=== PATIENT | female | born 1990 | race Caucasian/White ===

== ENCOUNTER → 2017-01-13 | Outpatient (CLI) | payer BC ==
--- NOTE | 2017-01-13 16:44 | US ---
EXAMINATION TYPE: US pelvic complete DATE OF EXAM: 01/13/2017 4:10 PM COMPARISON: Previous study dated 06/26/2016 CLINICAL HISTORY: R10.2 Pelvic pain,N91.2 Amenorrhea. Bilateral pelvic pain around cycles TECHNIQUE: TA Date of LMP: 12/25/2016 EXAM MEASUREMENTS: Uterus: 6.3 x 3.7 x 2.3cm Endometrial Stripe: 0.7cm Right Ovary: 3.1 x 2.3 x 2.2cm Left Ovary: 3.6 x 2.6 x 1.7cm TECHNOLOGIST IMPRESSION: 1. Uterus: Anteverted wnl 2. Endometrium: wnl 3. Right Ovary: wnl 4. Left Ovary: wnl 5. Bilateral Adnexa: wnl 6. Posterior cul-de-sac: wnl There is atelectatic changes within the ovaries. IMPRESSION: NORMAL PELVIC ULTRASOUND.
== END | disposition home or self-care (01) ==
LOC: RADUSWWP 15:59
PROVIDERS: ATTEND Obstetrics & Gynecology
DX: R10.2 Pelvic and perineal pain (principal)
CPT/HCPCS: 76856

== ENCOUNTER → 2017-07-12 | Outpatient (CLI) | payer OTHER ==
--- NOTE | 2017-07-12 13:55 | US ---
EXAMINATION TYPE: US pelvic complete DATE OF EXAM: 07/12/2017 COMPARISON: US [id number] CLINICAL HISTORY: Pelvic pain R10.2. LLQ noted by patient on pelvic exam; TECHNIQUE: Transabdominal (TA) Date of LMP: 07/04/2017 EXAM MEASUREMENTS: Uterus: 6.0 x 3.1 x 2.5 cm Endometrial Stripe: 0.5 cm Right Ovary: 3.7 x 3.0 x 2.3 cm Left Ovary: 4.1 x 1.8 x 1.9 cm 1. Uterus: Anteverted 2. Endometrium: thickness is wnl for day 9LMP 3. Right Ovary: multiple small follicles with largest = 0.8 x 0.7 x 0.6cm 4. Left Ovary: multiple small follicles Spectral, color and waveform Doppler imaging shows good arterial and venous flow within the ovaries ; there is no evidence for ovarian torsion. 5. Bilateral Adnexa: wnl 6. Posterior cul-de-sac: small amount of free fluid noted = 0.8 x 1.0 x 1.1cm IMPRESSION: 1. Normal pelvic ultrasound. 2. Bilateral ovarian follicles.. 3. Small moderate free fluid within the pelvis.
== END | disposition home or self-care (01) ==
LOC: RADUSWWP 11:48
PROVIDERS: ATTEND Obstetrics & Gynecology
DX: R10.2 Pelvic and perineal pain (principal)
CPT/HCPCS: 76856; 93975

== ENCOUNTER 2017-08-15 12:09 | Emergency (ER) | payer OTHER ==
[2017-08-15 12:22] VITALS: BP 101/66; PULSE 100; RESP 18; TEMP 99.1
--- NOTE | 2017-08-15 12:54 | ED ---
General Adult HPI - General Chief complaint: Extremity Injury, Lower Stated complaint: Right Foot Injury Time Seen by Provider: 08/15/17 12:30 Source: patient, RN notes reviewed Mode of arrival: ambulatory Limitations: no limitations - History of Present Illness Initial comments: Patient is 26-year-old female who presents emergency room today with a chief complaint of injury to the right foot that occurred yesterday while she was dancing. She states that she lost her balance falling backwards and twisting the right foot. Patient states pain locally over the top of the right foot worse with certain movements and ambulation. She denies any other complaints or symptoms. Patient denies any recent fever, chills, shortness of breath, chest pain, back pain, abdominal pain, nausea or vomiting, numbness or tingling , dysuria or hematuria, constipation or diarrhea, headaches or visual changes, or any other complaints. - Related Data Home Medications Medication Instructions Recorded Confirmed INSULIN LISPRO (humaLOG) [humaLOG] See Protocol SQ AC-TID 11/11/14 08/15/17 Insulin Glargine [Lantus] 28 unit SQ HS 11/11/14 08/15/17 Allergies Allergy/AdvReac Type Severity Reaction Status Date / Time No Known Allergies Allergy Verified 08/15/17 12:41 Review of Systems ROS Statement: Those systems with pertinent positive or pertinent negative responses have been documented in the HPI. ROS Other: All systems not noted in ROS Statement are negative. Past Medical History Past Medical History: Diabetes Mellitus Additional Past Medical History / Comment(s): Dx 2008 History of Any Multi-Drug Resistant Organisms: None Reported Past Surgical History: Adenoidectomy, Tonsillectomy Additional Past Surgical History / Comment(s): sinus balloon plasty Additional Past Anesthesia/Blood Transfusion Reaction / Comment(s): no transfusions Past Psychological History: Anxiety Smoking Status: Never smoker Past Alcohol Use History: Occasional Past Drug Use History: None Reported - Past Family History Mother Family Medical History: No Reported History Father Family Medical History: No Reported History General Exam - General Exam Comments Initial Comments: General: The patient is awake and alert, in no distress, and does not appear acutely ill. Neck: The neck is supple, there is no tenderness or JVD. Cardiovascular: There is a regular rate and rhythm. No murmur, rub or gallop is appreciated. Respiratory: Lungs are clear to auscultation, respirations are non-labored, breath sounds are equal. No wheezes, stridor, rales, or rhonchi. Musculoskeletal: Mild swelling to the right foot. Patient does have tenderness over the distal second through fifth metatarsals. Mild tenderness over the second through fourth proximal metatarsal. No tenderness to the malleolus bilateral. Mild tenderness in the ATFL. Sensations intact pulses equal bilateral 2+. Patient shows limited range of motion both plantar and dorsiflexion due to pain. No tenderness down to the digits. Mild tenderness to the fibular head. Neurological: A&O x 3. CN II-XII intact, There are no obvious motor or sensory deficits. Coordination appears grossly intact. Speech is normal. Skin: Skin is warm and dry and no rashes or lesions are noted. Psychiatric: Normal mood and affect. Limitations: no limitations Course Vital Signs 08/15/17 12:18 Temperature 99.1 F Pulse Rate 100 Respiratory 18 Rate Blood Pressure 101/66 O2 Sat by Pulse 100 Oximetry Procedures - Procedures Initial comment: Posterior short leg OCL placed. Neurovascular rechecked and intact. Medical Decision Making - Medical Decision Making Patient's x-ray reviewed does show fracture of the fourth metatarsal possible fractures of both the second and third proximal metatarsals. Case was discussed with attending physician Dr. Montano who discussed with on-call orthopedic doctor Dr. Lucas recommends following up in the office tomorrow with Dr. Freedman recommends bulky splint with nonweightbearing. Patient will be given crutches. Has been told no weightbearing. Advised to continue ice elevate the affected area and follow-up with orthopedics tomorrow. Disposition Clinical Impression: Foot fracture Disposition: HOME SELF-CARE Condition: Good Instructions: Foot Fracture in Adults (ED) Additional Instructions: Please use crutches with nonweightbearing. Please follow-up with orthopedic tomorrow. Please see splinted in place until follow-up appointment. Please continue to ice elevate the affected area. Please return for any other concerns. Referrals: Nonstaff,Physician [Primary Care Provider] - 1-2 days Cameron Freedman MD [Medical Doctor] - 1-2 days Time of Disposition: 13:38
--- NOTE | 2017-08-15 13:09 | XR ---
EXAMINATION TYPE: XR ankle complete RT , 3 VIEWS DATE OF EXAM ORDERED: 08/15/2017 HISTORY: Pain. COMPARISON: None. FINDINGS: No fracture, dislocation or ankle joint effusion is seen. IMPRESSION: NORMAL RIGHT ANKLE.
--- NOTE | 2017-08-15 13:11 | XR ---
EXAMINATION TYPE: XR foot complete RT , 3 VIEWS DATE OF EXAM ORDERED: 08/15/2017 HISTORY: Pain. COMPARISON: None. FINDINGS: There is a minimally displaced fracture through the base of the fourth metatarsal. There i s a more questionable fracture involving the base of the third metatarsal. There is some soft tissue swelling over the dorsum of the foot. IMPRESSION: MINIMALLY DISPLACED FRACTURES OF THE BASE OF BOTH THE THIRD AND FOURTH METATARSAL.
== END 2017-08-15 13:55 | disposition home or self-care (01) ==
LOC: EC 12:09
DX: S92.341A Displaced fracture of fourth metatarsal bone, right foot, initial encounter for closed fracture (principal); E11.9 Type 2 diabetes mellitus without complications; Z79.4 Long term (current) use of insulin; W01.0XXA Fall on same level from slipping, tripping and stumbling without subsequent striking against object, initial encounter; Y93.41 Activity, dancing
CPT/HCPCS: 29515; 99283

== ENCOUNTER 2017-09-12 15:32 | Inpatient (IN) | payer BC, OTHER ==
[2017-09-12] MEDS ORDERED: SODIUM CHLORIDE 0.9% 2,000 ML IV STA (17:12)
[2017-09-12] MEDS ORDERED: ONDANSETRON 4 MG/2 ML VIAL IVP STA (17:12)
[2017-09-12] MEDS ORDERED: PANTOPRAZOLE 40 MG/10 ML VIAL IVP STA (17:13)
[2017-09-12 17:26] LABS: Glucose,Whole Blood 322 mg/dL (75-99)
[2017-09-12 17:38] LABS: Basophils # (A) 0.1 k/uL (0-0.2); Basophils % (A) 0 %; CH 31.7; CHCM 34.1; Eosinophils % (A) 0 %; HCT 43.7 % (34.0-46.0); HDW 3.06; HGB 14.9 gm/dL (11.4-16.0); Luc # (Auto) 0.09; Luc % (Auto) 1; Lymphocytes # (A) 1.1 k/uL (1.0-4.8); Lymphocytes % (A) 6 %; MCH 31.8 pg (25.0-35.0); MCHC 34.1 g/dL (31.0-37.0); MCV 93.2 fL (80.0-100.0); Mean Platelet Volume 7.2; Monocytes # (A) 0.7 k/uL (0-1.0); Monocytes % (A) 4 %; Neutrophils # (A) 16.9 k/uL (1.3-7.7); Neutrophils % (A) 89 %; RBC 4.69 m/uL (3.80-5.40); WBC 18.9 k/uL (3.8-10.6); WBC (Perox) 17.27
[2017-09-12 17:45] LABS: VBG PH 7.19 (7.31-7.41)
[2017-09-12 17:48] LABS: ALT 23 U/L (9-52); AST 20 U/L (14-36); Alkaline Phosphatase 145 U/L (38-126); Amylase 87 U/L (30-110); Anion Gap 34 mmol/L; Blood Urea Nitrogen 11 mg/dL (7-17); Calcium 9.7 mg/dL (8.4-10.2); Chloride 102 mmol/L (98-107); Glucose 361 mg/dL (74-99); Non-African American GFR(MDRD) >60 (>60 ml/min/1.73 sqM); Potassium 3.8 mmol/L (3.5-5.1); Sodium 143 mmol/L (137-145); Total Bilirubin 0.7 mg/dL (0.2-1.3); Total Protein 8.9 g/dL (6.3-8.2)
[2017-09-12 17:50] LABS: Carbon Dioxide 7 mmol/L (22-30)
[2017-09-12] MEDS ORDERED: INSULIN REGULAR BOLUS (FROM DRIP BAG) IV ONE (17:51)
[2017-09-12] MEDS ORDERED: METOCLOPRAMIDE 5 MG/ML 2 ML VIAL IVP STA (17:53)
[2017-09-12] MEDS ORDERED: HYDROmorphone 0.5 MG/0.5 ML SYRINGE IVP STA (17:53)
[2017-09-12] MEDS ORDERED: SODIUM CHLORIDE 0.9% 1,000 ML IV SCH (18:00)
--- NOTE | 2017-09-12 18:07 | ED ---
Nausea/Vomiting/Diarrhea HPI - General Chief complaint: Nausea/Vomiting/Diarrhea Stated complaint: Vomiting/Diff Breathing Time Seen by Provider: 09/12/17 17:06 Source: patient, family, RN notes reviewed Mode of arrival: wheelchair Limitations: no limitations - History of Present Illness Initial comments: This a 27-year-old female presents emergency Department chief complaint nausea vomiting abdominal discomfort. Patient states that she's been vomiting over the last 15 hours. Patient states that her blood sugars have been labile. Patient is concerned that she is in DKA. Patient states that she's had it several times in the past. She does not use an insulin pump she states she gives herself injections. 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 Patient denies fever, chills, headache or dizziness. Patient states she's is very nauseated and Vomiting. Patient's Last Blood Sugar Was around 300. - Related Data Home Medications Medication Instructions Recorded Confirmed INSULIN LISPRO (humaLOG) [humaLOG] See Protocol SQ AC-TID 11/11/14 09/12/17 Insulin Glargine [Lantus] 28 unit SQ HS 11/11/14 09/12/17 Allergies Allergy/AdvReac Type Severity Reaction Status Date / Time No Known Allergies Allergy Verified 09/12/17 16:57 Review of Systems ROS Statement: Those systems with pertinent positive or pertinent negative responses have been documented in the HPI. ROS Other: All systems not noted in ROS Statement are negative. Past Medical History Past Medical History: Diabetes Mellitus Additional Past Medical History / Comment(s): Dx 2008 History of Any Multi-Drug Resistant Organisms: None Reported Past Surgical History: Adenoidectomy, Tonsillectomy Additional Past Surgical History / Comment(s): sinus balloon plasty Additional Past Anesthesia/Blood Transfusion Reaction / Comment(s): no transfusions Past Psychological History: Anxiety Smoking Status: Never smoker Past Alcohol Use History: Occasional Past Drug Use History: None Reported - Past Family History Mother Family Medical History: No Reported History Father Family Medical History: No Reported History General Exam Limitations: no limitations General appearance: alert, in no apparent distress Head exam: Present: atraumatic, normocephalic, normal inspection Eye exam: Present: normal appearance, PERRL, EOMI. Absent: scleral icterus, conjunctival injection, periorbital swelling ENT exam: Present: normal exam, normal oropharynx, mucous membranes moist, TM's normal bilaterally, normal external ear exam Neck exam: Present: normal inspection, full ROM. Absent: tenderness, meningismus, lymphadenopathy Respiratory exam: Present: normal lung sounds bilaterally. Absent: respiratory distress, wheezes, rales, rhonchi, stridor Cardiovascular Exam: Present: normal rhythm, tachycardia, normal heart sounds. Absent: systolic murmur, diastolic murmur, rubs, gallop, clicks GI/Abdominal exam: Present: soft, tenderness (Moderate diffuse), normal bowel sounds. Absent: distended, guarding, rebound, rigid Back exam: Absent: CVA tenderness (R), CVA tenderness (L) Neurological exam: Present: alert, oriented X3, CN II-XII intact Skin exam: Present: warm, dry, intact, normal color. Absent: rash Course Vital Signs 09/12/17 15:37 Pulse Rate 110 H Respiratory 18 Rate Blood Pressure 122/83 O2 Sat by Pulse 100 Oximetry Medical Decision Making - Lab Data Result diagrams: 09/12/17 17:22 09/12/17 17:22 Lab Results 09/12/17 09/12/17 09/12/17 Range/Units 16:58 17:22 17:22 WBC 18.9 H (3.8-10.6) k/uL RBC 4.69 (3.80-5.40) m/uL Hgb 14.9 (11.4-16.0) gm/dL Hct 43.7 (34.0-46.0) % MCV 93.2 (80.0-100.0) fL MCH 31.8 (25.0-35.0) pg MCHC 34.1 (31.0-37.0) g/dL RDW 13.0 (11.5-15.5) % Plt Count 332 (150-450) k/uL Neutrophils % 89 % Lymphocytes % 6 % Monocytes % 4 % Eosinophils % 0 % Basophils % 0 % Neutrophils # 16.9 H (1.3-7.7) k/uL Lymphocytes # 1.1 (1.0-4.8) k/uL Monocytes # 0.7 (0-1.0) k/uL Eosinophils # 0.0 (0-0.7) k/uL Basophils # 0.1 (0-0.2) k/uL VBG pH (7.31-7.41) VBG pCO2 (37-51) mmHg VBG HCO3 (24-28) mmol/L Sodium 143 (137-145) mmol/L Potassium 3.8 (3.5-5.1) mmol/L Chloride 102 (98-107) mmol/L Carbon Dioxide 7 L* (22-30) mmol/L Anion Gap 34 mmol/L BUN 11 (7-17) mg/dL Creatinine 0.71 (0.52-1.04) mg/dL Est GFR (MDRD) Af Amer >60 (>60 ml/min/1.73 sqM) Est GFR (MDRD) Non-Af >60 (>60 ml/min/1.73 sqM) Glucose 361 H (74-99) mg/dL POC Glucose (mg/dL) 322 H (75-99) mg/dL POC Glu Senior Health Educator ID Radha Bradshaw Calcium 9.7 (8.4-10.2) mg/dL Total Bilirubin 0.7 (0.2-1.3) mg/dL AST 20 (14-36) U/L ALT 23 (9-52) U/L Alkaline Phosphatase 145 H (38-126) U/L Total Protein 8.9 H (6.3-8.2) g/dL Albumin 5.4 H (3.5-5.0) g/dL Amylase 87 (30-110) U/L Lipase 37 (23-300) U/L Acetone, Qual Positive (Negative) 09/12/17 Range/Units 17:22 WBC (3.8-10.6) k/uL RBC (3.80-5.40) m/uL Hgb (11.4-16.0) gm/dL Hct (34.0-46.0) % MCV (80.0-100.0) fL MCH (25.0-35.0) pg MCHC (31.0-37.0) g/dL RDW (11.5-15.5) % Plt Count (150-450) k/uL Neutrophils % % Lymphocytes % % Monocytes % % Eosinophils % % Basophils % % Neutrophils # (1.3-7.7) k/uL Lymphocytes # (1.0-4.8) k/uL Monocytes # (0-1.0) k/uL Eosinophils # (0-0.7) k/uL Basophils # (0-0.2) k/uL VBG pH 7.19 L* (7.31-7.41) VBG pCO2 25 L (37-51) mmHg VBG HCO3 9 L* (24-28) mmol/L Sodium (137-145) mmol/L Potassium (3.5-5.1) mmol/L Chloride (98-107) mmol/L Carbon Dioxide (22-30) mmol/L Anion Gap mmol/L BUN (7-17) mg/dL Creatinine (0.52-1.04) mg/dL Est GFR (MDRD) Af Amer (>60 ml/min/1.73 sqM) Est GFR (MDRD) Non-Af (>60 ml/min/1.73 sqM) Glucose (74-99) mg/dL POC Glucose (mg/dL) (75-99) mg/dL POC Glu Senior Health Educator ID Calcium (8.4-10.2) mg/dL Total Bilirubin (0.2-1.3) mg/dL AST (14-36) U/L ALT (9-52) U/L Alkaline Phosphatase (38-126) U/L Total Protein (6.3-8.2) g/dL Albumin (3.5-5.0) g/dL Amylase (30-110) U/L Lipase (23-300) U/L Acetone, Qual (Negative) Disposition Clinical Impression: Diabetic ketoacidosis Disposition: ADMITTED IP TO THIS [facility] Condition: Fair Referrals: Michael Post MD [Primary Care Provider] - 1-2 days
[2017-09-12 18:54] LABS: Glucose,Whole Blood 344 mg/dL (75-99)
[2017-09-12] MEDS: INSULIN REGULAR 100 UNIT in SODIUM CHLORIDE 0.9% 100 ML IV SCH (19:00)
[2017-09-12 19:39] LABS: Glucose,Whole Blood 315 mg/dL (75-99)
[2017-09-12 20:17] VITALS: BMI 26.2
[2017-09-12 20:50] LABS: Glucose,Whole Blood 258 mg/dL (75-99)
[2017-09-12 20:55] LABS: Appearance,Urine Clear (Clear); Bilirubin,Urine Negative (Negative); Glucose,Urine (UA) 4+ (Negative); Leukocyte Esterase,Urine Negative (Negative); Nitrite,Urine Negative (Negative); PH, Urine 5.5 (5.0-8.0); Particle Count 642; Protein,Urine 1+ (Negative); RBC,Urine 2 /hpf (0-5); Specific Gravity,Urine 1.019 (1.001-1.035); Squamous Epithelial Cell,Urine <1 /hpf (0-4); UA Billing (MACRO vs. MICRO) MICRO; Urobilinogen,Urine <2.0 mg/dL (<2.0); WBC,Urine 1 /hpf (0-5)
[2017-09-12 20:59] LABS: Ketones,Urine 4+ (Negative)
[2017-09-12] MEDS: D5-0.45% NACL WITH KCL 20MEQ/L 1,000 ML IV SCH (21:24)
[2017-09-12 21:32] LABS: Glucose,Whole Blood 228 mg/dL (75-99)
[2017-09-12] MEDS: BENZOCAINE/MENTHOL LOZENG 1 EACH LOZENGE MUCOUS MEM PRN (22:14)
[2017-09-12 22:16] LABS: Anion Gap 24 mmol/L; Blood Urea Nitrogen 10 mg/dL (7-17); Chloride 114 mmol/L (98-107); Glucose 205 mg/dL (74-99); Non-African American GFR(MDRD) >60 (>60 ml/min/1.73 sqM); Phosphorous 1.9 mg/dL (2.5-4.5); Sodium 147 mmol/L (137-145)
[2017-09-12] MEDS: HYDROmorphone 0.5 MG/0.5 ML SYRINGE IVP PRN (22:18)
[2017-09-12 22:26] LABS: Glucose,Whole Blood 191 mg/dL (75-99)
[2017-09-12 22:33] LABS: Carbon Dioxide 9 mmol/L (22-30)
[2017-09-12] MEDS ORDERED: Potassium Replacement Protocol 1 EACH MISC MISCELLANE PRN (22:46)
[2017-09-12] MEDS: POTASSIUM CHLORIDE ORAL LIQUID 40 MEQ/30 ML CUP NG-TUBE SCH (23:06)
[2017-09-12 23:16] LABS: Glucose,Whole Blood 188 mg/dL (75-99)
[2017-09-12] MEDS: METOCLOPRAMIDE 5 MG/ML 2 ML VIAL IVP SCH (23:18)
[2017-09-13 00:21] LABS: Glucose,Whole Blood 223 mg/dL (75-99)
[2017-09-13] MEDS: POTASSIUM CHLORIDE ORAL LIQUID 40 MEQ/30 ML CUP NG-TUBE SCH (00:23)
[2017-09-13 01:09] LABS: Glucose,Whole Blood 239 mg/dL (75-99)
[2017-09-13 01:21] LABS: Anion Gap 17 mmol/L; Blood Urea Nitrogen 10 mg/dL (7-17); Chloride 115 mmol/L (98-107); Glucose 252 mg/dL (74-99); Non-African American GFR(MDRD) >60 (>60 ml/min/1.73 sqM); Phosphorous 2.3 mg/dL (2.5-4.5); Potassium 3.5 mmol/L (3.5-5.1); Sodium 142 mmol/L (137-145)
[2017-09-13] MEDS: HYDROmorphone 0.5 MG/0.5 ML SYRINGE IVP PRN (01:29)
[2017-09-13 01:31] LABS: Carbon Dioxide 10 mmol/L (22-30)
[2017-09-13 02:26] LABS: Glucose,Whole Blood 216 mg/dL (75-99)
[2017-09-13 03:35] LABS: Glucose,Whole Blood 221 mg/dL (75-99)
[2017-09-13 04:08] LABS: Glucose,Whole Blood 184 mg/dL (75-99)
[2017-09-13] MEDS: D5-0.45% NACL WITH KCL 20MEQ/L 1,000 ML IV SCH ×2 (04:22→10:12)
[2017-09-13 05:13] LABS: Glucose,Whole Blood 143 mg/dL (75-99)
[2017-09-13] MEDS: METOCLOPRAMIDE 5 MG/ML 2 ML VIAL IVP SCH ×3 (05:35→17:09)
[2017-09-13 06:17] LABS: Glucose,Whole Blood 124 mg/dL (75-99)
[2017-09-13 06:30] LABS: Basophils % (A) 0 %; CHCM 34.9; Eosinophils % (A) 0 %; HCT 34.3 % (34.0-46.0); HDW 2.99; Luc # (Auto) 0.08; Luc % (Auto) 1; Lymphocytes # (A) 1.5 k/uL (1.0-4.8); Lymphocytes % (A) 12 %; MCH 31.1 pg (25.0-35.0); MCHC 33.8 g/dL (31.0-37.0); MCV 92.2 fL (80.0-100.0); Mean Platelet Volume 6.5; Monocytes # (A) 0.7 k/uL (0-1.0); Monocytes % (A) 6 %; Neutrophils # (A) 10.2 k/uL (1.3-7.7); Neutrophils % (A) 81 %; RBC 3.72 m/uL (3.80-5.40); RDW 13.1 % (11.5-15.5); WBC 12.5 k/uL (3.8-10.6); WBC (Perox) 12.37
[2017-09-13 06:36] LABS: HGB 11.6 gm/dL (11.4-16.0)
[2017-09-13] MEDS: INSULIN REGULAR 100 UNIT in SODIUM CHLORIDE 0.9% 100 ML IV SCH (06:42)
[2017-09-13 06:51] LABS: ALT 18 U/L (9-52); AST 13 U/L (14-36); Alkaline Phosphatase 86 U/L (38-126); Anion Gap 9 mmol/L; Blood Urea Nitrogen 9 mg/dL (7-17); Calcium 8.4 mg/dL (8.4-10.2); Carbon Dioxide 17 mmol/L (22-30); Chloride 117 mmol/L (98-107); Glucose 141 mg/dL (74-99); Magnesium 1.8 mg/dL (1.6-2.3); Non-African American GFR(MDRD) >60 (>60 ml/min/1.73 sqM); Potassium 3.6 mmol/L (3.5-5.1); Sodium 143 mmol/L (137-145); Total Bilirubin 0.2 mg/dL (0.2-1.3); Total Protein 6.1 g/dL (6.3-8.2)
[2017-09-13 07:04] LABS: Glucose,Whole Blood 113 mg/dL (75-99)
[2017-09-13 08:15] LABS: Glucose,Whole Blood 118 mg/dL (75-99)
[2017-09-13] MEDS ORDERED: ONDANSETRON 4 MG/2 ML VIAL IVP PRN (08:23)
[2017-09-13] MEDS: BENZOCAINE/MENTHOL LOZENG 1 EACH LOZENGE MUCOUS MEM PRN ×2 (10:07→16:59)
[2017-09-13] MEDS ORDERED: INSULIN GLARGINE 100 UNIT/ML 10 ML VIAL SQ ONE (10:10)
[2017-09-13] MEDS ORDERED: SODIUM CHLORIDE 0.9% 1,000 ML IV SCH (10:15)
[2017-09-13 10:56] LABS: Hemoglobin A1C 11.8 % (4.2-6.1)
--- NOTE | 2017-09-13 11:17 | P.NPCON ---
History of Present Illness - Reason for Consult metabolic acidosis - History of Present Illness Reason for consultation: Hypophosphatemia History of present illness: Patient is a 27-year-old female seen in renal consultation for hypophosphatemia. Patient presented to the hospital with elevated blood sugars. Patient states last few days her blood sugars have been quite labile and were in the 300s at the time of admission. She was noted to be extremely acidotic with an elevated anion gap and has been treated per DKA protocol. She is now off insulin drip. Her oral intake has been poor the last few days she's also been having quite a bit of nausea and vomiting. Patient denies any vomiting today. She has started drinking fluids and is gradually starting to eat as well. She denies any chest pain or shortness of breath. Denies any diarrhea. She did have abdominal discomfort from the vomiting which is now improved as well. Her anion gap this morning is 9. Phosphorus level was noted to be low at 1.0. She admits to good urine output. No hematuria or dysuria. States she was diagnosed with diabetes in 2008. Vital signs are stable. General: The patient appeared well nourished and normally developed. HEENT: Head exam is unremarkable. Neck is without jugular venous distension. LUNGS: Lungs are clear to auscultation and percussion. Breath sounds decreased. HEART: Rate and Rhythm are regular. First and second heart sounds normal. No murmurs, rubs or gallops. ABDOMEN: Abdominal exam reveals normal bowel sounds. Non-tender and non- distended. No evidence of peritonitis. EXTREMITITES: No clubbing, cyanosis, or edema. Past Medical History Past Medical History: Diabetes Mellitus Additional Past Medical History / Comment(s): Dx 2008 History of Any Multi-Drug Resistant Organisms: None Reported Past Surgical History: Adenoidectomy, Tonsillectomy Additional Past Surgical History / Comment(s): sinus balloon plasty Additional Past Anesthesia/Blood Transfusion Reaction / Comment(s): no transfusions Past Psychological History: Anxiety Smoking Status: Never smoker Past Alcohol Use History: Occasional Past Drug Use History: None Reported - Past Family History Mother Family Medical History: No Reported History Father Family Medical History: No Reported History Medications and Allergies Home Medications Medication Instructions Recorded Confirmed Type INSULIN LISPRO (humaLOG) [humaLOG] See Protocol SQ AC-TID 11/11/14 09/12/17 History Insulin Glargine [Lantus] 28 unit SQ HS 11/11/14 09/12/17 History Allergies Allergy/AdvReac Type Severity Reaction Status Date / Time No Known Allergies Allergy Verified 09/12/17 16:57 Physical Exam Vitals: Vital Signs Temp Pulse Pulse Resp BP BP Pulse Ox 09/13/17 08:00 98.9 F 107 H 16 113/67 99 09/13/17 04:00 97.5 F L 110 H 16 105/64 98 09/13/17 00:00 105 H 16 103/68 96 09/12/17 20:00 115 H 09/12/17 19:57 97.8 F 115 H 16 132/62 100 09/12/17 19:11 99.0 F 114 H 16 102/55 99 09/12/17 15:37 110 H 18 122/83 100 Intake and Output 09/12/17 09/13/17 09/13/17 22:59 06:59 14:59 Intake Total 18.60 82.400 1030 Balance 18.60 82.400 1030 Intake: Intake, IV Titration 18.60 82.400 550 Amount D5-0.45% NaCl with KCl 450 20Meq/l 1,000 ml @ 150 mls/hr IV .[id number] [facility] Rx# :[id number] Insulin Regular 100 unit 18.60 82.400 In Sodium Chloride 0.9% 100 ml @ 0.1 UNITS/KG/HR 6.18 mls/hr IV .[id number] [facility] Rx#:[id number] Sodium Chloride 0.9% 1, 100 000 ml @ 100 mls/hr IV . Q10H [facility] Rx#:[id number] Oral 480 Other: # Voids 1 1 Weight 65 kg 65.1 kg Results - Lab Results Most recent lab results Calcium 8.4 mg/dL (8.4-10.2) 09/13/17 05:16 Phosphorus 1.0 mg/dL (2.5-4.5) L* 09/13/17 05:16 Magnesium 1.8 mg/dL (1.6-2.3) 09/13/17 05:16 09/13/17 05:16 09/13/17 05:16 Assessment and Plan Plan: Assessment: #1. Hypophosphatemia secondary to poor oral intake as well as intracellular shifting from the insulin as well as correcting acidosis. Phosphorus level I.0 this morning. Rule out vitamin D deficiency. #2. Diabetic ketoacidosis now off insulin drip. Plan: 20 mmol of K-Phos IV today. I will also add Neutra-Phos 3 times a day. Recheck electrolytes tomorrow morning. Encourage oral intake. Check vitamin D level and PTH. Thank you for the consultation. I will continue to follow the patient with you during her hospital stay.
[2017-09-13] MEDS ORDERED: Phosphorus Replacement Protoco 1 EACH MISC MISCELLANE PRN (11:31)
[2017-09-13] MEDS: POTAS-SOD-PHOS 278-164-250 MG 1 EACH PACKET PO SCH ×2 (11:53→16:59)
--- NOTE | 2017-09-13 11:55 | P.HPIM ---
History of Present Illness H&P Date: 09/13/17 Chief Complaint: DKA This is 27 years old female with past medical history significant for diabetes type 1 presents to the hospital with the new onset DKA and the significant nausea vomiting and abdominal pain. 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 The patient seems to be back at baseline at this point stated that she started feeling lethargic but was able to tolerate liquid diet and insulin drip was turned off. The patient denied any recent upper respiratory infection denied any dysuria or urinary symptoms denied any cough or shortness of breath. Review of Systems 14 systems reviewed and negative except as above Past Medical History Past Medical History: Diabetes Mellitus Additional Past Medical History / Comment(s): Dx 2008 History of Any Multi-Drug Resistant Organisms: None Reported Past Surgical History: Adenoidectomy, Tonsillectomy Additional Past Surgical History / Comment(s): sinus balloon plasty Additional Past Anesthesia/Blood Transfusion Reaction / Comment(s): no transfusions Past Psychological History: Anxiety Smoking Status: Never smoker Past Alcohol Use History: Occasional Past Drug Use History: None Reported - Past Family History Mother Family Medical History: No Reported History Father Family Medical History: No Reported History Medications and Allergies Home Medications Medication Instructions Recorded Confirmed Type INSULIN LISPRO (humaLOG) [humaLOG] See Protocol SQ AC-TID 11/11/14 09/12/17 History Insulin Glargine [Lantus] 28 unit SQ HS 11/11/14 09/12/17 History Allergies Allergy/AdvReac Type Severity Reaction Status Date / Time No Known Allergies Allergy Verified 09/12/17 16:57 Physical Exam Vitals: Vital Signs Temp Pulse Pulse Resp BP BP Pulse Ox 09/13/17 11:33 101 H 16 09/13/17 08:00 98.9 F 107 H 16 113/67 99 09/13/17 04:00 97.5 F L 110 H 16 105/64 98 09/13/17 00:00 105 H 16 103/68 96 09/12/17 20:00 115 H 09/12/17 19:57 97.8 F 115 H 16 132/62 100 09/12/17 19:11 99.0 F 114 H 16 102/55 99 09/12/17 15:37 110 H 18 122/83 100 Intake and Output 09/12/17 09/13/17 09/13/17 22:59 06:59 14:59 Intake Total 18.60 82.400 1030 Balance 18.60 82.400 1030 Intake: Intake, IV Titration 18.60 82.400 550 Amount D5-0.45% NaCl with KCl 450 20Meq/l 1,000 ml @ 150 mls/hr IV .[id number] [facility] Rx# :[id number] Insulin Regular 100 unit 18.60 82.400 In Sodium Chloride 0.9% 100 ml @ 0.1 UNITS/KG/HR 6.18 mls/hr IV .[id number] [facility] Rx#:[id number] Sodium Chloride 0.9% 1, 100 000 ml @ 100 mls/hr IV . Q10H [facility] Rx#:[id number] Oral 480 Other: # Voids 1 1 Weight 65 kg 65.1 kg General stated age in no acute distress Lungs clear to auscultation bilaterally Heart normal S1-S2 normal rubs or gallops Abdomen soft not [facility] for [facility] Lower extremity no edema Skin no new rash Psych alert and oriented 3 Neuro cranial nerves II through XII intact no murmur detected that he flexes and sensation Results CBC & Chem 7: 09/13/17 05:16 09/13/17 05:16 Labs: Abnormal Lab Results - Last 24 Hours (Table) 09/12/17 09/12/17 09/12/17 Range/Units 16:58 17:22 17:22 WBC 18.9 H (3.8-10.6) k/uL RBC (3.80-5.40) m/uL Neutrophils # 16.9 H (1.3-7.7) k/uL VBG pH (7.31-7.41) VBG pCO2 (37-51) mmHg VBG HCO3 (24-28) mmol/L Sodium (137-145) mmol/L Potassium (3.5-5.1) mmol/L Chloride (98-107) mmol/L Carbon Dioxide 7 L* (22-30) mmol/L Glucose 361 H (74-99) mg/dL POC Glucose (mg/dL) 322 H (75-99) mg/dL Hemoglobin A1c (4.2-6.1) % Phosphorus (2.5-4.5) mg/dL AST (14-36) U/L Alkaline Phosphatase 145 H (38-126) U/L Total Protein 8.9 H (6.3-8.2) g/dL Albumin 5.4 H (3.5-5.0) g/dL Urine Protein (Negative) Urine Glucose (UA) (Negative) Urine Ketones (Negative) Urine Blood (Negative) 09/12/17 09/12/17 09/12/17 Range/Units 17:22 18:48 19:24 WBC (3.8-10.6) k/uL RBC (3.80-5.40) m/uL Neutrophils # (1.3-7.7) k/uL VBG pH 7.19 L* (7.31-7.41) VBG pCO2 25 L (37-51) mmHg VBG HCO3 9 L* (24-28) mmol/L Sodium (137-145) mmol/L Potassium (3.5-5.1) mmol/L Chloride (98-107) mmol/L Carbon Dioxide (22-30) mmol/L Glucose (74-99) mg/dL POC Glucose (mg/dL) 344 H 315 H (75-99) mg/dL Hemoglobin A1c (4.2-6.1) % Phosphorus (2.5-4.5) mg/dL AST (14-36) U/L Alkaline Phosphatase (38-126) U/L Total Protein (6.3-8.2) g/dL Albumin (3.5-5.0) g/dL Urine Protein (Negative) Urine Glucose (UA) (Negative) Urine Ketones (Negative) Urine Blood (Negative) 09/12/17 09/12/17 09/12/17 Range/Units 20:25 20:39 21:06 WBC (3.8-10.6) k/uL RBC (3.80-5.40) m/uL Neutrophils # (1.3-7.7) k/uL VBG pH (7.31-7.41) VBG pCO2 (37-51) mmHg VBG HCO3 (24-28) mmol/L Sodium (137-145) mmol/L Potassium (3.5-5.1) mmol/L Chloride (98-107) mmol/L Carbon Dioxide (22-30) mmol/L Glucose (74-99) mg/dL POC Glucose (mg/dL) 258 H 228 H (75-99) mg/dL Hemoglobin A1c (4.2-6.1) % Phosphorus (2.5-4.5) mg/dL AST (14-36) U/L Alkaline Phosphatase (38-126) U/L Total Protein (6.3-8.2) g/dL Albumin (3.5-5.0) g/dL Urine Protein 1+ H (Negative) Urine Glucose (UA) 4+ H (Negative) Urine Ketones 4+ H (Negative) Urine Blood Trace H (Negative) 09/12/17 09/12/17 09/12/17 Range/Units 21:41 22:18 23:03 WBC (3.8-10.6) k/uL RBC (3.80-5.40) m/uL Neutrophils # (1.3-7.7) k/uL VBG pH (7.31-7.41) VBG pCO2 (37-51) mmHg VBG HCO3 (24-28) mmol/L Sodium 147 H (137-145) mmol/L Potassium 3.0 L* (3.5-5.1) mmol/L Chloride 114 H (98-107) mmol/L Carbon Dioxide 9 L* (22-30) mmol/L Glucose 205 H (74-99) mg/dL POC Glucose (mg/dL) 191 H 188 H (75-99) mg/dL Hemoglobin A1c (4.2-6.1) % Phosphorus 1.9 L (2.5-4.5) mg/dL AST (14-36) U/L Alkaline Phosphatase (38-126) U/L Total Protein (6.3-8.2) g/dL Albumin (3.5-5.0) g/dL Urine Protein (Negative) Urine Glucose (UA) (Negative) Urine Ketones (Negative) Urine Blood (Negative) 09/13/17 09/13/17 09/13/17 Range/Units 00:07 00:37 01:07 WBC (3.8-10.6) k/uL RBC (3.80-5.40) m/uL Neutrophils # (1.3-7.7) k/uL VBG pH (7.31-7.41) VBG pCO2 (37-51) mmHg VBG HCO3 (24-28) mmol/L Sodium (137-145) mmol/L Potassium (3.5-5.1) mmol/L Chloride 115 H (98-107) mmol/L Carbon Dioxide 10 L* (22-30) mmol/L Glucose 252 H (74-99) mg/dL POC Glucose (mg/dL) 223 H 239 H (75-99) mg/dL Hemoglobin A1c (4.2-6.1) % Phosphorus 2.3 L (2.5-4.5) mg/dL AST (14-36) U/L Alkaline Phosphatase (38-126) U/L Total Protein (6.3-8.2) g/dL Albumin (3.5-5.0) g/dL Urine Protein (Negative) Urine Glucose (UA) (Negative) Urine Ketones (Negative) Urine Blood (Negative) 09/13/17 09/13/17 09/13/17 Range/Units 02:04 03:15 04:02 WBC (3.8-10.6) k/uL RBC (3.80-5.40) m/uL Neutrophils # (1.3-7.7) k/uL VBG pH (7.31-7.41) VBG pCO2 (37-51) mmHg VBG HCO3 (24-28) mmol/L Sodium (137-145) mmol/L Potassium (3.5-5.1) mmol/L Chloride (98-107) mmol/L Carbon Dioxide (22-30) mmol/L Glucose (74-99) mg/dL POC Glucose (mg/dL) 216 H 221 H 184 H (75-99) mg/dL Hemoglobin A1c (4.2-6.1) % Phosphorus (2.5-4.5) mg/dL AST (14-36) U/L Alkaline Phosphatase (38-126) U/L Total Protein (6.3-8.2) g/dL Albumin (3.5-5.0) g/dL Urine Protein (Negative) Urine Glucose (UA) (Negative) Urine Ketones (Negative) Urine Blood (Negative) 09/13/17 09/13/17 09/13/17 Range/Units 05:11 05:16 05:16 WBC (3.8-10.6) k/uL RBC (3.80-5.40) m/uL Neutrophils # (1.3-7.7) k/uL VBG pH (7.31-7.41) VBG pCO2 (37-51) mmHg VBG HCO3 (24-28) mmol/L Sodium (137-145) mmol/L Potassium (3.5-5.1) mmol/L Chloride 117 H (98-107) mmol/L Carbon Dioxide 17 L (22-30) mmol/L Glucose 141 H (74-99) mg/dL POC Glucose (mg/dL) 143 H (75-99) mg/dL Hemoglobin A1c 11.8 H (4.2-6.1) % Phosphorus 1.0 L* (2.5-4.5) mg/dL AST 13 L (14-36) U/L Alkaline Phosphatase (38-126) U/L Total Protein 6.1 L (6.3-8.2) g/dL Albumin 3.4 L (3.5-5.0) g/dL Urine Protein (Negative) Urine Glucose (UA) (Negative) Urine Ketones (Negative) Urine Blood (Negative) 09/13/17 09/13/17 09/13/17 Range/Units 05:16 06:11 07:00 WBC 12.5 H (3.8-10.6) k/uL RBC 3.72 L (3.80-5.40) m/uL Neutrophils # 10.2 H (1.3-7.7) k/uL VBG pH (7.31-7.41) VBG pCO2 (37-51) mmHg VBG HCO3 (24-28) mmol/L Sodium (137-145) mmol/L Potassium (3.5-5.1) mmol/L Chloride (98-107) mmol/L Carbon Dioxide (22-30) mmol/L Glucose (74-99) mg/dL POC Glucose (mg/dL) 124 H 113 H (75-99) mg/dL Hemoglobin A1c (4.2-6.1) % Phosphorus (2.5-4.5) mg/dL AST (14-36) U/L Alkaline Phosphatase (38-126) U/L Total Protein (6.3-8.2) g/dL Albumin (3.5-5.0) g/dL Urine Protein (Negative) Urine Glucose (UA) (Negative) Urine Ketones (Negative) Urine Blood (Negative) 09/13/17 Range/Units 08:00 WBC (3.8-10.6) k/uL RBC (3.80-5.40) m/uL Neutrophils # (1.3-7.7) k/uL VBG pH (7.31-7.41) VBG pCO2 (37-51) mmHg VBG HCO3 (24-28) mmol/L Sodium (137-145) mmol/L Potassium (3.5-5.1) mmol/L Chloride (98-107) mmol/L Carbon Dioxide (22-30) mmol/L Glucose (74-99) mg/dL POC Glucose (mg/dL) 118 H (75-99) mg/dL Hemoglobin A1c (4.2-6.1) % Phosphorus (2.5-4.5) mg/dL AST (14-36) U/L Alkaline Phosphatase (38-126) U/L Total Protein (6.3-8.2) g/dL Albumin (3.5-5.0) g/dL Urine Protein (Negative) Urine Glucose (UA) (Negative) Urine Ketones (Negative) Urine Blood (Negative) Thrombosis Risk Factor Assmnt - DVT/VTE Prophylaxis DVT/VTE Prophylaxis: Mechanical Prophylaxis ordered - Choose All That Apply Any of the Below Risk Factors Present?: No Assessment and Plan Assessment: 1. DKA 2. Leukocytosis 3. Severe dehydration 4. Intractable nausea and vomiting 5. None comprehends with medication 6. Generalized weakness 7. Low phosphorous Patient was weaned off the insulin drip 32] baseline patient is tolerating diet and I would like to consult nephrology for further evaluation with phosphorous replacement and I would like to encourage oral intake continue IV fluid switch it to normal saline at this point and introduce her Lantus dose at this moment with the half dose 14 to be resumed at the nighttime patient said that she has supplies at home and would like to go home sreedhar and samanta introduced with the nursing staff when I discussed with the patient that she can go home if she is tolerating diet and her sugar is less than 200 patient is agreeable to the current treatment plan and will consider discharging patient's upon improvement
[2017-09-13 11:58] LABS: Glucose,Whole Blood 150 mg/dL (75-99)
[2017-09-13] MEDS: POTASSIUM PHOSPHATE 10 MMOL in SODIUM CHLORIDE 0.9% 250 ML IV SCH ×2 (14:18→16:59)
[2017-09-13] MEDS: INSULIN LISPRO (humaLOG) 300 UNIT/3 ML VIAL SQ SCH ×2 (14:19→17:09)
[2017-09-13 16:52] LABS: Glucose,Whole Blood 190 mg/dL (75-99)
[2017-09-13 18:14] VITALS: BP 110/65; PULSE 82; RESP 14; TEMP 97.9
[2017-09-13] MEDS ORDERED: INSULIN GLARGINE 100 UNIT/ML 10 ML VIAL SQ SCH (21:00)
== END 2017-09-13 19:30 | disposition home or self-care (01) | DRG 639 ==
LOC: EC 15:32 → 6SEL 19:13
PROVIDERS: ADMIT Internal Medicine; ATTEND Internal Medicine
DX: E10.10 Type 1 diabetes mellitus with ketoacidosis without coma (principal); E83.39 Other disorders of phosphorus metabolism; D72.829 Elevated white blood cell count, unspecified; E86.0 Dehydration; F41.9 Anxiety disorder, unspecified; Z79.4 Long term (current) use of insulin; R19.7 Diarrhea, unspecified
CPT/HCPCS: 36415; 80051; 80053; 81001; 81025; 82009; 82150; 82306; 82565; 82803; 82947; 83036; 83690; 83735; 83970; 84100; 84520; 85025; 93005; 96361; 96374; 96375; 99285

== ENCOUNTER 2019-08-21 16:16 | Emergency (ER) | payer BC ==
[2019-08-21 16:24] VITALS: BP 134/96; PULSE 96; RESP 18; TEMP 98
--- NOTE | 2019-08-21 17:24 | ED ---
Extremity Problem HPI - General Chief complaint: Extremity Problem,Nontraumatic Stated complaint: toe infection Time Seen by Provider: 08/21/19 16:26 Source: patient Mode of arrival: ambulatory Limitations: no limitations - History of Present Illness Initial comments: Patient is a 29-year-old female, with past medical history of DM1, presenting to emergency Department with complaints of pain in her right big toe 2 days. Patient states she went to [facility] yesterday and they told her she has an ingrown toenail and started her on Keflex and Bactrim. They told her if her symptoms worsen to come in to the ER. Patient states she noticed some increased swelling in her right foot today and wanted to be seen. Patient denies fever, chills, nausea, vomiting. Patient has no further complaints at this time. Upon arrival to ER, vital signs are stable. - Related Data Home Medications Medication Instructions Recorded Confirmed INSULIN LISPRO (humaLOG) [humaLOG] See Protocol SQ AC-TID 11/11/14 08/21/19 Insulin Glargine [Lantus] 26 unit SQ HS 11/11/14 08/21/19 Cephalexin [Keflex] 500 mg PO QID 08/21/19 08/21/19 Sulfamethox-Tmp 800-160Mg [Bactrim 1 tab PO BID 08/21/19 08/21/19 DS 800-160 mg] Allergies Allergy/AdvReac Type Severity Reaction Status Date / Time mold Allergy Dyspnea Verified 08/21/19 16:47 Review of Systems ROS Statement: Those systems with pertinent positive or pertinent negative responses have been documented in the HPI. ROS Other: All systems not noted in ROS Statement are negative. Past Medical History Past Medical History: Diabetes Mellitus Additional Past Medical History / Comment(s): Dx 2008 History of Any Multi-Drug Resistant Organisms: None Reported Past Surgical History: Adenoidectomy, Tonsillectomy Additional Past Surgical History / Comment(s): sinus balloon plasty Additional Past Anesthesia/Blood Transfusion Reaction / Comment(s): no transfusions Past Psychological History: Anxiety Smoking Status: Never smoker Past Alcohol Use History: Occasional Past Drug Use History: None Reported - Past Family History Mother Family Medical History: No Reported History Father Family Medical History: No Reported History General Exam - General Exam Comments Initial Comments: GENERAL: Well-appearing, well-nourished and in no acute distress. HEAD: Atraumatic, normocephalic. EYES: Pupils equal round and reactive to light, extraocular movements intact, sclera anicteric, conjunctiva are normal. ENT: TMs normal, nares patent, oropharynx clear without exudates. Moist mucous membranes. NECK: Normal range of motion, supple without lymphadenopathy or JVD. LUNGS: Breath sounds clear to auscultation bilaterally and equal. No wheezes rales or rhonchi. HEART: Regular rate and rhythm without murmurs, rubs or gallops. ABDOMEN: Soft, nontender, normoactive bowel sounds. No guarding, no rebound. No masses appreciated. : Deferred EXTREMITIES: Patient has pain with palpation of the right lateral aspect of the big toe with surrounding erythema and active drainage. Patient has very mild swelling of the dorsal aspect of the right foot. There is no erythema on the right foot. Normal range of motion. No clubbing or cyanosis. NEUROLOGICAL: Cranial nerves II through XII grossly intact. Normal speech, normal gait. PSYCH: Normal mood, normal affect. SKIN: Warm, Dry, normal turgor, no rashes. Limitations: no limitations Course Vital Signs 08/21/19 16:21 Temperature 98.0 F Pulse Rate 96 Respiratory 18 Rate Blood Pressure 134/96 O2 Sat by Pulse 100 Oximetry Medical Decision Making - Medical Decision Making Patient is a 29-year-old female presenting with what appears to be an ingrown toenail on her right great toe. Patient is a type I diabetic. No other pertinent past medical history. Patient has surrounding erythema and active drainage on the lateral aspect of her right big toe. Patient has very mild swelling present the right distal foot. There is no spreading erythema present. Patient is currently on Bactrim and Keflex that was started yesterday. Patient denies fever, chills, nausea, vomiting. There is active draining from the site. It is discussed with patient that she should continue with the Bactrim and Keflex that was started yesterday. Patient will also do warm water soaks multiple times throughout the day. Patient will follow-up with PCP or student records coordinator in the next few days. Strict return parameters were discussed with the patient and she verbalized understanding. Disposition Clinical Impression: Paronychia of great toe, right Disposition: HOME SELF-CARE Condition: Stable Instructions (If sedation given, give patient instructions): Ingrown Nail (ED) Additional Instructions: Please return to the Emergency Department if symptoms worsen or any other concerns. Continue with both antibiotics as discussed. Use warm water soaks multiple times a day as discussed. Is patient prescribed a controlled substance at d/c from ED?: No Referrals: Michael Post MD [Primary Care Provider] - 1-2 days
== END 2019-08-21 17:51 | disposition home or self-care (01) ==
LOC: EC 16:16
DX: L03.031 Cellulitis of right toe (principal); E10.9 Type 1 diabetes mellitus without complications; Z79.4 Long term (current) use of insulin; Z91.048 Other nonmedicinal substance allergy status
CPT/HCPCS: 99283

== ENCOUNTER 2019-12-05 05:50 | Inpatient (IN) | payer BC ==
[2019-12-05] MEDS ORDERED: SODIUM CHLORIDE 0.9% 1,000 ML IV ONE ×2 (06:07→06:37)
[2019-12-05] MEDS ORDERED: SODIUM CHLORIDE 0.9% 500 ML 500 ML IV ONE (06:07)
--- NOTE | 2019-12-05 06:22 | ED ---
Nausea/Vomiting/Diarrhea HPI <Sami Montano - Last Filed: 12/05/19 08:23> - General Source: patient Mode of arrival: ambulatory Limitations: no limitations <Aurea Huggins - Last Filed: 12/05/19 08:40> - General Chief complaint: Nausea/Vomiting/Diarrhea Stated complaint: vomiting, diabetic Time Seen by Provider: 12/05/19 06:04 - History of Present Illness Initial comments: 29-year-old female presenting today for cc of vomiting concern for DKA. Patient states that she has had a URI for the past week as have other in her household, cough and congestion. Patient states that she has had higher than usual blood glucose readings for the past few days, with 2 days of vomiting, SOB that feels similar to when she has had DKA in the past her glucose today was 375. Patient denies chest pain, headache, neck stiffness, sore throat, dysuria or urgency. Admits to increased frequency of urination. Patient remaining ROS (-). Upon arrival patient appears nontoxic. (Aurea Huggins) - Related Data Home Medications Medication Instructions Recorded Confirmed INSULIN LISPRO (humaLOG) [humaLOG] See Protocol SQ AC-TID 11/11/14 12/05/19 Insulin Glargine [Lantus] 26 unit SQ HS 11/11/14 12/05/19 Allergies Allergy/AdvReac Type Severity Reaction Status Date / Time mold AdvReac Dyspnea Verified 12/05/19 07:47 Review of Systems ROS Other: All systems not noted in ROS Statement are negative. <Sami Montano - Last Filed: 12/05/19 08:23> ROS Other: All systems not noted in ROS Statement are negative. <Aurea Huggins - Last Filed: 12/05/19 08:40> ROS Statement: Those systems with pertinent positive or pertinent negative responses have been documented in the HPI. Past Medical History Past Medical History: Diabetes Mellitus Additional Past Medical History / Comment(s): Dx 2009, IBS History of Any Multi-Drug Resistant Organisms: None Reported Past Surgical History: Adenoidectomy, Tonsillectomy Additional Past Surgical History / Comment(s): sinus balloon plasty Additional Past Anesthesia/Blood Transfusion Reaction / Comment(s): no transfusions Past Psychological History: Anxiety Smoking Status: Never smoker Past Alcohol Use History: Occasional Past Drug Use History: None Reported - Past Family History Mother Family Medical History: No Reported History Father Family Medical History: No Reported History <Aurea Huggins - Last Filed: 12/05/19 08:40> General Exam Limitations: no limitations <Aurea Huggins - Last Filed: 12/05/19 08:40> - General Exam Comments Initial Comments: General: The patient is awake and alert Eye: +3 mm pupils are equal, round and reactive to light, extra-ocular movements are intact. No nystagmus. There is normal conjunctiva bilaterally. No signs of icterus. Ears, nose, mouth and throat: There are moist mucous membranes and no oral lesions. Neck: The neck is supple, there is no tenderness or JVD. Cardiovascular: There is a increased rate and rhythm. No murmur, rub or gallop is appreciated. Respiratory: Lungs are clear to auscultation, respirations are non-labored, breath sounds are equal. No wheezes, stridor, rales, or rhonchi. Gastrointestinal: Soft, non-distended, non-tender abdomen without masses or organomegaly noted. There is no rebound or guarding present. Musculoskeletal: Normal ROM, no tenderness. Strength 5/5. Sensation intact. Radial pulses equal bilaterally 2+. Neurological: A&O x 3. CN II-XII intact grossly, There are no obvious motor or sensory deficits. Coordination appears grossly intact. Speech is normal. Skin: Skin is warm and dry and no rashes or lesions are noted. Psychiatric: Cooperative, appropriate mood & affect, normal judgment. (Aurea Huggins) Course Vital Signs 12/05/19 12/05/19 12/05/19 06:00 06:56 08:03 Temperature 98 F Pulse Rate 113 H 119 H 116 H Respiratory 18 20 20 Rate Blood Pressure 92/66 85/63 112/55 O2 Sat by Pulse 99 96 100 Oximetry Medical Decision Making - Lab Data Result diagrams: 12/05/19 06:30 12/05/19 06:30 <Smai Montano - Last Filed: 12/05/19 08:23> - Lab Data Result diagrams: 12/05/19 06:30 12/05/19 06:30 <Aurea Huggins - Last Filed: 12/05/19 08:40> - Medical Decision Making Patient reevaluated by myself, Dr. Montano. Patient resting comfortably in bed. Patient does have dry. Lips and mild diffuse abdominal tenderness. Patient states symptoms started a couple of days ago and has had some nausea vomiting. Patient and family state patient has had similar symptoms previous associated with DKA. Patient and family updated on results and plan. Case was discussed in detail with Dr. Hall, who will admit. Case also discussed Dr. Richmond who will consult for critical care. (Sami Montano) 29yo presenting for vomiting, possible DKA> Found to be acetone +. +ketone consistent with DKA. Patient appears dry on exam, given 1.5L, and maintenance at 200ml/hr. Insulin bolus and drip initiated, K+ and Phosphorus stable. no EKG changes, patient on tele. Patient has URI prior to onset of symptoms, likely inciting event. Influenza (-). CXR (-) . After discussing case with Dr. Montano we will admit patient on telemetry and on insulin drip. Patient agreeable to care plan. Client Support Representative was consulted, Both selective and ICU holding at this time, patient will remain in the ER. 35 minutes of critical care time was spent, taking history, PE, reevaluations, discussing results with admitting/attending providers/patient, care management. (Aurea Huggins) - Lab Data Lab Results 12/05/19 12/05/19 12/05/19 Range/Units 06:24 06:30 06:30 WBC 11.8 H (3.8-10.6) k/uL RBC 4.29 (3.80-5.40) m/uL Hgb 13.3 (11.4-16.0) gm/dL Hct 41.4 (34.0-46.0) % MCV 96.4 (80.0-100.0) fL MCH 31.0 (25.0-35.0) pg MCHC 32.2 (31.0-37.0) g/dL RDW 12.6 (11.5-15.5) % Plt Count 215 (150-450) k/uL Neutrophils % 90 % Lymphocytes % 5 % Monocytes % 3 % Eosinophils % 0 % Basophils % 1 % Neutrophils # 10.6 H (1.3-7.7) k/uL Lymphocytes # 0.6 L (1.0-4.8) k/uL Monocytes # 0.4 (0-1.0) k/uL Eosinophils # 0.0 (0-0.7) k/uL Basophils # 0.1 (0-0.2) k/uL VBG pH (7.31-7.41) VBG pCO2 (37-51) mmHg VBG HCO3 (24-28) mmol/L Sodium 132 L (137-145) mmol/L Potassium 5.5 H (3.5-5.1) mmol/L Chloride 99 (98-107) mmol/L Carbon Dioxide 5 L* (22-30) mmol/L Anion Gap 28 mmol/L BUN 20 H (7-17) mg/dL Creatinine 0.96 (0.52-1.04) mg/dL Est GFR (CKD-EPI)AfAm >90 (>60 ml/min/1.73 sqM) Est GFR (CKD-EPI)NonAf 81 (>60 ml/min/1.73 sqM) Glucose 618 H* (74-99) mg/dL POC Glucose (mg/dL) >600 H (75-99) mg/dL POC Glu Shoe Reconditioner ID Matty Lujan Calcium 8.8 (8.4-10.2) mg/dL Phosphorus 5.2 H (2.5-4.5) mg/dL Magnesium 1.9 (1.6-2.3) mg/dL Total Bilirubin 0.9 (0.2-1.3) mg/dL AST 30 (14-36) U/L ALT 17 (4-34) U/L Alkaline Phosphatase 118 (38-126) U/L Total Protein 7.1 (6.3-8.2) g/dL Albumin 4.0 (3.5-5.0) g/dL Urine Color Urine Appearance (Clear) Urine pH (5.0-8.0) Ur Specific [place] (1.001-1.035) Urine Protein (Negative) Urine Glucose (UA) (Negative) Urine Ketones (Negative) Urine Blood (Negative) Urine Nitrite (Negative) Urine Bilirubin (Negative) Urine Urobilinogen (<2.0) mg/dL Ur Leukocyte Esterase (Negative) Urine RBC (0-5) /hpf Urine WBC (0-5) /hpf Ur Squamous Epith Cells (0-4) /hpf Urine Mucus (None) /hpf Acetone, Qual (Negative) Influenza Type A RNA (Not Detectd) Influenza Type B (PCR) (Not Detectd) 12/05/19 12/05/19 12/05/19 Range/Units 06:30 06:30 06:30 WBC (3.8-10.6) k/uL RBC (3.80-5.40) m/uL Hgb (11.4-16.0) gm/dL Hct (34.0-46.0) % MCV (80.0-100.0) fL MCH (25.0-35.0) pg MCHC (31.0-37.0) g/dL RDW (11.5-15.5) % Plt Count (150-450) k/uL Neutrophils % % Lymphocytes % % Monocytes % % Eosinophils % % Basophils % % Neutrophils # (1.3-7.7) k/uL Lymphocytes # (1.0-4.8) k/uL Monocytes # (0-1.0) k/uL Eosinophils # (0-0.7) k/uL Basophils # (0-0.2) k/uL VBG pH 7.16 L* (7.31-7.41) VBG pCO2 16 L* (37-51) mmHg VBG HCO3 6 L* (24-28) mmol/L Sodium (137-145) mmol/L Potassium (3.5-5.1) mmol/L Chloride (98-107) mmol/L Carbon Dioxide (22-30) mmol/L Anion Gap mmol/L BUN (7-17) mg/dL Creatinine (0.52-1.04) mg/dL Est GFR (CKD-EPI)AfAm (>60 ml/min/1.73 sqM) Est GFR (CKD-EPI)NonAf (>60 ml/min/1.73 sqM) Glucose (74-99) mg/dL POC Glucose (mg/dL) (75-99) mg/dL POC Glu Shoe Reconditioner ID Calcium (8.4-10.2) mg/dL Phosphorus (2.5-4.5) mg/dL Magnesium (1.6-2.3) mg/dL Total Bilirubin (0.2-1.3) mg/dL AST (14-36) U/L ALT (4-34) U/L Alkaline Phosphatase (38-126) U/L Total Protein (6.3-8.2) g/dL Albumin (3.5-5.0) g/dL Urine Color Light Yellow Urine Appearance Clear (Clear) Urine pH 5.0 (5.0-8.0) Ur Specific [place] 1.025 (1.001-1.035) Urine Protein Trace H (Negative) Urine Glucose (UA) 4+ H (Negative) Urine Ketones 4+ H (Negative) Urine Blood Trace H (Negative) Urine Nitrite Negative (Negative) Urine Bilirubin Negative (Negative) Urine Urobilinogen <2.0 (<2.0) mg/dL Ur Leukocyte Esterase Negative (Negative) Urine RBC <1 (0-5) /hpf Urine WBC <1 (0-5) /hpf Ur Squamous Epith Cells <1 (0-4) /hpf Urine Mucus Rare H (None) /hpf Acetone, Qual (Negative) Influenza Type A RNA Not Detected (Not Detectd) Influenza Type B (PCR) Not Detected (Not Detectd) 12/05/19 12/05/19 Range/Units 06:30 07:29 WBC (3.8-10.6) k/uL RBC (3.80-5.40) m/uL Hgb (11.4-16.0) gm/dL Hct (34.0-46.0) % MCV (80.0-100.0) fL MCH (25.0-35.0) pg MCHC (31.0-37.0) g/dL RDW (11.5-15.5) % Plt Count (150-450) k/uL Neutrophils % % Lymphocytes % % Monocytes % % Eosinophils % % Basophils % % Neutrophils # (1.3-7.7) k/uL Lymphocytes # (1.0-4.8) k/uL Monocytes # (0-1.0) k/uL Eosinophils # (0-0.7) k/uL Basophils # (0-0.2) k/uL VBG pH (7.31-7.41) VBG pCO2 (37-51) mmHg VBG HCO3 (24-28) mmol/L Sodium (137-145) mmol/L Potassium (3.5-5.1) mmol/L Chloride (98-107) mmol/L Carbon Dioxide (22-30) mmol/L Anion Gap mmol/L BUN (7-17) mg/dL Creatinine (0.52-1.04) mg/dL Est GFR (CKD-EPI)AfAm (>60 ml/min/1.73 sqM) Est GFR (CKD-EPI)NonAf (>60 ml/min/1.73 sqM) Glucose (74-99) mg/dL POC Glucose (mg/dL) 566 H (75-99) mg/dL POC Glu Shoe Reconditioner ID Angelique Anderson Calcium (8.4-10.2) mg/dL Phosphorus (2.5-4.5) mg/dL Magnesium (1.6-2.3) mg/dL Total Bilirubin (0.2-1.3) mg/dL AST (14-36) U/L ALT (4-34) U/L Alkaline Phosphatase (38-126) U/L Total Protein (6.3-8.2) g/dL Albumin (3.5-5.0) g/dL Urine Color Urine Appearance (Clear) Urine pH (5.0-8.0) Ur Specific [place] (1.001-1.035) Urine Protein (Negative) Urine Glucose (UA) (Negative) Urine Ketones (Negative) Urine Blood (Negative) Urine Nitrite (Negative) Urine Bilirubin (Negative) Urine Urobilinogen (<2.0) mg/dL Ur Leukocyte Esterase (Negative) Urine RBC (0-5) /hpf Urine WBC (0-5) /hpf Ur Squamous Epith Cells (0-4) /hpf Urine Mucus (None) /hpf Acetone, Qual Positive (Negative) Influenza Type A RNA (Not Detectd) Influenza Type B (PCR) (Not Detectd) - EKG Data EKG Comments: Ventricular rate 118 bpm, IA interval 148 ms, QR station 72 ms, QT/QTC 322/451. This is sinus tachycardia. There is no ST elevation or depression noted. No delta wave. Nonspecific T-wave (Aurea Huggins) Disposition <Sami Montano - Last Filed: 12/05/19 08:23> Is patient prescribed a controlled substance at d/c from ED?: No Time of Disposition: 07:42 Decision to Admit Reason: Admit from EC Decision Date: 12/05/19 Decision Time: 07:42 <Aurea Huggins - Last Filed: 12/05/19 08:40> Clinical Impression: Vomiting, DKA (diabetic ketoacidoses), Dehydration Disposition: ADMITTED IP TO THIS [facility] Condition: Serious
[2019-12-05 06:28] LABS: Glucose,Whole Blood >600 mg/dL (75-99)
[2019-12-05] MEDS: SODIUM CHLORIDE 0.9% 1,000 ML IV SCH ×2 (06:30→09:44)
[2019-12-05 06:46] LABS: Basophils # (A) 0.1 k/uL (0-0.2); Basophils % (A) 1 %; Eosinophils % (A) 0 %; HCT 41.4 % (34.0-46.0); HGB 13.3 gm/dL (11.4-16.0); Lymphocytes # (A) 0.6 k/uL (1.0-4.8); Lymphocytes % (A) 5 %; MCHC 32.2 g/dL (31.0-37.0); MCV 96.4 fL (80.0-100.0); Mean Platelet Volume 8.3; Monocytes # (A) 0.4 k/uL (0-1.0); Monocytes % (A) 3 %; Neutrophils # (A) 10.6 k/uL (1.3-7.7); Neutrophils % (A) 90 %; Platelet Count 215 k/uL (150-450); RBC 4.29 m/uL (3.80-5.40); RDW 12.6 % (11.5-15.5); WBC 11.8 k/uL (3.8-10.6)
[2019-12-05 06:51] LABS: VBG PH 7.16 (7.31-7.41)
[2019-12-05 06:56] LABS: Appearance,Urine Clear (Clear); Bilirubin,Urine Negative (Negative); Blood,Urine Trace (Negative); Color,Urine Light Yellow; Glucose,Urine (UA) 4+ (Negative); Leukocyte Esterase,Urine Negative (Negative); Mucus,Urine Rare /hpf; Nitrite,Urine Negative (Negative); Protein,Urine Trace (Negative); RBC,Urine <1 /hpf (0-5); Specific Gravity,Urine 1.025 (1.001-1.035); Squamous Epithelial Cell,Urine <1 /hpf (0-4); Urobilinogen,Urine <2.0 mg/dL (<2.0); WBC,Urine <1 /hpf (0-5)
[2019-12-05] MEDS ORDERED: INSULIN REGULAR BOLUS (FROM DRIP BAG) IV ONE (06:59)
[2019-12-05 07:02] LABS: ALT 17 U/L (4-34); AST 30 U/L (14-36); African American GFR (CKD) >90 (>60 ml/min/1.73 sqM); Alkaline Phosphatase 118 U/L (38-126); Blood Urea Nitrogen 20 mg/dL (7-17); Calcium 8.8 mg/dL (8.4-10.2); Chloride 99 mmol/L (98-107); Magnesium 1.9 mg/dL (1.6-2.3); Non-African American GFR(CKD) 81 (>60 ml/min/1.73 sqM); Phosphorus 5.2 mg/dL (2.5-4.5); Potassium 5.5 mmol/L (3.5-5.1); Sodium 132 mmol/L (137-145); Total Bilirubin 0.9 mg/dL (0.2-1.3); Total Protein 7.1 g/dL (6.3-8.2)
[2019-12-05 07:07] LABS: Anion Gap 28 mmol/L
[2019-12-05 07:09] LABS: Glucose 618 mg/dL (74-99)
[2019-12-05 07:10] LABS: Carbon Dioxide 5 mmol/L (22-30)
[2019-12-05 07:20] LABS: Ketones,Urine 4+ (Negative)
[2019-12-05 07:30] LABS: Glucose,Whole Blood 566 mg/dL (75-99)
[2019-12-05] MEDS: INSULIN REGULAR 100 UNIT in SODIUM CHLORIDE 0.9% 100 ML IV SCH ×2 (07:31→17:04)
[2019-12-05] MEDS ORDERED: MORPHINE SULFATE 2 MG/ML SYRINGE IVP STA (07:42)
[2019-12-05] MEDS ORDERED: ONDANSETRON 4 MG/2 ML VIAL IVP STA (07:42)
--- NOTE | 2019-12-05 08:14 | XR ---
EXAMINATION TYPE: XR chest 2V DATE OF EXAM: 12/05/2019 COMPARISON: Prior chest x-ray dated 06/10/2015 HISTORY: Cough and congestion TECHNIQUE: Frontal and lateral views of the chest are obtained. FINDINGS: There is no focal air space opacity, pleural effusion, or pneumothorax seen. The cardiac silhouette size is within normal limits. The osseous structures are intact. There is bronchial wall thickening. IMPRESSION: Correlate for bronchitis, follow-up as indicated
[2019-12-05 08:58] LABS: Glucose,Whole Blood 474 mg/dL (75-99)
[2019-12-05 09:46] LABS: Glucose,Whole Blood 403 mg/dL (75-99)
[2019-12-05 10:04] LABS: African American GFR (CKD) >90 (>60 ml/min/1.73 sqM); Blood Urea Nitrogen 20 mg/dL (7-17); Chloride 107 mmol/L (98-107); Glucose 475 mg/dL (74-99); Non-African American GFR(CKD) 85 (>60 ml/min/1.73 sqM); Phosphorus 3.9 mg/dL (2.5-4.5); Sodium 137 mmol/L (137-145)
[2019-12-05 10:10] LABS: Anion Gap 23 mmol/L
[2019-12-05 10:19] LABS: Carbon Dioxide 7 mmol/L (22-30)
[2019-12-05 10:48] LABS: Glucose,Whole Blood 330 mg/dL (75-99)
[2019-12-05 10:58] LABS: Amylase 50 U/L (30-110)
[2019-12-05] MEDS: MORPHINE SULFATE 2 MG/ML SYRINGE IVP PRN ×3 (11:17→21:10)
[2019-12-05 11:21] VITALS: BMI 25.9
[2019-12-05 11:52] LABS: Glucose,Whole Blood 257 mg/dL (75-99)
[2019-12-05] MEDS: D5-0.45% NACL WITH KCL 20MEQ/L 1,000 ML IV SCH ×2 (12:05→19:15)
[2019-12-05 12:46] LABS: Glucose,Whole Blood 196 mg/dL (75-99)
--- NOTE | 2019-12-05 13:35 | P.CNPUL ---
History of Present Illness Consult date: 12/05/19 Requesting physician: Belle Hall Reason for consult: other (Acute diabetic ketoacidosis) Chief complaint: Nausea vomiting abdominal pain and elevated blood sugar History of present illness: This is a 29-year-old female with history of type 1 diabetes, compliant with her insulin, however over the last week, the patient came down with symptoms of URI like many other family members were had similar symptoms. Patient developed mostly cough and congestion, and her sugars have been running high in the last few days. She has been complaining of nausea vomiting and vague abdominal discomfort for the last 2 days. Patient was also experiencing increased urination, and when she arrived to the ER, her blood sugar was over 600. She had positive ketones, and she had a significant anion gap metabolic acidosis. Patient was treated for DKA, admitted to the ICU with the diagnosis of acute diabetic ketoacidosis. And I was asked to see her on consultation. Presently the patient is on IV fluids 0.9 normal saline at 200 mL/h, and she is receiving insulin at 6 units per hour. Fluid boluses in the form of 0.9 normal saline were given in the ER. Influenza screening in the ER was negative. Review of Systems Constitutional: Weakness fatigue malaise no fever. No chills at present. HEENT: Denies any earache, no sore throat, she had a week ago symptoms of URI/resolved. Pulmonary: No cough no wheezing no shortness of breath. No chest pain. Cardiac: Denies any palpitations denies any chest pain, denies any syncope. GI: As noted in HPI, mostly nausea vomiting and vague abdominal discomfort. Genitourinary: Frequent urination. No dysuria. No burning sensation on urination. No hematuria. Mus[place] skeletal: Vague aches and pains. Weakness. Psychiatric: Denies any symptoms of active depression. Neurologic: Denies any headache blurred vision or dizziness. Skin: Denies any rashes. Hematologic: Denies any clotting bleeding or bruising. Past Medical History Past Medical History: Diabetes Mellitus, Pneumonia Additional Past Medical History / Comment(s): Current URI, IDDM type II, bilateral retinopathy with injections, DKA, IBS/constipation, bronchitis, febrile seizure at 3 yrs of age History of Any Multi-Drug Resistant Organisms: None Reported Past Surgical History: Adenoidectomy, Tonsillectomy Additional Past Surgical History / Comment(s): sinus balloon plasty, wisdom teeth extractions. Past Anesthesia/Blood Transfusion Reactions: No Reported Reaction Additional Past Anesthesia/Blood Transfusion Reaction / Comment(s): no transfusions Smoking Status: Never smoker - Past Family History Mother Family Medical History: No Reported History Additional Family Medical History / Comment(s): Mother is healthy. Father Family Medical History: No Reported History Additional Family Medical History / Comment(s): Father is healthy Medications and Allergies Home Medications Medication Instructions Recorded Confirmed Type INSULIN LISPRO (humaLOG) [humaLOG] See Protocol SQ AC-TID 11/11/14 12/05/19 History Insulin Glargine [Lantus] 26 unit SQ HS 11/11/14 12/05/19 History Allergies Allergy/AdvReac Type Severity Reaction Status Date / Time mold AdvReac Dyspnea Verified 12/05/19 07:47 Physical Exam Vitals: Vital Signs Temp Pulse Resp BP Pulse Ox 12/05/19 12:00 105 H 19 102/68 12/05/19 11:00 110 H 18 96/60 12/05/19 10:32 98.3 F 110 H 17 95/65 99 12/05/19 09:41 111 H 18 93/62 99 12/05/19 08:03 116 H 20 112/55 100 12/05/19 06:56 119 H 20 85/63 96 12/05/19 06:00 98 F 113 H 18 92/66 99 Intake and Output 12/04/19 12/05/19 12/05/19 22:59 06:59 14:59 Intake Total 377.321 Output Total 900 Balance -522.679 Intake: Intake, IV Titration 377.321 Amount D5-0.45% NaCl with KCl 150 20Meq/l 1,000 ml @ 150 mls/hr IV .[id number] [facility] Rx# :[id number] Insulin Regular 100 unit 27.321 In Sodium Chloride 0.9% 100 ml @ 0.1 UNITS/KG/HR 6.505 mls/hr IV .[id number] [facility] Rx#:[id number] Sodium Chloride 0.9% 1, 200 000 ml @ 200 mls/hr IV . Q5H [facility] Rx#:[id number] Output: Urine 900 Other: Voiding Method Bedside Commode Weight 64.41 kg 64.41 kg Physical Exam: Revealed a 29-year-old female pleasant in no distress. Head: Atraumatic, normocephalic. HEENT:[Neck is supple.] [No neck masses.] [No thyromegaly.] [No JVD.] Chest: [Clear throughout, no crackles, no rhonchi, no wheezes.] Cardiac Exam: [Normal S1 and S2, no S3 gallop, no murmur.] Abdomen: [Soft, slightly tender left upper quadrant on palpation, no rebound, no guarding.] Extremities: [No clubbing, no edema, no cyanosis.] Neurological Exam: [No focal neurologic deficit.] Alert oriented 3. Psychiatric: Normal mood affect and normal mental status examination. Skin: No rashes. Lymphatics: No lymphadenopathy. Musko skeletal no deformities noted limitation range of motion. Muscle strength adequate. Results - Laboratory Findings CBC and BMP: 12/05/19 06:30 12/05/19 08:51 Abnormal lab findings: Abnormal Labs 12/05/19 12/05/19 12/05/19 06:24 06:30 06:30 WBC 11.8 H Neutrophils # 10.6 H Lymphocytes # 0.6 L VBG pH VBG pCO2 VBG HCO3 Sodium 132 L Potassium 5.5 H Carbon Dioxide 5 L* BUN 20 H Glucose 618 H* POC Glucose (mg/dL) >600 H Phosphorus 5.2 H Urine Protein Urine Glucose (UA) Urine Ketones Urine Blood Urine Mucus 12/05/19 12/05/19 12/05/19 06:30 06:30 07:29 WBC Neutrophils # Lymphocytes # VBG pH 7.16 L* VBG pCO2 16 L* VBG HCO3 6 L* Sodium Potassium Carbon Dioxide BUN Glucose POC Glucose (mg/dL) 566 H Phosphorus Urine Protein Trace H Urine Glucose (UA) 4+ H Urine Ketones 4+ H Urine Blood Trace H Urine Mucus Rare H 12/05/19 12/05/19 12/05/19 08:39 08:51 09:41 WBC Neutrophils # Lymphocytes # VBG pH VBG pCO2 VBG HCO3 Sodium Potassium Carbon Dioxide 7 L* BUN 20 H Glucose 475 H POC Glucose (mg/dL) 474 H 403 H Phosphorus Urine Protein Urine Glucose (UA) Urine Ketones Urine Blood Urine Mucus 12/05/19 12/05/1920 10:36 11:41 12:34 WBC Neutrophils # Lymphocytes # VBG pH VBG pCO2 VBG HCO3 Sodium Potassium Carbon Dioxide BUN Glucose POC Glucose (mg/dL) 330 H 257 H 196 H Phosphorus Urine Protein Urine Glucose (UA) Urine Ketones Urine Blood Urine Mucus - Diagnostic Findings Chest x-ray: image reviewed (Chest x-ray no evidence of pneumonia.) Assessment and Plan Assessment: Impression: Acute diabetic ketoacidosis. Most likely triggered by recent URI. Intractable nausea and vomiting secondary to DKA. Severe dehydration. Anion gap metabolic acidosis secondary to DKA. Recommendation: Continue IV fluids in the form of 0.9 normal saline at 200 mL per hour. Continue insulin drip. Continue to follow the protocol/DKA protocol. Will continue to follow while in the ICU. Start the GI and DVT prophylaxis. Time with Patient: Greater than 30
[2019-12-05 13:51] LABS: Glucose,Whole Blood 186 mg/dL (75-99)
--- NOTE | 2019-12-05 13:57 | P.HPIM ---
History of Present Illness H&P Date: 12/05/19 This is a 29-year-old pleasant female patient of Dr. Post, see Dr. Sanchez endocrinology at [facility], history of diabetes mellitus type 1 since June 2000 99H 17, admitted to the emergency room secondary to nausea vomiting and diarrhea. Patient has been sick for the past 2 days, also mom was also sick, seems symptoms, except that they have shared a meal at [employer], for which he also had some salad together. Patient thereafter complaining of abdominal cramps, diarrhea nonbloody, no mucus, she did not skip any of her insulin, she was still taking her Lantus 26 units at at bedtime, and a sliding scale. Sugars were in the 300s, and was found to be in DKA, and was subsequently admitted to ICU. Her last DKA episode was in 2017, with severe dehydration. Patient denies any current dysuria melena or hematuria, no headache, no sinus congestion, patient hasn't seen her spout liner for long- term, however her sugars at home was in the 100s per patient. In the emergency room, influenza test was negative, chest x-ray failed to reveal any infiltrates, ER labs shows hemoglobin of 13, WBC count 11.8, CO2 was 17, blood gases venous shows pH of 716, pCO2 of 16, bicarb of 6 creatinine of 0.9, glucose was 495, liver function test is normal, urinalysis is normal except for ketones. [place] 1.025, 4+ glucose. [place] 1.025, glucose trace proteinuria Review of Systems Constitutional: Reports as per HPI, Reports chills, Denies anorexia, Denies chronic headaches, Denies chronic pain, Denies daytime sleepiness, Denies fatigue, Denies fever, Denies lethargy, Denies malaise, Denies night sweats, Denies poor appetite, Denies sweats, Denies weakness, Denies weight gain, Denies weight loss Ears, nose, mouth and throat: Reports as per HPI, Denies ant. neck pain, Denies bleeding gums, Denies dental pain, Denies dysphagia, Denies epistaxis, Denies headache, Denies hoarseness, Denies mouth pain, Denies nasal congestion, Denies nasal discharge, Denies neck fullness/pressure, Denies neck lump, Denies nose pain, Denies odynophagia, Denies post-nasal drip, Denies sinus pain, Denies sinus pressure, Denies swelling in mouth, Denies swelling in throat, Denies sore throat, Denies vertigo, Denies voice changes Cardiovascular: Reports as per HPI Respiratory: Reports as per HPI, Denies congestion, Denies cough, Denies cough with sputum, Denies dyspnea, Denies excessive sputum, Denies hemoptysis, Denies home oxygen, Denies pain, Denies pain on inspiration, Denies pleurisy, Denies respiratory infections, Denies sleep apnea, Denies snoring, Denies wheezing Gastrointestinal: Reports as per HPI, Reports abdominal pain, Reports diarrhea, Reports indigestion, Reports nausea, Reports vomiting, Denies belching, Denies bloating, Denies BRBPR, Denies change in bowel habits, Denies coffee ground emesis, Denies constipation, Denies early satiety, Denies excessive gas, Denies heartburn, Denies hematemesis, Denies hematochezia, Denies jaundice, Denies lactose intolerance, Denies loss of appetite, Denies melena Genitourinary: Reports as per HPI, Denies abnormal vaginal bleeding, Denies decreased libido, Denies difficulty conceiving, Denies difficulty voiding, Denies dysmenorrhea, Denies dyspareunia, Denies dysuria, Denies flank pain, Denies genital sores, Denies hematuria, Denies hot flashes, Denies incomplete emptying, Denies kidney stones, Denies menorrhagia, Denies mixed incontinence, Denies nocturia, Denies pelvic pain, Denies post void dribbling, Denies , Denies prolapse symptoms, Denies stress incontinence, Denies urge incontinence, Denies urgency, Denies urinary frequency, Denies vaginal di scharge, Denies vaginal dryness, Denies vaginal itching, Denies vaginal odor Menstruation: Reports as per HPI, Denies amenorrhea, Denies amenorrhea on BC, Denies currently menstrual, Denies cycle < 21 days, Denies cycle > 35 days, Denies cycle variable, Denies menses 1-7 days, Denies menses 8 or > days, Denies menses variable, Denies period heavy, Denies period light, Denies period normal, Denies period spotting, Denies post hysterectomy, Denies postmenopausal, Denies premenarcheal Musculoskeletal: Reports as per HPI, Denies arm numbness/tingling, Denies atrophy, Denies fractures, Denies frequent falls, Denies gait dysfunction, Denies hot joints, Denies leg numbness/tingling, Denies limitation of motion, Denies loss of height, Denies low back pain, Denies morning stiffness, Denies muscle cramps, Denies muscle weakness, Denies myalgias, Denies neck pain, Denies neck stiffness, Denies prior amputations, Denies redness of joints, Denies sh ooting arm pain, Denies shooting leg pain Integumentary: Reports as per HPI, Denies acne, Denies boils, Denies brittle nails, Denies change in hair/nails, Denies color changes, Denies darkening of skin, Denies depigmentation, Denies dryness, Denies foot/leg ulcers, Denies gr owths, Denies hirsutism, Denies lesions, Denies onychomycosis, Denies pruritus, Denies rash, Denies sores, Denies striae, Denies unusual bruising, Denies wounds Neurological: Reports as per HPI, Denies aphasia, Denies ataxia, Denies balance difficulties, Denies burning pain, Denies change in mentation, Denies change in smell/taste, Denies change in speech, Denies confusion, Denies convulsions, Denies double vision, Denies gait dysfunction, Denies head injury, Denies head aches, Denies hearing difficulties, Denies lack of coordination, Denies loss of vision, Denies memory loss, Denies migraines, Denies motor disturbance, Denies numbness, Denies paralysis, Denies paresthesias, Denies seizures, Denies sensory deficit, Denies spasticity, Denies syncope, Denies tic, Denies tingling, Denies transient paralysis, Denies tremors, Denies vertigo, Denies weakness, Denies vis ual changes Psychiatric: Reports as per HPI Endocrine: Reports as per HPI Hematologic/Lymphatic: Reports as per HPI, Denies easy bleeding, Denies easy bruising, Denies lymphadenopathy, Denies lymphedema, Denies thrombophilia Allergic/Immunologic: Reports as per HPI Past Medical History Past Medical History: Diabetes Mellitus, Pneumonia Additional Past Medical History / Comment(s): Current URI, IDDM type II, bilateral retinopathy with injections, DKA, IBS/constipation, bronchitis, febrile seizure at 3 yrs of age History of Any Multi-Drug Resistant Organisms: None Reported Past Surgical History: Adenoidectomy, Tonsillectomy Additional Past Surgical History / Comment(s): sinus balloon plasty, wisdom teeth extractions. Past Anesthesia/Blood Transfusion Reactions: No Reported Reaction Additional Past Anesthesia/Blood Transfusion Reaction / Comment(s): no transfusions Smoking Status: Never smoker - Past Family History Mother Family Medical History: No Reported History Additional Family Medical History / Comment(s): Mother is healthy. Father Family Medical History: No Reported History Additional Family Medical History / Comment(s): Father is healthy Medications and Allergies Home Medications Medication Instructions Recorded Confirmed Type INSULIN LISPRO (humaLOG) [humaLOG] See Protocol SQ AC-TID 11/11/14 12/05/19 History Insulin Glargine [Lantus] 26 unit SQ HS 11/11/14 12/05/19 History Allergies Allergy/AdvReac Type Severity Reaction Status Date / Time mold AdvReac Dyspnea Verified 12/05/19 07:47 Physical Exam Vitals: Vital Signs Temp Pulse Resp BP Pulse Ox 12/05/19 12:00 105 H 19 102/68 12/05/19 11:00 110 H 18 96/60 12/05/19 10:32 98.3 F 110 H 17 95/65 99 12/05/19 09:41 111 H 18 93/62 99 12/05/19 08:03 116 H 20 112/55 100 12/05/19 06:56 119 H 20 85/63 96 12/05/19 06:00 98 F 113 H 18 92/66 99 Intake and Output 12/04/19 12/05/19 12/05/19 22:59 06:59 14:59 Intake Total 377.321 Output Total 900 Balance -522.679 Intake: Intake, IV Titration 377.321 Amount D5-0.45% NaCl with KCl 150 20Meq/l 1,000 ml @ 150 mls/hr IV .[id number] SIMONA Rx# :[id number] Insulin Regular 100 unit 27.321 In Sodium Chloride 0.9% 100 ml @ 0.1 UNITS/KG/HR 6.505 mls/hr IV .[id number] SIMONA Rx#:[id number] Sodium Chloride 0.9% 1, 200 000 ml @ 200 mls/hr IV . Q5H SIMONA Rx#:[id number] Output: Urine 900 Other: Voiding Method Bedside Commode Weight 64.41 kg 64.41 kg - Constitutional General appearance: average body habitus, cooperative, no acute distress - EENT Eyes: anicteric sclerae, EOMI, PERRLA, dentition normal, normal appearance ENT: NA/AT, normal oropharynx - Neck Neck: normal ROM - Respiratory Respiratory: bilateral: CTA, negative: diminished, dullness, rales - Cardiovascular Rhythm: regular Heart sounds: normal: S1, S2 Abnormal Heart Sounds: no systolic murmur, no diastolic murmur, no rub, no S3 Gallop, no S4 Gallop, no click, no other - Gastrointestinal General gastrointestinal: normal bowel sounds Localized gastrointestinal: tender: diffuse - Integumentary Integumentary: decreased turgor, normal - Neurologic Neurologic: CNII-XII intact - Musculoskeletal Musculoskeletal: gait normal, strength equal bilaterally - Psychiatric Psychiatric: A&O x's 3, appropriate affect, intact judgment & insight Results CBC & Chem 7: 12/05/19 06:30 12/05/19 08:51 Labs: Abnormal Lab Results - Last 24 Hours (Table) 12/05/19 12/05/19 12/05/19 Range/Units 06:24 06:30 06:30 WBC 11.8 H (3.8-10.6) k/uL Neutrophils # 10.6 H (1.3-7.7) k/uL Lymphocytes # 0.6 L (1.0-4.8) k/uL VBG pH (7.31-7.41) VBG pCO2 (37-51) mmHg VBG HCO3 (24-28) mmol/L Sodium 132 L (137-145) mmol/L Potassium 5.5 H (3.5-5.1) mmol/L Carbon Dioxide 5 L* (22-30) mmol/L BUN 20 H (7-17) mg/dL Glucose 618 H* (74-99) mg/dL POC Glucose (mg/dL) >600 H (75-99) mg/dL Phosphorus 5.2 H (2.5-4.5) mg/dL Urine Protein (Negative) Urine Glucose (UA) (Negative) Urine Ketones (Negative) Urine Blood (Negative) Urine Mucus (None) /[facility] 12/05/19 12/05/19 12/05/19 Range/Units 06:30 06:30 07:29 WBC (3.8-10.6) k/uL Neutrophils # (1.3-7.7) k/uL Lymphocytes # (1.0-4.8) k/uL VBG pH 7.16 L* (7.31-7.41) VBG pCO2 16 L* (37-51) mmHg VBG HCO3 6 L* (24-28) mmol/L Sodium (137-145) mmol/L Potassium (3.5-5.1) mmol/L Carbon Dioxide (22-30) mmol/L BUN (7-17) mg/dL Glucose (74-99) mg/dL POC Glucose (mg/dL) 566 H (75-99) mg/dL Phosphorus (2.5-4.5) mg/dL Urine Protein Trace H (Negative) Urine Glucose (UA) 4+ H (Negative) Urine Ketones 4+ H (Negative) Urine Blood Trace H (Negative) Urine Mucus Rare H (None) /[facility] 12/05/19 12/05/19 12/05/19 Range/Units 08:39 08:51 09:41 WBC (3.8-10.6) k/uL Neutrophils # (1.3-7.7) k/uL Lymphocytes # (1.0-4.8) k/uL VBG pH (7.31-7.41) VBG pCO2 (37-51) mmHg VBG HCO3 (24-28) mmol/L Sodium (137-145) mmol/L Potassium (3.5-5.1) mmol/L Carbon Dioxide 7 L* (22-30) mmol/L BUN 20 H (7-17) mg/dL Glucose 475 H (74-99) mg/dL POC Glucose (mg/dL) 474 H 403 H (75-99) mg/dL Phosphorus (2.5-4.5) mg/dL Urine Protein (Negative) Urine Glucose (UA) (Negative) Urine Ketones (Negative) Urine Blood (Negative) Urine Mucus (None) /[facility] 01/14/20 01/14/20 01/14/20 Range/Units 10:36 11:41 12:34 WBC (3.8-10.6) k/uL Neutrophils # (1.3-7.7) k/uL Lymphocytes # (1.0-4.8) k/uL VBG pH (7.31-7.41) VBG pCO2 (37-51) mmHg VBG HCO3 (24-28) mmol/L Sodium (137-145) mmol/L Potassium (3.5-5.1) mmol/L Carbon Dioxide (22-30) mmol/L BUN (7-17) mg/dL Glucose (74-99) mg/dL POC Glucose (mg/dL) 330 H 257 H 196 H (75-99) mg/dL Phosphorus (2.5-4.5) mg/dL Urine Protein (Negative) Urine Glucose (UA) (Negative) Urine Ketones (Negative) Urine Blood (Negative) Urine Mucus (None) /hpf Microbiology - Last 24 Hours (Table) 12/05/19 06:30 Urine Culture - Preliminary Urine,Voided Laboratory Results WBC 11.8 k/uL (3.8-10.6) H 12/05/19 06:30 RBC 4.29 m/uL (3.80-5.40) 12/05/19 06:30 Hgb 13.3 gm/dL (11.4-16.0) 12/05/19 06:30 Hct 41.4 % (34.0-46.0) 12/05/19 06:30 MCV 96.4 fL (80.0-100.0) 12/05/19 06:30 MCH 31.0 pg (25.0-35.0) 12/05/19 06:30 MCHC 32.2 g/dL (31.0-37.0) 12/05/19 06:30 RDW 12.6 % (11.5-15.5) 12/05/19 06:30 Plt Count 215 k/uL (150-450) 12/05/19 06:30 Neutrophils % 90 % 12/05/19 06:30 Lymphocytes % 5 % 12/05/19 06:30 Monocytes % 3 % 12/05/19 06:30 Eosinophils % 0 % 12/05/19 06:30 Basophils % 1 % 12/05/19 06:30 Neutrophils # 10.6 k/uL (1.3-7.7) H 12/05/19 06:30 Lymphocytes # 0.6 k/uL (1.0-4.8) L 12/05/19 06:30 Monocytes # 0.4 k/uL (0-1.0) 12/05/19 06:30 Eosinophils # 0.0 k/uL (0-0.7) 12/05/19 06:30 Basophils # 0.1 k/uL (0-0.2) 12/05/19 06:30 VBG pH 7.16 (7.31-7.41) L* 12/05/19 06:30 VBG pCO2 16 mmHg (37-51) L* 12/05/19 06:30 VBG HCO3 6 mmol/L (24-28) L* 12/05/19 06:30 Sodium 137 mmol/L (137-145) 12/05/19 08:51 Potassium 4.0 mmol/L (3.5-5.1) 12/05/19 08:51 Chloride 107 mmol/L (98-107) 12/05/19 08:51 Carbon Dioxide 7 mmol/L (22-30) L* 12/05/19 08:51 Anion Gap 23 mmol/L 12/05/19 08:51 BUN 20 mg/dL (7-17) H 12/05/19 08:51 Creatinine 0.93 mg/dL (0.52-1.04) 12/05/19 08:51 Est GFR (CKD-EPI)AfAm >90 (>60 ml/min/1.73 sqM) 12/05/19 08:51 Est GFR (CKD-EPI)NonAf 85 (>60 ml/min/1.73 sqM) 12/05/19 08:51 Glucose 475 mg/dL (74-99) H 12/05/19 08:51 POC Glucose (mg/dL) 196 mg/dL (75-99) H 12/05/19 12:34 POC Glu Electron [employer]der ID , 12/05/19 12:34 Calcium 8.8 mg/dL (8.4-10.2) 12/05/19 06:30 Phosphorus 3.9 mg/dL (2.5-4.5) 12/05/19 08:51 Magnesium 1.9 mg/dL (1.6-2.3) 12/05/19 06:30 Total Bilirubin 0.9 mg/dL (0.2-1.3) 12/05/19 06:30 AST 30 U/L (14-36) 12/05/19 06:30 ALT 17 U/L (4-34) 12/05/19 06:30 Alkaline Phosphatase 118 U/L (38-126) 12/05/19 06:30 Total Protein 7.1 g/dL (6.3-8.2) 12/05/19 06:30 Albumin 4.0 g/dL (3.5-5.0) 12/05/19 06:30 Amylase 50 U/L (30-110) 12/05/19 08:51 Lipase 71 U/L (23-300) 12/05/19 08:51 Urine Color Light Yellow 12/05/19 06:30 Urine Appearance Clear (Clear) 12/05/19 06:30 Urine pH 5.0 (5.0-8.0) 12/05/19 06:30 Ur Specific [place] 1.025 (1.001-1.035) 12/05/19 06:30 Urine Protein Trace (Negative) H 12/05/19 06:30 Urine Glucose (UA) 4+ (Negative) H 12/05/19 06:30 Urine Ketones 4+ (Negative) H 12/05/19 06:30 Urine Blood Trace (Negative) H 12/05/19 06:30 Urine Nitrite Negative (Negative) 12/05/19 06:30 Urine Bilirubin Negative (Negative) 12/05/19 06:30 Urine Urobilinogen <2.0 mg/dL (<2.0) 12/05/19 06:30 Ur Leukocyte Esterase Negative (Negative) 12/05/19 06:30 Urine RBC <1 /hpf (0-5) 12/05/19 06:30 Urine WBC <1 /hpf (0-5) 12/05/19 06:30 Ur Squamous Epith Cells <1 /hpf (0-4) 12/05/19 06:30 Urine Mucus Rare /hpf (None) H 12/05/19 06:30 Acetone, Qual Positive (Negative) 12/05/19 06:30 Influenza Type A RNA Not Detected (Not Detectd) 12/05/19 06:30 Influenza Type B (PCR) Not Detected (Not Detectd) 12/05/19 06:30 Thrombosis Risk Factor Assmnt - DVT/VTE Prophylaxis DVT/VTE Prophylaxis: Low risk, early ambulation encouraged - Choose All That Apply Any of the Below Risk Factors Present?: Yes Each Factor Represents 1 point: Hx of IBD, Obesity (BMI >25) Other Risk Factors: No Other congenital or acquired thrombophilia - If yes, enter type in comment: No Thrombosis Risk Factor Assessment Total Risk Factor Score: 2 Thrombosis Risk Factor Assessment Level: Low Risk Assessment and Plan Plan: 1. Acute DKA, most likely secondary to viral gastroenteritis, suspect norovirus, however multiple gastro-enteritis are self-limiting, patient would have to be managed medically secondary to acid chips, IV fluids, insulin drip, and IV hydration is aggressive. Patient is ICU, consult with Dr. Marin pulmonary medicine serial blood ketones to be monitored, hemoglobin A1c 2. Diabetes mellitus type 1 seen in 2008, pH 17, patient was compliant to medications per self, patient currently is on insulin drip, a hemoglobin A1c to be monitored, and blood sugar monitoring per ICU protocol for DKA 3. Metabolic acidosis secondary to DKA, on sodium bicarb drip, 4. Acute azotemia, secondary dehydration from gastroenteritis, IV fluids for hydration 5. GI prophylaxis with IV Protonix 6. DVT prophylaxis with ambulation, low risk
[2019-12-05] MEDS: PANTOPRAZOLE 40 MG/10 ML VIAL IVP SCH (14:36)
[2019-12-05] MEDS: ONDANSETRON 4 MG/2 ML VIAL IVP PRN ×3 (14:36→21:09)
[2019-12-05] MEDS: CHOLESTYRAMINE (WITH SUGAR) 4 GM PACKET PO SCH (14:36)
[2019-12-05 14:43] LABS: Glucose,Whole Blood 182 mg/dL (75-99)
[2019-12-05 15:03] LABS: African American GFR (CKD) >90 (>60 ml/min/1.73 sqM); Anion Gap 7 mmol/L; Blood Urea Nitrogen 17 mg/dL (7-17); Carbon Dioxide 19 mmol/L (22-30); Chloride 111 mmol/L (98-107); Glucose 183 mg/dL (74-99); Non-African American GFR(CKD) >90 (>60 ml/min/1.73 sqM); Potassium 3.9 mmol/L (3.5-5.1); Sodium 137 mmol/L (137-145)
[2019-12-05 16:03] LABS: Glucose,Whole Blood 148 mg/dL (75-99)
[2019-12-05 17:11] LABS: Glucose,Whole Blood 145 mg/dL (75-99)
[2019-12-05 18:09] LABS: Glucose,Whole Blood 133 mg/dL (75-99)
[2019-12-05] MEDS: INSULIN DETEMIR (LEVEMIR) 100 UNIT/ML SYR SQ SCH (19:15)
[2019-12-05 19:27] LABS: Glucose,Whole Blood 163 mg/dL (75-99)
[2019-12-05] MEDS ORDERED: INSULIN ASPART (NovoLOG) 100 UNIT/ML VIAL SQ SCH (21:00)
[2019-12-05 21:24] LABS: Glucose,Whole Blood 193 mg/dL (75-99)
[2019-12-05 22:44] LABS: African American GFR (CKD) >90 (>60 ml/min/1.73 sqM); Anion Gap 9 mmol/L; Blood Urea Nitrogen 15 mg/dL (7-17); Carbon Dioxide 16 mmol/L (22-30); Chloride 108 mmol/L (98-107); Non-African American GFR(CKD) >90 (>60 ml/min/1.73 sqM); Phosphorus 2.3 mg/dL (2.5-4.5); Potassium 3.9 mmol/L (3.5-5.1); Sodium 133 mmol/L (137-145)
[2019-12-06 02:24] LABS: Glucose,Whole Blood 257 mg/dL (75-99)
[2019-12-06] MEDS: INSULIN ASPART (NovoLOG) 100 UNIT/ML VIAL SQ SCH ×5 (02:33→20:47)
[2019-12-06] MEDS: ONDANSETRON 4 MG/2 ML VIAL IVP PRN ×3 (04:45→13:37)
[2019-12-06] MEDS: MORPHINE SULFATE 2 MG/ML SYRINGE IVP PRN ×4 (04:47→19:58)
[2019-12-06 05:17] LABS: Basophils # (A) 0.1 k/uL (0-0.2); Basophils % (A) 1 %; Eosinophils % (A) 0 %; HCT 32.8 % (34.0-46.0); Lymphocytes # (A) 1.1 k/uL (1.0-4.8); Lymphocytes % (A) 19 %; MCH 30.8 pg (25.0-35.0); MCHC 33.4 g/dL (31.0-37.0); MCV 92.3 fL (80.0-100.0); Monocytes # (A) 0.3 k/uL (0-1.0); Monocytes % (A) 6 %; Neutrophils # (A) 4.2 k/uL (1.3-7.7); Neutrophils % (A) 73 %; Platelet Count 170 k/uL (150-450); RBC 3.56 m/uL (3.80-5.40); RDW 12.7 % (11.5-15.5); WBC 5.8 k/uL (3.8-10.6)
[2019-12-06 05:51] LABS: African American GFR (CKD) >90 (>60 ml/min/1.73 sqM); Anion Gap 5 mmol/L; Blood Urea Nitrogen 13 mg/dL (7-17); Calcium 7.4 mg/dL (8.4-10.2); Carbon Dioxide 20 mmol/L (22-30); Chloride 108 mmol/L (98-107); Glucose 193 mg/dL (74-99); Non-African American GFR(CKD) >90 (>60 ml/min/1.73 sqM); Phosphorus 1.7 mg/dL (2.5-4.5); Potassium 3.4 mmol/L (3.5-5.1); Sodium 133 mmol/L (137-145)
[2019-12-06] MEDS ORDERED: Phosphorus Replacement Protoco 1 EACH MISC MISCELLANE PRN (05:53)
[2019-12-06] MEDS: POTASSIUM PHOSPHATE 10 MMOL in SODIUM CHLORIDE 0.9% 250 ML IV SCH ×2 (06:57→08:56)
[2019-12-06 07:04] LABS: Glucose,Whole Blood 150 mg/dL (75-99)
[2019-12-06] MEDS: PANTOPRAZOLE 40 MG/10 ML VIAL IVP SCH (08:55)
[2019-12-06] MEDS: CHOLESTYRAMINE (WITH SUGAR) 4 GM PACKET PO SCH (11:40)
[2019-12-06] MEDS: IOPAMIDOL CONTRAST (ORAL USE) VIAL PO PRN ×2 (11:43→12:35)
[2019-12-06 12:00] LABS: Glucose,Whole Blood 118 mg/dL (75-99)
--- NOTE | 2019-12-06 12:35 | P.GSCN ---
History of Present Illness Consult date: 12/06/19 Reason for Consult: abdominal pain Requesting physician: Bronson Richmond History of present illness: CHIEF COMPLAINT: Abdominal pain HISTORY OF PRESENT ILLNESS: 29-year-old female was admitted to the hospital secondary to DKA. Patient has been complaining of generalized abdominal pain. General surgery was consulted for further evaluation. Patient examined in intensive care unit with Dr. Slaughter. Patient reports her pain is tolerable at this time. She states it is not too bad when she is at rest. She does have pain upon palpation however. She is tolerating diet. She reports some nausea. Denies vomiting. PAST MEDICAL HISTORY: See list. PAST SURGICAL HISTORY: See list. SOCIAL HISTORY: No illicit drug use. REVIEW OF SYSTEMS: CONSTITUTIONAL: Denies fever or chills. HEENT: Denies blurred vision, vision changes, or eye pain. Denies hemoptysis CARDIOVASCULAR: Denies chest pain or pressure. RESPIRATORY: No shortness of breath. GASTROINTESTINAL: Refer to HPI for pertinent findings HEMATOLOGIC: Denies bleeding disorders. GENITOURINARY: Denies any blood in urine. SKIN: Denies pruitis. Denies rash. PHYSICAL EXAM: VITAL SIGNS: Reviewed. GENERAL: Well-developed in no acute distress. HEENT: No sclera icterus. Extraocular movements grossly intact. Moist buccal mucosa. Head is atraumatic, normocephalic. ABDOMEN: Soft. Distended. Diffuse abdominal tenderness, more severe in bilateral upper quadrants. NEUROLOGIC: Alert and oriented. Cranial nerves II through XII grossly intact. LABORATORY DATA: WBC 5.8. Hemoglobin 11.0. Platelet count 170. Sodium 133. Potassium 3.4. BUN 13. Creatinine 0.68. ASSESSMENT: 1. Abdominal pain 2. DKA PLAN: Continue diet as tolerated Continue antiemetics PRN Obtain CT abdomen pelvis with IV and oral contrast Further recommendations pending CT results Thank you for this consultation Nurse practitioner note has been reviewed by physician. Signing provider agrees with the documented findings, assessment, and plan of care. Past Medical History Past Medical History: Diabetes Mellitus, Pneumonia Additional Past Medical History / Comment(s): Current URI, IDDM type I, bilateral retinopathy with injections, DKA, IBS/constipation, bronchitis, febrile seizure at 3 yrs of age History of Any Multi-Drug Resistant Organisms: None Reported Past Surgical History: Adenoidectomy, Tonsillectomy Additional Past Surgical History / Comment(s): sinus balloon plasty, wisdom teeth extractions. Past Anesthesia/Blood Transfusion Reactions: No Reported Reaction Additional Past Anesthesia/Blood Transfusion Reaction / Comm: no transfusions Past Psychological History: Anxiety Additional Psychological History / Comment(s): Pt resides with 2 roomates. She has a dog. She is independent. Smoking Status: Never smoker Past Alcohol Use History: Occasional Past Drug Use History: None Reported - Past Family History Mother Family Medical History: No Reported History Additional Family Medical History / Comment(s): Mother is healthy. Father Family Medical History: No Reported History Additional Family Medical History / Comment(s): Father is healthy Medications and Allergies Home Medications Medication Instructions Recorded Confirmed Type INSULIN LISPRO (humaLOG) [humaLOG] See Protocol SQ AC-TID 11/11/14 12/05/19 History Insulin Glargine [Lantus] 26 unit SQ HS 11/11/14 12/05/19 History Allergies Allergy/AdvReac Type Severity Reaction Status Date / Time mold AdvReac Dyspnea Verified 12/05/19 07:47 Surgical - Exam Vital Signs Temp Pulse Resp BP Pulse Ox 98 F 113 H 18 92/66 99 12/05/19 06:00 12/05/19 06:00 12/05/19 06:00 12/05/19 06:00 12/05/19 06:00 Results - Labs 12/06/19 04:26 12/06/19 04:26 Abnormal Lab Results - Last 24 Hours (Table) 12/05/19 12/05/19 12/05/19 Range/Units 12:34 13:39 14:32 RBC (3.80-5.40) m/uL Hgb (11.4-16.0) gm/dL Hct (34.0-46.0) % Sodium (137-145) mmol/L Potassium (3.5-5.1) mmol/L Chloride 111 H (98-107) mmol/L Carbon Dioxide 19 L (22-30) mmol/L Glucose 183 H (74-99) mg/dL POC Glucose (mg/dL) 196 H 186 H (75-99) mg/dL Hemoglobin A1c (4.0-6.0) % Calcium (8.4-10.2) mg/dL Phosphorus 2.0 L (2.5-4.5) mg/dL 12/05/19 12/05/19 12/05/19 Range/Units 14:32 15:51 17:00 RBC (3.80-5.40) m/uL Hgb (11.4-16.0) gm/dL Hct (34.0-46.0) % Sodium (137-145) mmol/L Potassium (3.5-5.1) mmol/L Chloride (98-107) mmol/L Carbon Dioxide (22-30) mmol/L Glucose (74-99) mg/dL POC Glucose (mg/dL) 182 H 148 H 145 H (75-99) mg/dL Hemoglobin A1c (4.0-6.0) % Calcium (8.4-10.2) mg/dL Phosphorus (2.5-4.5) mg/dL 12/05/19 12/05/19 12/05/19 Range/Units 17:58 19:14 21:12 RBC (3.80-5.40) m/uL Hgb (11.4-16.0) gm/dL Hct (34.0-46.0) % Sodium (137-145) mmol/L Potassium (3.5-5.1) mmol/L Chloride (98-107) mmol/L Carbon Dioxide (22-30) mmol/L Glucose (74-99) mg/dL POC Glucose (mg/dL) 133 H 163 H 193 H (75-99) mg/dL Hemoglobin A1c (4.0-6.0) % Calcium (8.4-10.2) mg/dL Phosphorus (2.5-4.5) mg/dL 12/05/19 12/06/19 12/06/19 Range/Units 22:19 02:13 04:26 RBC (3.80-5.40) m/uL Hgb (11.4-16.0) gm/dL Hct (34.0-46.0) % Sodium 133 L (137-145) mmol/L Potassium (3.5-5.1) mmol/L Chloride 108 H (98-107) mmol/L Carbon Dioxide 16 L (22-30) mmol/L Glucose (74-99) mg/dL POC Glucose (mg/dL) 257 H (75-99) mg/dL Hemoglobin A1c 16.0 H (4.0-6.0) % Calcium (8.4-10.2) mg/dL Phosphorus 2.3 L (2.5-4.5) mg/dL 12/06/19 12/06/19 12/06/19 Range/Units 04:26 04:26 06:52 RBC 3.56 L (3.80-5.40) m/uL Hgb 11.0 L (11.4-16.0) gm/dL Hct 32.8 L (34.0-46.0) % Sodium 133 L (137-145) mmol/L Potassium 3.4 L (3.5-5.1) mmol/L Chloride 108 H (98-107) mmol/L Carbon Dioxide 20 L (22-30) mmol/L Glucose 193 H (74-99) mg/dL POC Glucose (mg/dL) 150 H (75-99) mg/dL Hemoglobin A1c (4.0-6.0) % Calcium 7.4 L (8.4-10.2) mg/dL Phosphorus 1.7 L (2.5-4.5) mg/dL 12/06/19 Range/Units 11:49 RBC (3.80-5.40) m/uL Hgb (11.4-16.0) gm/dL Hct (34.0-46.0) % Sodium (137-145) mmol/L Potassium (3.5-5.1) mmol/L Chloride (98-107) mmol/L Carbon Dioxide (22-30) mmol/L Glucose (74-99) mg/dL POC Glucose (mg/dL) 118 H (75-99) mg/dL Hemoglobin A1c (4.0-6.0) % Calcium (8.4-10.2) mg/dL Phosphorus (2.5-4.5) mg/dL Microbiology - Last 24 Hours (Table) 12/05/19 06:30 Urine Culture - Preliminary Urine,Voided Diabetes panel 12/05/19 12/05/19 12/06/19 Range/Units 14:32 22:19 04:26 Sodium 137 133 L (137-145) mmol/L Potassium 3.9 3.9 (3.5-5.1) mmol/L Chloride 111 H 108 H (98-107) mmol/L Carbon Dioxide 19 L 16 L (22-30) mmol/L BUN 17 15 (7-17) mg/dL Creatinine 0.62 0.62 (0.52-1.04) mg/dL Glucose 183 H (74-99) mg/dL Hemoglobin A1c 16.0 H (4.0-6.0) % Calcium (8.4-10.2) mg/dL 12/06/19 Range/Units 04:26 Sodium 133 L (137-145) mmol/L Potassium 3.4 L (3.5-5.1) mmol/L Chloride 108 H (98-107) mmol/L Carbon Dioxide 20 L (22-30) mmol/L BUN 13 (7-17) mg/dL Creatinine 0.68 (0.52-1.04) mg/dL Glucose 193 H (74-99) mg/dL Hemoglobin A1c (4.0-6.0) % Calcium 7.4 L (8.4-10.2) mg/dL Calcium panel 12/05/19 12/05/19 12/06/19 Range/Units 14:32 22:19 04:26 Calcium 7.4 L (8.4-10.2) mg/dL Phosphorus 2.0 L 2.3 L 1.7 L (2.5-4.5) mg/dL Pituitary panel 12/05/19 12/05/19 12/06/19 Range/Units 14:32 22:19 04:26 Sodium 137 133 L 133 L (137-145) mmol/L Potassium 3.9 3.9 3.4 L (3.5-5.1) mmol/L Chloride 111 H 108 H 108 H (98-107) mmol/L Carbon Dioxide 19 L 16 L 20 L (22-30) mmol/L BUN 17 15 13 (7-17) mg/dL Creatinine 0.62 0.62 0.68 (0.52-1.04) mg/dL Glucose 183 H 193 H (74-99) mg/dL Calcium 7.4 L (8.4-10.2) mg/dL Adrenal panel 12/05/19 12/05/19 12/06/19 Range/Units 14:32 22:19 04:26 Sodium 137 133 L 133 L (137-145) mmol/L Potassium 3.9 3.9 3.4 L (3.5-5.1) mmol/L Chloride 111 H 108 H 108 H (98-107) mmol/L Carbon Dioxide 19 L 16 L 20 L (22-30) mmol/L BUN 17 15 13 (7-17) mg/dL Creatinine 0.62 0.62 0.68 (0.52-1.04) mg/dL Glucose 183 H 193 H (74-99) mg/dL Calcium 7.4 L (8.4-10.2) mg/dL
--- NOTE | 2019-12-06 13:02 | P.PN ---
Subjective Progress Note Date: 12/06/19 Principal diagnosis: Acute diabetic ketoacidosis This is a 29-year-old female with history of type 1 diabetes, compliant with her insulin, however over the last week, the patient came down with symptoms of URI like many other family members were had similar symptoms. Patient developed mostly cough and congestion, and her sugars have been running high in the last few days. She has been complaining of nausea vomiting and vague abdominal discomfort for the last 2 days. Patient was also experiencing increased urination, and when she arrived to the ER, her blood sugar was over 600. She had positive ketones, and she had a significant anion gap metabolic acidosis. Patient was treated for DKA, admitted to the ICU with the diagnosis of acute diabetic ketoacidosis. And I was asked to see her on consultation. Presently the patient is on IV fluids 0.9 normal saline at 200 mL/h, and she is receiving insulin at 6 units per hour. Fluid boluses in the form of 0.9 normal saline were given in the ER. Influenza screening in the ER was negative. Reevaluated today on 12/06/2019, patient remains in the ICU, feeling better, no nausea no vomiting but she continues to have some vague abdominal pain and tenderness. Hence I recommended at least surgical evaluation although doubt surgical abdomen based on my assessment. Her anion gap was closed already, patient is now on sliding scale insulin, and she is off insulin drip. Blood sugar seems to be fairly well controlled, electrolytes and renal profile are significantly improved. Hence I will sign off, and see the patient on when necessary basis. Objective - Vital Signs Vital signs: Vital Signs Temp 96.4 F L 12/06/19 12:00 Pulse 98 12/06/19 12:00 Resp 13 12/06/19 12:00 BP 85/62 12/06/19 12:00 Pulse Ox 97 12/06/19 09:00 Intake & Output 12/05/19 12/06/19 12/06/19 18:59 06:59 18:59 Intake Total 1351.000 600 800 Output Total 1100 1550 0 Balance 251.000 -950 800 Weight 64.41 kg 68.8 kg Intake: IV 550 300 D5-0.45% NaCl with KCl 550 300 20Meq/l 1,000 ml @ 50 mls /hr IV .Q20H [facility] Rx#: [id number] Intake, IV Titration 1351.000 50 250 Amount D5-0.45% NaCl with KCl 1050 50 20Meq/l 1,000 ml @ 50 mls /hr IV .Q20H [facility] Rx#: [id number] Insulin Regular 100 unit 101.000 In Sodium Chloride 0.9% 100 ml @ 0.1 UNITS/KG/HR 6.505 mls/hr IV .[id number] [facility] Rx#:[id number] Potassium Phosphate 10 250 mmol In Sodium Chloride 0 .9% 250 ml @ 125 mls/hr IV Q2H [facility] Rx#:[id number] Sodium Chloride 0.9% 1, 200 000 ml @ 200 mls/hr IV . Q5H [facility] Rx#:[id number] Oral 250 Output: Gastric Drainage 200 Urine 900 1550 0 Other: Voiding Method Bedside Commode Bedside Commode Bedside Commode # Voids 0 0 - Exam Physical Exam: Revealed a 29-year-old female pleasant in no distress. On room air. Head: Atraumatic, normocephalic. HEENT:[Neck is supple.] [No neck masses.] [No thyromegaly.] [No JVD.] Chest: [Clear throughout, no crackles, no rhonchi, no wheezes.] Cardiac Exam: [Normal S1 and S2, no S3 gallop, no murmur.] Abdomen: [Soft, less tenderness compared to yesterday. Positive bowel sounds. Extremities: [No clubbing, no edema, no cyanosis.] Neurological Exam: [No focal neurologic deficit.] Alert oriented 3. Psychiatric: Normal mood affect and normal mental status examination. Skin: No rashes. Lymphatics: No lymphadenopathy. Musko skeletal no deformities noted limitation range of motion. Muscle strength adequate. - Labs CBC & Chem 7: 12/06/19 04:26 12/06/19 04:26 Labs: Abnormal Lab Results - Last 24 Hours (Table) 12/05/19 12/05/19 12/05/19 Range/Units 13:39 14:32 14:32 RBC (3.80-5.40) m/uL Hgb (11.4-16.0) gm/dL Hct (34.0-46.0) % Sodium (137-145) mmol/L Potassium (3.5-5.1) mmol/L Chloride 111 H (98-107) mmol/L Carbon Dioxide 19 L (22-30) mmol/L Glucose 183 H (74-99) mg/dL POC Glucose (mg/dL) 186 H 182 H (75-99) mg/dL Hemoglobin A1c (4.0-6.0) % Calcium (8.4-10.2) mg/dL Phosphorus 2.0 L (2.5-4.5) mg/dL 12/05/19 12/05/19 12/05/19 Range/Units 15:51 17:00 17:58 RBC (3.80-5.40) m/uL Hgb (11.4-16.0) gm/dL Hct (34.0-46.0) % Sodium (137-145) mmol/L Potassium (3.5-5.1) mmol/L Chloride (98-107) mmol/L Carbon Dioxide (22-30) mmol/L Glucose (74-99) mg/dL POC Glucose (mg/dL) 148 H 145 H 133 H (75-99) mg/dL Hemoglobin A1c (4.0-6.0) % Calcium (8.4-10.2) mg/dL Phosphorus (2.5-4.5) mg/dL 12/05/19 12/05/19 12/05/19 Range/Units 19:14 21:12 22:19 RBC (3.80-5.40) m/uL Hgb (11.4-16.0) gm/dL Hct (34.0-46.0) % Sodium 133 L (137-145) mmol/L Potassium (3.5-5.1) mmol/L Chloride 108 H (98-107) mmol/L Carbon Dioxide 16 L (22-30) mmol/L Glucose (74-99) mg/dL POC Glucose (mg/dL) 163 H 193 H (75-99) mg/dL Hemoglobin A1c (4.0-6.0) % Calcium (8.4-10.2) mg/dL Phosphorus 2.3 L (2.5-4.5) mg/dL 12/06/19 12/06/19 12/06/19 Range/Units 02:13 04:26 04:26 RBC (3.80-5.40) m/uL Hgb (11.4-16.0) gm/dL Hct (34.0-46.0) % Sodium 133 L (137-145) mmol/L Potassium 3.4 L (3.5-5.1) mmol/L Chloride 108 H (98-107) mmol/L Carbon Dioxide 20 L (22-30) mmol/L Glucose 193 H (74-99) mg/dL POC Glucose (mg/dL) 257 H (75-99) mg/dL Hemoglobin A1c 16.0 H (4.0-6.0) % Calcium 7.4 L (8.4-10.2) mg/dL Phosphorus 1.7 L (2.5-4.5) mg/dL 12/06/19 12/06/19 12/06/19 Range/Units 04:26 06:52 11:49 RBC 3.56 L (3.80-5.40) m/uL Hgb 11.0 L (11.4-16.0) gm/dL Hct 32.8 L (34.0-46.0) % Sodium (137-145) mmol/L Potassium (3.5-5.1) mmol/L Chloride (98-107) mmol/L Carbon Dioxide (22-30) mmol/L Glucose (74-99) mg/dL POC Glucose (mg/dL) 150 H 118 H (75-99) mg/dL Hemoglobin A1c (4.0-6.0) % Calcium (8.4-10.2) mg/dL Phosphorus (2.5-4.5) mg/dL Microbiology - Last 24 Hours (Table) 12/05/19 06:30 Urine Culture - Preliminary Urine,Voided Assessment and Plan Assessment: Impression: Acute diabetic ketoacidosis. Most likely triggered by recent URI. Intractable nausea and vomiting secondary to DKA. Resolved. Severe dehydration. Resolved. Anion gap metabolic acidosis secondary to DKA. Resolved. Abdominal pain secondary to DKA, no evidence of pancreatitis. Recommendation: Continue IV fluids in the form of 0.9 normal saline Discontinue insulin drip. Placed on subcu insulin and follow the protocol. Consulted surgery to evaluate her abdomen, otherwise we'll sign off and see the patient on when necessary basis. Time with Patient: Less than 30
--- NOTE | 2019-12-06 14:08 | P.PN ---
Subjective Progress Note Date: 12/06/19 This is a 29-year-old pleasant female patient of Dr. Post, see Dr. Sanchez endocrinology at [facility], history of diabetes mellitus type 1 since June 2000 99H 17, admitted to the emergency room secondary to nausea vomiting and diarrhea. Patient has been sick for the past 2 days, also mom was also sick, seems symptoms, except that they have shared a meal at [employer], for which he also had some salad together. Patient thereafter complaining of abdominal cramps, diarrhea nonbloody, no mucus, she did not skip any of her insulin, she was still taking her Lantus 26 units at at bedtime, and a sliding scale. Sugars were in the 300s, and was found to be in DKA, and was subsequently admitted to ICU. Her last DKA episode was in 2017, with severe dehydration. Patient denies any current dysuria melena or hematuria, no headache, no sinus congestion, patient hasn't seen her broacher for long- term, however her sugars at home was in the 100s per patient. In the emergency room, influenza test was negative, chest x-ray failed to reveal any infiltrates, ER labs shows hemoglobin of 13, WBC count 11.8, CO2 was 17, blood gases venous shows pH of 716, pCO2 of 16, bicarb of 6 creatinine of 0.9, glucose was 495, liver function test is normal, urinalysis is normal except for ketones. Gabriels 1.025, 4+ glucose. Gabriels 1.025, glucose trace proteinuria 12/06: The patient has been followed by Dr. Richmond and he has now signed off. Patient is complaining of left upper quadrant pain as well as nausea and that is not improving and consult was placed with Dr. Slaughter. He has ordered a CAT scan of the abdomen and pelvis that which report is pending. Her anion and gap has closed and she is on scheduled long-acting and short-acting insulin. Patient is afebrile, heart rate 101, blood pressure 106/70 and 85/62. Blood sugar is currently 118. Hemoglobin 11.0, and sodium 133, potassium 3.4, chloride 108, CO2 20 hemoglobin A1c is 16 with average blood sugar 413. Phosphorus 1.7 calcium 7.4. She is status post phosphorus and potassium replacement. Review of Systems Constitutional: No fever, no chills, no night sweats. No weight change. No weakness, fatigue or lethargy. No daytime sleepiness. EENT: No headache. No blurred vision or double vision, no loss of vision. No loss of Hearing, no ringing in the ears, no dizziness. No nasal drainage or congestion. No epistaxis. No sore throat. Lungs: No shortness of breath, cough, no sputum production. No wheezing. Cardiovascular: No chest pain, no lower extremity edema. No palpitations. No paroxysmal nocturnal dyspnea. No orthopnea. No lightheadedness or dizziness. No syncopal episodes. Abdominal: Reports abdominal pain. Reports nausea, denies vomiting. No diarrhea. No constipation. No bloody or tarry stools.. No loss of appetite. Genitourinary: No dysuria, increased frequency, urgency. No urinary retention. Musculoskeletal: No myalgias. No muscle weakness, no gait dysfunction, no frequent falls. No back pain. No neck pain. Integumentary: No wounds, no lesions. No rash or pruritus. No unusual bruising. No change in hair or nails. Neurologic: No aphasia. No facial droop. No change in mentation. No head injury. No headache. No paralysis. No paresthesia. Psychiatric: No depression. No anxiety. No mood swings. Endocrine: Reports abnormal blood sugars. No weight change. Objective - Vital Signs Vital signs: Vital Signs Temp 96.4 F L 12/06/19 12:00 Pulse 98 12/06/19 12:00 Resp 13 12/06/19 12:00 BP 85/62 12/06/19 12:00 Pulse Ox 97 12/06/19 09:00 Intake & Output 12/05/19 12/06/19 12/06/19 18:59 06:59 18:59 Intake Total 1351.000 600 800 Output Total 1100 1550 0 Balance 251.000 -950 800 Weight 64.41 kg 68.8 kg Intake: IV 550 300 D5-0.45% NaCl with KCl 550 300 20Meq/l 1,000 ml @ 50 mls /hr IV .Q20H [facility] Rx#: [id number] Intake, IV Titration 1351.000 50 250 Amount D5-0.45% NaCl with KCl 1050 50 20Meq/l 1,000 ml @ 50 mls /hr IV .Q20H [facility] Rx#: [id number] Insulin Regular 100 unit 101.000 In Sodium Chloride 0.9% 100 ml @ 0.1 UNITS/KG/HR 6.505 mls/hr IV .[id number] [facility] Rx#:[id number] Potassium Phosphate 10 250 mmol In Sodium Chloride 0 .9% 250 ml @ 125 mls/hr IV Q2H [facility] Rx#:[id number] Sodium Chloride 0.9% 1, 200 000 ml @ 200 mls/hr IV . Q5H [facility] Rx#:[id number] Oral 250 Output: Gastric Drainage 200 Urine 900 1550 0 Other: Voiding Method Bedside Commode Bedside Commode Bedside Commode # Voids 0 0 - Exam - Constitutional General appearance: average body habitus, cooperative, no acute distress, mother is at bedside - EENT Eyes: anicteric sclerae, EOMI, PERRLA, dentition normal, normal appearance ENT: NA/AT, normal oropharynx - Neck Neck: normal ROM - Respiratory Respiratory: bilateral: CTA, negative: diminished, dullness, rales - Cardiovascular Rhythm: regular Heart sounds: normal: S1, S2 Abnormal Heart Sounds: no systolic murmur, no diastolic murmur, no rub, no S3 Gallop, no S4 Gallop, no click, no other - Gastrointestinal General gastrointestinal: normal bowel sounds Localized gastrointestinal: tender left upper quadrant - Integumentary Integumentary: decreased turgor, normal - Neurologic Neurologic: CNII-XII intact - Musculoskeletal Musculoskeletal: gait normal, strength equal bilaterally - Psychiatric Psychiatric: A&O x's 3, appropriate affect, intact judgment & insight - Labs CBC & Chem 7: 12/06/19 04:26 12/06/19 04:26 Labs: Abnormal Lab Results - Last 24 Hours (Table) 12/05/19 12/05/19 12/05/19 Range/Units 12:34 13:39 14:32 RBC (3.80-5.40) m/uL Hgb (11.4-16.0) gm/dL Hct (34.0-46.0) % Sodium (137-145) mmol/L Potassium (3.5-5.1) mmol/L Chloride 111 H (98-107) mmol/L Carbon Dioxide 19 L (22-30) mmol/L Glucose 183 H (74-99) mg/dL POC Glucose (mg/dL) 196 H 186 H (75-99) mg/dL Hemoglobin A1c (4.0-6.0) % Calcium (8.4-10.2) mg/dL Phosphorus 2.0 L (2.5-4.5) mg/dL 12/05/19 12/05/19 12/05/19 Range/Units 14:32 15:51 17:00 RBC (3.80-5.40) m/uL Hgb (11.4-16.0) gm/dL Hct (34.0-46.0) % Sodium (137-145) mmol/L Potassium (3.5-5.1) mmol/L Chloride (98-107) mmol/L Carbon Dioxide (22-30) mmol/L Glucose (74-99) mg/dL POC Glucose (mg/dL) 182 H 148 H 145 H (75-99) mg/dL Hemoglobin A1c (4.0-6.0) % Calcium (8.4-10.2) mg/dL Phosphorus (2.5-4.5) mg/dL 12/05/19 12/05/19 12/05/19 Range/Units 17:58 19:14 21:12 RBC (3.80-5.40) m/uL Hgb (11.4-16.0) gm/dL Hct (34.0-46.0) % Sodium (137-145) mmol/L Potassium (3.5-5.1) mmol/L Chloride (98-107) mmol/L Carbon Dioxide (22-30) mmol/L Glucose (74-99) mg/dL POC Glucose (mg/dL) 133 H 163 H 193 H (75-99) mg/dL Hemoglobin A1c (4.0-6.0) % Calcium (8.4-10.2) mg/dL Phosphorus (2.5-4.5) mg/dL 12/05/19 12/06/19 12/06/19 Range/Units 22:19 02:13 04:26 RBC (3.80-5.40) m/uL Hgb (11.4-16.0) gm/dL Hct (34.0-46.0) % Sodium 133 L (137-145) mmol/L Potassium (3.5-5.1) mmol/L Chloride 108 H (98-107) mmol/L Carbon Dioxide 16 L (22-30) mmol/L Glucose (74-99) mg/dL POC Glucose (mg/dL) 257 H (75-99) mg/dL Hemoglobin A1c 16.0 H (4.0-6.0) % Calcium (8.4-10.2) mg/dL Phosphorus 2.3 L (2.5-4.5) mg/dL 12/06/19 12/06/19 12/06/19 Range/Units 04:26 04:26 06:52 RBC 3.56 L (3.80-5.40) m/uL Hgb 11.0 L (11.4-16.0) gm/dL Hct 32.8 L (34.0-46.0) % Sodium 133 L (137-145) mmol/L Potassium 3.4 L (3.5-5.1) mmol/L Chloride 108 H (98-107) mmol/L Carbon Dioxide 20 L (22-30) mmol/L Glucose 193 H (74-99) mg/dL POC Glucose (mg/dL) 150 H (75-99) mg/dL Hemoglobin A1c (4.0-6.0) % Calcium 7.4 L (8.4-10.2) mg/dL Phosphorus 1.7 L (2.5-4.5) mg/dL 12/06/19 Range/Units 11:49 RBC (3.80-5.40) m/uL Hgb (11.4-16.0) gm/dL Hct (34.0-46.0) % Sodium (137-145) mmol/L Potassium (3.5-5.1) mmol/L Chloride (98-107) mmol/L Carbon Dioxide (22-30) mmol/L Glucose (74-99) mg/dL POC Glucose (mg/dL) 118 H (75-99) mg/dL Hemoglobin A1c (4.0-6.0) % Calcium (8.4-10.2) mg/dL Phosphorus (2.5-4.5) mg/dL Microbiology - Last 24 Hours (Table) 12/05/19 06:30 Urine Culture - Preliminary Urine,Voided Assessment and Plan Plan: 1. Acute DKA, most likely secondary to viral gastroenteritis, suspect norovirus, however multiple gastro-enteritis are self-limiting, patient would have to be managed medically secondary to acid chips, IV fluids, insulin drip, and IV hydration is aggressive. Patient is ICU, consult with Dr. Richmond has signed off, hemoglobin A1c 16. Consult with Dr. Slaughter and CT of the abdomen report pending. 2. Diabetes mellitus type 1 seen in 2008, pH 17, patient was compliant to medications per self, patient currently is on insulin drip, a hemoglobin A1c to be monitored, and blood sugar monitoring per ICU protocol for DKA 3. Metabolic acidosis secondary to DKA, on sodium bicarb drip, 4. Acute azotemia, secondary dehydration from gastroenteritis, IV fluids for hydration 5. GI prophylaxis with IV Protonix 6. DVT prophylaxis with ambulation, low risk Discharge plan: Home Impression and plan of care have been directed as dictated by the signing physician. Trinidad Perez nurse practitioner acting as scribe for signing physician.
--- NOTE | 2019-12-06 14:19 | CT ---
EXAMINATION TYPE: CT abdomen pelvis w con DATE OF EXAM: 12/06/2019 HISTORY: DKA, Abdominal pain CT DLP: 730.7mGycm Automated Exposure Control for Dose Reduction was Utilized. CONTRAST: CT scan of the abdomen and pelvis is performed with oral and with IV Contrast, patient injected with 100 mL of Isovue 300. COMPARISON: CT abdomen and pelvis June 10, 2015 FINDINGS: LUNG BASES: Trace bilateral pleural effusions with dependent atelectasis. LIVER/GB: Mild central periportal edema is seen which is nonspecific finding. PANCREAS: No significant abnormality is seen. SPLEEN: No significant abnormality is seen. ADRENALS: No significant abnormality is seen. KIDNEYS: Symmetric cortical medullary uptake and excretion with distended bladder extending into the lower abdomen. BOWEL: Oral contrast only reaches the jejunal loops in the left abdomen. No suspicious small or large bowel dilatation. UTERUS/ADNEXA: Anteverted uterus. Rim-enhancing 2.7 cm right ovarian lesion could reflect corpus lute al cyst from recent ovulation axial image 72. Small amount of free fluid in pelvis axial image 73 fav or physiologic but nonspecific. LYMPH NODES: No greater than 1cm abdominal or pelvic lymph nodes are appreciated. Prominent but subce ntimeter lymph nodes throughout the left mesentery are appreciated without significant fat stranding. This is fairly nonspecific finding. Left-sided enteritis would be in differential. OSSEOUS STRUCTURES: No significant abnormality is seen. OTHER: No significant additional abnormality is seen. IMPRESSION: Distended bladder. Possible left-sided enteritis, correlate clinically. Otherwise no defi nitive suspicious acute findings.
[2019-12-06 17:09] LABS: Glucose,Whole Blood 106 mg/dL (75-99)
[2019-12-06] MEDS: D5-0.45% NACL WITH KCL 20MEQ/L 1,000 ML IV SCH (17:41)
[2019-12-06] MEDS: INSULIN DETEMIR (LEVEMIR) 100 UNIT/ML SYR SQ SCH (20:48)
[2019-12-06 20:52] LABS: Glucose,Whole Blood 238 mg/dL (75-99)
[2019-12-07] MEDS: MORPHINE SULFATE 2 MG/ML SYRINGE IVP PRN ×2 (00:34→08:50)
[2019-12-07] MEDS: INSULIN ASPART (NovoLOG) 100 UNIT/ML VIAL SQ SCH ×3 (02:22→11:55)
[2019-12-07 02:31] LABS: Glucose,Whole Blood 96 mg/dL (75-99)
[2019-12-07] MEDS: ONDANSETRON 4 MG/2 ML VIAL IVP PRN ×2 (02:32→06:57)
[2019-12-07 05:35] LABS: African American GFR (CKD) >90 (>60 ml/min/1.73 sqM); Anion Gap 5 mmol/L; Blood Urea Nitrogen 9 mg/dL (7-17); Calcium 7.9 mg/dL (8.4-10.2); Carbon Dioxide 22 mmol/L (22-30); Chloride 110 mmol/L (98-107); Glucose 64 mg/dL (74-99); Non-African American GFR(CKD) >90 (>60 ml/min/1.73 sqM); Phosphorus 2.6 mg/dL (2.5-4.5); Potassium 3.3 mmol/L (3.5-5.1); Sodium 137 mmol/L (137-145)
[2019-12-07] MEDS ORDERED: Potassium Replacement Protocol 1 EACH MISC MISCELLANE PRN (05:41)
[2019-12-07 05:48] LABS: Glucose,Whole Blood 69 mg/dL (75-99)
[2019-12-07 06:06] LABS: Glucose,Whole Blood 74 mg/dL (75-99)
[2019-12-07] MEDS: POTASSIUM CHLORIDE ER 20 MEQ TAB.ER PO SCH ×2 (06:25→08:39)
[2019-12-07 07:06] LABS: Glucose,Whole Blood 109 mg/dL (75-99)
[2019-12-07] MEDS: PANTOPRAZOLE 40 MG/10 ML VIAL IVP SCH (08:39)
[2019-12-07] MEDS: CHOLESTYRAMINE (WITH SUGAR) 4 GM PACKET PO SCH (10:08)
[2019-12-07 12:04] LABS: Glucose,Whole Blood 102 mg/dL (75-99)
[2019-12-07 12:08] VITALS: BP 109/87; PULSE 101; RESP 24; TEMP 98.5
--- NOTE | 2019-12-07 13:34 | P.PN ---
Subjective Progress Note Date: 12/07/19 CHIEF COMPLAINT: Abdominal pain HISTORY OF PRESENT ILLNESS: Patient examined at the bedside with Dr. Slaughter. She continues to report abdominal pain but states it is tolerable. CT reviewed by Dr. Slaughter. Patient is tolerating diet. No nausea or vomiting. PHYSICAL EXAM: VITAL SIGNS: Reviewed. GENERAL: Well-developed in no acute distress. HEENT: No sclera icterus. Extraocular movements grossly intact. Moist buccal mucosa. Head is atraumatic, normocephalic. ABDOMEN: Soft. Mildly distended. Mild tenderness with palpation NEUROLOGIC: Alert and oriented. Cranial nerves II through XII grossly intact. ASSESSMENT: 1. Abdominal pain, possible enteritis per CT scan 2. DKA PLAN: Continue diet as tolerated No surgical intervention recommended Stable for discharge from a surgical standpoint Nurse practitioner note has been reviewed by physician. Signing provider agrees with the documented findings, assessment, and plan of care. Objective - Vital Signs Vital signs: Vital Signs Temp 98.5 F 12/07/19 12:01 Pulse 101 H 12/07/19 12:01 Resp 24 12/07/19 12:01 BP 109/87 12/07/19 12:01 Pulse Ox 98 12/07/19 12:01 Intake & Output 12/06/19 12/07/19 12/07/19 18:59 06:59 18:59 Intake Total 1875 500 600 Output Total 1000 600 0 Balance 875 -100 600 Weight 54.8 kg Intake: IV 500 D5-0.45% NaCl with KCl 500 20Meq/l 1,000 ml @ 50 mls /hr IV .Q20H [facility] Rx#: [id number] Intake, IV Titration 250 Amount Potassium Phosphate 10 250 mmol In Sodium Chloride 0 .9% 250 ml @ 125 mls/hr IV Q2H [facility] Rx#:[id number] Oral 1125 500 600 Output: Urine 1000 600 0 Other: Voiding Method Bedside Commode Bedside Commode Bedside Commode # Voids 0 1 0 - Labs CBC & Chem 7: 12/06/19 04:26 12/07/19 04:32 Labs: Abnormal Lab Results - Last 24 Hours (Table) 12/06/19 12/06/19 12/07/19 Range/Units 16:57 20:41 04:32 Potassium 3.3 L (3.5-5.1) mmol/L Chloride 110 H (98-107) mmol/L Glucose 64 L (74-99) mg/dL POC Glucose (mg/dL) 106 H 238 H (75-99) mg/dL Calcium 7.9 L (8.4-10.2) mg/dL 12/07/19 12/07/19 12/07/19 Range/Units 05:38 05:54 06:55 Potassium (3.5-5.1) mmol/L Chloride (98-107) mmol/L Glucose (74-99) mg/dL POC Glucose (mg/dL) 69 L 74 L 109 H (75-99) mg/dL Calcium (8.4-10.2) mg/dL 12/07/19 Range/Units 11:52 Potassium (3.5-5.1) mmol/L Chloride (98-107) mmol/L Glucose (74-99) mg/dL POC Glucose (mg/dL) 102 H (75-99) mg/dL Calcium (8.4-10.2) mg/dL Microbiology - Last 24 Hours (Table) 12/05/19 06:30 Urine Culture - Final Urine,Voided
--- NOTE | 2019-12-07 14:50 | P.DS ---
Providers Date of admission: 12/05/19 07:53 Expected date of discharge: 12/07/19 Attending physician: Matt Arroyo Consults: 12/05/19 08:23 Consult Physician Urgent Consulting Provider: Bronson Richmond Consult Reason/Comments: critical care Do you want consulting provider notified?: Yes 12/06/19 10:29 Consult Physician Urgent Consulting Provider: Alec Slaughter Consult Reason/Comments: abdominal pain Do you want consulting provider notified?: Yes Primary care physician: Michael Post [facility] Course: This is a 29-year-old pleasant female patient of Dr. Post, see Dr. Sanchez endocrinology at [facility], history of diabetes mellitus type 1 since June 2000 99H 17, admitted to the emergency room secondary to nausea vomiting and diarrhea. Patient has been sick for the past 2 days, also mom was also sick, seems symptoms, except that they have shared a meal at [employer], for which he also had some salad together. Patient thereafter complaining of ab dominal cramps, diarrhea nonbloody, no mucus, she did not skip any of her insulin, she was still taking her Lantus 26 units at at bedtime, and a sliding scale. Sugars were in the 300s, and was found to be in DKA, and was subsequently admitted to ICU. Her last DKA episode was in 2017, with severe dehydration. Patient denies any current dysuria melena or hematuria, no headache, no sinus congestion, patient hasn't seen her bottom bleacher for long- term, however her sugars at home was in the 100s per patient. In the emergency room, influenza test was negative, chest x-ray failed to reveal any infiltrates, ER labs shows hemoglobin of 13, WBC count 11.8, CO2 was 17, blood gases venous shows pH of 716, pCO2 of 16, bicarb of 6 creatinine of 0.9, glucose was 495, liver function test is normal, urinalysis is normal except for ketones. Haines 1.025, 4+ glucose. Haines 1.025, glucose trace proteinuria 12/06: The patient has been followed by Dr. Richmond and he has now signed off. Patient is complaining of left upper quadrant pain as well as nausea and that is not improving and consult was placed with Dr. Slaughter. He has ordered a CAT scan of the abdomen and pelvis that which report is pending. Her anion and gap has closed and she is on scheduled long-acting and short-acting insulin. Patient is afebrile, heart rate 101, blood pressure 106/70 and 85/62. Blood sugar is currently 118. Hemoglobin 11.0, and sodium 133, potassium 3.4, chloride 108, CO2 20 hemoglobin A1c is 16 with average blood sugar 413. Phosphorus 1.7 calcium 7.4. She is status post phosphorus and potassium rep lacement. 12/07: Patient remains in intensive care unit. She is able to keep food down and nausea and vomiting are improved. Abdominal CAT scan revealed distended bladder. Possible left-sided enteritis. No acute findings. Patient has been seen by general surgery and cleared for discharge. Patient had low blood sugar of 64 otherwise currently 102. Acetone does remain positive at 4 AM this mo rning. Patient states she feels she can go home today. Prescription for Zofran will also be provided. No medication changes regarding insulins at home as patient did have episode of hypoglycemia. Patient will be discharged home today in stable condition. Discharge diagnoses: 1. Acute DKA, most likely secondary to viral gastroenteritis 2. Diabetes mellitus type 1 3. Metabolic acidosis secondary to DKA 4. Acute azotemia, secondary dehydration from gastroenteritis Discharge plan: Home Impression and plan of care have been directed as dictated by the signing physician. Trinidad Perez nurse practitioner acting as scribe for signing physician. Patient Condition at Discharge: Good Plan - Discharge Summary Discharge Rx Participant: No New Discharge Prescriptions: New Cholestyramine (with Sugar) [Questran Packet] 4 gm PO DAILY@1000 #7 packet Ondansetron HCl [Zofran] 4 mg PO Q8H PRN #30 tab PRN Reason: Nausea And Vomiting Continue INSULIN LISPRO (humaLOG) [humaLOG] See Protocol SQ AC-TID No Action Insulin Glargine [Lantus] 26 unit SQ HS Discharge Medication List INSULIN LISPRO (humaLOG) [humaLOG] See Protocol SQ AC-TID 11/11/14 [History] Insulin Glargine [Lantus] 26 unit SQ HS 11/11/14 [History] Cholestyramine (with Sugar) [Questran Packet] 4 gm PO DAILY@1000 #7 packet 12/07/19 [Rx] Ondansetron HCl [Zofran] 4 mg PO Q8H PRN #30 tab 12/07/19 [Rx] Follow up Appointment(s)/Referral(s): Vladislav Smith NPC [REFERRING] - 1 Week Patient Instructions/Handouts: Diabetic Ketoacidosis (DC) Discharge Disposition: HOME SELF-CARE
--- NOTE | 2019-12-11 15:47 | CDI ---
Documentation Clarification Form Date: 12/11/19 From: Steffi Key CCS Phone: If you have a question about this query, please contact Maddie Mathis, Equipment Maintenance Engineer at [phone] between 8am and 5pm. Admit Date: 12/05/19 Discharge Date: 12/07/19 Patient Name: Gem Hall Visit Number: [id number] ATTENTION: The Clinical Documentation Specialists (CDI) and [facility] Coding Staff appreciate your assistance in clarifying documentation. Please respond to the clarification below the line at the bottom and electronically sign. The CDI & [facility] Coding staff will review the response and follow-up if needed. Please note: Queries are made part of the Legal Health Record. If you have any questions, please contact the author of this message via ITS. Dear Dr. Matt Arroyo Documentation states: Patient is status post potassium replacement- Discharge Summary History/Risk Factors: Diabetes with ketoacidosis, dehydration, viral gastroenteritis Clinical indicators: Potassium -12/06-3.4, 12/07-3.3 Treatment: K-Dur 20 meq PO Q1HR Clinical significance of diagnostic testing and treatment CANNOT be assumed or coded without physician documentation of significance if any. Please clarify what abnormal laboratory signifies: Hypokalemia Abnormal Lab Value, clinically insignificant Unable to determine Other, please specify hypokalemia MTDD
--- NOTE | 2019-12-11 16:02 | CDI ---
Documentation Clarification Form Date: 12/11/19 From: Steffi Key CCS Phone: If you have a question about this query, please contact Maddie Mathis, Plant Pathologist at [phone] between 8am and 5pm. Admit Date: 12/05/19 Discharge Date: 12/07/19 Patient Name: Gem Hall Visit Number: [id number] ATTENTION: The Clinical Documentation Specialists (CDI) and [facility] Coding Staff appreciate your assistance in clarifying documentation. Please respond to the clarification below the line at the bottom and electronically sign. The CDI & [facility] Coding staff will review the response and follow-up if needed. Please note: Queries are made part of the Legal Health Record. If you have any questions, please contact the author of this message via ITS. Dear Dr. Matt Arroyo Documentation states: Patient is status post phosphorus replacement- Discharge Summary History/Risk Factors: Diabetes with ketoacidosis, dehydration, viral gastroenteritis Clinical indicators: Phosphorus -/14-2.0 1/15-1.7 Treatment: Phosphorus 1 each daily PRN Clinical significance of diagnostic testing and treatment CANNOT be assumed or coded without physician documentation of significance if any. Please clarify what abnormal laboratory signifies: Hypophosphatemia Abnormal Lab Value, clinically insignificant Unable to determine Other, please specify hypophosphatemia MTDD
== END 2019-12-07 15:34 | disposition home or self-care (01) | DRG 639 ==
LOC: EC 05:50 → 2SICU 07:53
PROVIDERS: ADMIT Internal Medicine Geriatric Medicine; ATTEND Internal Medicine Geriatric Medicine
DX: E10.10 Type 1 diabetes mellitus with ketoacidosis without coma (principal); E10.649 Type 1 diabetes mellitus with hypoglycemia without coma; E83.39 Other disorders of phosphorus metabolism; E10.319 Type 1 diabetes mellitus with unspecified diabetic retinopathy without macular edema; E87.6 Hypokalemia; E86.0 Dehydration; A08.4 Viral intestinal infection, unspecified; K58.0 Irritable bowel syndrome with diarrhea; R79.89 Other specified abnormal findings of blood chemistry; Z79.4 Long term (current) use of insulin; Z87.01 Personal history of pneumonia (recurrent); Z87.09 Personal history of other diseases of the respiratory system; Z91.048 Other nonmedicinal substance allergy status
CPT/HCPCS: 36415; 71046; 74177; 80048; 80051; 80053; 81001; 82009; 82150; 82565; 82803; 82947; 83036; 83690; 83735; 84100; 84520; 85025; 87086; 87502; 93005; 96361; 96374; 96375; 99285

== ENCOUNTER 2020-12-22 00:25 | Observation (INO) | payer BC ==
[2020-12-22] MEDS ORDERED: PANTOPRAZOLE 40 MG/10 ML VIAL IVP STA (00:33)
[2020-12-22] MEDS ORDERED: SODIUM CHLORIDE 0.9% 1,000 ML IV STA ×3 (00:33→02:23)
[2020-12-22] MEDS ORDERED: LORazepam 2 MG/ML INJ IV STA ×2 (00:33→08:57)
[2020-12-22] MEDS ORDERED: ONDANSETRON 4 MG/2 ML VIAL IVP STA (00:33)
[2020-12-22] MEDS ORDERED: SODIUM CHLORIDE 0.9% 500 ML 500 ML IV STA ×2 (00:33→02:23)
--- NOTE | 2020-12-22 00:40 | ED ---
Nausea/Vomiting/Diarrhea HPI - General Chief complaint: Nausea/Vomiting/Diarrhea Stated complaint: Vomiting Time Seen by Provider: 12/22/20 00:32 Source: patient, RN notes reviewed, old records reviewed Mode of arrival: ambulatory Limitations: no limitations - History of Present Illness Initial comments: This is a 30-year-old female of altered recent hospitalizations a history of diabetes with recent coronavirus infection coming in for persistent nausea vomiting, some abdominal pain epigastric not feeling well with headache. Patient was not in town. Recent hospital admission again coronavirus infection was 3 weeks ago. She just generalized not feeling well today patient was concern for blood in her vomit MD complaint: nausea, vomiting, diarrhea, abdominal pain -: days(s) Description of Vomiting: food contents, blood-streaked Description of Diarrhea: water Location: diffuse Radiation: none Severity: moderate Consistency: constant Improves with: none Worsens with: none Context: other (Recent diagnosis of coronavirus) Associated Symptoms: denies other symptoms - Related Data Home Medications Medication Instructions Recorded Confirmed INSULIN LISPRO (humaLOG) [humaLOG] See Protocol SQ AC-TID 11/11/14 12/05/19 Insulin Glargine [Lantus] 26 unit SQ HS 11/11/14 12/05/19 Previous Rx's Medication Instructions Recorded Cholestyramine (with Sugar) 4 gm PO DAILY@1000 #7 packet 12/07/19 [Questran Packet] Ondansetron HCl [Zofran] 4 mg PO Q8H PRN #30 tab 12/07/19 Allergies Allergy/AdvReac Type Severity Reaction Status Date / Time mold AdvReac Dyspnea Verified 12/22/20 00:30 Review of Systems ROS Statement: Those systems with pertinent positive or pertinent negative responses have been documented in the HPI. ROS Other: All systems not noted in ROS Statement are negative. Past Medical History Past Medical History: Diabetes Mellitus, Pneumonia Additional Past Medical History / Comment(s): Current URI, IDDM type I, bilateral retinopathy with injections, DKA, IBS/constipation, bronchitis, febrile seizure at 3 yrs of age History of Any Multi-Drug Resistant Organisms: None Reported Past Surgical History: Adenoidectomy, Tonsillectomy Additional Past Surgical History / Comment(s): sinus balloon plasty, wisdom teet h extractions. Past Anesthesia/Blood Transfusion Reactions: No Reported Reaction Additional Past Anesthesia/Blood Transfusion Reaction / Comment(s): no transfusions Past Psychological History: Anxiety Smoking Status: Never smoker Past Alcohol Use History: Occasional Past Drug Use History: None Reported - Past Family History Mother Family Medical History: No Reported History Additional Family Medical History / Comment(s): Mother is healthy. Father Family Medical History: No Reported History Additional Family Medical History / Comment(s): Father is healthy General Exam Limitations: no limitations General appearance: alert, in no apparent distress, anxious Head exam: Present: atraumatic, normocephalic, normal inspection Eye exam: Present: normal appearance, PERRL, EOMI. Absent: scleral icterus, conjunctival injection, periorbital swelling ENT exam: Present: normal exam, mucous membranes moist Neck exam: Present: normal inspection. Absent: tenderness, meningismus, lymphadenopathy Respiratory exam: Present: normal lung sounds bilaterally. Absent: respiratory distress, wheezes, rales, rhonchi, stridor Cardiovascular Exam: Present: regular rate, normal rhythm, normal heart sounds. Absent: systolic murmur, diastolic murmur, rubs, gallop, clicks GI/Abdominal exam: Present: soft, normal bowel sounds. Absent: distended, tenderness, guarding, rebound, rigid Extremities exam: Present: normal inspection, full ROM, normal capillary refill. Absent: tenderness, pedal edema, joint swelling, calf tenderness Back exam: Present: normal inspection Neurological exam: Present: alert, oriented X3, CN II-XII intact Psychiatric exam: Present: normal affect, normal mood Skin exam: Present: warm, dry, intact, normal color. Absent: rash Course Vital Signs 12/22/20 12/22/20 12/22/20 00:25 01:55 02:25 Temperature 98.4 F Pulse Rate 111 H 107 H Respiratory 22 22 Rate Blood Pressure 203/103 199/124 192/124 O2 Sat by Pulse 100 100 Oximetry 12/22/20 12/22/20 03:15 04:06 Temperature Pulse Rate 90 96 Respiratory 16 18 Rate Blood Pressure 143/84 125/72 O2 Sat by Pulse 99 100 Oximetry - Reevaluation(s) Reevaluation #1: 12/22/20 04:33 Medical record is reviewed Patient with no active vomiting here in the ER when informed of elevated blood pressure states her blood pressure has been running elevated Reevaluation #2: 12/22/20 04:33 Patient has improvement in symptoms improvement pain, headache and blood pressure control. Reevaluation #3: 12/22/20 04:33 Patient informed results, questions answered, does not fill comfortable with discharge Medical Decision Making - Medical Decision Making 30 female DF for evaluation persistent nausea vomiting under diabetes with elevated blood sugar, not in DKA. Also complaining of headache and generalized body pain history of recent coronavirus infection 3 weeks ago. No current fevers. Patient be admitted for symptomatic control, hydration blood pressure control - Lab Data Result diagrams: 12/22/20 01:25 12/22/20 01:25 Lab Results 12/22/20 12/22/20 12/22/20 Range/Units 01:25 01:25 01:25 WBC 12.9 H (3.8-10.6) k/uL RBC 3.81 (3.80-5.40) m/uL Hgb 11.4 (11.4-16.0) gm/dL Hct 33.2 L (34.0-46.0) % MCV 87.2 (80.0-100.0) fL MCH 29.8 (25.0-35.0) pg MCHC 34.2 (31.0-37.0) g/dL RDW 14.0 (11.5-15.5) % Plt Count 312 (150-450) k/uL MPV 6.8 Neutrophils % 88 % Lymphocytes % 8 % Monocytes % 2 % Eosinophils % 0 % Basophils % 1 % Neutrophils # 11.3 H (1.3-7.7) k/uL Lymphocytes # 1.1 (1.0-4.8) k/uL Monocytes # 0.3 (0-1.0) k/uL Eosinophils # 0.1 (0-0.7) k/uL Basophils # 0.1 (0-0.2) k/uL VBG pH (7.31-7.41) VBG pCO2 (37-51) mmHg VBG HCO3 (24-28) mmol/L Sodium 137 (137-145) mmol/L Potassium 3.9 (3.5-5.1) mmol/L Chloride 100 (98-107) mmol/L Carbon Dioxide 21 L (22-30) mmol/L Anion Gap 16 mmol/L BUN 18 H (7-17) mg/dL Creatinine 0.75 (0.52-1.04) mg/dL Est GFR (CKD-EPI)AfAm >90 (>60 ml/min/1.73 sqM) Est GFR (CKD-EPI)NonAf >90 (>60 ml/min/1.73 sqM) Glucose 319 H (74-99) mg/dL POC Glucose (mg/dL) (75-99) mg/dL POC Glu Ultrasonic Solderer ID Plasma Lactic Acid Wayne (0.7-2.0) mmol/L Calcium 9.8 (8.4-10.2) mg/dL Phosphorus 3.9 (2.5-4.5) mg/dL Magnesium 1.5 L (1.6-2.3) mg/dL Total Bilirubin 0.9 (0.2-1.3) mg/dL AST 29 (14-36) U/L ALT 21 (4-34) U/L Alkaline Phosphatase 88 (38-126) U/L Creatine Kinase 170 H (30-135) U/L Troponin I (0.000-0.034) ng/mL Total Protein 7.2 (6.3-8.2) g/dL Albumin 3.9 (3.5-5.0) g/dL Urine Color Light Yellow Urine Appearance Clear (Clear) Urine pH 8.0 (5.0-8.0) Ur Specific [place] 1.012 (1.001-1.035) Urine Protein 3+ H (Negative) Urine Glucose (UA) 3+ H (Negative) Urine Ketones 2+ H (Negative) Urine Blood Moderate H (Negative) Urine Nitrite Negative (Negative) Urine Bilirubin Negative (Negative) Urine Urobilinogen <2.0 (<2.0) mg/dL Ur Leukocyte Esterase Negative (Negative) Urine RBC 39 H (0-5) /hpf Urine WBC 13 H (0-5) /hpf Ur Squamous Epith Cells 2 (0-4) /hpf Urine Bacteria Occasional H (None) /hpf Hyaline Casts 6 H (0-2) /lpf Acetone, Qual Negative (Negative) 12/22/20 12/22/20 12/22/20 Range/Units 01:25 01:25 01:25 WBC (3.8-10.6) k/uL RBC (3.80-5.40) m/uL Hgb (11.4-16.0) gm/dL Hct (34.0-46.0) % MCV (80.0-100.0) fL MCH (25.0-35.0) pg MCHC (31.0-37.0) g/dL RDW (11.5-15.5) % Plt Count (150-450) k/uL MPV Neutrophils % % Lymphocytes % % Monocytes % % Eosinophils % % Basophils % % Neutrophils # (1.3-7.7) k/uL Lymphocytes # (1.0-4.8) k/uL Monocytes # (0-1.0) k/uL Eosinophils # (0-0.7) k/uL Basophils # (0-0.2) k/uL VBG pH 7.52 H (7.31-7.41) VBG pCO2 28 L (37-51) mmHg VBG HCO3 23 L (24-28) mmol/L Sodium (137-145) mmol/L Potassium (3.5-5.1) mmol/L Chloride (98-107) mmol/L Carbon Dioxide (22-30) mmol/L Anion Gap mmol/L BUN (7-17) mg/dL Creatinine (0.52-1.04) mg/dL Est GFR (CKD-EPI)AfAm (>60 ml/min/1.73 sqM) Est GFR (CKD-EPI)NonAf (>60 ml/min/1.73 sqM) Glucose (74-99) mg/dL POC Glucose (mg/dL) (75-99) mg/dL POC Glu Ultrasonic Solderer ID Plasma Lactic Acid Wayne 1.9 (0.7-2.0) mmol/L Calcium (8.4-10.2) mg/dL Phosphorus (2.5-4.5) mg/dL Magnesium (1.6-2.3) mg/dL Total Bilirubin (0.2-1.3) mg/dL AST (14-36) U/L ALT (4-34) U/L Alkaline Phosphatase (38-126) U/L Creatine Kinase (30-135) U/L Troponin I <0.012 (0.000-0.034) ng/mL Total Protein (6.3-8.2) g/dL Albumin (3.5-5.0) g/dL Urine Color Urine Appearance (Clear) Urine pH (5.0-8.0) Ur Specific [place] (1.001-1.035) Urine Protein (Negative) Urine Glucose (UA) (Negative) Urine Ketones (Negative) Urine Blood (Negative) Urine Nitrite (Negative) Urine Bilirubin (Negative) Urine Urobilinogen (<2.0) mg/dL Ur Leukocyte Esterase (Negative) Urine RBC (0-5) /hpf Urine WBC (0-5) /hpf Ur Squamous Epith Cells (0-4) /hpf Urine Bacteria (None) /hpf Hyaline Casts (0-2) /lpf Acetone, Qual (Negative) 12/22/20 12/22/20 12/22/20 Range/Units 01:47 02:17 03:14 WBC (3.8-10.6) k/uL RBC (3.80-5.40) m/uL Hgb (11.4-16.0) gm/dL Hct (34.0-46.0) % MCV (80.0-100.0) fL MCH (25.0-35.0) pg MCHC (31.0-37.0) g/dL RDW (11.5-15.5) % Plt Count (150-450) k/uL MPV Neutrophils % % Lymphocytes % % Monocytes % % Eosinophils % % Basophils % % Neutrophils # (1.3-7.7) k/uL Lymphocytes # (1.0-4.8) k/uL Monocytes # (0-1.0) k/uL Eosinophils # (0-0.7) k/uL Basophils # (0-0.2) k/uL VBG pH (7.31-7.41) VBG pCO2 (37-51) mmHg VBG HCO3 (24-28) mmol/L Sodium (137-145) mmol/L Potassium (3.5-5.1) mmol/L Chloride (98-107) mmol/L Carbon Dioxide (22-30) mmol/L Anion Gap mmol/L BUN (7-17) mg/dL Creatinine (0.52-1.04) mg/dL Est GFR (CKD-EPI)AfAm (>60 ml/min/1.73 sqM) Est GFR (CKD-EPI)NonAf (>60 ml/min/1.73 sqM) Glucose (74-99) mg/dL POC Glucose (mg/dL) 334 H 341 H 337 H (75-99) mg/dL POC Glu Ultrasonic [place]derer [place] Kania, Pauline Plasma Lactic Acid Wayne (0.7-2.0) mmol/L Calcium (8.4-10.2) mg/dL Phosphorus (2.5-4.5) mg/dL Magnesium (1.6-2.3) mg/dL Total Bilirubin (0.2-1.3) mg/dL AST (14-36) U/L ALT (4-34) U/L Alkaline Phosphatase (38-126) U/L Creatine Kinase (30-135) U/L Troponin I (0.000-0.034) ng/mL Total Protein (6.3-8.2) g/dL Albumin (3.5-5.0) g/dL Urine Color Urine Appearance (Clear) Urine pH (5.0-8.0) Ur Specific [place] (1.001-1.035) Urine Protein (Negative) Urine Glucose (UA) (Negative) Urine Ketones (Negative) Urine Blood (Negative) Urine Nitrite (Negative) Urine Bilirubin (Negative) Urine Urobilinogen (<2.0) mg/dL Ur Leukocyte Esterase (Negative) Urine RBC (0-5) /hpf Urine WBC (0-5) /hpf Ur Squamous Epith Cells (0-4) /hpf Urine Bacteria (None) /hpf Hyaline Casts (0-2) /lpf Acetone, Qual (Negative) - EKG Data -: EKG Interpreted by Me (EKG shows sinus tachycardia 110 [place] 144 QRS 68 QTc 479) - Radiology Data Radiology results: report reviewed (CT brain is negative for acute disease), image reviewed Disposition Clinical Impression: Dehydration, Vomiting, Gastroenteritis, Hypertension, Hyperglycemia Disposition: ADMITTED IP TO THIS HOSP Condition: Fair Is patient prescribed a controlled substance at d/c from ED?: No
[2020-12-22 01:38] LABS: Appearance,Urine Clear (Clear); Bacteria,Urine Occasional /hpf; Bilirubin,Urine Negative (Negative); Blood,Urine Moderate (Negative); Color,Urine Light Yellow; Glucose,Urine (UA) 3+ (Negative); Hyaline Casts,Urine 6 /lpf (0-2); Leukocyte Esterase,Urine Negative (Negative); Nitrite,Urine Negative (Negative); Protein,Urine 3+ (Negative); RBC,Urine 39 /hpf (0-5); Specific Gravity,Urine 1.012 (1.001-1.035); Squamous Epithelial Cell,Urine 2 /hpf (0-4); Urobilinogen,Urine <2.0 mg/dL (<2.0); WBC,Urine 13 /hpf (0-5)
[2020-12-22 01:42] LABS: Ketones,Urine 2+ (Negative)
[2020-12-22 01:44] LABS: Basophils # (A) 0.1 k/uL (0-0.2); Basophils % (A) 1 %; Eosinophils # (A) 0.1 k/uL (0-0.7); Eosinophils % (A) 0 %; HCT 33.2 % (34.0-46.0); HGB 11.4 gm/dL (11.4-16.0); Lymphocytes # (A) 1.1 k/uL (1.0-4.8); Lymphocytes % (A) 8 %; MCH 29.8 pg (25.0-35.0); MCHC 34.2 g/dL (31.0-37.0); MCV 87.2 fL (80.0-100.0); Mean Platelet Volume 6.8; Monocytes # (A) 0.3 k/uL (0-1.0); Monocytes % (A) 2 %; Neutrophils # (A) 11.3 k/uL (1.3-7.7); Neutrophils % (A) 88 %; Platelet Count 312 k/uL (150-450); RBC 3.81 m/uL (3.80-5.40); VBG PH 7.52 (7.31-7.41); WBC 12.9 k/uL (3.8-10.6)
[2020-12-22 01:50] LABS: Glucose,Whole Blood 334 mg/dL (75-99)
[2020-12-22 01:54] LABS: ALT 21 U/L (4-34); AST 29 U/L (14-36); African American GFR (CKD) >90 (>60 ml/min/1.73 sqM); Albumin 3.9 g/dL (3.5-5.0); Alkaline Phosphatase 88 U/L (38-126); Anion Gap 16 mmol/L; Blood Urea Nitrogen 18 mg/dL (7-17); Calcium 9.8 mg/dL (8.4-10.2); Carbon Dioxide 21 mmol/L (22-30); Chloride 100 mmol/L (98-107); Creatine Kinase 170 U/L (30-135); Glucose 319 mg/dL (74-99); Magnesium 1.5 mg/dL (1.6-2.3); Non-African American GFR(CKD) >90 (>60 ml/min/1.73 sqM); Phosphorus 3.9 mg/dL (2.5-4.5); Potassium 3.9 mmol/L (3.5-5.1); Sodium 137 mmol/L (137-145); Total Bilirubin 0.9 mg/dL (0.2-1.3); Total Protein 7.2 g/dL (6.3-8.2)
[2020-12-22 02:19] LABS: Glucose,Whole Blood 341 mg/dL (75-99)
[2020-12-22] MEDS ORDERED: HYDROmorphone 1 MG/ML 1 ML SYRINGE IVP STA (02:23)
[2020-12-22] MEDS ORDERED: LABETALOL 5 MG/ML VIAL MDV IVP STA (02:23)
--- NOTE | 2020-12-22 02:46 | CT ---
EXAM: CT Head Without Intravenous Contrast CLINICAL HISTORY: ITS.REASON CT Reason: THAKUR TECHNIQUE: Axial computed tomography images of the head/brain without intravenous contrast. CTDI is 49.27 mGy and DLP is 1159.4 mGy-cm. This CT exam was performed using one or more of the following dose reduction techniques: automated exposure control, adjustment of the mA and/or kV according to patient size, and/or use of iterative reconstruction technique. COMPARISON: No previous studies. FINDINGS: Brain: No abnormal extra-axial collection. No hemorrhage. Midline shift: No midline shift or mass-effect. Midline anatomy is unremarkable. Ventricles: The ventricular system is age appropriate. Bones/joints: Calvarium is within normal limits. No acute fracture. Soft tissues: Unremarkable. Sinuses: Visualized sinuses are unremarkable. Mastoid air cells: Mastoid air cells are well pneumatized to IMPRESSION: 1. No acute intracranial pathology. 2. If there is concern for etiology such as early acute lacunar infarcts, magnetic resonance imaging of the brain with diffusion-weighted sequences should be performed.
[2020-12-22] MEDS ORDERED: NALOXONE 0.4 MG/ML 1 ML VIAL IV PRN (03:19)
[2020-12-22 03:22] LABS: Glucose,Whole Blood 337 mg/dL (75-99)
[2020-12-22] MEDS ORDERED: ENOXAPARIN 80 MG/0.8 ML SYRINGE SQ STA (03:25)
[2020-12-22 04:07] LABS: Glucose,Whole Blood 351 mg/dL (75-99)
[2020-12-22 05:11] LABS: Glucose,Whole Blood 354 mg/dL (75-99)
[2020-12-22] MEDS ORDERED: INSULIN ASPART (NovoLOG) 100 UNIT/ML VIAL SQ SCH (07:30)
[2020-12-22] MEDS: MORPHINE SULFATE 4 MG/ML SYRINGE IV PRN (08:04)
[2020-12-22] MEDS: ONDANSETRON 4 MG/2 ML VIAL IVP PRN ×2 (08:04→21:11)
[2020-12-22 08:24] LABS: Glucose,Whole Blood 417 mg/dL (75-99)
[2020-12-22] MEDS ORDERED: PANTOPRAZOLE 40 MG/10 ML VIAL IVP SCH (09:00)
[2020-12-22] MEDS ORDERED: PANTOPRAZOLE 40 MG/10 ML VIAL IV SCH (09:00)
[2020-12-22] MEDS ORDERED: METOCLOPRAMIDE 5 MG/ML 2 ML VIAL IVP STA (09:40)
--- NOTE | 2020-12-22 10:49 | NM ---
EXAMINATION TYPE: NM pul vent and perfuse DATE OF EXAM: 12/22/2020 COMPARISON: No recent chest x-ray submitted for comparison, chest x-ray correlation December 05, 2019 HISTORY: Pulmonary embolism, chest pain, difficulty breathing and cough TECHNIQUE: Utilizing inhalation of 66.2 mCi Tc 99m DTPA aerosol and intravenous injection of 4.9 mCi of Tc 99m MAA, ventilation and perfusion images are acquired post injection in multiple projections. FINDINGS: Normal radiotracer distribution is noted in the lungs. There is no evidence of mismatched defects. IMPRESSION: Low probability for pulmonary embolus
[2020-12-22] MEDS: SODIUM CHLORIDE 0.9% 1,000 ML IV SCH ×2 (11:15→21:17)
[2020-12-22 11:47] LABS: African American GFR (CKD) >90 (>60 ml/min/1.73 sqM); Anion Gap 6 mmol/L; Blood Urea Nitrogen 22 mg/dL (7-17); Calcium 8.2 mg/dL (8.4-10.2); Carbon Dioxide 25 mmol/L (22-30); Chloride 106 mmol/L (98-107); Glucose 363 mg/dL (74-99); Non-African American GFR(CKD) 87 (>60 ml/min/1.73 sqM); Potassium 4.2 mmol/L (3.5-5.1); Sodium 137 mmol/L (137-145)
--- NOTE | 2020-12-22 12:28 | US ---
EXAMINATION TYPE: US venous doppler duplex LE DATE OF EXAM: 12/22/2020 3:25 AM COMPARISON: NONE CLINICAL HISTORY: pe. SIDE PERFORMED: Bilateral TECHNIQUE: The lower extremity deep venous system is examined utilizing real time linear array sonog bulmaro with graded compression, doppler sonography and color-flow sonography. VESSELS IMAGED: Common Femoral Vein Deep Femoral Vein Greater Saphenous Vein * Femoral Vein Popliteal Vein Small Saphenous Vein * Proximal Calf Veins (* superficial vessels) Left and right common femoral, superficial femoral, popliteal veins all compress normally and show no abnormal luminal echoes. Venous waveforms are normal. Right Leg: Appears negative for DVT Left Leg: Appears negative for DVT IMPRESSION: No evidence of deep venous anastomosis at or above the knees.
[2020-12-22 12:45] LABS: Glucose,Whole Blood 350 mg/dL (75-99)
--- NOTE | 2020-12-22 13:29 | P.HPIM ---
History of Present Illness Patient was in 30-year-old female came in with complains of epigastric and left upper quadrant abdominal pain dull in nature presently 6/10 in severity when she was admitted was 9/10 severity with multiple episodes of nausea vomiting. Patient does take Motrin at home. Patient does have history of a fiber diabetes mellitus denied any history of gastroparesis. Patient denied any fever chills. Patient blood sugars were under control and less today patient was in mild DKA on admission which resolved at this time. Patient the patient uses 22 units of Lantus along with the carb counting for mealtime insulin. Patient blood sugars are bit elevated around 350 now. Review of Systems REVIEW OF SYSTEMS: CONSTITUTIONAL: No fever, no malaise, no fatigue. HEENT: No recent visual problems or hearing problems. Denied any sore throat. CARDIOVASCULAR: No chest pain, orthopnea, PND, no palpitations, no syncope. PULMONARY: No shortness of breath, no cough, no hemoptysis. GASTROINTESTINAL: As mentioned in HPI NEUROLOGICAL: No headaches, no weakness, no numbness. HEMATOLOGICAL: Denies any bleeding or petechiae. GENITOURINARY: Denies any burning micturition, frequency, or urgency. MUSCULOSKELETAL/RHEUMATOLOGICAL: Denies any joint pain, swelling, or any muscle pain. ENDOCRINE: Denies any polyuria or polydipsia. The rest of the 14-point review of systems is negative. Past Medical History Past Medical History: Diabetes Mellitus, Pneumonia Additional Past Medical History / Comment(s): Current URI, IDDM type I, bilateral retinopathy with injections, DKA, IBS/constipation, bronchitis, febrile seizure at 3 yrs of age History of Any Multi-Drug Resistant Organisms: None Reported Past Surgical History: Adenoidectomy, Tonsillectomy Additional Past Surgical History / Comment(s): sinus balloon plasty, wisdom teeth extractions. Past Anesthesia/Blood Transfusion Reactions: No Reported Reaction Additional Past Anesthesia/Blood Transfusion Reaction / Comment(s): no transfusions Past Psychological History: Anxiety Smoking Status: Never smoker Past Alcohol Use History: Occasional Past Drug Use History: None Reported - Past Family History Mother Family Medical History: No Reported History Additional Family Medical History / Comment(s): Mother is healthy. Father Family Medical History: No Reported History Additional Family Medical History / Comment(s): Father is healthy Medications and Allergies Home Medications Medication Instructions Recorded Confirmed Type INSULIN LISPRO (humaLOG) [humaLOG] See Protocol SQ AC-TID 11/11/14 12/22/20 History Insulin Glargine [Lantus] 22 unit SQ HS 11/11/14 12/22/20 History Ibuprofen [Motrin Ib] 400 mg PO Q8H PRN 12/22/20 12/22/20 History Allergies Allergy/AdvReac Type Severity Reaction Status Date / Time mold AdvReac Dyspnea Verified 12/22/20 08:21 Physical Exam Vitals: Vital Signs Temp Pulse Pulse Resp BP BP Pulse Ox 12/22/20 08:44 181/114 12/22/20 08:00 98.3 F 108 H 20 180/127 99 12/22/20 04:55 98.4 F 92 20 130/80 100 12/22/20 04:06 96 18 125/72 100 12/22/20 03:15 90 16 143/84 99 12/22/20 02:25 192/124 12/22/20 01:55 107 H 22 199/124 100 12/22/20 00:25 98.4 F 111 H 22 203/103 100 Intake and Output 12/21/20 12/22/20 12/22/20 22:59 06:59 14:59 Other: # Voids 0 Weight 71.214 kg PHYSICAL EXAMINATION: GENERAL: The patient is alert and oriented x3, not in any acute distress. Well developed, well nourished. HEENT: Pupils are round and equally reacting to light. EOMI. No scleral icterus. No conjunctival pallor. Normocephalic, atraumatic. No pharyngeal erythema. No thyromegaly. CARDIOVASCULAR: S1 and S2 present. No murmurs, rubs, or gallops. PULMONARY: Chest is clear to auscultation, no wheezing or crackles. ABDOMEN: Soft, tenderness in the left upper quadrant and epigastric area, nondistended, normoactive bowel sounds. No palpable organomegaly. MUSCULOSKELETAL: No joint swelling or deformity. EXTREMITIES: No cyanosis, clubbing, or pedal edema. NEUROLOGICAL: Gross neurological examination did not reveal any focal deficits. SKIN: No rashes. Results CBC & Chem 7: 12/22/20 01:25 12/22/20 11:11 Labs: Abnormal Lab Results - Last 24 Hours (Table) 12/22/20 12/22/20 12/22/20 Range/Units 01:25 01:25 01:25 WBC 12.9 H (3.8-10.6) k/uL Hct 33.2 L (34.0-46.0) % Neutrophils # 11.3 H (1.3-7.7) k/uL D-Dimer (<0.60) mg/L FEU VBG pH (7.31-7.41) VBG pCO2 (37-51) mmHg VBG HCO3 (24-28) mmol/L Carbon Dioxide 21 L (22-30) mmol/L BUN 18 H (7-17) mg/dL Glucose 319 H (74-99) mg/dL POC Glucose (mg/dL) (75-99) mg/dL Calcium (8.4-10.2) mg/dL Magnesium 1.5 L (1.6-2.3) mg/dL Creatine Kinase 170 H (30-135) U/L Urine Protein 3+ H (Negative) Urine Glucose (UA) 3+ H (Negative) Urine Ketones 2+ H (Negative) Urine Blood Moderate H (Negative) Urine RBC 39 H (0-5) /hpf Urine WBC 13 H (0-5) /hpf Urine Bacteria Occasional H (None) /hpf Hyaline Casts 6 H (0-2) /lpf 12/22/20 12/22/20 12/22/20 Range/Units 01:25 01:47 02:17 WBC (3.8-10.6) k/uL Hct (34.0-46.0) % Neutrophils # (1.3-7.7) k/uL D-Dimer (<0.60) mg/L FEU VBG pH 7.52 H (7.31-7.41) VBG pCO2 28 L (37-51) mmHg VBG HCO3 23 L (24-28) mmol/L Carbon Dioxide (22-30) mmol/L BUN (7-17) mg/dL Glucose (74-99) mg/dL POC Glucose (mg/dL) 334 H 341 H (75-99) mg/dL Calcium (8.4-10.2) mg/dL Magnesium (1.6-2.3) mg/dL Creatine Kinase (30-135) U/L Urine Protein (Negative) Urine Glucose (UA) (Negative) Urine Ketones (Negative) Urine Blood (Negative) Urine RBC (0-5) /hpf Urine WBC (0-5) /hpf Urine Bacteria (None) /hpf Hyaline Casts (0-2) /[facility] 12/22/20 12/22/20 12/22/20 Range/Units 03:14 03:51 04:05 WBC (3.8-10.6) k/uL Hct (34.0-46.0) % Neutrophils # (1.3-7.7) k/uL D-Dimer 0.68 H (<0.60) mg/L FEU VBG pH (7.31-7.41) VBG pCO2 (37-51) mmHg VBG HCO3 (24-28) mmol/L Carbon Dioxide (22-30) mmol/L BUN (7-17) mg/dL Glucose (74-99) mg/dL POC Glucose (mg/dL) 337 H 351 H (75-99) mg/dL Calcium (8.4-10.2) mg/dL Magnesium (1.6-2.3) mg/dL Creatine Kinase (30-135) U/L Urine Protein (Negative) Urine Glucose (UA) (Negative) Urine Ketones (Negative) Urine Blood (Negative) Urine RBC (0-5) /hpf Urine WBC (0-5) /hpf Urine Bacteria (None) /hpf Hyaline Casts (0-2) /[facility] 12/22/20 12/22/20 12/22/20 Range/Units 05:09 08:17 11:11 WBC (3.8-10.6) k/uL Hct (34.0-46.0) % Neutrophils # (1.3-7.7) k/uL D-Dimer (<0.60) mg/L FEU VBG pH (7.31-7.41) VBG pCO2 (37-51) mmHg VBG HCO3 (24-28) mmol/L Carbon Dioxide (22-30) mmol/L BUN 22 H (7-17) mg/dL Glucose 363 H (74-99) mg/dL POC Glucose (mg/dL) 354 H 417 H (75-99) mg/dL Calcium 8.2 L (8.4-10.2) mg/dL Magnesium (1.6-2.3) mg/dL Creatine Kinase (30-135) U/L Urine Protein (Negative) Urine Glucose (UA) (Negative) Urine Ketones (Negative) Urine Blood (Negative) Urine RBC (0-5) /hpf Urine WBC (0-5) /hpf Urine Bacteria (None) /hpf Hyaline Casts (0-2) /lpf 12/22/20 Range/Units 12:43 WBC (3.8-10.6) k/uL Hct (34.0-46.0) % Neutrophils # (1.3-7.7) k/uL D-Dimer (<0.60) mg/L FEU VBG pH (7.31-7.41) VBG pCO2 (37-51) mmHg VBG HCO3 (24-28) mmol/L Carbon Dioxide (22-30) mmol/L BUN (7-17) mg/dL Glucose (74-99) mg/dL POC Glucose (mg/dL) 350 H (75-99) mg/dL Calcium (8.4-10.2) mg/dL Magnesium (1.6-2.3) mg/dL Creatine Kinase (30-135) U/L Urine Protein (Negative) Urine Glucose (UA) (Negative) Urine Ketones (Negative) Urine Blood (Negative) Urine RBC (0-5) /hpf Urine WBC (0-5) /hpf Urine Bacteria (None) /hpf Hyaline Casts (0-2) /lpf Microbiology - Last 24 Hours (Table) 12/22/20 01:25 Urine Culture - Preliminary Urine,Voided Thrombosis Risk Factor Assmnt - Choose All That Apply Each Factor Represents 1 point: Obesity (BMI >25) Thrombosis Risk Factor Assessment Total Risk Factor Score: 1 Thrombosis Risk Factor Assessment Level: Low Risk Assessment and Plan Plan: -Diabetic ketoacidosis: Resolved with IV fluids patient will not require any IV insulin patient will restart back on her home regimen along with sliding scale. The titration depending on the blood sugars. DKA was precipitated by nausea vomiting from possible gastritis or gastroenteritis -Gastritis/gastroenteritis: Patient will be started on Protonix twice a day along with the Zofran and Reglan for a nausea vomiting. -Type 1 diabetes mellitus: We'll obtain hemoglobin A1c to assess her blood sugar control. DVT prophylaxis early ambulation
[2020-12-22 17:30] LABS: Glucose,Whole Blood 173 mg/dL (75-99)
[2020-12-22] MEDS: INSULIN ASPART (NovoLOG) 100 UNIT/ML VIAL SQ SCH ×2 (17:32→21:05)
[2020-12-22] MEDS: METOCLOPRAMIDE 5 MG/ML 2 ML VIAL IVP PRN (17:33)
[2020-12-22] MEDS: HYDROmorphone 1 MG/ML 1 ML SYRINGE IVP PRN ×2 (17:54→21:11)
[2020-12-22 19:54] LABS: Glucose,Whole Blood 76 mg/dL (75-99)
[2020-12-22] MEDS: INSULIN DETEMIR (LEVEMIR) 100 UNIT/ML SYR SQ SCH (21:06)
[2020-12-22] MEDS: PANTOPRAZOLE 40 MG/10 ML VIAL IVP SCH (21:15)
[2020-12-23] MEDS: METOCLOPRAMIDE 5 MG/ML 2 ML VIAL IVP PRN ×2 (00:13→10:28)
[2020-12-23] MEDS: SODIUM CHLORIDE 0.9% 1,000 ML IV SCH ×4 (05:22→19:52)
[2020-12-23] MEDS: ONDANSETRON 4 MG/2 ML VIAL IVP PRN ×2 (05:53→17:42)
[2020-12-23 06:19] LABS: Basophils # (A) 0.1 k/uL (0-0.2); Basophils % (A) 1 %; Eosinophils # (A) 0.1 k/uL (0-0.7); Eosinophils % (A) 1 %; Lymphocytes # (A) 2.6 k/uL (1.0-4.8); Lymphocytes % (A) 30 %; MCH 30.4 pg (25.0-35.0); MCV 89.4 fL (80.0-100.0); Mean Platelet Volume 6.6; Monocytes # (A) 0.6 k/uL (0-1.0); Monocytes % (A) 7 %; Neutrophils % (A) 59 %; Platelet Count 245 k/uL (150-450); RBC 2.91 m/uL (3.80-5.40); RDW 13.9 % (11.5-15.5); WBC 8.4 k/uL (3.8-10.6)
[2020-12-23 06:27] LABS: HGB 8.8 gm/dL (11.4-16.0)
[2020-12-23 06:51] LABS: Glucose,Whole Blood 61 mg/dL (75-99)
[2020-12-23] MEDS: INSULIN ASPART (NovoLOG) 100 UNIT/ML VIAL SQ SCH ×4 (06:53→20:19)
[2020-12-23] MEDS: MORPHINE SULFATE 4 MG/ML SYRINGE IV PRN ×3 (07:01→21:28)
[2020-12-23 07:04] LABS: Glucose,Whole Blood 84 mg/dL (75-99)
[2020-12-23 09:34] LABS: African American GFR (CKD) 100.1 (60.0-200.0); Albumin 3.2 g/dL (3.80-4.90); Albumin/Globulin Ratio 1.78 (1.60-3.17); Anion Gap 8.4 mmol/L (4.00-12.00); BUN/Creat Ratio 18.89 Ratio (12.00-20.00); Calcium 7.8 mg/dL (8.7-10.3); Carbon Dioxide 23.6 mmol/L (21.6-31.8); Globulin 1.8 g/dL (1.6-3.3); Magnesium 1.5 mg/dL (1.5-2.4); Non-African American GFR(CKD) 86.4 (60.0-200.0); Phosphorus 3.4 mg/dL (2.4-5.1); Potassium 3.4 mmol/L (3.5-5.5); Total Bilirubin 0.3 mg/dL (0.3-1.2)
[2020-12-23] MEDS: PANTOPRAZOLE 40 MG/10 ML VIAL IVP SCH ×2 (10:37→19:51)
[2020-12-23] MEDS ORDERED: ACETAMINOPHEN TAB 325 MG TAB PO PRN (10:38)
[2020-12-23] MEDS: HYDROmorphone 1 MG/ML 1 ML SYRINGE IVP PRN (10:38)
[2020-12-23 12:00] LABS: Glucose,Whole Blood 115 mg/dL (75-99)
[2020-12-23] MEDS: MAGNESIUM SULFATE-D5W PMX 1 GM in DEXTROSE/WATER 1 100ML.BAG IVPB SCH ×2 (12:00→14:34)
[2020-12-23] MEDS: POTASSIUM CHLORIDE 10 MEQ in WATER FOR INJECTION 1 100ML.BAG IVPB SCH ×4 (13:04→16:21)
[2020-12-23] MEDS: PROCHLORPERAZINE INJ 10 MG/2 ML VIAL IVP PRN ×2 (14:15→20:19)
--- NOTE | 2020-12-23 15:52 | P.PN ---
Subjective Progress Note Date: 12/23/20 Patient was in 30-year-old female came in with complains of epigastric and left upper quadrant abdominal pain dull in nature presently 6/10 in severity when she was admitted was 9/10 severity with multiple episodes of nausea vomiting. Patient does take Motrin at home. Patient does have history of a fiber diabetes mellitus denied any history of gastroparesis. Patient denied any fever chills. Patient blood sugars were under control and less today patient was in mild DKA on admission which resolved at this time. Patient the patient uses 22 units of Lantus along with the carb counting for mealtime insulin. Patient blood sugars are bit elevated around 350 now. 12/23/2020 She was seen and evaluated and follow-up continues to have abdominal pain and discomfort along with nausea and vomiting and headache. Blood sugar on the lower side today and blood pressure slightly elevated. Patient likely having a migraine and will give Compazine and continue with IV fluids and Accu-Cheks before meals and at bedtime. Potassium also found to be low at 3.4, sodium is 140, magnesium is 1.5 and being replaced. Will repeat a.m. labs. Review of systems: Constitutional: Reports fatigue, reports of fever, or chills Cardiovascular: No reports of chest pain or palpitations Respiratory: No reports of shortness of breath or cough GI: Reports nausea with occasional vomiting, no reports of diarrhea, reports abdominal pain : No reports of dysuria or retention Neurovascular: No reports of weakness or numbness, reports headache and light intolerance All medications have been reviewed Objective - Vital Signs Vital signs: Vital Signs Temp 98.3 F 12/23/20 14:00 Pulse 91 12/23/20 14:00 Resp 16 12/23/20 14:00 BP 166/94 12/23/20 14:00 Pulse Ox 95 12/23/20 14:00 Intake & Output 12/22/20 12/23/20 12/23/20 18:59 06:59 18:59 Intake Total 650 540 118 Output Total 100 Balance 650 440 118 Intake: Oral 540 118 Blood Product 650 Output: Emesis 100 Other: Voiding Method Toilet # Voids 1 # Emeses 2 - Exam GENERAL: The patient is alert and oriented x3, not in any acute distress. Well developed, well nourished. HEENT: Pupils are round and equally reacting to light. EOMI. No scleral icterus. No conjunctival pallor. Normocephalic, atraumatic. No pharyngeal erythema. No thyromegaly. CARDIOVASCULAR: S1 and S2 present. No murmurs, rubs, or gallops. PULMONARY: Chest is clear to auscultation, no wheezing or crackles. ABDOMEN: Soft, tenderness in the left upper quadrant and epigastric area, nondistended, normoactive bowel sounds. No palpable organomegaly. MUSCULOSKELETAL: No joint swelling or deformity. EXTREMITIES: No cyanosis, clubbing, or pedal edema. NEUROLOGICAL: Gross neurological examination did not reveal any focal deficits. Light intolerance SKIN: No rashes. - Labs CBC & Chem 7: 12/23/20 06:07 12/23/20 06:07 Labs: Abnormal Lab Results - Last 24 Hours (Table) 12/22/20 12/23/20 12/23/20 Range/Units 17:27 06:07 06:07 RBC 2.91 L (3.80-5.40) m/uL Hgb 8.8 L D (11.4-16.0) gm/dL Hct 26.0 L (34.0-46.0) % Potassium 3.4 L (3.5-5.5) mmol/L Glucose 53 L (70-110) mg/dL POC Glucose (mg/dL) 173 H (75-99) mg/dL Calcium 7.8 L (8.7-10.3) mg/dL Total Protein 5.0 L (6.2-8.2) g/dL Albumin 3.20 L (3.80-4.90) g/dL 12/23/20 12/23/20 Range/Units 06:48 11:58 RBC (3.80-5.40) m/uL Hgb (11.4-16.0) gm/dL Hct (34.0-46.0) % Potassium (3.5-5.5) mmol/L Glucose (70-110) mg/dL POC Glucose (mg/dL) 61 L 115 H (75-99) mg/dL Calcium (8.7-10.3) mg/dL Total Protein (6.2-8.2) g/dL Albumin (3.80-4.90) g/dL Microbiology - Last 24 Hours (Table) 12/22/20 01:25 Urine Culture - Final Urine,Voided Assessment and Plan Assessment: -Diabetic ketoacidosis: Resolved with IV fluids patient will not require any IV insulin patient will restart back on her home regimen along with sliding scale. Continue with IV fluids as patient continues to have nausea and vomiting. DKA was precipitated by nausea vomiting from possible gastritis or gastroenteritis -Gastritis/gastroenteritis: Patient will be started on Protonix twice a day along with the Zofran, Compazine added. -Hypomagnesemia, currently 1.5 and will replace -Mild hypokalemia, 3.4 will replace -Headache possibly migraine in nature, will add Compazine -Type 1 diabetes mellitus: We'll obtain hemoglobin A1c to assess her blood sugar control. -DVT prophylaxis early ambulation Plan: Continue with IV fluids and continue with clear liquid diet or just ice chips as patient continues to have nausea and vomiting. Compazine added for headache along with nausea and vomiting. Replace potassium and magnesium per protocol and will repeat a.m. labs. Continue to monitor blood sugars before meals and at bedtime as home medications have been resumed. Instructed the patient increase activity as tolerated and get up out of bed more often. Possible discharge in 24 hours.
[2020-12-23 17:59] LABS: Glucose,Whole Blood 185 mg/dL (75-99)
[2020-12-23 20:19] LABS: Glucose,Whole Blood 130 mg/dL (75-99)
[2020-12-23] MEDS: INSULIN DETEMIR (LEVEMIR) 100 UNIT/ML SYR SQ SCH (20:19)
[2020-12-24 01:30] LABS: Hemoglobin A1C 7.3 % (4.0-6.0)
[2020-12-24] MEDS: MORPHINE SULFATE 4 MG/ML SYRINGE IV PRN ×4 (01:31→19:47)
[2020-12-24] MEDS: ONDANSETRON 4 MG/2 ML VIAL IVP PRN (01:31)
[2020-12-24 03:04] LABS: Glucose,Whole Blood 41 mg/dL (75-99)
[2020-12-24 03:19] LABS: Glucose,Whole Blood 43 mg/dL (75-99)
[2020-12-24 03:33] LABS: Glucose,Whole Blood 43 mg/dL (75-99)
[2020-12-24 03:47] LABS: Glucose,Whole Blood 69 mg/dL (75-99)
[2020-12-24 04:03] LABS: Glucose,Whole Blood 109 mg/dL (75-99)
[2020-12-24 07:08] LABS: Glucose,Whole Blood 152 mg/dL (75-99)
[2020-12-24] MEDS: INSULIN ASPART (NovoLOG) 100 UNIT/ML VIAL SQ SCH ×4 (07:49→21:21)
[2020-12-24] MEDS: SODIUM CHLORIDE 0.9% 1,000 ML IV SCH ×2 (07:50→18:15)
[2020-12-24] MEDS: PANTOPRAZOLE 40 MG/10 ML VIAL IVP SCH ×2 (09:11→21:21)
[2020-12-24] MEDS: PROCHLORPERAZINE INJ 10 MG/2 ML VIAL IVP PRN ×2 (09:11→19:47)
[2020-12-24] MEDS: IOPAMIDOL CONTRAST (ORAL USE) VIAL PO PRN ×2 (09:47→10:56)
[2020-12-24 09:48] LABS: African American GFR (CKD) 135.7 (60.0-200.0); Anion Gap 5.3 mmol/L (4.00-12.00); BUN/Creat Ratio 11.43 Ratio (12.00-20.00); Calcium 7.4 mg/dL (8.7-10.3); Carbon Dioxide 23.7 mmol/L (21.6-31.8); Magnesium 1.8 mg/dL (1.5-2.4); Non-African American GFR(CKD) 117.1 (60.0-200.0); Potassium 3.7 mmol/L (3.5-5.5)
[2020-12-24] MEDS ORDERED: DEXTROSE 50% SYRINGE 50 ML IVP ONE (11:18)
[2020-12-24 11:27] LABS: Glucose,Whole Blood 52 mg/dL (75-99)
[2020-12-24 11:37] LABS: Glucose,Whole Blood 143 mg/dL (75-99)
--- NOTE | 2020-12-24 12:10 | CT ---
EXAMINATION TYPE: CT abdomen pelvis wo/w con DATE OF EXAM: 12/24/2020 COMPARISON: 12/06/2019 INDICATION: abdominal pain nausea, vomiting DLP: 1033.1 mGycm, Automated exposure control for dose reduction was used. CONTRAST: 100 mL of Isovue 300. Study performed with Oral Contrast TECHNIQUE: Axial images were obtained from above the diaphragm to the pubic rami in the axial plane a t 5 mm thick sections. Reconstructed images are reviewed on the computer in the coronal plane. FINDINGS: Limited CT sections are obtained the lung bases. Minimal bilateral pleural effusions are present wit h adjacent compressive atelectasis. Small hiatal hernia is present.. CT ABDOMEN: Liver: Normal Spleen: Normal Pancreas: Normal Adrenal glands: The adrenal glands are normal. Gallbladder: Normal Kidneys: No masses are evident. No hydronephrosis is present. No cysts are present. Delayed images were obtained through the kidneys, which remain unremarkable. No renal stones are evident on precont rast imaging. Aorta: Vascular calcification is within the aorta. Inferior vena cava: Normal. CT PELVIS: Loops of bowel within the abdomen and pelvis are normal. The studies without oral contrast limiti ng bowel evaluation. Appendix: Normal as visualized. Urinary bladder: Urinary bladder is distended. Genitourinary structures: Uterus is normal. Adnexal regions are clear. Some minimal fluid is within t he cul-de-sac. Osseous structures: No suspicious lytic or sclerotic lesions. IMPRESSIONS: 1. Small amount of fluid in the cul-de-sac may be physiologic. 2. Small bilateral pleural effusions with minimal adjacent compressive atelectasis. 3. Hiatal hernia.
[2020-12-24] MEDS: ONDANSETRON 4 MG/2 ML VIAL IVP SCH (15:09)
--- NOTE | 2020-12-24 16:29 | P.PN ---
Subjective Progress Note Date: 12/24/20 Patient was in 30-year-old female came in with complains of epigastric and left upper quadrant abdominal pain dull in nature presently 6/10 in severity when she was admitted was 9/10 severity with multiple episodes of nausea vomiting. Patient does take Motrin at home. Patient does have history of a fiber diabetes mellitus denied any history of gastroparesis. Patient denied any fever chills. Patient blood sugars were under control and less today patient was in mild DKA on admission which resolved at this time. Patient the patient uses 22 units of Lantus along with the carb counting for mealtime insulin. Patient blood sugars are bit elevated around 350 now. 12/23/2020 She was seen and evaluated and follow-up continues to have abdominal pain and discomfort along with nausea and vomiting and headache. Blood sugar on the lower side today and blood pressure slightly elevated. Patient likely having a migraine and will give Compazine and continue with IV fluids and Accu-Cheks before meals and at bedtime. Potassium also found to be low at 3.4, sodium is 140, magnesium is 1.5 and being replaced. Will repeat a.m. labs. 12/24/2020 Patient seen this morning and continues to have abdominal discomfort and pain noted in the left upper quadrant and continues with nausea and headache. Pat ieomega states she has not vomited yet today. Patient is maintained on clear liquids. GI consulted and pending at this time. CT abdomen and pelvis was done showing small amount of fluid in the cul-de-sac that may be physiologic, small bilateral pleural effusion with minimal adjacent compressive atelectasis, small hiatal hernia. Incentive spirometer ordered and instructed the patient to use 10 times every hour while awake. Patient states this abdominal discomfort has been ongoing since her Covid diagnosis a few weeks ago. She is maintained on IV fluids and will continue at this time. Sodium is 135, potassium has improved and is 3.7, current creatinine is 0.7, and magnesium was replaced and is currently 1.8. Blood sugars have been on the lower side although patient is not eating very much and we'll continue sliding scale and home medications. Review of systems: Constitutional: Reports fatigue, reports of fever, or chills Cardiovascular: No reports of chest pain or palpitations Respiratory: No reports of shortness of breath or cough GI: Reports nausea with no vomiting today, no reports of diarrhea, reports continued abdominal pain : No reports of dysuria or retention Neurovascular: No reports of weakness or numbness, reports headache and light intolerance All medications have been reviewed Objective - Vital Signs Vital signs: Vital Signs Temp 98.1 F 12/24/20 07:05 Pulse 91 12/24/20 07:05 Resp 18 12/24/20 07:05 BP 128/69 12/24/20 08:25 Pulse Ox 93 L 12/24/20 07:05 Intake & Output 12/23/20 12/24/20 12/24/20 18:59 06:59 18:59 Intake Total 118 Balance 118 Intake: Oral 118 Other: Voiding Method Toilet Toilet # Voids 2 # Emeses 2 - Exam GENERAL: The patient is alert and oriented x3, not in any acute distress. Well developed, well nourished. HEENT: Pupils are round and equally reacting to light. EOMI. No scleral icterus. No conjunctival pallor. Normocephalic, atraumatic. No pharyngeal erythema. No thyromegaly. CARDIOVASCULAR: S1 and S2 present. No murmurs, rubs, or gallops. PULMONARY: Chest is clear to auscultation, no wheezing or crackles. ABDOMEN: Soft, tenderness in the left upper quadrant and epigastric area, nondistended, normoactive bowel sounds. No palpable organomegaly. MUSCULOSKELETAL: No joint swelling or deformity. EXTREMITIES: No cyanosis, clubbing, or pedal edema. NEUROLOGICAL: Gross neurological examination did not reveal any focal deficits. Light intolerance SKIN: No rashes. - Labs CBC & Chem 7: 12/23/20 06:07 12/24/20 04:49 Labs: Abnormal Lab Results - Last 24 Hours (Table) 12/23/20 12/23/20 12/23/20 Range/Units 06:01 06:07 11:58 Potassium 3.4 L (3.5-5.5) mmol/L Glucose 53 L (70-110) mg/dL POC Glucose (mg/dL) 115 H (75-99) mg/dL Hemoglobin A1c 7.3 H (4.0-6.0) % Calcium 7.8 L (8.7-10.3) mg/dL Total Protein 5.0 L (6.2-8.2) g/dL Albumin 3.20 L (3.80-4.90) g/dL 12/23/20 12/23/20 12/24/20 Range/Units 17:56 20:17 03:02 Potassium (3.5-5.5) mmol/L Glucose (70-110) mg/dL POC Glucose (mg/dL) 185 H 130 H 41 L (75-99) mg/dL Hemoglobin A1c (4.0-6.0) % Calcium (8.7-10.3) mg/dL Total Protein (6.2-8.2) g/dL Albumin (3.80-4.90) g/dL 12/24/20 12/24/20 12/24/20 Range/Units 03:17 03:31 03:45 Potassium (3.5-5.5) mmol/L Glucose (70-110) mg/dL POC Glucose (mg/dL) 43 L 43 L 69 L (75-99) mg/dL Hemoglobin A1c (4.0-6.0) % Calcium (8.7-10.3) mg/dL Total Protein (6.2-8.2) g/dL Albumin (3.80-4.90) g/dL 12/24/20 12/24/20 Range/Units 04:01 07:03 Potassium (3.5-5.5) mmol/L Glucose (70-110) mg/dL POC Glucose (mg/dL) 109 H 152 H (75-99) mg/dL Hemoglobin A1c (4.0-6.0) % Calcium (8.7-10.3) mg/dL Total Protein (6.2-8.2) g/dL Albumin (3.80-4.90) g/dL Microbiology - Last 24 Hours (Table) 12/22/20 01:25 Urine Culture - Final Urine,Voided Assessment and Plan Assessment: -Diabetic ketoacidosis: Resolved with IV fluids patient will not require any IV insulin patient will restart back on her home regimen along with sliding scale. Continue with IV fluids as patient continues to have nausea and abdominal discomfort. DKA was precipitated by nausea vomiting from possible gastritis or gastroenteritis -Gastritis/gastroenteritis: Patient will be started on Protonix twice a day along with the Zofran, Compazine added. GI consulted -Hypomagnesemia, improved currently 1.8 -Mild hypokalemia, improved 3.7 -Headache possibly migraine in nature, will add Compazine -Type1 diabetes mellitus: hemoglobin A1c is 7.3 -DVT prophylaxis early ambulation Plan: Continue with IV fluids and continue with clear liquid diet or just ice chips as patient continues to have nausea and abdominal discomfort. Electrolytes improved to replacement. She is not vomiting today although continues with nausea. I consulted and pending at this time. Continue to monitor blood sugars before meals and at bedtime as home medications have been resumed. Instructed the patient increase activity as tolerated and get up out of bed more often. Incentive spirometer ordered instructed the patient to continue using 10 times every hour while awake.
[2020-12-24] MEDS ORDERED: TEMAZEPAM 15 MG CAP PO PRN (17:17)
[2020-12-24 17:28] LABS: Glucose,Whole Blood 72 mg/dL (75-99)
[2020-12-24] MEDS: INSULIN DETEMIR (LEVEMIR) 100 UNIT/ML SYR SQ SCH (21:21)
[2020-12-24 21:22] LABS: Glucose,Whole Blood 104 mg/dL (75-99)
--- NOTE | 2020-12-24 23:38 | CONS ---
CONSULTATION DATE OF DICTATION: 12/24/2020 REASON FOR CONSULTATION: Nausea, vomiting and diarrhea of 2 weeks' duration. HISTORY OF PRESENT ILLNESS: The patient is a 30-year-old pleasant white female admitted to the hospital complaining of severe epigastric pain associated with nausea, vomiting and diarrhea for the last 2 weeks' duration. The patient was diagnosed with COVID infection 2 weeks ago, at which time she was hospitalized for a whole week. She was subsequently discharged home, but she continued to have some abdominal symptoms with nausea and vomiting. It continued to progressively get worse. For the last 4 days she has been throwing up about 5 to 6 times daily and had loose watery bowel movements. She does have a history of insulin- dependent diabetes mellitus diagnosed 10 years ago which she thinks has been under control. However, during this hospitalization she was noted to have mild DKA which since has improved. No recent NSAID use. No prior history of peptic ulcer disease. No history of diabetic gastroparesis. PAST MEDICAL HISTORY: Significant for insulin-dependent diabetes mellitus diagnosed 10 years ago, history of bilateral retinopathy. MEDICATIONS: Medications at home include insulin lispro, Lantus insulin and Motrin. ALLERGIES: MOLD. PAST SURGICAL HISTORY: Adenoidectomy and tonsillectomy and extraction of wisdom teeth. FAMILY HISTORY: Mother healthy. Father is also healthy. SOCIAL HISTORY: No smoking. No alcohol use. REVIEW OF SYSTEMS: CARDIOPULMONARY: No chest pain or shortness of breath. GENITOURINARY: No dysuria or hematuria. MUSCULOSKELETAL: Unremarkable. SKIN: Unremarkable. ENDOCRINE: Diabetes mellitus, as mentioned above. ENT/VISION: Unremarkable. CONSTITUTIONAL: No recent weight loss. No fever, chills, night sweats. HEMATOLOGY: Unremarkable. PSYCHIATRIC: Unremarkable. PHYSICAL EXAMINATION: She appears comfortable. No apparent distress. VITAL SIGNS: Stable. Blood pressure is 172/105, pulse rate 101, temperature 98.4. HEENT examination unremarkable. Conjunctivae pink. Sclerae anicteric. Oral cavity no lesions. NECK: No JVD or lymph node enlargement. CHEST: Clear to auscultation. HEART: Regular rate and rhythm. ABDOMEN: Soft. There was tenderness in the epigastric area. The rest of the abdomen was benign. Bowel sounds are positive. No organomegaly. EXTREMITIES: No pedal edema. NEUROLOGIC: Alert and oriented x3. No focal deficits. LABS/IMAGING: WBC 12.9, hemoglobin 11.4, platelets normal. Basic metabolic panel is within normal limits. BUN 22, creatinine 0.9. Blood sugar was 363. Today it is 135. AST, ALT, T- bilirubin and alkaline phosphatase are within normal limits. Magnesium was 1.5, albumin 3.2. Urinalysis was negative. Coronavirus PCR is negative. Serum acetone is negative. She did have an CT of the abdomen and pelvis done this afternoon that showed small amount of fluid in the cul-de-sac, small bilateral pleural effusions and hiatal hernia. IMPRESSION: 1. Acute onset of nausea, vomiting and diarrhea for the last 2 weeks' duration, probably related to gastroenteritis. She recently had COVID-19 infection 2 weeks ago. 2. Longstanding history of diabetes mellitus. 3. Mild diabetic ketoacidosis, resolved. 4. Electrolyte abnormalities. RECOMMENDATIONS: 1. Continue with symptomatic and supportive care. 2. Will add IV Compazine every 6 hours alternating with Zofran. 3. Protonix 40 mg twice daily. 4. Start her on a clear liquid diet and advance as tolerated. 5. No plans on any endoscopic intervention at the present time. 6. Obtain stool cultures and C difficile toxin. Will follow with you closely. Thank you for this consultation. MMODL / IJN: [id number] /
[2020-12-25] MEDS: ONDANSETRON 4 MG/2 ML VIAL IVP SCH ×2 (00:05→07:16)
[2020-12-25] MEDS: MORPHINE SULFATE 4 MG/ML SYRINGE IV PRN ×2 (01:37→07:16)
[2020-12-25] MEDS: SODIUM CHLORIDE 0.9% 1,000 ML IV SCH ×2 (05:19→11:29)
[2020-12-25 06:44] LABS: Glucose,Whole Blood 174 mg/dL (75-99)
[2020-12-25] MEDS: PANTOPRAZOLE 40 MG/10 ML VIAL IVP SCH (07:16)
[2020-12-25] MEDS: INSULIN ASPART (NovoLOG) 100 UNIT/ML VIAL SQ SCH ×2 (07:17→11:57)
[2020-12-25 08:20] VITALS: PULSE 102; RESP 17; TEMP 99.4
[2020-12-25 09:46] LABS: African American GFR (CKD) 135.7 (60.0-200.0); Anion Gap 9.8 mmol/L (4.00-12.00); BUN/Creat Ratio 7.14 Ratio (12.00-20.00); Carbon Dioxide 23.2 mmol/L (21.6-31.8); Non-African American GFR(CKD) 117.1 (60.0-200.0)
[2020-12-25 11:06] LABS: Basophils # (A) 0.06 X 10*3/uL (0.00-0.10); Basophils % (A) 0.8 %; Eosinophils # (A) 0.08 X 10*3/uL (0.04-0.35); HCT 25.5 % (37.2-46.3); HGB 8.7 g/dL (12.0-15.0); Lymphocytes # (A) 2.07 X 10*3/uL (0.90-5.00); Lymphocytes % (A) 26.3 %; MCHC 34.1 g/dL (32.0-37.0); MCV 87.9 fL (80.0-97.0); Mean Platelet Volume 10.4 fL (9.5-12.2); Monocytes # (A) 0.65 X 10*3/uL (0.20-1.00); Monocytes % (A) 8.2 %; Neutrophils # (A) 5.01 X 10*3/uL (1.80-7.70); Neutrophils % (A) 63.6 %; Platelet Count 226 X 10*3/uL (140-440); WBC 7.88 X 10*3/uL (4.50-10.00)
[2020-12-25 11:48] LABS: Glucose,Whole Blood 311 mg/dL (75-99)
[2020-12-25 12:02] VITALS: BP 176/106
--- NOTE | 2020-12-25 13:05 | CDI ---
Documentation Clarification Form Date: 12/25/2020 12:45:55 PM From: Beverly Marcelo CCS, CCDS Admit Date: 12/23/2020 01:41:00 PM Patient Name: Gem Hall Visit Number: [id number] Discharge Date: ATTENTION: The Clinical Documentation Specialists (CDI) and [facility] Coding Staff appreciate your assistance in clarifying documentation. Please respond to the clarification below the line at the bottom and electronically sign. The CDI & [facility] Coding staff will review the response and follow-up if needed. Please note: Queries are made part of the Legal Health Record. If you have any questions, please contact the author of this message via ITS. Dr. Roland Mckeon: The patient was initially admitted with DKA which resolved with IV fluids, not requiring IV Insulin. Per the 12/24 Attending Progress Note: "Gastritis/gastroenteritis." Patient history/risk factors: IDDM 1, COVID 19 Pneumonia, Diabetic Retinopathy, Previous DKA, IBS, Constipation, Bronchitis. Clinical Indicators: Presented to the ED on 12/22 with Nausea, Vomiting, Diarrhea and Epigastric Abdominal Pain. The patient was recently admitted and treated 3 weeks ago for COVID 19, discharged to home. ED Impression: Dehydration, Vomiting, Gastroenteritis, Hypertension, Hyperglycemia. Radiology: 12/22 VQ Scan: Low probability for PE. 12/22 Bilateral Lower Extremity US: No evidence of DVT bilaterally. VS 12/22: T 98.4, P 111^, R 22, BP 203/103^, PO 100 RA VS 12/24: T 98.2, P 94, R 18, BP 169/96, PO 93-95 RA LAB 12/22: WBC 12.9^, Hct 33.2*, Neut 11.3^, D Dimer 0.68^, VBG pH 7.52^, pCO2 28*, HCO3 23*; BUN 18^, Glucose 319^, Mag 1.5*, Cr Kinase 170^ Acetone: Negative COVID 19 Negative LAB 12/24: BUN 8.0*, Glucose 135^, Calcium 7.4*. Treatment 12/22: IV Ativan, IV Zofran, IV Protonix, IV fluid 1,000 mls @ 130 mls/hr q7, IV fluid bolus 1,000 mls @ 999 mls/hr q1 x2, IV Dilaudid, IV Trandate, IV Morphine, IV Zofran, Lovenox sq, Insulin sq, IV Reglan. 2/2: IV fluids, IV Protonix, IV Zofran, IV Compazine, Clear Liquid Diet or Ice chips. 2/2 Gastrointestinal Consult: Acute onset of nausea, vomiting and diarrhea for the last 2 weeks' duration, probably related to gastroenteritis. She recently had COVID-19 infection 2 weeks ago. Impression: Mild DKA, resolved. In your professional opinion, can you please further clarify the condition you are treating the patient for: Gastritis Gastroenteritis Gastroenteritis due to COVID 19 DKA Other, please specify Unable to determine (Last Revision: August 2017) Gastritis MTDD
--- NOTE | 2020-12-25 13:55 | P.DS ---
Providers Date of admission: 12/23/20 13:41 Expected date of discharge: 12/25/20 Attending physician: Uyen Chew Consults: 12/24/20 09:30 Consult Physician Stat Consulting Provider: Shonda Jeff Consult Reason/Comments: abdominal pain/ vomiting Do you want consulting provider notified?: Yes Primary care physician: Physician Nonstaff Hospital Course: Final diagnosis -Diabetic ketoacidosis possibly secondary to gastritis or gastroenteritis -Gastroenteritis secondary to recent Covid 19 -Hypomagnesemia, improved -Mild hypokalemia, improved -Headache possibly migraine in nature, resolved -Type 1 diabetes mellitus -DVT prophylaxis Discharge disposition Patient is being discharged in a stable condition with guarded prognosis to home. Patient will follow-up with primary care provider out in [place] upon discharge. She states she has a scheduled appointment this Wednesday. Will continue on oral Protonix and Zofran as needed was given. Total time taken is greater than 35 minutes. Hospital course This is a 30-year-old female who was recently admitted with epigastric and left upper quadrant abdominal pain and was being closely monitored. Patient continued to have nausea and vomiting and was maintained on IV hydration and electrolytes were replaced. Patient continue to have abdominal discomfort and CT abdomen was done which was normal. Patient does have a recent history of Covid 19 3 weeks prior and has been having these symptoms since. Patient is also a type I diabetic and is maintained on insulin. Patient's primary care provider is out of [place] as she lives there and was visiting family here. Patient instructed to continue monitoring blood sugars and keep a diary for primary care follow-up. Patient also been noted to have elevated blood pressure and instructed the patient to keep a diary of blood pressure readings and discuss with primary care provider on her scheduled appointment this Wednesday. Patient also given incentive spirometer and instructed to increase activity as tolerated. Patient instructed to use the IS 10 times every hour while awake. Encourage fluids and rest. Patient was seen and evaluated by GI recommending conservative management and slowly advancing diet as tolerated. Diet has been advanced today and is tolerating with no further reports of nausea or vomiting noted. States she is feeling better and would like to go home. Currently no reports of chest pain, shortness of breath, or palpitations. Patient is afebrile. No reports of nausea or vomiting and patient is tolerating diet. On exam vital signs are stable. Cardio S1, S2 are muffled. Respiratory shows diminished breath sounds at the bases with no wheezing or rhonchi noted. Abdomen is soft and nontender. Nervous system shows no focal deficits. Please refer to medication reconciliation sheet for a list of medications. Patient Condition at Discharge: Fair Plan - Discharge Summary Discharge Rx Participant: No New Discharge Prescriptions: New Pantoprazole Sodium [Protonix] 40 mg PO DAILY #30 tablet. Acetaminophen Tab [Tylenol] 650 mg PO Q6HR PRN tab PRN Reason: Fever and/ or Mild Pain Ondansetron [Zofran ODT] 4 mg PO Q8HR PRN #10 tab PRN Reason: Nausea Continue Insulin Glargine [Lantus] 22 unit SQ HS INSULIN LISPRO (humaLOG) [humaLOG] See Protocol SQ AC-TID Ibuprofen [Motrin Ib] 400 mg PO Q8H PRN PRN Reason: Pain Discharge Medication List INSULIN LISPRO (humaLOG) [humaLOG] See Protocol SQ AC-TID 11/11/14 [History] Insulin Glargine [Lantus] 22 unit SQ HS 11/11/14 [History] Ibuprofen [Motrin Ib] 400 mg PO Q8H PRN 12/22/20 [History] Acetaminophen Tab [Tylenol] 650 mg PO Q6HR PRN tab 12/25/20 [Rx] Ondansetron [Zofran ODT] 4 mg PO Q8HR PRN #10 tab 12/25/20 [Rx] Pantoprazole Sodium [Protonix] 40 mg PO DAILY #30 tablet. 12/25/20 [Rx] Follow up Appointment(s)/Referral(s): Nonstaff,Physician [Primary Care Provider] - 1-2 days Patient Instructions/Handouts: Acute Nausea and Vomiting (DC) Activity/Diet/Wound Care/Special Instructions: Okay for discharge If tolerates lunch with no vomiting Activity Limited until follow-up Follow up with primary care provider in [place] at scheduled appointment Continue with low fiber diet and advance slowly as tolerated Continue Protonix daily Follow-up with primary care provider and discuss elevated blood pressure readings Continue to monitor blood sugars before meals and at bedtime and keep a diary for primary care follow-up Encourage fluids and rest Continue with incentive spirometer at least 10 times every hour while awake Discharge Disposition: HOME SELF-CARE
--- NOTE | 2020-12-25 15:31 | P.PN ---
Subjective Progress Note Date: 12/25/20 Principal diagnosis: nausea, vomiting, abdominal pain A pleasant 30-year-old patient who was admitted to the hospital complaining of severe epigastric pain associated with nausea and vomiting and diarrhea for the last 2 weeks duration. The patient was diagnosed with coated 19 infection 2 weeks ago which time she was hospitalized for a week at [facility]. She stated she was discharged and had some improvement in her symptoms however they did return progressively got worse therefore she came to the emergency department for further evaluation. The patient also has a history of type 1 insulin-dependent diabetes and was noted to have mild DKA on admission. She was seen and examined today, states she has had no further nausea vomiting or abdominal pain. She reports she has had no further episodes of diarrhea would like to be discharged home. Denies any fevers or acute changes through the night. Objective - Vital Signs Vital signs: Vital Signs Temp 99.4 F 12/25/20 08:00 Pulse 102 H 12/25/20 08:00 Resp 17 12/25/20 08:00 BP 183/100 12/25/20 08:00 Pulse Ox 94 L 12/25/20 08:00 Intake & Output 12/24/20 12/25/20 12/25/20 18:59 06:59 18:59 Intake Total 800 1200 218 Balance 800 1200 218 Intake: Intake, IV Titration 1200 Amount Sodium Chloride 0.9% 1, 1200 000 ml @ 100 mls/hr IV . Q10H [facility] Rx#:[id number] Oral 800 218 Other: Voiding Method Toilet Toilet Toilet # Voids 1 - Exam General appearance: The patient is alert, oriented, in no acute distress. HET: Head is normocephalic and atraumatic. Conjunctiva pink. Sclera anicteric. Neck: Supple without lymphadenopathy. Abdomen: Soft, nontender, nondistended with bowel sounds. No guarding or r igidity. Extremities: Normal skin color and turgor. No pedal edema Neurological: No focal deficits. Alert and oriented 3. - Labs CBC & Chem 7: 12/25/20 04:56 12/25/20 04:56 Labs: Abnormal Lab Results - Last 24 Hours (Table) 12/24/20 12/24/20 12/24/20 Range/Units 11:16 11:32 17:26 RBC (4.10-5.20) X 10*6/uL Hgb (12.0-15.0) g/dL Hct (37.2-46.3) % BUN (9.0-27.0) mg/dL BUN/Creatinine Ratio (12.00-20.00) Ratio Glucose (70-110) mg/dL POC Glucose (mg/dL) 52 L 143 H 72 L (75-99) mg/dL Calcium (8.7-10.3) mg/dL 12/24/20 12/25/20 12/25/20 Range/Units 21:11 04:56 04:56 RBC 2.90 L (4.10-5.20) X 10*6/uL Hgb 8.7 L (12.0-15.0) g/dL Hct 25.5 L (37.2-46.3) % BUN 5.0 L (9.0-27.0) mg/dL BUN/Creatinine Ratio 7.14 L (12.00-20.00) Ratio Glucose 164 H (70-110) mg/dL POC Glucose (mg/dL) 104 H (75-99) mg/dL Calcium 8.0 L (8.7-10.3) mg/dL 12/25/20 Range/Units 06:42 RBC (4.10-5.20) X 10*6/uL Hgb (12.0-15.0) g/dL Hct (37.2-46.3) % BUN (9.0-27.0) mg/dL BUN/Creatinine Ratio (12.00-20.00) Ratio Glucose (70-110) mg/dL POC Glucose (mg/dL) 174 H (75-99) mg/dL Calcium (8.7-10.3) mg/dL Assessment and Plan (1) Nausea & vomiting Narrative/Plan: Stage 30-year-old female patient with acute onset of nausea, vomiting and diarrhea for the last 2 weeks duration probably related to Gastroenteritis. She recently had Cob[place] 19 infection 2 weeks ago and was hospitalized. Status: Acute Code(s): R11.2 - NAUSEA WITH VOMITING, UNSPECIFIED SNOMED Code(s): 82723642 (2) Diarrhea Status: Acute Code(s): R19.7 - DIARRHEA, UNSPECIFIED SNOMED Code(s): 72187993 (3) Diabetic ketoacidosis Status: Acute Code(s): E13.10 - OTH DIABETES MELLITUS WITH KETOACIDOSIS WITHOUT COMA SNOMED Code(s): 357540149 Plan: 1. Continue symptomatic and supportive care 2. Continue with IV Compazine every 6 hours as needed with Zofran [id number] 3. Protonix 40 mg twice daily 4. Advance diet as tolerated 5. No plans for endoscopic intervention at the present time 6. Stool culture and C. difficile toxin was ordered, however patient had no further diarrhea 7. Patient may be discharged home from a gastroenterology standpoint and can follow-up as needed Thank you for this consultation. Dr. Linda Jeff I agree with the dictator's note, documented as a scribe by Kailey Ayoub.
== END 2020-12-25 13:08 | disposition home or self-care (01) ==
LOC: EC 00:25 → 6NMEDSUR 03:24 → OBSVTOIN 12-23 13:41 → INTOOBSV 12-23 13:41 → UNDODISIN 12-25 13:08
PROVIDERS: ADMIT Hospitalist; ATTEND Hospitalist
DX: A08.39 Other viral enteritis (principal); E10.10 Type 1 diabetes mellitus with ketoacidosis without coma; K52.9 Noninfective gastroenteritis and colitis, unspecified; E83.42 Hypomagnesemia; E87.6 Hypokalemia; J06.9 Acute upper respiratory infection, unspecified; E10.319 Type 1 diabetes mellitus with unspecified diabetic retinopathy without macular edema; E10.65 Type 1 diabetes mellitus with hyperglycemia; Z20.828 Contact with and (suspected) exposure to other viral communicable diseases; Z86.16 Personal history of COVID-19; K58.1 Irritable bowel syndrome with constipation; Z87.09 Personal history of other diseases of the respiratory system; Z87.01 Personal history of pneumonia (recurrent); Z90.89 Acquired absence of other organs; Z98.890 Other specified postprocedural states; F41.9 Anxiety disorder, unspecified; Z79.4 Long term (current) use of insulin; Z79.899 Other long term (current) drug therapy; Z91.048 Other nonmedicinal substance allergy status
CPT/HCPCS: 96376 ×4; 96361 ×5; 96365; 96366; 96375 ×4; 96368; 96372; 99285; 36415; 93005; 85379; 80053 ×2; 80048 ×2; 82150; 82550; 82803; 82009; 83605; 83690; 83735 ×3; 84100 ×2; 84484; 85025 ×3; 81001; 87086; 83036; 87635; 93970; 70450; 74178; 78582; G0378 ×4; A9540; A9567; J2060; J2270 ×4; J0780 ×2; J2765 ×2; J2405 ×4; J1650; J1170 ×2; J3475; J3480; C9113 ×4; Q9967; 96374

== ENCOUNTER 2021-03-11 16:58 | Emergency (ER) | payer BC ==
[2021-03-11] MEDS ORDERED: ONDANSETRON 4 MG/2 ML VIAL IVP STA (17:54)
[2021-03-11] MEDS ORDERED: SODIUM CHLORIDE 0.9% 1,000 ML IV STA ×3 (17:54→20:15)
[2021-03-11] MEDS ORDERED: METOCLOPRAMIDE 5 MG/ML 2 ML VIAL IVP STA (17:57)
--- NOTE | 2021-03-11 18:09 | ED ---
General Adult HPI - General Chief complaint: Nausea/Vomiting/Diarrhea Stated complaint: Vomiting Time Seen by Provider: 03/11/21 17:50 Source: patient, RN notes reviewed Mode of arrival: ambulatory Limitations: no limitations - History of Present Illness Initial comments: Patient is a 30-year-old female that presents to emergency department with a four-day history of abdominal pain with nausea and vomiting. She notes that she's vomited at least 50 times over the last 4 days. Her mother notes that she's been trying to give her Gatorade and Pedialyte to keep her hydrated but she keeps vomiting it up. She notes that she had eye surgery approximately 3 weeks ago and then follow surgery last week. She is currently on prednisone eye drops gentamicin drops and atropine drops. She notes that she has been constipated for the past 4 days which is abnormal for her. She notes that most the pain is in her right lower quadrant. She states that the pain is pretty significant along with nausea and vomiting. She denied any source of breath diarrhea fever fatigue chills. - Related Data Home Medications Medication Instructions Recorded Confirmed INSULIN LISPRO (humaLOG) [humaLOG] See Protocol SQ AC-TID 11/11/14 12/22/20 Insulin Glargine [Lantus] 22 unit SQ HS 11/11/14 12/22/20 Ibuprofen [Motrin Ib] 400 mg PO Q8H PRN 12/22/20 12/22/20 Previous Rx's Medication Instructions Recorded Acetaminophen Tab [Tylenol] 650 mg PO Q6HR PRN tab 12/25/20 Ondansetron [Zofran ODT] 4 mg PO Q8HR PRN #10 tab 12/25/20 Pantoprazole Sodium [Protonix] 40 mg PO DAILY #30 tablet. 12/25/20 Ondansetron Odt [Zofran Odt] 4 mg PO Q8HR PRN 4 Days #12 tab 03/11/21 Pantoprazole Sodium [Protonix] 20 mg PO DAILY 14 Days #14 03/11/21 tablet. Allergies Allergy/AdvReac Type Severity Reaction Status Date / Time mold AdvReac Dyspnea Verified 03/11/21 17:03 Review of Systems ROS Statement: Those systems with pertinent positive or pertinent negative responses have been documented in the HPI. ROS Other: All systems not noted in ROS Statement are negative. Past Medical History Past Medical History: Diabetes Mellitus, Pneumonia Additional Past Medical History / Comment(s): Current URI, IDDM type I, bilateral retinopathy with injections, DKA, IBS/constipation, bronchitis, febrile seizure at 3 yrs of age History of Any Multi-Drug Resistant Organisms: None Reported Past Surgical History: Adenoidectomy, Tonsillectomy Additional Past Surgical History / Comment(s): sinus balloon plasty, wisdom teeth extractions., eye surgery Past Anesthesia/Blood Transfusion Reactions: No Reported Reaction Additional Past Anesthesia/Blood Transfusion Reaction / Comment(s): no transfusions Past Psychological History: Anxiety Smoking Status: Never smoker Past Alcohol Use History: Occasional Past Drug Use History: None Reported - Past Family History Mother Family Medical History: No Reported History Additional Family Medical History / Comment(s): Mother is healthy. Father Family Medical History: No Reported History Additional Family Medical History / Comment(s): Father is healthy General Exam Limitations: no limitations General appearance: alert, in no apparent distress Head exam: Present: atraumatic, normocephalic, normal inspection Eye exam: Present: normal appearance, PERRL, EOMI. Absent: scleral icterus, conjunctival injection, periorbital swelling Neck exam: Present: normal inspection. Absent: tenderness, meningismus, lymphadenopathy Respiratory exam: Present: normal lung sounds bilaterally. Absent: respiratory distress, wheezes, rales, rhonchi, stridor Cardiovascular Exam: Present: regular rate, normal rhythm, normal heart sounds. Absent: systolic murmur, diastolic murmur, rubs, gallop, clicks GI/Abdominal exam: Present: soft, tenderness, hypoactive bowel sounds (Right lower quadrant). Absent: distended, guarding, rebound, rigid Extremities exam: Present: normal inspection, full ROM, normal capillary refill. Absent: tenderness, pedal edema, joint swelling, calf tenderness Neurological exam: Present: alert, oriented X3, CN II-XII intact Psychiatric exam: Present: normal affect, normal mood Skin exam: Present: warm, dry, intact, normal color. Absent: rash Course Vital Signs 03/11/21 16:59 Temperature 97.7 F Pulse Rate 96 Respiratory 20 Rate Blood Pressure 134/96 O2 Sat by Pulse 100 Oximetry Medical Decision Making - Medical Decision Making 30-year-old female complaining of abdominal pain with nausea and vomiting 4 days. EKG, labs, CT of the abdomen and pelvis, 1 L normal saline, 10 mg of Reglan, 4 mg of morphine ordered. Labs unremarkable from previous studies. CT of the abdomen and pelvis shows gastritis, small ovarian cyst on left side, bladder wall thickening. Case discussed with Dr. Rock, patient discharge home with follow-up primary care. - Lab Data Result diagrams: 03/11/21 18:56 03/11/21 18:56 Lab Results 03/11/21 03/11/21 03/11/21 Range/Units 18:56 18:56 19:30 WBC 10.4 (3.8-10.6) k/uL RBC 3.70 L (3.80-5.40) m/uL Hgb 11.0 L (11.4-16.0) gm/dL Hct 31.6 L (34.0-46.0) % MCV 85.2 (80.0-100.0) fL MCH 29.6 (25.0-35.0) pg MCHC 34.8 (31.0-37.0) g/dL RDW 13.4 (11.5-15.5) % Plt Count 238 (150-450) k/uL MPV 7.4 Neutrophils % 78 % Lymphocytes % 15 % Monocytes % 5 % Eosinophils % 0 % Basophils % 1 % Neutrophils # 8.2 H (1.3-7.7) k/uL Lymphocytes # 1.5 (1.0-4.8) k/uL Monocytes # 0.5 (0-1.0) k/uL Eosinophils # 0.1 (0-0.7) k/uL Basophils # 0.1 (0-0.2) k/uL Sodium 136 L (137-145) mmol/L Potassium 4.6 (3.5-5.1) mmol/L Chloride 102 (98-107) mmol/L Carbon Dioxide 24 (22-30) mmol/L Anion Gap 10 mmol/L BUN 39 H (7-17) mg/dL Creatinine 1.55 H (0.52-1.04) mg/dL Est GFR (CKD-EPI)AfAm 52 (>60 ml/min/1.73 sqM) Est GFR (CKD-EPI)NonAf 45 (>60 ml/min/1.73 sqM) Glucose 218 H (74-99) mg/dL Calcium 9.2 (8.4-10.2) mg/dL Total Bilirubin 0.5 (0.2-1.3) mg/dL AST 22 (14-36) U/L ALT 12 (4-34) U/L Alkaline Phosphatase 80 (38-126) U/L Total Protein 6.5 (6.3-8.2) g/dL Albumin 3.8 (3.5-5.0) g/dL Amylase 84 (30-110) U/L Lipase 54 (23-300) U/L Urine Color Yellow Urine Appearance Clear (Clear) Urine pH 6.0 (5.0-8.0) Ur Specific [place] 1.021 (1.001-1.035) Urine Protein 3+ H (Negative) Urine Glucose (UA) 2+ H (Negative) Urine Ketones 1+ H (Negative) Urine Blood Moderate H (Negative) Urine Nitrite Negative (Negative) Urine Bilirubin Negative (Negative) Urine Urobilinogen <2.0 (<2.0) mg/dL Ur Leukocyte Esterase Negative (Negative) Urine RBC 27 H (0-5) /hpf Urine WBC 2 (0-5) /hpf Ur Squamous Epith Cells 1 (0-4) /hpf Urine Bacteria Moderate H (None) /hpf Hyaline Casts 8 H (0-2) /lpf Granular Casts 3 (0) /lpf Urine Mucus Rare H (None) /hpf Urine HCG, Qual (Not Detectd) 03/11/21 Range/Units 19:30 WBC (3.8-10.6) k/uL RBC (3.80-5.40) m/uL Hgb (11.4-16.0) gm/dL Hct (34.0-46.0) % MCV (80.0-100.0) fL MCH (25.0-35.0) pg MCHC (31.0-37.0) g/dL RDW (11.5-15.5) % Plt Count (150-450) k/uL MPV Neutrophils % % Lymphocytes % % Monocytes % % Eosinophils % % Basophils % % Neutrophils # (1.3-7.7) k/uL Lymphocytes # (1.0-4.8) k/uL Monocytes # (0-1.0) k/uL Eosinophils # (0-0.7) k/uL Basophils # (0-0.2) k/uL Sodium (137-145) mmol/L Potassium (3.5-5.1) mmol/L Chloride (98-107) mmol/L Carbon Dioxide (22-30) mmol/L Anion Gap mmol/L BUN (7-17) mg/dL Creatinine (0.52-1.04) mg/dL Est GFR (CKD-EPI)AfAm (>60 ml/min/1.73 sqM) Est GFR (CKD-EPI)NonAf (>60 ml/min/1.73 sqM) Glucose (74-99) mg/dL Calcium (8.4-10.2) mg/dL Total Bilirubin (0.2-1.3) mg/dL AST (14-36) U/L ALT (4-34) U/L Alkaline Phosphatase (38-126) U/L Total Protein (6.3-8.2) g/dL Albumin (3.5-5.0) g/dL Amylase (30-110) U/L Lipase (23-300) U/L Urine Color Urine Appearance (Clear) Urine pH (5.0-8.0) Ur Specific [place] (1.001-1.035) Urine Protein (Negative) Urine Glucose (UA) (Negative) Urine Ketones (Negative) Urine Blood (Negative) Urine Nitrite (Negative) Urine Bilirubin (Negative) Urine Urobilinogen (<2.0) mg/dL Ur Leukocyte Esterase (Negative) Urine RBC (0-5) /hpf Urine WBC (0-5) /hpf Ur Squamous Epith Cells (0-4) /hpf Urine Bacteria (None) /hpf Hyaline Casts (0-2) /lpf Granular Casts (0) /lpf Urine Mucus (None) /hpf Urine HCG, Qual Not Detected (Not Detectd) - EKG Data -: EKG Interpreted by Mn EKG shows normal: sinus rhythm Rate: tachycardia EKG Comments: Ventricular rate 101 bpm, NH interval 138 ms, QRS duration 68 ms, QT/QTC 332/430 ms, PareT axes 65/-18/72. Sinus tachycardia, septal infarct, age undetermined, abnormal ECG. - Radiology Data Radiology results: report reviewed, image reviewed CT of the abdomen and pelvis: Correlate for gastritis. Left ovarian cyst with small amount of adjacent free fluid. Mild urinary bladder wall thickening. Disposition Clinical Impression: Gastritis, Nausea & vomiting Disposition: HOME SELF-CARE Condition: Stable Instructions (If sedation given, give patient instructions): Acute Nausea and Vomiting (ED) Additional Instructions: Please return to the Emergency Department if symptoms worsen or any other concerns. Take medications as prescribed. Follow-up with primary care in 3-5 days. Increase oral fluids, eat foods that are easily digested tolerated well. Prescriptions: Pantoprazole Sodium [Protonix] 20 mg PO DAILY 14 Days #14 tablet. Ondansetron Odt [Zofran Odt] 4 mg PO Q8HR PRN 4 Days #12 tab PRN Reason: Nausea Is patient prescribed a controlled substance at d/c from ED?: No Referrals: Rich Galindo MD [Primary Care Provider] - 1-2 days Time of Disposition: 20:52
[2021-03-11] MEDS ORDERED: MORPHINE SULFATE 4 MG/ML SYRINGE IVP STA (18:46)
[2021-03-11 19:12] LABS: Basophils # (A) 0.1 k/uL (0-0.2); Basophils % (A) 1 %; Eosinophils # (A) 0.1 k/uL (0-0.7); Eosinophils % (A) 0 %; HCT 31.6 % (34.0-46.0); Lymphocytes # (A) 1.5 k/uL (1.0-4.8); Lymphocytes % (A) 15 %; MCH 29.6 pg (25.0-35.0); MCHC 34.8 g/dL (31.0-37.0); MCV 85.2 fL (80.0-100.0); Mean Platelet Volume 7.4; Monocytes # (A) 0.5 k/uL (0-1.0); Monocytes % (A) 5 %; Neutrophils # (A) 8.2 k/uL (1.3-7.7); Neutrophils % (A) 78 %; Platelet Count 238 k/uL (150-450); RDW 13.4 % (11.5-15.5); WBC 10.4 k/uL (3.8-10.6)
[2021-03-11 19:33] LABS: Albumin 3.8 g/dL (3.5-5.0); Calcium 9.2 mg/dL (8.4-10.2); Potassium 4.6 mmol/L (3.5-5.1); Total Bilirubin 0.5 mg/dL (0.2-1.3); Total Protein 6.5 g/dL (6.3-8.2)
[2021-03-11 19:52] LABS: Appearance,Urine Clear (Clear); Bacteria,Urine Moderate /hpf; Bilirubin,Urine Negative (Negative); Blood,Urine Moderate (Negative); Color,Urine Yellow; Glucose,Urine (UA) 2+ (Negative); Granular Casts,Urine 3 /lpf (0); Hyaline Casts,Urine 8 /lpf (0-2); Ketones,Urine 1+ (Negative); Leukocyte Esterase,Urine Negative (Negative); Mucus,Urine Rare /hpf; Nitrite,Urine Negative (Negative); Protein,Urine 3+ (Negative); RBC,Urine 27 /hpf (0-5); Specific Gravity,Urine 1.021 (1.001-1.035); Squamous Epithelial Cell,Urine 1 /hpf (0-4); Urobilinogen,Urine <2.0 mg/dL (<2.0); WBC,Urine 2 /hpf (0-5)
--- NOTE | 2021-03-11 20:22 | CT ---
EXAMINATION TYPE: CT abdomen pelvis w con DATE OF EXAM: 03/11/2021 COMPARISON: HISTORY: abodminal pain CT DLP: 722.2 mGycm CONTRAST: CT scan of the abdomen and pelvis is performed without Oral Contrast and with IV Contrast, patient in jected with 100 mL of Isovue 300. FINDINGS: LUNG BASES-: No visible nodule. No infiltrate. LIVER/GB: No calcified gallstones. No space occupying hepatic lesion. Biliary tree is of normal ca liber. PANCREAS: No inflammation. No distinct mass. SPLEEN: No splenic enlargement. No lesion seen. ADRENALS: No nodule. No thickening. KIDNEYS/BLADDER: No hydronephrosis. No nephrolithiasis. No distinct renal mass. Mild urinary bladd er wall thickening. Correlate for cystitis.. BOWEL: There is gastric wall thickening although poorly distended. Correlate for gastritis. Normal ap pendix. Normal bowel caliber. No inflammation. GENITAL ORGANS: 2.3 cm left ovarian cyst. Small amount of adjacent free fluid. Uterus is somewhat het erogenous and there may be underlying leiomyoma. Right ovary is unremarkable. LYMPH NODES: No greater than 1cm abdominal or pelvic lymph nodes are appreciated. AORTA: No significant abnormality. OSSEOUS STRUCTURES: No significant abnormality is seen. OTHER: No significant additional abnormality is seen. IMPRESSION: 1. Correlate for gastritis. 2. Left ovarian cyst with small amount of adjacent free fluid. 3. Mild urinary bladder wall thickening.
[2021-03-11 21:46] VITALS: BP 128/88; PULSE 86; RESP 18; TEMP 98
== END 2021-03-11 21:44 | disposition home or self-care (01) ==
LOC: EC 16:58
DX: K29.70 Gastritis, unspecified, without bleeding (principal); E10.319 Type 1 diabetes mellitus with unspecified diabetic retinopathy without macular edema; F41.9 Anxiety disorder, unspecified; Z79.899 Other long term (current) drug therapy
CPT/HCPCS: 36415; 93005; 80053; 82150; 83690; 85025; 81001; 81025; 74177; 99284; 96374; 96375; 96361; J2270; J2765; Q9967

== ENCOUNTER 2021-03-13 17:17 | Observation (INO) | payer BC ==
[2021-03-13] MEDS ORDERED: MORPHINE SULFATE 4 MG/ML SYRINGE IV STA (17:53)
[2021-03-13] MEDS ORDERED: diphenhydrAMINE 50 MG/ML 1 ML VIAL IVP STA (17:53)
[2021-03-13] MEDS ORDERED: SODIUM CHLORIDE 0.9% 1,000 ML IV STA (17:53)
[2021-03-13] MEDS ORDERED: METOCLOPRAMIDE 5 MG/ML 2 ML VIAL IVP STA (17:53)
[2021-03-13] MEDS ORDERED: PANTOPRAZOLE 40 MG/10 ML VIAL IVP STA (18:27)
[2021-03-13 18:37] LABS: Basophils # (A) 0.1 k/uL (0-0.2); Basophils % (A) 1 %; Eosinophils # (A) 0.1 k/uL (0-0.7); Eosinophils % (A) 1 %; HCT 31.1 % (34.0-46.0); HGB 10.9 gm/dL (11.4-16.0); Lymphocytes % (A) 14 %; MCH 29.6 pg (25.0-35.0); MCV 84.7 fL (80.0-100.0); Mean Platelet Volume 7.3; Monocytes # (A) 0.7 k/uL (0-1.0); Monocytes % (A) 5 %; Neutrophils # (A) 11.5 k/uL (1.3-7.7); Neutrophils % (A) 79 %; Platelet Count 269 k/uL (150-450); RBC 3.67 m/uL (3.80-5.40); RDW 13.2 % (11.5-15.5); WBC 14.5 k/uL (3.8-10.6)
[2021-03-13 18:50] LABS: ALT 13 U/L (4-34); AST 25 U/L (14-36); African American GFR (CKD) 68 (>60 ml/min/1.73 sqM); Alkaline Phosphatase 85 U/L (38-126); Amylase 80 U/L (30-110); Anion Gap 11 mmol/L; Blood Urea Nitrogen 24 mg/dL (7-17); Calcium 9.6 mg/dL (8.4-10.2); Carbon Dioxide 24 mmol/L (22-30); Chloride 100 mmol/L (98-107); Glucose 218 mg/dL (74-99); Lipase 41 U/L (23-300); Non-African American GFR(CKD) 59 (>60 ml/min/1.73 sqM); Potassium 4.6 mmol/L (3.5-5.1); Sodium 135 mmol/L (137-145); Total Bilirubin 0.6 mg/dL (0.2-1.3); Total Protein 6.8 g/dL (6.3-8.2)
[2021-03-13] MEDS ORDERED: MORPHINE SULFATE 4 MG/ML SYRINGE IV PRN (18:59)
[2021-03-13] MEDS ORDERED: NALOXONE 0.4 MG/ML 1 ML VIAL IV PRN (18:59)
--- NOTE | 2021-03-13 19:03 | ED ---
Nausea/Vomiting/Diarrhea HPI - General Chief complaint: Nausea/Vomiting/Diarrhea Stated complaint: chest pain/vomiting/dizziness/headache Time Seen by Provider: 03/13/21 17:43 Source: patient, RN notes reviewed Mode of arrival: ambulatory Limitations: no limitations - History of Present Illness Initial comments: Patient is a 30-year-old female presents to emergency department complaining of intractable vomiting for the last 2 days. She was recently seen on 03/11/2021 for computed tomography scan showed no acute process and labs were unremarkable. She will report back to emergency department with the same complaint of nausea vomiting up yellow hold any liquids or foods down. Mom states that sugars are still controlled with insulin and she checks it regularly with her next,. Patient was in moderate amount of distress and pain while sitting in bed over a basin puking. She denied any chest pain first breath headache diarrhea constipation fever fatigue chills. - Related Data Home Medications Medication Instructions Recorded Confirmed Atropine Ophth Soln 1% 5Ml [Isopto 1 drop RIGHT EYE BID 03/13/21 03/13/21 Atropine 1% 5Ml] Gentamicin 0.3% Ophth Soln 1 drop RIGHT EYE QID 03/13/21 03/13/21 [Garamycin 0.3% Ophth Soln] Insulin Glargine,Hum.rec.anlog 18 unit SQ HS 03/13/21 03/13/21 [Lantus Solostar] Insulin Lispro [humaLOG Kwikpen] See Protocol SQ ACHS 03/13/21 03/13/21 prednisoLONE ACETATE 1% OPHTH 1 drop RIGHT EYE DAILY 03/13/21 03/13/21 [Pred Forte 1%] Previous Rx's Medication Instructions Recorded Ondansetron [Zofran ODT] 4 mg PO Q8HR PRN #10 tab 12/25/20 Pantoprazole Sodium [Protonix] 20 mg PO DAILY 14 Days #14 03/11/21 tablet. Allergies Allergy/AdvReac Type Severity Reaction Status Date / Time mold AdvReac Dyspnea Verified 03/13/21 18:25 Review of Systems ROS Statement: Those systems with pertinent positive or pertinent negative responses have been documented in the HPI. ROS Other: All systems not noted in ROS Statement are negative. Past Medical History Past Medical History: Diabetes Mellitus, Pneumonia Additional Past Medical History / Comment(s): Current URI, IDDM type I, bilateral retinopathy with injections, DKA, IBS/constipation, bronchitis, febrile seizure at 3 yrs of age History of Any Multi-Drug Resistant Organisms: None Reported Past Surgical History: Adenoidectomy, Tonsillectomy Additional Past Surgical History / Comment(s): sinus balloon plasty, wisdom teeth extractions., eye surgery Past Anesthesia/Blood Transfusion Reactions: No Reported Reaction Additional Past Anesthesia/Blood Transfusion Reaction / Comment(s): no transfusions Past Psychological History: Anxiety Smoking Status: Never smoker Past Alcohol Use History: Occasional Past Drug Use History: None Reported - Past Family History Mother Family Medical History: No Reported History Additional Family Medical History / Comment(s): Mother is healthy. Father Family Medical History: No Reported History Additional Family Medical History / Comment(s): Father is healthy General Exam Limitations: no limitations General appearance: alert, in no apparent distress Head exam: Present: atraumatic, normocephalic, normal inspection Eye exam: Present: normal appearance, PERRL, EOMI. Absent: scleral icterus, conjunctival injection, periorbital swelling Neck exam: Present: normal inspection. Absent: tenderness, meningismus, lymphadenopathy Respiratory exam: Present: normal lung sounds bilaterally. Absent: respiratory distress, wheezes, rales, rhonchi, stridor Cardiovascular Exam: Present: regular rate, normal rhythm, normal heart sounds. Absent: systolic murmur, diastolic murmur, rubs, gallop, clicks GI/Abdominal exam: Present: soft, tenderness (General last), normal bowel sounds. Absent: distended, guarding, rebound, rigid Extremities exam: Present: normal inspection, full ROM, normal capillary refill. Absent: tenderness, pedal edema, joint swelling, calf tenderness Neurological exam: Present: alert, oriented X3, CN II-XII intact Psychiatric exam: Present: normal affect, normal mood Skin exam: Present: warm, dry, intact, normal color. Absent: rash Course Vital Signs 03/13/21 03/13/21 03/13/21 17:21 19:48 19:51 Temperature 98.1 F Pulse Rate 95 90 Respiratory 18 16 Rate Blood Pressure 172/116 157/96 O2 Sat by Pulse 98 98 Oximetry Medical Decision Making - Medical Decision Making 30-year-old female with intractable vomiting. Labs, 1 L normal saline, abdominal ultrasound, 4 mg morphine, 10 mg of Reglan, 40 mg of Protonix IV ordered. Labs show elevated white count most likely due to dehydration and vomiting. Acetone positive. Case discussed with Dr. Rock, patient will be admitted to observation. Case discussed with Dr. Lowe, she will accept the admit for observation with GI on consult. - Lab Data Result diagrams: 03/13/21 18:22 03/13/21 18:22 Lab Results 03/13/21 03/13/21 Range/Units 18:22 18:22 WBC 14.5 H (3.8-10.6) k/uL RBC 3.67 L (3.80-5.40) m/uL Hgb 10.9 L (11.4-16.0) gm/dL Hct 31.1 L (34.0-46.0) % MCV 84.7 (80.0-100.0) fL MCH 29.6 (25.0-35.0) pg MCHC 35.0 (31.0-37.0) g/dL RDW 13.2 (11.5-15.5) % Plt Count 269 (150-450) k/uL MPV 7.3 Neutrophils % 79 % Lymphocytes % 14 % Monocytes % 5 % Eosinophils % 1 % Basophils % 1 % Neutrophils # 11.5 H (1.3-7.7) k/uL Lymphocytes # 2.0 (1.0-4.8) k/uL Monocytes # 0.7 (0-1.0) k/uL Eosinophils # 0.1 (0-0.7) k/uL Basophils # 0.1 (0-0.2) k/uL Sodium 135 L (137-145) mmol/L Potassium 4.6 (3.5-5.1) mmol/L Chloride 100 (98-107) mmol/L Carbon Dioxide 24 (22-30) mmol/L Anion Gap 11 mmol/L BUN 24 H (7-17) mg/dL Creatinine 1.24 H (0.52-1.04) mg/dL Est GFR (CKD-EPI)AfAm 68 (>60 ml/min/1.73 sqM) Est GFR (CKD-EPI)NonAf 59 (>60 ml/min/1.73 sqM) Glucose 218 H (74-99) mg/dL Calcium 9.6 (8.4-10.2) mg/dL Total Bilirubin 0.6 (0.2-1.3) mg/dL AST 25 (14-36) U/L ALT 13 (4-34) U/L Alkaline Phosphatase 85 (38-126) U/L Total Protein 6.8 (6.3-8.2) g/dL Albumin 4.0 (3.5-5.0) g/dL Amylase 80 (30-110) U/L Lipase 41 (23-300) U/L Acetone, Qual Positive (Negative) - Radiology Data Radiology results: report reviewed, image reviewed Abdominal ultrasound: The spleen left kidney and distal abdominal aorta are obscured and not evaluated on current exam. Visualized structures demonstrate no acute abdominal process. Disposition Clinical Impression: Dehydration, Nausea & vomiting Disposition: ADMITTED IP TO THIS [facility] Condition: Stable Is patient prescribed a controlled substance at d/c from ED?: No Referrals: Rich Galindo MD [Primary Care Provider] - 1-2 days Time of Disposition: 20:12
[2021-03-13] MEDS: SODIUM CHLORIDE 0.9% 1,000 ML IV SCH (19:46)
--- NOTE | 2021-03-13 19:59 | US ---
EXAMINATION TYPE: US abdomen complete DATE OF EXAM: 03/13/2021 COMPARISON: CT abdomen pelvis 03/11/2021 CLINICAL HISTORY: Nausea vomiting.. diagnosed with gastritis 2 days ago, N,V,D for 5 days, diabetic. Visitor Services Assistant reports patient received Benadryl and Morphine prior to test so she was unable to move or hold breath for optimal imaging. EXAM MEASUREMENTS: Liver Length: 17.5 cm Gallbladder Wall: 0.2 cm CBD: 0.5 cm Spleen: not seen Right Kidney: 9.5 x 5.9 x 4.3 cm Left Kidney: not seen Pancreas: Visualized portions normal. Tail obscured by overlying bowel gas. Liver: Normal. Gallbladder: Normal. Visitor Services Assistant reports negative sonographic Lucas sign. CBD: Normal. Spleen: Not visualized. Obscured due to overlying bowel gas and patient's inability to move or take b reath in Right Kidney: Normal. Left Kidney: Not visualized. Obscured due to overlying bowel gas and patient's inability to move or take breath in Upper IVC: Normal Abd Aorta: Normal caliber of the proximal and mid abdominal aorta. Distal abdominal aorta obscured b y overlying bowel gas. IMPRESSION: 1. The spleen, left kidney, and distal abdominal aorta are obscured and not evaluated on current exam . 2. Visualized structures demonstrate no acute abdominal process.
[2021-03-13] MEDS ORDERED: ONDANSETRON 4 MG/2 ML VIAL IVP PRN (20:53)
[2021-03-13] MEDS: PANTOPRAZOLE 40 MG/10 ML VIAL IV SCH (22:07)
[2021-03-13 22:24] LABS: Glucose,Whole Blood 263 mg/dL (75-99)
[2021-03-13 22:31] LABS: Appearance,Urine Clear (Clear); Bacteria,Urine Many /hpf; Bilirubin,Urine Negative (Negative); Blood,Urine Moderate (Negative); Color,Urine Light Yellow; Glucose,Urine (UA) 3+ (Negative); Hyaline Casts,Urine 7 /lpf (0-2); Leukocyte Esterase,Urine Negative (Negative); Mucus,Urine Rare /hpf; Nitrite,Urine Negative (Negative); PH, Urine 6.5 (5.0-8.0); Protein,Urine 3+ (Negative); RBC,Urine 37 /hpf (0-5); Specific Gravity,Urine 1.015 (1.001-1.035); Squamous Epithelial Cell,Urine 1 /hpf (0-4); Urobilinogen,Urine <2.0 mg/dL (<2.0); WBC,Urine 3 /hpf (0-5)
[2021-03-13 22:38] LABS: Ketones,Urine 2+ (Negative)
[2021-03-13] MEDS ORDERED: KETOROLAC 15 MG/ML 1 ML VIAL IM PRN (22:40)
[2021-03-13] MEDS ORDERED: KETOROLAC 15 MG/ML 1 ML VIAL IVP PRN (22:41)
[2021-03-13] MEDS ORDERED: MORPHINE SULFATE 2 MG/ML SYRINGE IVP PRN (22:42)
[2021-03-13] MEDS ORDERED: lisinopriL 10 MG TAB PO SCH (22:45)
[2021-03-13] MEDS ORDERED: INSULIN DETEMIR (LEVEMIR) 100 UNIT/ML SYR SQ SCH (22:45)
[2021-03-13] MEDS: INSULIN ASPART (NovoLOG) 100 UNIT/ML VIAL SQ SCH (23:19)
[2021-03-13] MEDS: METOCLOPRAMIDE 5 MG/ML 2 ML VIAL IVP SCH (23:20)
[2021-03-14 06:56] LABS: Glucose,Whole Blood 54 mg/dL (75-99)
[2021-03-14] MEDS ORDERED: DEXTROSE 50% SYRINGE 50 ML IVP STA (06:58)
[2021-03-14] MEDS ORDERED: DEXTROSE 50% SYRINGE 50 ML IVP ONE (07:00)
[2021-03-14] MEDS: INSULIN ASPART (NovoLOG) 100 UNIT/ML VIAL SQ SCH ×2 (07:12→12:03)
[2021-03-14] MEDS: PANTOPRAZOLE 40 MG/10 ML VIAL IV SCH (07:13)
[2021-03-14] MEDS: METOCLOPRAMIDE 5 MG/ML 2 ML VIAL IVP SCH ×2 (07:13→12:04)
[2021-03-14] MEDS: SODIUM CHLORIDE 0.9% 1,000 ML IV SCH (07:14)
[2021-03-14] MEDS: prednisoLONE ACETATE 1% OPHTH DROPS 5 ML BTL RIGHT EYE SCH ×2 (07:15→12:14)
[2021-03-14 07:16] VITALS: BP 128/80; PULSE 88; RESP 16; TEMP 98.7
[2021-03-14 07:27] LABS: Glucose,Whole Blood 170 mg/dL (75-99)
[2021-03-14] MEDS ORDERED: ATROPINE OPHTH SOLN 1% 5ML BTL RIGHT EYE SCH (09:00)
[2021-03-14] MEDS ORDERED: GENTAMICIN 0.3% OPHTH DROPS 5 ML BTL RIGHT EYE SCH (09:00)
[2021-03-14] MEDS ORDERED: ONDANSETRON ODT 4 MG TAB PO PRN (10:20)
[2021-03-14 11:36] LABS: Glucose,Whole Blood 146 mg/dL (75-99)
--- NOTE | 2021-03-14 11:50 | XR ---
Abdomen HISTORY: Vomiting, ileitis 2 views of the abdomen correlated to CT 03/11/2021 Metallic device is superimposed over the left upper quadrant. There is retained fecal debris present within the colon. There is no evident bowel obstruction or pneumoperitoneum. Lung bases are clear. IMPRESSION: Nonspecific findings
--- NOTE | 2021-03-14 13:22 | P.HPIM ---
History of Present Illness H&P Date: 03/14/21 (This document was also both as an H&P and discharge summary) 30 years old female with past medical of type 1 diabetes since 2008 with no history of diabetic neuropathy or nephropathy comes in with intractable nausea and vomiting for the past 2 days. Patient was recently admitted to the [facility] on 12/22/2020 and was noted to be in diabetic ketoacidosis with possible gastroenteritis secondary to COVID-19. / when she was seen in the ER for nausea and vomiting. Patient had recent surgery on her eye and has been on prednisone, gentamicin drops. She does document constipation for the past 4 days but denies any diarrhea or change in bowel habits. She was very consistent with her medication and has not missed her dose. Vision patient's vital patient is afebrile at a heart rate of 101, respiratory rate 18 blood pressure is 180/127 on admission which is improved to 128/80 this morning. Blood sugar on admission was 263, WBC 14.5 on admission and 10.9, sodium 135 chloride is 100 B UN 24 creatinine 1.24 patient's baseline is 0.7 UA suggestive for 3+ protein 3+ glucose and 2+ ketones. Hyaline cast. Acetone is positive coronavirus was not detected. Patient is tolerating full liquid diet without any difficulty. Nausea vomiting improved with Reglan. Continues on normal saline at 75 mL per hour. On evaluation today patient denies any nausea and vomiting is tolerating food all right. She does have constipation and had no bowel movement for 4 days. Abdominal x-ray obtained with nonspecific pattern but retained fecal matter present in the colon. Abdominal ultrasound was negative for any gallbladder or liver abnormality. Patient will need to be on pantoprazole 40 twice a day, lisinopril for her blood pressure. She needs a gastric emptying study which cannot be done as inpatient but needs to be completed as outpatient to rule out gastroparesis. Review of Systems Constitutional: Denies chills, Denies fever, Denies lethargy, Denies malaise, Denies poor appetite, Denies weakness, Denies weight loss Eyes: denies decreased vision, denies diplopia, denies discharge, denies pain Ears: deny: decreased hearing Ears, nose, mouth and throat: Denies dental pain, Denies headache, Denies nasal discharge, Denies nose pain Cardiovascular: Denies chest pain, Denies decreased exercise tolerance, Denies edema, Denies high blood pressure, Denies irregular heart beat, Denies palpitations, Denies paroxysmal nocturnal dyspnea, Denies rapid heart beat, Denies shortness of breath Respiratory: Denies congestion, Denies cough, Denies cough with sputum, Denies dyspnea, Denies home oxygen, Denies wheezing Gastrointestinal: Endorses abdominal pain right upper, Denies change in bowel habits, Denies coffee ground emesis, Denies early satiety, Denies excessive gas, Denies heartburn, Denies hematemesis, Denies hematochezia, Denies loss of appet ite, endorses nausea, endorses vomiting endorses constipation Genitourinary: Denies dysuria, Denies flank pain, Denies kidney stones, Denies menorrhagia, Denies urgency, Denies urinary frequency Musculoskeletal: Denies gait dysfunction, Denies limitation of motion, Denies morning stiffness, Denies muscle cramps Integumentary: Denies rash, Denies wounds, Denies brittle nails, Denies change in hair/nails, Denies darkening of skin Neurological: Denies balance difficulties, Denies change in speech, Denies double vision, Denies gait dysfunction, Denies loss of vision, Denies motor disturbance, Denies numbness, Denies paralysis, Denies paresthesias, Denies seizures Psychiatric: Denies anxiety, Denies depression Endocrine: Denies excessive sweating, Denies excessive thirst, Denies high blood sugars, Denies palpitations Hematologic/Lymphatic: Denies easy bruising, Denies lymphadenopathy Past Medical History Past Medical History: Diabetes Mellitus, Pneumonia Additional Past Medical History / Comment(s): IDDM type I, bilateral retinopathy with injections, DKA, IBS/constipation, bronchitis, febrile seizure at 3 yrs of age. covid positive 11/2020. History of Any Multi-Drug Resistant Organisms: None Reported Past Surgical History: Adenoidectomy, Tonsillectomy Additional Past Surgical History / Comment(s): sinus balloon plasty, wisdom teeth extractions., right eye surgery 02/18/21. Past Anesthesia/Blood Transfusion Reactions: No Reported Reaction Additional Past Anesthesia/Blood Transfusion Reaction / Comment(s): no transfusions Past Psychological History: Anxiety Additional Psychological History / Comment(s): Pt resides with 2 roomates. She has a dog. She is independent. Smoking Status: Never smoker Past Alcohol Use History: None Reported, Occasional Additional Past Alcohol Use History / Comment(s): denies alcohol use at present. Past Drug Use History: None Reported Additional Drug Use History / Comment(s): stopped marijuana use in 11/2020 - Past Family History Mother Family Medical History: No Reported History Additional Family Medical History / Comment(s): Mother is healthy. Father Family Medical History: No Reported History Additional Family Medical History / Comment(s): Father is healthy Medications and Allergies Home Medications Medication Instructions Recorded Confirmed Type Ondansetron [Zofran ODT] 4 mg PO Q8HR PRN #10 tab 12/25/20 03/13/21 Rx Pantoprazole Sodium [Protonix] 20 mg PO DAILY 14 Days #14 03/11/21 03/13/21 Rx tablet. Atropine Ophth Soln 1% 5Ml [Isopto 1 drop RIGHT EYE DAILY 03/13/21 03/13/21 History Atropine 1% 5Ml] Gentamicin 0.3% Ophth Soln 1 drop RIGHT EYE DAILY 03/13/21 03/13/21 History [Garamycin 0.3% Ophth Soln] Insulin Glargine,Hum.rec.anlog 18 unit SQ HS 03/13/21 03/13/21 History [Lantus Solostar] Insulin Lispro [humaLOG Kwikpen] See Protocol SQ ACHS 03/13/21 03/13/21 History prednisoLONE ACETATE 1% OPHTH 1 drop RIGHT EYE QID 03/13/21 03/13/21 History [Pred Forte 1%] Allergies Allergy/AdvReac Type Severity Reaction Status Date / Time mold AdvReac Dyspnea Verified 03/13/21 18:25 Physical Exam Vitals: Vital Signs Temp Pulse Pulse Resp BP BP Pulse Ox 03/14/21 08:00 16 03/14/21 06:50 98.7 F 88 16 128/80 98 03/14/21 02:00 99.3 F 83 14 118/75 97 03/13/21 23:15 101 H 137/80 03/13/21 22:00 98.7 F 101 H 18 181/111 98 03/13/21 19:51 90 16 98 03/13/21 19:48 157/96 03/13/21 17:21 98.1 F 95 18 172/116 98 Intake and Output 03/13/21 03/14/21 03/14/21 22:59 06:59 14:59 Intake Total 375 Output Total 600 500 Balance -600 -125 Intake: IV 375 Sodium Chloride 0.9% 1, 375 000 ml @ 75 mls/hr IV . [id number] [facility] Rx#:[id number] Output: Urine 600 500 Other: Voiding Method Toilet Toilet # Voids 1 1 Weight 72.575 kg - Constitutional General appearance: cooperative, no acute distress, obese - EENT Eyes: anicteric sclerae, PERRLA, normal appearance ENT: hearing grossly normal - Neck Neck: no lymphadenopathy, normal ROM, no other, no rigidity, no stridor, no thyromegaly - Respiratory Respiratory: bilateral: CTA, negative: diminished, dullness, rales, rhonchi - Cardiovascular Rhythm: regular Heart sounds: normal: S1, S2 Abnormal Heart Sounds: no systolic murmur, no diastolic murmur, no rub, no S3 Gallop, no S4 Gallop, no click, no other - Gastrointestinal General gastrointestinal: normal bowel sounds, soft tender right upper quadrant bowel sounds are present - Integumentary Integumentary: no rash - Neurologic Neurologic: CNII-XII intact - Musculoskeletal Musculoskeletal: gait normal, strength equal bilaterally - Psychiatric Psychiatric: A&O x's 3, appropriate affect Results CBC & Chem 7: 03/13/21 18:22 03/13/21 18:22 Labs: Abnormal Lab Results - Last 24 Hours (Table) 03/13/21 03/13/21 03/13/21 Range/Units 18:22 18:22 22:15 WBC 14.5 H (3.8-10.6) k/uL RBC 3.67 L (3.80-5.40) m/uL Hgb 10.9 L (11.4-16.0) gm/dL Hct 31.1 L (34.0-46.0) % Neutrophils # 11.5 H (1.3-7.7) k/uL Sodium 135 L (137-145) mmol/L BUN 24 H (7-17) mg/dL Creatinine 1.24 H (0.52-1.04) mg/dL Glucose 218 H (74-99) mg/dL POC Glucose (mg/dL) (75-99) mg/dL Urine Protein 3+ H (Negative) Urine Glucose (UA) 3+ H (Negative) Urine Ketones 2+ H (Negative) Urine Blood Moderate H (Negative) Urine RBC 37 H (0-5) /hpf Urine Bacteria Many H (None) /hpf Hyaline Casts 7 H (0-2) /lpf Urine Mucus Rare H (None) /hpf 03/13/21 03/14/21 03/14/21 Range/Units 22:20 06:55 07:26 WBC (3.8-10.6) k/uL RBC (3.80-5.40) m/uL Hgb (11.4-16.0) gm/dL Hct (34.0-46.0) % Neutrophils # (1.3-7.7) k/uL Sodium (137-145) mmol/L BUN (7-17) mg/dL Creatinine (0.52-1.04) mg/dL Glucose (74-99) mg/dL POC Glucose (mg/dL) 263 H 54 L 170 H (75-99) mg/dL Urine Protein (Negative) Urine Glucose (UA) (Negative) Urine Ketones (Negative) Urine Blood (Negative) Urine RBC (0-5) /hpf Urine Bacteria (None) /hpf Hyaline Casts (0-2) /lpf Urine Mucus (None) /hpf 03/14/21 Range/Units 11:34 WBC (3.8-10.6) k/uL RBC (3.80-5.40) m/uL Hgb (11.4-16.0) gm/dL Hct (34.0-46.0) % Neutrophils # (1.3-7.7) k/uL Sodium (137-145) mmol/L BUN (7-17) mg/dL Creatinine (0.52-1.04) mg/dL Glucose (74-99) mg/dL POC Glucose (mg/dL) 146 H (75-99) mg/dL Urine Protein (Negative) Urine Glucose (UA) (Negative) Urine Ketones (Negative) Urine Blood (Negative) Urine RBC (0-5) /hpf Urine Bacteria (None) /hpf Hyaline Casts (0-2) /lpf Urine Mucus (None) /hpf Thrombosis Risk Factor Assmnt - DVT/VTE Prophylaxis DVT/VTE Prophylaxis: Mechanical Prophylaxis ordered - Choose All That Apply Any of the Below Risk Factors Present?: Yes Each Factor Represents 1 point: Obesity (BMI >25) Other Risk Factors: No Other congenital or acquired thrombophilia - If yes, enter type in comment: No Thrombosis Risk Factor Assessment Total Risk Factor Score: 1 Thrombosis Risk Factor Assessment Level: Low Risk Assessment and Plan Plan: 1. Nausea and vomiting likely sec to gastroperesis. Reglan 5 3 times a day. No improvement with Zofran. GI consulted plan for EGD as outpatient. Patient need gastric emptying study which has to be performed as outpatient to rule out gastroparesis 2. Starvation ketoacidosis no diabetes ketoacidosis noted. Patient has not been eating or 4 days. IV fluids at normal saline at 75 mL per hour. Advance diet as tolerated 3. Type 1 Diabetes mellitis continue glargine 18 units at its edges and lispro as sliding scale. Diabetic diet 4. Uncontrolled HTN controlled on lisinopril. Prescription sent to pharmacy. 5. Constipation would recommend senna and Colace. Abdominal x-ray negative for any bowel obstruction #6 CODE STATUS full. #7 DVT prophylaxis encourage ambulation
[2021-03-14 16:35] LABS: Hemoglobin A1C 7.3 % (4.0-6.0)
[2021-03-14] MEDS ORDERED: PANTOPRAZOLE 40 MG TABLET PO SCH (17:30)
== END 2021-03-14 14:10 | disposition home or self-care (01) ==
LOC: EC 17:17 → 6NMEDSUR 19:42
PROVIDERS: ADMIT Internal Medicine; ATTEND Internal Medicine
DX: R11.2 Nausea with vomiting, unspecified (principal); E86.0 Dehydration; E10.319 Type 1 diabetes mellitus with unspecified diabetic retinopathy without macular edema; T73.0XXA Starvation, initial encounter; I10 Essential (primary) hypertension; K58.1 Irritable bowel syndrome with constipation; D72.829 Elevated white blood cell count, unspecified; F41.9 Anxiety disorder, unspecified; E66.9 Obesity, unspecified; Z68.29 Body mass index [BMI] 29.0-29.9, adult; Z79.4 Long term (current) use of insulin; Z79.899 Other long term (current) drug therapy; Z91.048 Other nonmedicinal substance allergy status; Z98.890 Other specified postprocedural states; Z86.16 Personal history of COVID-19; Z87.01 Personal history of pneumonia (recurrent)
CPT/HCPCS: 96376 ×3; 96375 ×2; 96361; 96374; 99285; 36415; 80053; 82150; 82009; 83690; 85025; 81001; 83036; 87635; 74018; 76700; G0378 ×2; J2270 ×2; J1200; J2765 ×2; J2405; C9113 ×2

== ENCOUNTER 2021-03-16 06:59 | Emergency (ER) | payer BC ==
[2021-03-16 07:06] VITALS: BP 170/105; PULSE 104; RESP 18; TEMP 98.4
[2021-03-16] MEDS ORDERED: SODIUM CHLORIDE 0.9% 1,000 ML IV STA ×3 (07:16→11:02)
[2021-03-16] MEDS ORDERED: METOCLOPRAMIDE 5 MG/ML 2 ML VIAL IVP STA (07:16)
[2021-03-16] MEDS ORDERED: FAMOTIDINE 20 MG/2 ML VIAL IV STA (07:17)
[2021-03-16] MEDS ORDERED: LORazepam 2 MG/ML INJ IV STA (07:17)
--- NOTE | 2021-03-16 07:19 | ED ---
General Adult HPI - General Chief complaint: Nausea/Vomiting/Diarrhea Stated complaint: Vomiting Time Seen by Provider: 03/16/21 07:10 Source: patient, family, RN notes reviewed, old records reviewed Mode of arrival: ambulatory Limitations: no limitations - History of Present Illness Initial comments: Patient is a pleasant 30-year-old female presenting to the emergency Department with complaints of vomiting. Onset of symptoms was around 1 week ago. Patient is vomiting multiple times daily. Patient is been in the emergency department twice. Patient is now having a few episodes of diarrhea as well. Patient does have some abdominal discomfort. No fever. Patient did have similar symptoms associated with Covid back in November. Otherwise does not have chronic similar symptoms. Patient is type I diabetic however sugars have been well-controlled. Patient denies possible . - Related Data Home Medications Medication Instructions Recorded Confirmed Atropine Ophth Soln 1% 5Ml [Isopto 1 drop RIGHT EYE DAILY 03/13/21 03/16/21 Atropine 1% 5Ml] Gentamicin 0.3% Ophth Soln 1 drop RIGHT EYE QID 03/13/21 03/16/21 [Garamycin 0.3% Ophth Soln] Insulin Glargine,Hum.rec.anlog 18 unit SQ HS 03/13/21 03/16/21 [Lantus Solostar] Insulin Lispro [humaLOG Kwikpen] See Protocol SQ AC-TID 03/13/21 03/16/21 prednisoLONE ACETATE 1% OPHTH 1 drop RIGHT EYE DAILY 03/13/21 03/16/21 [Pred Forte 1%] Docusate Sodium [Dok] 100 mg PO DAILY PRN 03/16/21 03/16/21 Previous Rx's Medication Instructions Recorded Ondansetron [Zofran ODT] 4 mg PO Q8HR PRN #10 tab 12/25/20 Metoclopramide [Reglan] 10 mg PO ACHS #30 tab 03/14/21 Pantoprazole Sodium 40 mg PO AC-BRKFST #30 tablet. 03/14/21 Sennosides [Senna] 8.6 mg PO DAILY PRN #60 tablet 03/14/21 lisinopriL [Zestril] 10 mg PO DAILY@2100 #30 tab 03/14/21 Sucralfate [Carafate] 10 ml PO ACHS #200 ml 03/16/21 Allergies Allergy/AdvReac Type Severity Reaction Status Date / Time mold AdvReac Dyspnea Verified 03/16/21 08:46 Review of Systems ROS Statement: Those systems with pertinent positive or pertinent negative responses have been documented in the HPI. ROS Other: All systems not noted in ROS Statement are negative. Constitutional: Denies: fever Eyes: Denies: eye pain ENT: Denies: ear pain Respiratory: Denies: cough Cardiovascular: Denies: chest pain Endocrine: Denies: fatigue Gastrointestinal: Reports: as per HPI, abdominal pain, nausea, vomiting, diarrhea Genitourinary: Denies: dysuria Musculoskeletal: Denies: back pain Skin: Denies: rash Neurological: Denies: weakness Past Medical History Past Medical History: Diabetes Mellitus, Pneumonia Additional Past Medical History / Comment(s): IDDM type I, bilateral retinopathy with injections, DKA, IBS/constipation, bronchitis, febrile seizure at 3 yrs of age. covid positive 11/2020. History of Any Multi-Drug Resistant Organisms: None Reported Past Surgical History: Adenoidectomy, Tonsillectomy Additional Past Surgical History / Comment(s): sinus balloon plasty, wisdom teeth extractions., right eye surgery 02/18/21. Past Anesthesia/Blood Transfusion Reactions: No Reported Reaction Additional Past Anesthesia/Blood Transfusion Reaction / Comment(s): no transfusions Past Psychological History: Anxiety Smoking Status: Never smoker Past Alcohol Use History: None Reported, Occasional Past Drug Use History: None Reported - Past Family History Mother Family Medical History: No Reported History Additional Family Medical History / Comment(s): Mother is healthy. Father Family Medical History: No Reported History Additional Family Medical History / Comment(s): Father is healthy General Exam Limitations: no limitations General appearance: alert, in no apparent distress Head exam: Present: normocephalic Eye exam: Present: normal appearance Neck exam: Present: normal inspection Respiratory exam: Present: normal lung sounds bilaterally Cardiovascular Exam: Present: regular rate, normal rhythm GI/Abdominal exam: Present: soft, normal bowel sounds. Absent: distended, tenderness, guarding, rebound, rigid, pulsatile mass Neurological exam: Present: alert Psychiatric exam: Present: normal affect, normal mood Skin exam: Present: normal color Course Vital Signs 03/16/21 07:04 Temperature 98.4 F Pulse Rate 104 H Respiratory 18 Rate Blood Pressure 170/105 O2 Sat by Pulse 100 Oximetry - Reevaluation(s) Reevaluation #1: 03/16/21 11:17 Patient reevaluated and still complaining of abdominal discomfort and nausea. Abdomen is soft with minimal diffuse tenderness on exam. Discussion had with patient regarding computed tomography scan. Patient did have recent ultrasound and computed tomography scan. Patient refuses computed tomography scan but again requests pain medication. Medical Decision Making - Medical Decision Making Patient again reevaluated and feeling better and comfortable discharge home. Patient updated on results and need for follow-up with primary care physician and gastroenterology. - Lab Data Result diagrams: 03/16/21 07:36 03/16/21 07:36 Lab Results 03/16/21 03/16/21 03/16/21 Range/Units 07:36 07:36 08:38 WBC 18.8 H (3.8-10.6) k/uL RBC 3.89 (3.80-5.40) m/uL Hgb 11.1 L (11.4-16.0) gm/dL Hct 33.2 L (34.0-46.0) % MCV 85.5 (80.0-100.0) fL MCH 28.5 (25.0-35.0) pg MCHC 33.3 (31.0-37.0) g/dL RDW 13.8 (11.5-15.5) % Plt Count 270 (150-450) k/uL MPV 7.4 Neutrophils % 88 % Lymphocytes % 8 % Monocytes % 3 % Eosinophils % 1 % Basophils % 0 % Neutrophils # 16.5 H (1.3-7.7) k/uL Lymphocytes # 1.4 (1.0-4.8) k/uL Monocytes # 0.6 (0-1.0) k/uL Eosinophils # 0.1 (0-0.7) k/uL Basophils # 0.0 (0-0.2) k/uL Sodium 134 L (137-145) mmol/L Potassium 4.6 (3.5-5.1) mmol/L Chloride 103 (98-107) mmol/L Carbon Dioxide 23 (22-30) mmol/L Anion Gap 8 mmol/L BUN 27 H (7-17) mg/dL Creatinine 1.30 H (0.52-1.04) mg/dL Est GFR (CKD-EPI)AfAm 64 (>60 ml/min/1.73 sqM) Est GFR (CKD-EPI)NonAf 56 (>60 ml/min/1.73 sqM) Glucose 246 H (74-99) mg/dL Calcium 9.2 (8.4-10.2) mg/dL Total Bilirubin 0.5 (0.2-1.3) mg/dL AST 27 (14-36) U/L ALT 13 (4-34) U/L Alkaline Phosphatase 71 (38-126) U/L Total Protein 6.6 (6.3-8.2) g/dL Albumin 3.8 (3.5-5.0) g/dL Amylase 86 (30-110) U/L Lipase 33 (23-300) U/L Urine Color Light Yellow Urine Appearance Clear (Clear) Urine pH 6.0 (5.0-8.0) Ur Specific [place] 1.014 (1.001-1.035) Urine Protein 3+ H (Negative) Urine Glucose (UA) 3+ H (Negative) Urine Ketones 1+ H (Negative) Urine Blood Moderate H (Negative) Urine Nitrite Negative (Negative) Urine Bilirubin Negative (Negative) Urine Urobilinogen <2.0 (<2.0) mg/dL Ur Leukocyte Esterase Negative (Negative) Urine RBC 42 H (0-5) /hpf Urine WBC 4 (0-5) /hpf Ur Squamous Epith Cells 1 (0-4) /hpf Amorphous Sediment Rare H (None) /hpf Urine Bacteria Many H (None) /hpf Hyaline Casts 3 H (0-2) /lpf Urine Mucus Rare H (None) /hpf - Radiology Data Radiology results: image reviewed (KUB: Correlate for ileus/enteritis) Disposition Clinical Impression: Nausea & vomiting Disposition: HOME SELF-CARE Condition: Stable Instructions (If sedation given, give patient instructions): Acute Nausea and Vomiting (ED), Gastroparesis (ED) Additional Instructions: Continue Reglan. Please follow-up with primary care physician in the next day or 2 for recheck. Also follow-up with gastroenterology, number given. Return for uncontrolled vomiting, fever, increased pain, worsening or changing symptoms or other concerns. Prescription has been sent to [facility]. Prescriptions: Sucralfate [Carafate] 10 ml PO ACHS #200 ml Is patient prescribed a controlled substance at d/c from ED?: No Referrals: Rich Galindo MD [Primary Care Provider] - 1-2 days Time of Disposition: 12:29
[2021-03-16 07:53] LABS: Basophils % (A) 0 %; Eosinophils # (A) 0.1 k/uL (0-0.7); Eosinophils % (A) 1 %; HCT 33.2 % (34.0-46.0); HGB 11.1 gm/dL (11.4-16.0); Lymphocytes # (A) 1.4 k/uL (1.0-4.8); Lymphocytes % (A) 8 %; MCH 28.5 pg (25.0-35.0); MCHC 33.3 g/dL (31.0-37.0); MCV 85.5 fL (80.0-100.0); Mean Platelet Volume 7.4; Monocytes # (A) 0.6 k/uL (0-1.0); Monocytes % (A) 3 %; Neutrophils # (A) 16.5 k/uL (1.3-7.7); Neutrophils % (A) 88 %; Platelet Count 270 k/uL (150-450); RBC 3.89 m/uL (3.80-5.40); RDW 13.8 % (11.5-15.5); WBC 18.8 k/uL (3.8-10.6)
[2021-03-16 08:01] LABS: Albumin 3.8 g/dL (3.5-5.0); Calcium 9.2 mg/dL (8.4-10.2); Potassium 4.6 mmol/L (3.5-5.1); Total Bilirubin 0.5 mg/dL (0.2-1.3); Total Protein 6.6 g/dL (6.3-8.2)
[2021-03-16] MEDS ORDERED: INSULIN REGULAR 100 UNIT/ML VIAL SQ ONE (08:05)
--- NOTE | 2021-03-16 08:10 | XR ---
KUB HISTORY: Nausea vomiting, diarrhea and abdominal pain KUB submitted on 2 images, correlation to CT scan 03/11/2021, Abdomen 03/14/2021 No interval change is evident. Metallic device present over the left hemiabdomen. There is an air-flu id levels without bowel distention. Lung bases are clear. No pneumoperitoneum. IMPRESSION: Correlate for ileus, enteritis
[2021-03-16] MEDS ORDERED: diphenhydrAMINE 50 MG/ML 1 ML VIAL IVP STA (08:25)
[2021-03-16 08:52] LABS: Amorphous Sediment,Urine Rare /hpf; Appearance,Urine Clear (Clear); Bacteria,Urine Many /hpf; Bilirubin,Urine Negative (Negative); Blood,Urine Moderate (Negative); Color,Urine Light Yellow; Glucose,Urine (UA) 3+ (Negative); Hyaline Casts,Urine 3 /lpf (0-2); Ketones,Urine 1+ (Negative); Leukocyte Esterase,Urine Negative (Negative); Mucus,Urine Rare /hpf; Nitrite,Urine Negative (Negative); Protein,Urine 3+ (Negative); RBC,Urine 42 /hpf (0-5); Specific Gravity,Urine 1.014 (1.001-1.035); Squamous Epithelial Cell,Urine 1 /hpf (0-4); Urobilinogen,Urine <2.0 mg/dL (<2.0); WBC,Urine 4 /hpf (0-5)
[2021-03-16] MEDS ORDERED: DICYCLOMINE 10 MG/ML 2 ML AMP IM STA (09:09)
[2021-03-16] MEDS ORDERED: ONDANSETRON 4 MG/2 ML VIAL IVP STA (10:51)
[2021-03-16] MEDS ORDERED: HYDROmorphone 1 MG/ML 1 ML SYRINGE IVP STA (11:40)
== END 2021-03-16 13:19 | disposition home or self-care (01) ==
LOC: EC 06:59
DX: R11.2 Nausea with vomiting, unspecified (principal); E11.9 Type 2 diabetes mellitus without complications; Z90.09 Acquired absence of other part of head and neck; Z79.4 Long term (current) use of insulin; Z86.16 Personal history of COVID-19
CPT/HCPCS: 36415; 80053; 82150; 83690; 85025; 81001; 74018; 99284; 96374; 96361 ×6; 96375 ×5; 96372; J2060; J1200; J0500; J2765; J2405; J1170

== ENCOUNTER 2021-03-16 18:34 | Observation (INO) | payer BC ==
[2021-03-16] MEDS ORDERED: SODIUM CHLORIDE 0.9% 1,000 ML IV STA (19:04)
[2021-03-16] MEDS ORDERED: METOCLOPRAMIDE 5 MG/ML 2 ML VIAL IVP STA (19:04)
[2021-03-16] MEDS ORDERED: PANTOPRAZOLE 40 MG/10 ML VIAL IVP STA (19:04)
[2021-03-16] MEDS ORDERED: HYDROmorphone 0.5 MG/0.5 ML SYRINGE IVP STA (19:04)
--- NOTE | 2021-03-16 19:08 | ED ---
General Adult HPI - General Chief complaint: Abdominal Pain Stated complaint: vomiting/abd pain-revisit Time Seen by Provider: 03/16/21 18:58 Source: patient, RN notes reviewed, old records reviewed Mode of arrival: ambulatory Limitations: no limitations - History of Present Illness Initial comments: 30-year-old female presents for reevaluation of nausea vomiting, generalized abdominal pain. Patient has been seen several times in the last 1 week and was admitted with intractable nausea and vomiting. She has continued abdominal discomfort with nausea vomiting anytime she tries to eat or drink. She was seen earlier today symptoms had improved and she was discharged home. She presents again with similar symptoms. No fever. She had coronavirus in November. She was previously diagnosed with cannabis hyperemesis although she states she has not smoked marijuana in several months. - Related Data Home Medications Medication Instructions Recorded Confirmed Atropine Ophth Soln 1% 5Ml [Isopto 1 drop RIGHT EYE DAILY 03/13/21 03/16/21 Atropine 1% 5Ml] Gentamicin 0.3% Ophth Soln 1 drop RIGHT EYE QID 03/13/21 03/16/21 [Garamycin 0.3% Ophth Soln] Insulin Glargine,Hum.rec.anlog 18 unit SQ HS 03/13/21 03/16/21 [Lantus Solostar] Insulin Lispro [humaLOG Kwikpen] See Protocol SQ AC-TID MDD 40 03/13/21 03/16/21 UNITS/DAY prednisoLONE ACETATE 1% OPHTH 1 drop RIGHT EYE DAILY 03/13/21 03/16/21 [Pred Forte 1%] Docusate Sodium [Dok] 100 mg PO DAILY PRN 03/16/21 03/16/21 Previous Rx's Medication Instructions Recorded Ondansetron [Zofran ODT] 4 mg PO Q8HR PRN #10 tab 12/25/20 Metoclopramide [Reglan] 10 mg PO ACHS #30 tab 03/14/21 Pantoprazole Sodium 40 mg PO AC-BRKFST #30 tablet.dr 03/14/21 Sennosides [Senna] 8.6 mg PO DAILY PRN #60 tablet 03/14/21 lisinopriL [Zestril] 10 mg PO DAILY@2100 #30 tab 03/14/21 Sucralfate [Carafate] 10 ml PO ACHS #200 ml 03/16/21 Allergies Allergy/AdvReac Type Severity Reaction Status Date / Time mold AdvReac Dyspnea Verified 03/16/21 18:44 Review of Systems ROS Statement: Those systems with pertinent positive or pertinent negative responses have been documented in the HPI. ROS Other: All systems not noted in ROS Statement are negative. Past Medical History Past Medical History: Diabetes Mellitus, Pneumonia Additional Past Medical History / Comment(s): IDDM type I, bilateral retinopathy with injections, DKA, IBS/constipation, bronchitis, febrile seizure at 3 yrs of age. covid positive 11/2020. History of Any Multi-Drug Resistant Organisms: None Reported Past Surgical History: Adenoidectomy, Tonsillectomy Additional Past Surgical History / Comment(s): sinus balloon plasty, wisdom teeth extractions., right eye surgery 02/18/21. Past Anesthesia/Blood Transfusion Reactions: No Reported Reaction Additional Past Anesthesia/Blood Transfusion Reaction / Comment(s): no transfusions Past Psychological History: Anxiety Smoking Status: Never smoker Past Alcohol Use History: None Reported, Occasional Past Drug Use History: None Reported - Past Family History Mother Family Medical History: No Reported History Additional Family Medical History / Comment(s): Mother is healthy. Father Family Medical History: No Reported History Additional Family Medical History / Comment(s): Father is healthy General Exam Limitations: no limitations General appearance: alert, in no apparent distress Head exam: Present: atraumatic, normocephalic Eye exam: Present: normal appearance, PERRL ENT exam: Present: mucous membranes dry Neck exam: Present: normal inspection. Absent: tenderness, meningismus Respiratory exam: Present: normal lung sounds bilaterally. Absent: respiratory distress, wheezes Cardiovascular Exam: Present: normal rhythm, tachycardia GI/Abdominal exam: Present: soft. Absent: distended, tenderness, guarding, rebound Extremities exam: Present: normal inspection, normal capillary refill. Absent: pedal edema, calf tenderness Neurological exam: Present: alert, oriented X3, CN II-XII intact. Absent: motor sensory deficit Psychiatric exam: Present: normal affect, normal mood Skin exam: Present: warm, dry, intact. Absent: cyanosis, diaphoretic Course Vital Signs 03/16/21 03/16/21 03/16/21 18:44 18:59 19:41 Temperature 98.1 F Pulse Rate 114 H 108 H 100 Respiratory 20 20 22 Rate Blood Pressure 193/102 188/104 193/110 O2 Sat by Pulse 100 98 98 Oximetry 03/16/21 20:01 Temperature Pulse Rate 85 Respiratory 18 Rate Blood Pressure 150/90 O2 Sat by Pulse 95 Oximetry Medical Decision Making - Medical Decision Making 30-year-old female with repeat visit for nausea vomiting, generalized abdominal pain. Patient was seen earlier today and symptoms did not improve while she was home. Workup reveals some leukocytosis 11.0. Stable hemoglobin 10.6. She has a creatinine 1.2. She is asked to positive although her CO2 is 21 with a normal anion gap. Urinalysis is positive for both glucose and ketones. Her urine drug screen is negative for THC. She does have persistent nausea and vomiting appears very dehydrated. She will be admitted for hydration and sympto matic control. Case discussed with Dr. Arroyo who will admit. GI placed on consult for evaluation. - Lab Data Result diagrams: 03/16/21 19:10 03/16/21 19:10 Lab Results 03/16/21 03/16/21 03/16/21 Range/Units 19:10 19:10 19:10 WBC 11.0 H (3.8-10.6) k/uL RBC 3.58 L (3.80-5.40) m/uL Hgb 10.6 L (11.4-16.0) gm/dL Hct 30.6 L (34.0-46.0) % MCV 85.4 (80.0-100.0) fL MCH 29.7 (25.0-35.0) pg MCHC 34.8 (31.0-37.0) g/dL RDW 13.5 (11.5-15.5) % Plt Count 262 (150-450) k/uL MPV 7.6 Neutrophils % 76 % Lymphocytes % 17 % Monocytes % 5 % Eosinophils % 1 % Basophils % 0 % Neutrophils # 8.4 H (1.3-7.7) k/uL Lymphocytes # 1.9 (1.0-4.8) k/uL Monocytes # 0.5 (0-1.0) k/uL Eosinophils # 0.1 (0-0.7) k/uL Basophils # 0.0 (0-0.2) k/uL PT 9.9 (9.0-12.0) sec INR 0.9 (<1.2) APTT 22.4 (22.0-30.0) sec Sodium (137-145) mmol/L Potassium (3.5-5.1) mmol/L Chloride (98-107) mmol/L Carbon Dioxide (22-30) mmol/L Anion Gap mmol/L BUN (7-17) mg/dL Creatinine (0.52-1.04) mg/dL Est GFR (CKD-EPI)AfAm (>60 ml/min/1.73 sqM) Est GFR (CKD-EPI)NonAf (>60 ml/min/1.73 sqM) Glucose (74-99) mg/dL POC Glucose (mg/dL) (75-99) mg/dL POC Glu Technician [employer] ID Plasma Lactic Acid Wayne (0.7-2.0) mmol/L Calcium (8.4-10.2) mg/dL Total Bilirubin (0.2-1.3) mg/dL AST (14-36) U/L ALT (4-34) U/L Alkaline Phosphatase (38-126) U/L Troponin I (0.000-0.034) ng/mL Total Protein (6.3-8.2) g/dL Albumin (3.5-5.0) g/dL Amylase (30-110) U/L Lipase (23-300) U/L Urine Color Light Yellow Urine Appearance Clear (Clear) Urine pH 6.5 (5.0-8.0) Ur Specific Miracle 1.013 (1.001-1.035) Urine Protein 3+ H (Negative) Urine Glucose (UA) 3+ H (Negative) Urine Ketones 1+ H (Negative) Urine Blood Moderate H (Negative) Urine Nitrite Negative (Negative) Urine Bilirubin Negative (Negative) Urine Urobilinogen <2.0 (<2.0) mg/dL Ur Leukocyte Esterase Negative (Negative) Urine RBC 59 H (0-5) /hpf Urine WBC 1 (0-5) /hpf Ur Squamous Epith Cells <1 (0-4) /hpf Urine Bacteria Occasional H (None) /hpf Hyaline Casts 7 H (0-2) /lpf Urine Mucus Rare H (None) /hpf Urine HCG, Qual (Not Detectd) Urine Opiates Screen (NotDetected) Ur Oxycodone Screen (NotDetected) Urine Methadone Screen (NotDetected) Ur Propoxyphene Screen (NotDetected) Ur Barbiturates Screen (NotDetected) U Tricyclic Antidepress (NotDetected) Ur Phencyclidine Scrn (NotDetected) Ur Amphetamines Screen (NotDetected) U Methamphetamines Scrn (NotDetected) U Benzodiazepines Scrn (NotDetected) Urine Cocaine Screen (NotDetected) U Marijuana (THC) Screen (NotDetected) Acetone, Qual (Negative) 03/16/21 03/16/21 03/16/21 Range/Units 19:10 19:10 19:10 WBC (3.8-10.6) k/uL RBC (3.80-5.40) m/uL Hgb (11.4-16.0) gm/dL Hct (34.0-46.0) % MCV (80.0-100.0) fL MCH (25.0-35.0) pg MCHC (31.0-37.0) g/dL RDW (11.5-15.5) % Plt Count (150-450) k/uL MPV Neutrophils % % Lymphocytes % % Monocytes % % Eosinophils % % Basophils % % Neutrophils # (1.3-7.7) k/uL Lymphocytes # (1.0-4.8) k/uL Monocytes # (0-1.0) k/uL Eosinophils # (0-0.7) k/uL Basophils # (0-0.2) k/uL PT (9.0-12.0) sec INR (<1.2) APTT (22.0-30.0) sec Sodium 136 L (137-145) mmol/L Potassium 4.1 (3.5-5.1) mmol/L Chloride 103 (98-107) mmol/L Carbon Dioxide 21 L (22-30) mmol/L Anion Gap 12 mmol/L BUN 19 H (7-17) mg/dL Creatinine 1.20 H (0.52-1.04) mg/dL Est GFR (CKD-EPI)AfAm 71 (>60 ml/min/1.73 sqM) Est GFR (CKD-EPI)NonAf 61 (>60 ml/min/1.73 sqM) Glucose 210 H (74-99) mg/dL POC Glucose (mg/dL) (75-99) mg/dL POC Glu Technician [employer] ID Plasma Lactic Acid Wayne 1.3 (0.7-2.0) mmol/L Calcium 8.9 (8.4-10.2) mg/dL Total Bilirubin 0.5 (0.2-1.3) mg/dL AST 24 (14-36) U/L ALT 11 (4-34) U/L Alkaline Phosphatase 72 (38-126) U/L Troponin I <0.012 (0.000-0.034) ng/mL Total Protein 6.1 L (6.3-8.2) g/dL Albumin 3.5 (3.5-5.0) g/dL Amylase 68 (30-110) U/L Lipase 17 L (23-300) U/L Urine Color Urine Appearance (Clear) Urine pH (5.0-8.0) Ur Specific Miracle (1.001-1.035) Urine Protein (Negative) Urine Glucose (UA) (Negative) Urine Ketones (Negative) Urine Blood (Negative) Urine Nitrite (Negative) Urine Bilirubin (Negative) Urine Urobilinogen (<2.0) mg/dL Ur Leukocyte Esterase (Negative) Urine RBC (0-5) /hpf Urine WBC (0-5) /hpf Ur Squamous Epith Cells (0-4) /hpf Urine Bacteria (None) /hpf Hyaline Casts (0-2) /lpf Urine Mucus (None) /hpf Urine HCG, Qual (Not Detectd) Urine Opiates Screen (NotDetected) Ur Oxycodone Screen (NotDetected) Urine Methadone Screen (NotDetected) Ur Propoxyphene Screen (NotDetected) Ur Barbiturates Screen (NotDetected) U Tricyclic Antidepress (NotDetected) Ur Phencyclidine Scrn (NotDetected) Ur Amphetamines Screen (NotDetected) U Methamphetamines Scrn (NotDetected) U Benzodiazepines Scrn (NotDetected) Urine Cocaine Screen (NotDetected) U Marijuana (THC) Screen (NotDetected) Acetone, Qual Positive (Negative) 03/16/21 03/16/21 03/16/21 Range/Units 19:10 19:10 19:32 WBC (3.8-10.6) k/uL RBC (3.80-5.40) m/uL Hgb (11.4-16.0) gm/dL Hct (34.0-46.0) % MCV (80.0-100.0) fL MCH (25.0-35.0) pg MCHC (31.0-37.0) g/dL RDW (11.5-15.5) % Plt Count (150-450) k/uL MPV Neutrophils % % Lymphocytes % % Monocytes % % Eosinophils % % Basophils % % Neutrophils # (1.3-7.7) k/uL Lymphocytes # (1.0-4.8) k/uL Monocytes # (0-1.0) k/uL Eosinophils # (0-0.7) k/uL Basophils # (0-0.2) k/uL PT (9.0-12.0) sec INR (<1.2) APTT (22.0-30.0) sec Sodium (137-145) mmol/L Potassium (3.5-5.1) mmol/L Chloride (98-107) mmol/L Carbon Dioxide (22-30) mmol/L Anion Gap mmol/L BUN (7-17) mg/dL Creatinine (0.52-1.04) mg/dL Est GFR (CKD-EPI)AfAm (>60 ml/min/1.73 sqM) Est GFR (CKD-EPI)NonAf (>60 ml/min/1.73 sqM) Glucose (74-99) mg/dL POC Glucose (mg/dL) 218 H (75-99) mg/dL POC Glu Technician [employer] ID Dylan Mercer Plasma Lactic Acid Wayne (0.7-2.0) mmol/L Calcium (8.4-10.2) mg/dL Total Bilirubin (0.2-1.3) mg/dL AST (14-36) U/L ALT (4-34) U/L Alkaline Phosphatase (38-126) U/L Troponin I (0.000-0.034) ng/mL Total Protein (6.3-8.2) g/dL Albumin (3.5-5.0) g/dL Amylase (30-110) U/L Lipase (23-300) U/L Urine Color Urine Appearance (Clear) Urine pH (5.0-8.0) Ur Specific Miracle (1.001-1.035) Urine Protein (Negative) Urine Glucose (UA) (Negative) Urine Ketones (Negative) Urine Blood (Negative) Urine Nitrite (Negative) Urine Bilirubin (Negative) Urine Urobilinogen (<2.0) mg/dL Ur Leukocyte Esterase (Negative) Urine RBC (0-5) /hpf Urine WBC (0-5) /hpf Ur Squamous Epith Cells (0-4) /hpf Urine Bacteria (None) /hpf Hyaline Casts (0-2) /lpf Urine Mucus (None) /hpf Urine HCG, Qual Not Detected (Not Detectd) Urine Opiates Screen Detected H (NotDetected) Ur Oxycodone Screen Not Detected (NotDetected) Urine Methadone Screen Not Detected (NotDetected) Ur Propoxyphene Screen Not Detected (NotDetected) Ur Barbiturates Screen Not Detected (NotDetected) U Tricyclic Antidepress Not Detected (NotDetected) Ur Phencyclidine Scrn Not Detected (NotDetected) Ur Amphetamines Screen Not Detected (NotDetected) U Methamphetamines Scrn Not Detected (NotDetected) U Benzodiazepines Scrn Detected H (NotDetected) Urine Cocaine Screen Not Detected (NotDetected) U Marijuana (THC) Screen Not Detected (NotDetected) Acetone, Qual (Negative) Disposition Clinical Impression: Nausea & vomiting, Dehydration Disposition: ADMITTED IP TO THIS [facility] Condition: Stable Is patient prescribed a controlled substance at d/c from ED?: No Referrals: Rich Galindo MD [Primary Care Provider] - 1-2 days Decision to Admit Reason: Admit from EC Decision Date: 03/16/21 Decision Time: 20:49
[2021-03-16 19:28] LABS: Appearance,Urine Clear (Clear); Bacteria,Urine Occasional /hpf; Bilirubin,Urine Negative (Negative); Blood,Urine Moderate (Negative); Color,Urine Light Yellow; Glucose,Urine (UA) 3+ (Negative); Hyaline Casts,Urine 7 /lpf (0-2); Ketones,Urine 1+ (Negative); Leukocyte Esterase,Urine Negative (Negative); Mucus,Urine Rare /hpf; Nitrite,Urine Negative (Negative); PH, Urine 6.5 (5.0-8.0); Protein,Urine 3+ (Negative); RBC,Urine 59 /hpf (0-5); Specific Gravity,Urine 1.013 (1.001-1.035); Squamous Epithelial Cell,Urine <1 /hpf (0-4); Urobilinogen,Urine <2.0 mg/dL (<2.0); WBC,Urine 1 /hpf (0-5)
[2021-03-16 19:29] LABS: Basophils % (A) 0 %; Eosinophils # (A) 0.1 k/uL (0-0.7); Eosinophils % (A) 1 %; HCT 30.6 % (34.0-46.0); HGB 10.6 gm/dL (11.4-16.0); Lymphocytes # (A) 1.9 k/uL (1.0-4.8); Lymphocytes % (A) 17 %; MCH 29.7 pg (25.0-35.0); MCHC 34.8 g/dL (31.0-37.0); MCV 85.4 fL (80.0-100.0); Mean Platelet Volume 7.6; Monocytes # (A) 0.5 k/uL (0-1.0); Monocytes % (A) 5 %; Neutrophils # (A) 8.4 k/uL (1.3-7.7); Neutrophils % (A) 76 %; Platelet Count 262 k/uL (150-450); RBC 3.58 m/uL (3.80-5.40); RDW 13.5 % (11.5-15.5)
[2021-03-16 19:36] LABS: Amphetamine Screen,Urine Not Detected (NotDetected); Barbiturate Screen,Urine Not Detected (NotDetected); Benzodiazepines Screen,Urine Detected (NotDetected); Cocaine Screen,Urine Not Detected (NotDetected); Methadone Screen, Urine Not Detected (NotDetected); Opiate Screen,Urine Detected (NotDetected); Oxycodone Screen, Urine Not Detected (NotDetected); Phencyclidine Screen,Urine Not Detected (NotDetected); Tricyclic Antidepressant,Urine Not Detected (NotDetected); Urn Cannabinoid Scrn Not Detected (NotDetected)
[2021-03-16 19:36] LABS: Glucose,Whole Blood 218 mg/dL (75-99)
[2021-03-16 19:39] LABS: ALT 11 U/L (4-34); AST 24 U/L (14-36); African American GFR (CKD) 71 (>60 ml/min/1.73 sqM); Albumin 3.5 g/dL (3.5-5.0); Alkaline Phosphatase 72 U/L (38-126); Amylase 68 U/L (30-110); Anion Gap 12 mmol/L; Blood Urea Nitrogen 19 mg/dL (7-17); Calcium 8.9 mg/dL (8.4-10.2); Carbon Dioxide 21 mmol/L (22-30); Chloride 103 mmol/L (98-107); Glucose 210 mg/dL (74-99); Lipase 17 U/L (23-300); Non-African American GFR(CKD) 61 (>60 ml/min/1.73 sqM); Potassium 4.1 mmol/L (3.5-5.1); Sodium 136 mmol/L (137-145); Total Bilirubin 0.5 mg/dL (0.2-1.3); Total Protein 6.1 g/dL (6.3-8.2)
[2021-03-16 19:49] LABS: INR 0.9 (<1.2); Partial Thromboplastin Time 22.4 sec (22.0-30.0); Prothrombin Time 9.9 sec (9.0-12.0)
[2021-03-16] MEDS ORDERED: NALOXONE 0.4 MG/ML 1 ML VIAL IV PRN (20:46)
[2021-03-16] MEDS ORDERED: ACETAMINOPHEN TAB 325 MG TAB PO PRN (20:46)
[2021-03-16] MEDS: SODIUM CHLORIDE 0.9% 1,000 ML IV SCH (21:19)
[2021-03-16] MEDS: HYDROmorphone 0.5 MG/0.5 ML SYRINGE IVP PRN (21:20)
[2021-03-16] MEDS ORDERED: DOCUSATE 100 MG CAP PO PRN (21:32)
[2021-03-16] MEDS: INSULIN DETEMIR (LEVEMIR) 100 UNIT/ML SYR SQ SCH (21:35)
[2021-03-16 21:38] LABS: Glucose,Whole Blood 181 mg/dL (75-99)
[2021-03-16] MEDS: GENTAMICIN 0.3% OPHTH DROPS 5 ML BTL RIGHT EYE SCH (22:35)
[2021-03-16] MEDS: MELATONIN 5 MG TABLET PO PRN (23:34)
[2021-03-16] MEDS: INSULIN ASPART (NovoLOG) 100 UNIT/ML VIAL SQ SCH (23:46)
[2021-03-17 07:15] LABS: Basophils % (A) 0 %; Eosinophils # (A) 0.1 k/uL (0-0.7); Eosinophils % (A) 1 %; HCT 25.5 % (34.0-46.0); Lymphocytes # (A) 2.7 k/uL (1.0-4.8); Lymphocytes % (A) 32 %; MCH 28.8 pg (25.0-35.0); MCHC 33.4 g/dL (31.0-37.0); MCV 86.2 fL (80.0-100.0); Mean Platelet Volume 7.9; Monocytes # (A) 0.6 k/uL (0-1.0); Monocytes % (A) 7 %; Neutrophils % (A) 58 %; Platelet Count 212 k/uL (150-450); RBC 2.96 m/uL (3.80-5.40); RDW 14.2 % (11.5-15.5); WBC 8.5 k/uL (3.8-10.6)
[2021-03-17 07:30] LABS: Albumin 2.6 g/dL (3.5-5.0); Magnesium 1.6 mg/dL (1.6-2.3); Potassium 3.7 mmol/L (3.5-5.1); Total Bilirubin 0.3 mg/dL (0.2-1.3); Total Protein 4.9 g/dL (6.3-8.2)
[2021-03-17] MEDS ORDERED: NON FORMULARY DRUG (Insulin Lispro [Humalog Kwikpen] 100 UNIT/ML Insuln.Pen) SQ SCH (07:30)
[2021-03-17 07:33] LABS: Glucose,Whole Blood 64 mg/dL (75-99)
[2021-03-17 07:39] LABS: HGB 8.5 gm/dL (11.4-16.0)
[2021-03-17] MEDS: GENTAMICIN 0.3% OPHTH DROPS 5 ML BTL RIGHT EYE SCH ×2 (07:40→13:10)
[2021-03-17] MEDS: HYDROmorphone 0.5 MG/0.5 ML SYRINGE IVP PRN ×5 (07:40→20:32)
[2021-03-17] MEDS: INSULIN ASPART (NovoLOG) 100 UNIT/ML VIAL SQ SCH ×4 (07:41→21:19)
[2021-03-17] MEDS: ATROPINE OPHTH SOLN 1% 5ML BTL RIGHT EYE SCH (07:41)
[2021-03-17] MEDS: SODIUM CHLORIDE 0.9% 1,000 ML IV SCH (07:42)
[2021-03-17 07:47] LABS: Glucose,Whole Blood 58 mg/dL (75-99)
[2021-03-17 08:02] LABS: Glucose,Whole Blood 55 mg/dL (75-99)
[2021-03-17 08:18] LABS: Glucose,Whole Blood 54 mg/dL (75-99)
[2021-03-17 08:35] LABS: Glucose,Whole Blood 90 mg/dL (75-99)
[2021-03-17] MEDS ORDERED: PANTOPRAZOLE 40 MG/10 ML VIAL IV SCH (09:00)
[2021-03-17] MEDS: METOCLOPRAMIDE 5 MG/ML 2 ML VIAL IVP PRN ×3 (11:02→22:50)
[2021-03-17 11:20] LABS: Appearance,Urine Clear (Clear); Bacteria,Urine Rare /hpf; Bilirubin,Urine Negative (Negative); Blood,Urine Moderate (Negative); Color,Urine Yellow; Glucose,Urine (UA) 1+ (Negative); Ketones,Urine Negative (Negative); Leukocyte Esterase,Urine Negative (Negative); Mucus,Urine Rare /hpf; Nitrite,Urine Negative (Negative); Protein,Urine 3+ (Negative); RBC,Urine 5 /hpf (0-5); Specific Gravity,Urine 1.015 (1.001-1.035); Squamous Epithelial Cell,Urine <1 /hpf (0-4); Urobilinogen,Urine <2.0 mg/dL (<2.0); WBC,Urine 1 /hpf (0-5)
[2021-03-17 12:59] LABS: Glucose,Whole Blood 172 mg/dL (75-99)
--- NOTE | 2021-03-17 13:32 | P.HPIM ---
History of Present Illness H&P Date: 03/16/21 HISTORY OF PRESENT ILLNESS 30 years old female with past medical of type 1 diabetes since 2008 with no history of diabetic neuropathy or nephropathy comes in with intractable nausea and vomiting for the past 2 days. Patient was recently admitted to the hospital on 12/22/2020 and was noted to be in diabetic ketoacidosis with possible gastroenteritis secondary to COVID-19. 03/11 when she was seen in the ER for nausea and vomiting. Patient had recent surgery on her eye and has been on prednisone, gentamicin drops. She does document constipation for the past 4 days but denies any diarrhea or change in bowel habits. She was very consistent with her medication and has not missed her dose. She was hospitalized on 03/13 to 03/14/2021 for severe intractable nausea vomiting with gastroparesis was treated felt well see gastroenterology patient was post to go for emptying study and possible EGD as an outpatient she felt well was discharged home. Patient was in demurs department early today with intractable nausea vomiting acute kidney injury was hydrated started drinking enough water the time started eating sent home associated home developed to have intractable nausea vomiting he could not keep any food or fluid down her blood sugar continued to be quite bit elevated ended up coming to demurs department again where was seen and evaluated her kidney function continue to be quite bit down her urine test showed significant amount of right blood cell without any white blood cell she is not her drug screen came back positive for opiate and benzodiazepine most likely from the injection she had early ended day she is ketone positive without DKA most likely from severe dehydration. Patient be admitted to the hospital continue hydration treat if aggressively for gastroparesis consult gastrology and have more process and plan for emptying study and EGD possibly especially with patient mildly anemic at this point. REVIEW OF SYSTEMS Constitutional: No fever, no chills, no night sweats. No weight change. No wea kness, fatigue or lethargy. No daytime sleepiness. EENT: No headache. Slight disturbing her vision since her last surgery.. No loss of Hearing, no ringing in the ears, no dizziness. No nasal drainage or congestion. No epistaxis. No sore throat. Lungs: No shortness of breath, cough, no sputum production. No wheezing. Cardiovascular: No chest pain, no lower extremity edema. No palpitations. No paroxysmal nocturnal dyspnea. No orthopnea. No lightheadedness or dizziness. No syncopal episodes. Abdominal: Positive abdominal discomfort with nausea and vomiting not able to keep any food or fluid down. Genitourinary: No dysuria, increased frequency, urgency. No urinary retention. Musculoskeletal: No myalgias. No muscle weakness, no gait dysfunction, no frequent falls. No back pain. No neck pain. Integumentary: No wounds, no lesions. No rash or pruritus. No unusual bruising. No change in hair or nails. Neurologic: No aphasia. No facial droop. No change in mentation. No head injury. No headache. No paralysis. No paresthesia. Psychiatric: No depression. No anxiety. No mood swings. Endocrine: No abnormal blood sugars. No weight change. No excessive sweating or thirst. No cold intolerance. SOCIAL HISTORY Patient never smoke drinks alcohol very seldom does not take any street drugs and she stopped marijuana use back in November 2020. FAMILY HISTORY Both parents and younger and healthy with no genetic or cardiac history in any of her siblings. PHYSICAL EXAMINATION Gen: This is a young very thin patient looks slightly bit dehydrated and dry in mild distress without any trouble with respiration HEENT: Head is atraumatic, normocephalic. Pupils equal, round. Sclerae is anicteric. NECK: Supple. No JVD. No lymphadenopathy. No thyromegaly. LUNGS: Clear to auscultation. No wheezes or rhonchi. No intercostal retractions. HEART: Regular rate and rhythm. No murmur. ABDOMEN: Soft. Bowel sounds are present. No masses. No tenderness. EXTREMITIES: No pedal edema. No calf tenderness. NEUROLOGICAL: Patient is awake, alert and oriented x3. Cranial nerves 2 through 12 are grossly intact. ASSESSMENT AND PLAN 1. Nausea and vomiting likely sec to gastroperesis. Reglan 10mg 3 times a day. Continue PPI the patient can benefit from product like erythromycin to lower the motility trouble and eventually might benefit from being on smaller dose of gabapentin as well as an option. Patient will need an emptying study along with possible EGD. 2. Starvation ketoacidosis no diabetes ketoacidosis noted. Patient has not been eating or 4 days. IV fluids at normal saline at 75 mL per hour. Advance diet as tolerated 3. Type 1 Diabetes mellitis continue glargine 18 units at its edges and lispro as sliding scale. Patient should be seen by web site administrator and probably should be switched to insulin pump as well 4. Hypertension: Was diagnosed last time patient has been on lisinopril 5. Constipation patient can benefit from MiraLAX and natural stool softener. 6. CODE STATUS full. 7. DVT prophylaxis encourage ambulation 8. COVID-19 testing, were negative patient was admitted to the hospital and pandemic time. Patient will be admitted to the hospital for a minimum of 2 night stay. Past Medical History Past Medical History: Diabetes Mellitus, Pneumonia Additional Past Medical History / Comment(s): IDDM type I, bilateral retinopathy with injections, DKA, IBS/constipation, bronchitis, febrile seizure at 3 yrs of age. covid positive 11/2020. History of Any Multi-Drug Resistant Organisms: None Reported Past Surgical History: Adenoidectomy, Tonsillectomy Additional Past Surgical History / Comment(s): sinus balloon plasty, wisdom teeth extractions., right eye surgery 02/18/21. Past Anesthesia/Blood Transfusion Reactions: No Reported Reaction Additional Past Anesthesia/Blood Transfusion Reaction / Comment(s): no transfusions Past Psychological History: Anxiety Smoking Status: Never smoker Past Alcohol Use History: None Reported, Occasional Past Drug Use History: None Reported - Past Family History Mother Family Medical History: No Reported History Additional Family Medical History / Comment(s): Mother is healthy. Father Family Medical History: No Reported History Additional Family Medical History / Comment(s): Father is healthy Medications and Allergies Home Medications Medication Instructions Recorded Confirmed Type Ondansetron [Zofran ODT] 4 mg PO Q8HR PRN #10 tab 12/25/20 03/16/21 Rx Atropine Ophth Soln 1% 5Ml [Isopto 1 drop RIGHT EYE DAILY 03/13/21 03/16/21 History Atropine 1% 5Ml] Gentamicin 0.3% Ophth Soln 1 drop RIGHT EYE QID 03/13/21 03/16/21 History [Garamycin 0.3% Ophth Soln] Insulin Glargine,Hum.rec.anlog 18 unit SQ HS 03/13/21 03/16/21 History [Lantus Solostar] Insulin Lispro [humaLOG Kwikpen] See Protocol SQ AC-TID MDD 40 03/13/21 03/16/21 History UNITS/DAY prednisoLONE ACETATE 1% OPHTH 1 drop RIGHT EYE DAILY 03/13/21 03/16/21 History [Pred Forte 1%] Metoclopramide [Reglan] 10 mg PO ACHS #30 tab 03/14/21 03/16/21 Rx Pantoprazole Sodium 40 mg PO AC-BRKFST #30 tablet. 03/14/21 03/16/21 Rx Sennosides [Senna] 8.6 mg PO DAILY PRN #60 tablet 03/14/21 03/16/21 Rx lisinopriL [Zestril] 10 mg PO DAILY@2100 #30 tab 03/14/21 03/16/21 Rx Docusate Sodium [Dok] 100 mg PO DAILY PRN 03/16/21 03/16/21 History Sucralfate [Carafate] 10 ml PO ACHS #200 ml 03/16/21 03/16/21 Rx Allergies Allergy/AdvReac Type Severity Reaction Status Date / Time mold AdvReac Dyspnea Verified 03/16/21 18:44 Physical Exam Vitals: Vital Signs Temp Pulse Resp BP Pulse Ox 03/16/21 20:01 85 18 150/90 95 03/16/21 19:41 100 22 193/110 98 03/16/21 18:59 108 H 20 188/104 98 03/16/21 18:44 98.1 F 114 H 20 193/102 100 Intake and Output 03/16/21 03/16/21 03/16/21 06:59 14:59 22:59 Other: Weight 72.575 kg Results CBC & Chem 7: 03/16/21 19:10 03/16/21 19:10 Labs: Abnormal Lab Results - Last 24 Hours (Table) 03/16/21 03/16/21 03/16/21 Range/Units 19:10 19:10 19:10 WBC 11.0 H (3.8-10.6) k/uL RBC 3.58 L (3.80-5.40) m/uL Hgb 10.6 L (11.4-16.0) gm/dL Hct 30.6 L (34.0-46.0) % Neutrophils # 8.4 H (1.3-7.7) k/uL Sodium 136 L (137-145) mmol/L Carbon Dioxide 21 L (22-30) mmol/L BUN 19 H (7-17) mg/dL Creatinine 1.20 H (0.52-1.04) mg/dL Glucose 210 H (74-99) mg/dL POC Glucose (mg/dL) (75-99) mg/dL Total Protein 6.1 L (6.3-8.2) g/dL Lipase 17 L (23-300) U/L Urine Protein 3+ H (Negative) Urine Glucose (UA) 3+ H (Negative) Urine Ketones 1+ H (Negative) Urine Blood Moderate H (Negative) Urine RBC 59 H (0-5) /hpf Urine Bacteria Occasional H (None) /hpf Hyaline Casts 7 H (0-2) /lpf Urine Mucus Rare H (None) /hpf Urine Opiates Screen (NotDetected) U Benzodiazepines Scrn (NotDetected) 03/16/21 03/16/21 Range/Units 19:10 19:32 WBC (3.8-10.6) k/uL RBC (3.80-5.40) m/uL Hgb (11.4-16.0) gm/dL Hct (34.0-46.0) % Neutrophils # (1.3-7.7) k/uL Sodium (137-145) mmol/L Carbon Dioxide (22-30) mmol/L BUN (7-17) mg/dL Creatinine (0.52-1.04) mg/dL Glucose (74-99) mg/dL POC Glucose (mg/dL) 218 H (75-99) mg/dL Total Protein (6.3-8.2) g/dL Lipase (23-300) U/L Urine Protein (Negative) Urine Glucose (UA) (Negative) Urine Ketones (Negative) Urine Blood (Negative) Urine RBC (0-5) /hpf Urine Bacteria (None) /hpf Hyaline Casts (0-2) /lpf Urine Mucus (None) /hpf Urine Opiates Screen Detected H (NotDetected) U Benzodiazepines Scrn Detected H (NotDetected)
--- NOTE | 2021-03-17 13:36 | P.PN ---
Subjective Progress Note Date: 03/17/21 HISTORY OF PRESENT ILLNESS 30 years old female with past medical of type 1 diabetes since 2008 with no history of diabetic neuropathy or nephropathy comes in with intractable nausea and vomiting for the past 2 days. Patient was recently admitted to the hospital on 12/22/2020 and was noted to be in diabetic ketoacidosis with possible gastroenteritis secondary to COVID-19. 03/11 when she was seen in the ER for nausea and vomiting. Patient had recent surgery on her eye and has been on prednisone, gentamicin drops. She does document constipation for the past 4 days but denies any diarrhea or change in bowel habits. She was very consistent with her medication and has not missed her dose. She was hospitalized on 03/13 to 03/14/2021 for severe intractable nausea v omiting with gastroparesis was treated felt well see gastroenterology patient was post to go for emptying study and possible EGD as an outpatient she felt well was discharged home. Patient was in demurs department early today with intractable nausea vomiting acute kidney injury was hydrated started drinking enough water the time started eating sent home associated home developed to have intractable nausea vomiting he could not keep any food or fluid down her blood sugar continued to be quite bit elevated ended up coming to demurs department again where was seen and evaluated her kidney function continue to be quite bit down her urine test showed significant amount of right blood cell without any white blood cell she is not her drug screen came back positive for opiate and benzodiazepine most likely from the injection she had early ended day she is ketone positive without DKA most likely from severe dehydration. Patient be admitted to the hospital continue hydration treat if aggressively for gastroparesis consult gastrology and have more process and plan for emptying study and EGD possibly especially with patient mildly anemic at this point. 03/17: Patient GI symptom and gastroparesis has improved some she is not throwing up anymore is able to keep clear liquids so far morning. Was seen gastroenterology no planning for EGD at this point and emptying study is to be done as an outpatient. Patient is agreeable to stay on pantoprazole and Reglan [id number] and titrate diet gradually also long discussion about having patient seen her engineering consultant and more frequent basis and switch to insulin pump soon. Apparently patient is seen engineering consultant in [place] and cannot go for insulin pump at least till next year because of the current insurance she daily. Meanwhile will continue to titrate her insulin medication and more aggressive basis of this happened. Also if patient does not respond to gastroparesis with Reglan and pantoprazole Will add erythromycin twice a day see if the gastroparesis improved slightly bit with it. REVIEW OF SYSTEMS Constitutional: No fever, no chills, no night sweats. No weight change. No weakness, fatigue or lethargy. No daytime sleepiness. EENT: No headache. Slight disturbing her vision since her last surgery.. No loss of Hearing, no ringing in the ears, no dizziness. No nasal drainage or congestion. No epistaxis. No sore throat. Lungs: No shortness of breath, cough, no sputum production. No wheezing. Cardiovascular: No chest pain, no lower extremity edema. No palpitations. No p aroxysmal nocturnal dyspnea. No orthopnea. No lightheadedness or dizziness. No syncopal episodes. Abdominal: Positive abdominal discomfort with nausea and vomiting not able to keep any food or fluid down. Genitourinary: No dysuria, increased frequency, urgency. No urinary retention. Musculoskeletal: No myalgias. No muscle weakness, no gait dysfunction, no frequent falls. No back pain. No neck pain. Integumentary: No wounds, no lesions. No rash or pruritus. No unusual bruising. No change in hair or nails. Neurologic: No aphasia. No facial droop. No change in mentation. No head injury. No headache. No paralysis. No paresthesia. Psychiatric: No depression. No anxiety. No mood swings. Endocrine: No abnormal blood sugars. No weight change. No excessive sweating or thirst. No cold intolerance. PHYSICAL EXAMINATION Gen: This is a young very thin patient looks slightly bit dehydrated and dry in mild distress without any trouble with respiration HEENT: Head is atraumatic, normocephalic. Pupils equal, round. Sclerae is anicteric. NECK: Supple. No JVD. No lymphadenopathy. No thyromegaly. LUNGS: Clear to auscultation. No wheezes or rhonchi. No intercostal retractions. HEART: Regular rate and rhythm. No murmur. ABDOMEN: Soft. Bowel sounds are present. No masses. No tenderness. EXTREMITIES: No pedal edema. No calf tenderness. NEUROLOGICAL: Patient is awake, alert and oriented x3. Cranial nerves 2 through 12 are grossly intact. ASSESSMENT AND PLAN 1. Nausea and vomiting likely sec to gastroperesis. Reglan 10mg 3 times a day. Continue PPI the patient can benefit from product like erythromycin to lower the motility trouble and eventually might benefit from being on smaller dose of gabapentin as well as an option. Patient will need an emptying study along with possible EGD. Was seen gastroenterology start diet and titrate diet control fast. 2. Starvation ketoacidosis no diabetes ketoacidosis noted. Patient has not been eating or 4 days. IV fluids at normal saline at 75 mL per hour. Advance diet as tolerated, slightly bit better with kidney function improved significantly. 3. Type 1 Diabetes mellitis continue glargine 18 units at its edges and lispro as sliding scale. Patient should be seen by engineering consultant and probably should be switched to insulin pump as well 4. Hypertension: Was diagnosed last time patient has been on lisinopril 5. Constipation patient can benefit from MiraLAX and natural stool softener. 6 acute kidney injury: Most likely ATN from severe dehydration nausea vomiting, continue hydration repeat BUN/creatinine daily. 7. DVT prophylaxis encourage ambulation 8. COVID-19 testing, were negative patient was admitted to the hospital and pandemic time. 9 CODE STATUS full. Objective - Vital Signs Vital signs: Vital Signs Temp 98.1 F 03/17/21 02:00 Pulse 84 03/17/21 02:00 Resp 16 03/17/21 02:00 BP 131/82 03/17/21 02:00 Pulse Ox 99 03/17/21 02:00 Intake & Output 03/16/21 03/16/21 03/17/21 06:59 18:59 06:59 Intake Total 900 Balance 900 Weight 72.575 kg 72.575 kg Intake: Intake, IV Titration 900 Amount Sodium Chloride 0.9% 1, 900 000 ml @ 100 mls/hr IV . Q10H [facility] Rx#:[id number] Other: Voiding Method Toilet - Labs CBC & Chem 7: 03/17/21 06:06 03/17/21 06:06 Labs: Abnormal Lab Results - Last 24 Hours (Table) 03/16/21 03/16/21 03/16/21 Range/Units 19:10 19:10 19:10 WBC 11.0 H (3.8-10.6) k/uL RBC 3.58 L (3.80-5.40) m/uL Hgb 10.6 L (11.4-16.0) gm/dL Hct 30.6 L (34.0-46.0) % Neutrophils # 8.4 H (1.3-7.7) k/uL Sodium 136 L (137-145) mmol/L Carbon Dioxide 21 L (22-30) mmol/L BUN 19 H (7-17) mg/dL Creatinine 1.20 H (0.52-1.04) mg/dL Glucose 210 H (74-99) mg/dL POC Glucose (mg/dL) (75-99) mg/dL Total Protein 6.1 L (6.3-8.2) g/dL Lipase 17 L (23-300) U/L Urine Protein 3+ H (Negative) Urine Glucose (UA) 3+ H (Negative) Urine Ketones 1+ H (Negative) Urine Blood Moderate H (Negative) Urine RBC 59 H (0-5) /hpf Urine Bacteria Occasional H (None) /hpf Hyaline Casts 7 H (0-2) /lpf Urine Mucus Rare H (None) /hpf Urine Opiates Screen (NotDetected) U Benzodiazepines Scrn (NotDetected) 03/16/21 03/16/21 03/16/21 Range/Units 19:10 19:32 21:34 WBC (3.8-10.6) k/uL RBC (3.80-5.40) m/uL Hgb (11.4-16.0) gm/dL Hct (34.0-46.0) % Neutrophils # (1.3-7.7) k/uL Sodium (137-145) mmol/L Carbon Dioxide (22-30) mmol/L BUN (7-17) mg/dL Creatinine (0.52-1.04) mg/dL Glucose (74-99) mg/dL POC Glucose (mg/dL) 218 H 181 H (75-99) mg/dL Total Protein (6.3-8.2) g/dL Lipase (23-300) U/L Urine Protein (Negative) Urine Glucose (UA) (Negative) Urine Ketones (Negative) Urine Blood (Negative) Urine RBC (0-5) /hpf Urine Bacteria (None) /hpf Hyaline Casts (0-2) /lpf Urine Mucus (None) /hpf Urine Opiates Screen Detected H (NotDetected) U Benzodiazepines Scrn Detected H (NotDetected)
--- NOTE | 2021-03-17 14:00 | P.CONS ---
History of Present Illness - Reason for Consult Consult date: 03/17/21 Intractable nausea and vomiting Requesting physician: Gordon Hylton - Chief Complaint Vomiting, abdominal pain - History of Present Illness This is a pleasant 30-year-old female who presents to the emergency department for reevaluation of nausea and vomiting and abdominal pain. Patient states she's been in and out of the hospital over the last week with similar c omplaints. She was recently discharged 3 days ago, states she came in to the emergency department was given antiemetics and hydration and sent home again and then came back in yesterday and was admitted. She states she's had off and on nausea and vomiting over the past couple weeks with abdominal pain. She has a history of insulin-dependent diabetes diagnosed in 2008. She states she underwent an upper and lower endoscopy 3-5 years ago through [facility], thought possibly it was Crohn's disease however biopsies came back negative. She was recently diagnosed in December 2020 with COVID-19 infection for which she had similar symptoms including nausea vomiting and diarrhea. Those symptoms then subsided. She had no problems through the month of January, however has had symptoms return of nausea and vomiting over the past couple of weeks. She denies any coffee-ground emesis, hematemesis, melena, or hematochezia. Nausea and vomiting have improved since her admission. She was noted to have an elevated glucose upon admission which she has since had episodes of hypoglycemia. She has been tolerating a clear liquid diet and would like to advance. Review of Systems Ears, nose, mouth and throat: Denies headache, Denies sore throat Cardiovascular: Denies chest pain, Denies shortness of breath Respiratory: Denies cough Gastrointestinal: Reports abdominal pain, Reports change in bowel habits, Reports nausea, Reports vomiting, Denies BRBPR, Denies coffee ground emesis, Denies diarrhea, Denies hematochezia Genitourinary: Denies dysuria, Denies hematuria Musculoskeletal: Denies myalgias Integumentary: Denies pruritus, Denies rash Neurological: Denies numbness, Denies weakness Endocrine: Denies fatigue, Denies weight change Past Medical History Past Medical History: Diabetes Mellitus, Pneumonia Additional Past Medical History / Comment(s): IDDM type I, bilateral retinopathy with injections, DKA, IBS/constipation, bronchitis, febrile seizure at 3 yrs of age. covid positive 11/2020. History of Any Multi-Drug Resistant Organisms: None Reported Past Surgical History: Adenoidectomy, Tonsillectomy Additional Past Surgical History / Comment(s): sinus balloon plasty, wisdom teeth extractions., right eye surgery 02/18/21. Past Anesthesia/Blood Transfusion Reactions: No Reported Reaction Additional Past Anesthesia/Blood Transfusion Reaction / Comm: no transfusions Past Psychological History: Anxiety Additional Psychological History / Comment(s): Pt resides with 2 roomates. She has a dog. She is independent. Smoking Status: Never smoker Past Alcohol Use History: None Reported, Occasional Additional Past Alcohol Use History / Comment(s): denies alcohol use at present. Past Drug Use History: None Reported Additional Drug Use History / Comment(s): stopped marijuana use in 11/2020 - Past Family History Mother Family Medical History: No Reported History Additional Family Medical History / Comment(s): Mother is healthy. Father Family Medical History: No Reported History Additional Family Medical History / Comment(s): Father is healthy Medications and Allergies Home Medications Medication Instructions Recorded Confirmed Type Ondansetron [Zofran ODT] 4 mg PO Q8HR PRN #10 tab 12/25/20 03/16/21 Rx Atropine Ophth Soln 1% 5Ml [Isopto 1 drop RIGHT EYE DAILY 03/13/21 03/16/21 History Atropine 1% 5Ml] Gentamicin 0.3% Ophth Soln 1 drop RIGHT EYE QID 03/13/21 03/16/21 History [Garamycin 0.3% Ophth Soln] Insulin Glargine,Hum.rec.anlog 18 unit SQ HS 03/13/21 03/16/21 History [Lantus Solostar] Insulin Lispro [humaLOG Kwikpen] See Protocol SQ AC-TID MDD 40 03/13/21 03/16/21 History UNITS/DAY prednisoLONE ACETATE 1% OPHTH 1 drop RIGHT EYE DAILY 03/13/21 03/16/21 History [Pred Forte 1%] Metoclopramide [Reglan] 10 mg PO ACHS #30 tab 03/14/21 03/16/21 Rx Pantoprazole Sodium 40 mg PO AC-BRKFST #30 abby. 03/14/21 03/16/21 Rx Sennosides [Senna] 8.6 mg PO DAILY PRN #60 tablet 03/14/21 03/16/21 Rx lisinopriL [Zestril] 10 mg PO DAILY@2100 #30 tab 03/14/21 03/16/21 Rx Docusate Sodium [Dok] 100 mg PO DAILY PRN 03/16/21 03/16/21 History Sucralfate [Carafate] 10 ml PO ACHS #200 ml 03/16/21 03/16/21 Rx Allergies Allergy/AdvReac Type Severity Reaction Status Date / Time mold AdvReac Dyspnea Verified 03/16/21 18:44 Physical Exam Vitals: Vital Signs Temp Pulse Pulse Resp BP BP Pulse Ox 03/17/21 07:39 98.2 F 86 18 128/80 97 03/17/21 02:00 98.1 F 84 16 131/82 99 03/16/21 22:27 98.2 F 92 18 153/94 97 03/16/21 21:00 90 18 146/92 98 03/16/21 20:01 85 18 150/90 95 03/16/21 19:41 100 22 193/110 98 03/16/21 18:59 108 H 20 188/104 98 03/16/21 18:44 98.1 F 114 H 20 193/102 100 Intake and Output 03/16/21 03/17/21 03/17/21 22:59 06:59 14:59 Intake Total 900 1000 Output Total 350 Balance 900 650 Intake: Intake, IV Titration 900 Amount Sodium Chloride 0.9% 1, 900 000 ml @ 100 mls/hr IV . Q10H [facility] Rx#:[id number] Oral 1000 Output: Urine 350 Other: Voiding Method Toilet Weight 72.575 kg General appearance: The patient is alert, oriented, in no acute distress. HET: Head is normocephalic and atraumatic. Oropharynx is clear without lesions. Neck: Supple without lymphadenopathy. Trachea midline. Heart: S1 S2. Regular rate and rhythm. Lungs: Clear to auscultation. Abdomen: Soft, nontender, nondistended with bowel sounds. No Guarding or rigi dity. Extremities: Normal skin color and turgor. No edema. Neurological: No focal deficits. Alert and oriented 3. Results CBC & Chem 7: 03/17/21 06:06 03/17/21 06:06 Labs: Abnormal Lab Results - Last 24 Hours (Table) 03/16/21 03/16/21 03/16/21 Range/Units 19:10 19:10 19:10 WBC 11.0 H (3.8-10.6) k/uL RBC 3.58 L (3.80-5.40) m/uL Hgb 10.6 L (11.4-16.0) gm/dL Hct 30.6 L (34.0-46.0) % Neutrophils # 8.4 H (1.3-7.7) k/uL Sodium 136 L (137-145) mmol/L Carbon Dioxide 21 L (22-30) mmol/L BUN 19 H (7-17) mg/dL Creatinine 1.20 H (0.52-1.04) mg/dL Glucose 210 H (74-99) mg/dL POC Glucose (mg/dL) (75-99) mg/dL Calcium (8.4-10.2) mg/dL Total Protein 6.1 L (6.3-8.2) g/dL Albumin (3.5-5.0) g/dL Lipase 17 L (23-300) U/L Urine Protein 3+ H (Negative) Urine Glucose (UA) 3+ H (Negative) Urine Ketones 1+ H (Negative) Urine Blood Moderate H (Negative) Urine RBC 59 H (0-5) /hpf Urine Bacteria Occasional H (None) /hpf Hyaline Casts 7 H (0-2) /lpf Urine Mucus Rare H (None) /hpf Urine Opiates Screen (NotDetected) U Benzodiazepines Scrn (NotDetected) 03/16/21 03/16/21 03/16/21 Range/Units 19:10 19:32 21:34 WBC (3.8-10.6) k/uL RBC (3.80-5.40) m/uL Hgb (11.4-16.0) gm/dL Hct (34.0-46.0) % Neutrophils # (1.3-7.7) k/uL Sodium (137-145) mmol/L Carbon Dioxide (22-30) mmol/L BUN (7-17) mg/dL Creatinine (0.52-1.04) mg/dL Glucose (74-99) mg/dL POC Glucose (mg/dL) 218 H 181 H (75-99) mg/dL Calcium (8.4-10.2) mg/dL Total Protein (6.3-8.2) g/dL Albumin (3.5-5.0) g/dL Lipase (23-300) U/L Urine Protein (Negative) Urine Glucose (UA) (Negative) Urine Ketones (Negative) Urine Blood (Negative) Urine RBC (0-5) /hpf Urine Bacteria (None) /hpf Hyaline Casts (0-2) /lpf Urine Mucus (None) /hpf Urine Opiates Screen Detected H (NotDetected) U Benzodiazepines Scrn Detected H (NotDetected) 03/17/21 03/17/21 03/17/21 Range/Units 06:06 06:06 07:31 WBC (3.8-10.6) k/uL RBC 2.96 L (3.80-5.40) m/uL Hgb 8.5 L D (11.4-16.0) gm/dL Hct 25.5 L (34.0-46.0) % Neutrophils # (1.3-7.7) k/uL Sodium 135 L (137-145) mmol/L Carbon Dioxide (22-30) mmol/L BUN (7-17) mg/dL Creatinine 1.10 H (0.52-1.04) mg/dL Glucose (74-99) mg/dL POC Glucose (mg/dL) 64 L (75-99) mg/dL Calcium 8.0 L (8.4-10.2) mg/dL Total Protein 4.9 L (6.3-8.2) g/dL Albumin 2.6 L (3.5-5.0) g/dL Lipase (23-300) U/L Urine Protein (Negative) Urine Glucose (UA) (Negative) Urine Ketones (Negative) Urine Blood (Negative) Urine RBC (0-5) /hpf Urine Bacteria (None) /hpf Hyaline Casts (0-2) /lpf Urine Mucus (None) /hpf Urine Opiates Screen (NotDetected) U Benzodiazepines Scrn (NotDetected) 03/17/21 03/17/21 03/17/21 Range/Units 07:46 08:01 08:17 WBC (3.8-10.6) k/uL RBC (3.80-5.40) m/uL Hgb (11.4-16.0) gm/dL Hct (34.0-46.0) % Neutrophils # (1.3-7.7) k/uL Sodium (137-145) mmol/L Carbon Dioxide (22-30) mmol/L BUN (7-17) mg/dL Creatinine (0.52-1.04) mg/dL Glucose (74-99) mg/dL POC Glucose (mg/dL) 58 L 55 L 54 L (75-99) mg/dL Calcium (8.4-10.2) mg/dL Total Protein (6.3-8.2) g/dL Albumin (3.5-5.0) g/dL Lipase (23-300) U/L Urine Protein (Negative) Urine Glucose (UA) (Negative) Urine Ketones (Negative) Urine Blood (Negative) Urine RBC (0-5) /hpf Urine Bacteria (None) /hpf Hyaline Casts (0-2) /lpf Urine Mucus (None) /hpf Urine Opiates Screen (NotDetected) U Benzodiazepines Scrn (NotDetected) 03/17/21 03/17/21 Range/Units 10:20 12:58 WBC (3.8-10.6) k/uL RBC (3.80-5.40) m/uL Hgb (11.4-16.0) gm/dL Hct (34.0-46.0) % Neutrophils # (1.3-7.7) k/uL Sodium (137-145) mmol/L Carbon Dioxide (22-30) mmol/L BUN (7-17) mg/dL Creatinine (0.52-1.04) mg/dL Glucose (74-99) mg/dL POC Glucose (mg/dL) 172 H (75-99) mg/dL Calcium (8.4-10.2) mg/dL Total Protein (6.3-8.2) g/dL Albumin (3.5-5.0) g/dL Lipase (23-300) U/L Urine Protein 3+ H (Negative) Urine Glucose (UA) 1+ H (Negative) Urine Ketones (Negative) Urine Blood Moderate H (Negative) Urine RBC (0-5) /hpf Urine Bacteria Rare H (None) /hpf Hyaline Casts (0-2) /lpf Urine Mucus Rare H (None) /hpf Urine Opiates Screen (NotDetected) U Benzodiazepines Scrn (NotDetected) Assessment and Plan (1) Nausea & vomiting Narrative/Plan: This is a 30-year-old female who presented to the emergency department with complaints of nausea and vomiting. Patient states that it's been on and off for the last 2 weeks. She's was recently admitted and discharged 3 days ago with nausea and vomiting, found to be in ketoacidosis. Symptoms resolved within a day of being hospitalized. She states she then returned to the emergency department over the weekend and was sent home, then came back yesterday and was admitted. She now states the nausea and vomiting again are improved. She is status post upper and lower endoscopy as reported by patient 3-5 years ago at [facility], where they were working her up for possible early small bowel disease. She states that came back negative. She states she's had some issues with her stomach for several years. She denies any melena, hematochezia, coffee-ground emesis, or hematemesis. He also was recently diagnosed with COVID-19 infection in December 2020, for which she had nausea vomiting and diarrhea. Likely dealing with multifactorial symptoms from diabetes mellitus, possibly gastroparesis, possibly irritable bowel syndrome, can not rule out infectious etiology or gastroenteritis. Discussed with patient and recommend fu rther evaluation and workup as an outpatient. Patient agreeable. We'll continue with anti-emetics and IV Protonix at this time. Current Visit: Yes Status: Acute Code(s): R11.2 - NAUSEA WITH VOMITING, UNSPECIFIED SNOMED Code(s): 05195250 (2) Diabetes mellitus Current Visit: Yes Status: Acute Code(s): E11.9 - TYPE 2 DIABETES MELLITUS WITHOUT COMPLICATIONS SNOMED Code(s): 88257681 Plan: 1. Symptomatic and supportive care 2. Increase to full liquid diet 3. Continue Reglan and protonix 4. No plans for endoscopic evaluation at this time 5. Discussed with patient to follow-up as an outpatient for further evaluation and treatment Thank you for this consultation, we will continue to follow Dr. Linda Jeff I agree with the dictator's note, documented as a scribe by Kailey Ayoub.
[2021-03-17 16:08] LABS: Hemoglobin A1C 6.7 % (4.0-6.0)
[2021-03-17 17:12] LABS: Glucose,Whole Blood 119 mg/dL (75-99)
[2021-03-17] MEDS: PROCHLORPERAZINE 5 MG TAB PO PRN (20:31)
[2021-03-17 21:16] LABS: Glucose,Whole Blood 194 mg/dL (75-99)
[2021-03-17] MEDS: INSULIN DETEMIR (LEVEMIR) 100 UNIT/ML SYR SQ SCH (21:19)
[2021-03-18] MEDS: HYDROmorphone 0.5 MG/0.5 ML SYRINGE IVP PRN ×2 (00:13→06:04)
[2021-03-18] MEDS: SODIUM CHLORIDE 0.9% 1,000 ML IV SCH ×2 (00:15→06:08)
[2021-03-18] MEDS: PROCHLORPERAZINE 5 MG TAB PO PRN (02:17)
[2021-03-18 02:24] LABS: Glucose,Whole Blood 128 mg/dL (75-99)
[2021-03-18] MEDS: PROCHLORPERAZINE INJ 10 MG/2 ML VIAL IVP PRN ×4 (02:54→21:27)
[2021-03-18] MEDS ORDERED: HYDROmorphone 0.5 MG/0.5 ML SYRINGE ONE (03:13)
[2021-03-18 05:07] LABS: HCT 23.5 % (34.0-46.0); HGB 8.3 gm/dL (11.4-16.0); MCH 30.4 pg (25.0-35.0); MCHC 35.4 g/dL (31.0-37.0); MCV 85.9 fL (80.0-100.0); Mean Platelet Volume 7.2; Platelet Count 185 k/uL (150-450); RBC 2.74 m/uL (3.80-5.40); RDW 13.7 % (11.5-15.5); WBC 7.2 k/uL (3.8-10.6)
[2021-03-18 05:10] LABS: ALT 8 U/L (4-34); AST 17 U/L (14-36); African American GFR (CKD) >90 (>60 ml/min/1.73 sqM); Albumin 2.4 g/dL (3.5-5.0); Alkaline Phosphatase 50 U/L (38-126); Anion Gap 0 mmol/L; Blood Urea Nitrogen 11 mg/dL (7-17); Calcium 8.3 mg/dL (8.4-10.2); Carbon Dioxide 27 mmol/L (22-30); Chloride 106 mmol/L (98-107); Glucose 81 mg/dL (74-99); Non-African American GFR(CKD) 80 (>60 ml/min/1.73 sqM); Potassium 3.7 mmol/L (3.5-5.1); Sodium 133 mmol/L (137-145); Total Bilirubin 0.1 mg/dL (0.2-1.3); Total Protein 4.7 g/dL (6.3-8.2)
[2021-03-18] MEDS: METOCLOPRAMIDE 5 MG/ML 2 ML VIAL IVP PRN (06:01)
[2021-03-18] MEDS: INSULIN ASPART (NovoLOG) 100 UNIT/ML VIAL SQ SCH ×4 (07:30→20:44)
[2021-03-18 08:18] LABS: Glucose,Whole Blood 64 mg/dL (75-99)
[2021-03-18 08:18] LABS: Glucose,Whole Blood 65 mg/dL (75-99)
[2021-03-18 08:18] LABS: Glucose,Whole Blood 60 mg/dL (75-99)
[2021-03-18 08:19] LABS: Glucose,Whole Blood 70 mg/dL (75-99)
[2021-03-18 08:19] LABS: Glucose,Whole Blood 67 mg/dL (75-99)
--- NOTE | 2021-03-18 08:32 | US ---
EXAMINATION TYPE: US venous doppler duplex UE RT DATE OF EXAM: 03/18/2021 COMPARISON: NONE CLINICAL HISTORY: Right hand swelling. Patient stated had multiple attempts at IV starts posterior ri ght hand in past week. SIDE PERFORMED: right Right Arm: Negative for DVT. Right posterior hand short segment, non occluding superficial vein thro mbosis is noted for 3.4cm in length. Patient's RN, Kailey, was informed of tech findings at exam's end . JJ IMPRESSION: 1. No evidence of DVT 2. Exam positive for nonoccluding short segmental superficial venous thrombosis within the soft tissu es of the right hand.
[2021-03-18] MEDS: GENTAMICIN 0.3% OPHTH DROPS 5 ML BTL RIGHT EYE SCH (08:48)
[2021-03-18] MEDS: DEXTROSE 5%-0.45% NACL 1,000 ML IV SCH (08:48)
[2021-03-18] MEDS: ATROPINE OPHTH SOLN 1% 5ML BTL RIGHT EYE SCH (08:49)
[2021-03-18] MEDS ORDERED: PANTOPRAZOLE 40 MG TABLET PO SCH (09:00)
[2021-03-18 11:41] LABS: Reticulocyte % 1.5 % (0.5-2.0)
[2021-03-18 12:25] LABS: Glucose,Whole Blood 107 mg/dL (75-99)
[2021-03-18] MEDS ORDERED: METOCLOPRAMIDE 10 MG TAB PO SCH (12:30)
--- NOTE | 2021-03-18 12:54 | P.PN ---
Subjective Progress Note Date: 03/18/21 Principal diagnosis: Nausea and vomiting A 30-year-old female who has been recently admitted to the hospital for nausea and vomiting and sudden home, return to the emergency room for treatment again sent home and then came back for continued nausea and vomiting was admitted. Ye day the patient was seen and evaluated stated that her nausea and vomiting has improved. However this morning when she was evaluated she states she had 2 episodes of vomiting yesterday as well as today. She states her vomit was dark in color, she denies any diarrhea or abdominal pain. She states she is having pain in left rib cage. She remains afebrile. She had a drop in her hemoglobin to 8.3. Objective - Vital Signs Vital signs: Vital Signs Temp 98.2 F 03/18/21 08:45 Pulse 84 03/18/21 08:45 Resp 16 03/18/21 08:45 BP 170/103 03/18/21 08:45 Pulse Ox 98 03/18/21 08:45 Intake & Output 03/17/21 03/18/21 03/18/21 18:59 06:59 18:59 Intake Total 2540 Output Total 350 850 100 Balance 2190 -850 -100 Intake: Intake, IV Titration 1000 Amount Sodium Chloride 0.9% 1, 1000 000 ml @ 20 mls/hr IV . Q24H [facility] Rx#:[id number] Oral 1540 Output: Urine 350 550 Emesis 300 100 Other: Voiding Method Toilet # Voids 2 1 - Exam General appearance: The patient is alert, oriented, appears in no acute distress. HET: Head is normocephalic and atraumatic. Conjunctiva pink. Sclera anicteric. Neck: Supple without lymphadenopathy. Abdomen: Soft, nontender, nondistended with bowel sounds. No guarding or rigidity. Extremities: Normal skin color and turgor. No pedal edema Skin: No rashes, no jaundice Neurological: No focal deficits. Alert and oriented 3. - Labs CBC & Chem 7: 03/18/21 04:30 03/18/21 04:30 Labs: Abnormal Lab Results - Last 24 Hours (Table) 03/16/21 03/17/21 03/17/21 Range/Units 19:10 10:20 12:58 RBC (3.80-5.40) m/uL Hgb (11.4-16.0) gm/dL Hct (34.0-46.0) % Sodium (137-145) mmol/L POC Glucose (mg/dL) 172 H (75-99) mg/dL Hemoglobin A1c 6.7 H (4.0-6.0) % Calcium (8.4-10.2) mg/dL Total Bilirubin (0.2-1.3) mg/dL Total Protein (6.3-8.2) g/dL Albumin (3.5-5.0) g/dL Urine Protein 3+ H (Negative) Urine Glucose (UA) 1+ H (Negative) Urine Blood Moderate H (Negative) Urine Bacteria Rare H (None) /hpf Urine Mucus Rare H (None) /hpf 03/17/21 03/17/21 03/18/21 Range/Units 17:10 21:04 02:22 RBC (3.80-5.40) m/uL Hgb (11.4-16.0) gm/dL Hct (34.0-46.0) % Sodium (137-145) mmol/L POC Glucose (mg/dL) 119 H 194 H 128 H (75-99) mg/dL Hemoglobin A1c (4.0-6.0) % Calcium (8.4-10.2) mg/dL Total Bilirubin (0.2-1.3) mg/dL Total Protein (6.3-8.2) g/dL Albumin (3.5-5.0) g/dL Urine Protein (Negative) Urine Glucose (UA) (Negative) Urine Blood (Negative) Urine Bacteria (None) /hpf Urine Mucus (None) /hpf 03/18/21 03/18/21 03/18/21 Range/Units 04:30 04:30 06:00 RBC 2.74 L (3.80-5.40) m/uL Hgb 8.3 L (11.4-16.0) gm/dL Hct 23.5 L (34.0-46.0) % Sodium 133 L (137-145) mmol/L POC Glucose (mg/dL) 60 L (75-99) mg/dL Hemoglobin A1c (4.0-6.0) % Calcium 8.3 L (8.4-10.2) mg/dL Total Bilirubin 0.1 L (0.2-1.3) mg/dL Total Protein 4.7 L (6.3-8.2) g/dL Albumin 2.4 L (3.5-5.0) g/dL Urine Protein (Negative) Urine Glucose (UA) (Negative) Urine Blood (Negative) Urine Bacteria (None) /hpf Urine Mucus (None) /hpf 03/18/21 03/18/21 03/18/21 Range/Units 06:18 06:32 06:55 RBC (3.80-5.40) m/uL Hgb (11.4-16.0) gm/dL Hct (34.0-46.0) % Sodium (137-145) mmol/L POC Glucose (mg/dL) 65 L 64 L 67 L (75-99) mg/dL Hemoglobin A1c (4.0-6.0) % Calcium (8.4-10.2) mg/dL Total Bilirubin (0.2-1.3) mg/dL Total Protein (6.3-8.2) g/dL Albumin (3.5-5.0) g/dL Urine Protein (Negative) Urine Glucose (UA) (Negative) Urine Blood (Negative) Urine Bacteria (None) /hpf Urine Mucus (None) /hpf 03/18/21 Range/Units 07:08 RBC (3.80-5.40) m/uL Hgb (11.4-16.0) gm/dL Hct (34.0-46.0) % Sodium (137-145) mmol/L POC Glucose (mg/dL) 70 L (75-99) mg/dL Hemoglobin A1c (4.0-6.0) % Calcium (8.4-10.2) mg/dL Total Bilirubin (0.2-1.3) mg/dL Total Protein (6.3-8.2) g/dL Albumin (3.5-5.0) g/dL Urine Protein (Negative) Urine Glucose (UA) (Negative) Urine Blood (Negative) Urine Bacteria (None) /hpf Urine Mucus (None) /hpf Assessment and Plan (1) Nausea & vomiting Narrative/Plan: This is a 30-year-old female who presented to the emergency department with complaints of nausea and vomiting. Patient states that it's been on and off for the last 2 weeks. She's was recently admitted and discharged 3 days ago with nausea and vomiting, found to be in ketoacidosis. Symptoms resolved within a day of being hospitalized. She states she then returned to the emergency department over the weekend and was sent home, then came back yesterday and was admitted. She now states the nausea and vomiting again are improved. She is status post upper and lower endoscopy as reported by patient 3-5 years ago at [facility], where they were working her up for possible early small bowel disease. She states that came back negative. She states she's had some issues with her stomach for several years. She denies any melena, hematochezia, coffee-ground emesis, or hematemesis. He also was recently diagnosed with CO VID-19 infection in December 2020, for which she had nausea vomiting and diarrhea. Likely dealing with multifactorial symptoms from diabetes mellitus, possibly gastroparesis, possibly irritable bowel syndrome, can not rule out infectious etiology or gastroenteritis. Discussed with patient and recommend further evaluation and workup as an outpatient. Patient agreeable. We'll continue with anti-emetics and IV Protonix at this time. Current Visit: Yes Status: Acute Code(s): R11.2 - NAUSEA WITH VOMITING, UNSPECIFIED SNOMED Code(s): 05738328 (2) Diabetes mellitus Current Visit: Yes Status: Acute Code(s): E11.9 - TYPE 2 DIABETES MELLITUS WITHOUT COMPLICATIONS SNOMED Code(s): 20544772 Plan: 1. Symptomatic and supportive care 2. Diet as tolerated 3. Continue Reglan, IV Compazine added as needed for nausea 4. Protonix 40 mg changed to IV twice a day Thank you for this consultation, we will continue to follow Dr. Linda Jeff I agree with the dictator's note, documented as a scribe by Kailey Ayoub.
--- NOTE | 2021-03-18 13:23 | P.PN ---
Subjective 30 years old female with past medical of type 1 diabetes since 2008 with no history of diabetic neuropathy or nephropathy comes in with intractable nausea and vomiting for the past 2 days. Patient was recently admitted to the hospital on 12/22/2020 and was noted to be in diabetic ketoacidosis with possible gastroenteritis secondary to COVID-19. 03/11 when she was seen in the ER for nausea and vomiting. Patient had recent surgery on her eye and has been on prednisone, gentamicin drops. She does document constipation for the past 4 days but denies any diarrhea or change in bowel habits. She was very consistent with her medication and has not missed her dose. She was hospitalized on 03/13 to 03/14/2021 for severe intractable nausea vomiting with gastroparesis was treated felt well see gastroenterology patient was post to go for emptying study and possible EGD as an outpatient she felt well was discharged home. Patient was in demurs department early today with intractable nausea vomiting acute kidney injury was hydrated started drinking enough water the time started eating sent home associated home developed to have intractable nausea vomiting he could not keep any food or fluid down her blood sugar continued to be quite bit elevated ended up coming to demurs department again where was seen and evaluated her kidney function continue to be quite bit down her urine test showed significant amount of right blood cell without any white blood cell she is not her drug screen came back positive for opiate and benzodiazepine most likely from the injection she had early ended day she is ketone positive without DKA most likely from severe dehydration. Patient be admitted to the hospital continue hydration treat if aggressively for gastroparesis consult gastrology and have more process and plan for emptying study and EGD possibly especially with patient mildly anemic at this point. 03/17: Patient GI symptom and gastroparesis has improved some she is not throwing up anymore is able to keep clear liquids so far morning. Was seen gastroenterology no planning for EGD at this point and emptying study is to be done as an outpatient. Patient is agreeable to stay on pantoprazole and Reglan [id number] and titrate diet gradually also long discussion about having patient seen her client server programmer and more frequent basis and switch to insulin pump soon. Apparently patient is seen client server programmer in [place] and cannot go for insulin pump at least till next year because of the current insurance she daily. Meanwhile will continue to titrate her insulin medication and more aggressive basis of this happened. Also if patient does not respond to gastroparesis with Reglan and pantoprazole Will add erythromycin twice a day see if the gastroparesis improved slightly bit with it. 03/18 Patient evaluated this morning, nausea and vomiting were improving but this morning she had 2 episodes of vomiting. She continues on Compazine and Reglan to 10 mg by mouth and will discontinue Dilaudid. Sugars have been running between 65 and 110. Hemoglobin did drop slightly to 8.3. She had a venous Doppler done of the right upper extremity showed no evidence of DVT, positive for nonoccluding short segmental superficial venous thrombosis, may use warm compresses to the area. Objective - Vital Signs Vital signs: Vital Signs Temp 98.2 F 03/18/21 08:45 Pulse 84 03/18/21 08:45 Resp 16 03/18/21 08:45 BP 160/99 03/18/21 10:26 Pulse Ox 98 03/18/21 08:45 Intake & Output 03/17/21 03/18/21 03/18/21 18:59 06:59 18:59 Intake Total 2540 Output Total 350 850 300 Balance 2190 -850 -300 Intake: Intake, IV Titration 1000 Amount Sodium Chloride 0.9% 1, 1000 000 ml @ 20 mls/hr IV . Q24H [facility] Rx#:[id number] Oral 1540 Output: Urine 350 550 Emesis 300 300 Other: Voiding Method Toilet Toilet # Voids 2 1 - Exam Gen: no acute distress HEENT: Head is atraumatic, normocephalic. Pupils equal, round. Sclerae is anicteric. NECK: Supple. No JVD. No lymphadenopathy. No thyromegaly. LUNGS: Clear to auscultation. No wheezes or rhonchi. No intercostal retractions. HEART: Regular rate and rhythm. No murmur. ABDOMEN: Soft. Bowel sounds are present. No masses. No tenderness. EXTREMITIES: No pedal edema. No calf tenderness. NEUROLOGICAL: Patient is awake, alert and oriented x3. Cranial nerves 2 through 12 are grossly intact. - Labs CBC & Chem 7: 03/18/21 04:30 03/18/21 04:30 Labs: Abnormal Lab Results - Last 24 Hours (Table) 03/16/21 03/17/21 03/17/21 Range/Units 19:10 17:10 21:04 RBC (3.80-5.40) m/uL Hgb (11.4-16.0) gm/dL Hct (34.0-46.0) % Sodium (137-145) mmol/L POC Glucose (mg/dL) 119 H 194 H (75-99) mg/dL Hemoglobin A1c 6.7 H (4.0-6.0) % Calcium (8.4-10.2) mg/dL Total Bilirubin (0.2-1.3) mg/dL Total Protein (6.3-8.2) g/dL Albumin (3.5-5.0) g/dL 03/18/21 03/18/21 03/18/21 Range/Units 02:22 04:30 04:30 RBC 2.74 L (3.80-5.40) m/uL Hgb 8.3 L (11.4-16.0) gm/dL Hct 23.5 L (34.0-46.0) % Sodium 133 L (137-145) mmol/L POC Glucose (mg/dL) 128 H (75-99) mg/dL Hemoglobin A1c (4.0-6.0) % Calcium 8.3 L (8.4-10.2) mg/dL Total Bilirubin 0.1 L (0.2-1.3) mg/dL Total Protein 4.7 L (6.3-8.2) g/dL Albumin 2.4 L (3.5-5.0) g/dL 03/18/21 03/18/21 03/18/21 Range/Units 06:00 06:18 06:32 RBC (3.80-5.40) m/uL Hgb (11.4-16.0) gm/dL Hct (34.0-46.0) % Sodium (137-145) mmol/L POC Glucose (mg/dL) 60 L 65 L 64 L (75-99) mg/dL Hemoglobin A1c (4.0-6.0) % Calcium (8.4-10.2) mg/dL Total Bilirubin (0.2-1.3) mg/dL Total Protein (6.3-8.2) g/dL Albumin (3.5-5.0) g/dL 03/18/21 03/18/21 03/18/21 Range/Units 06:55 07:08 12:22 RBC (3.80-5.40) m/uL Hgb (11.4-16.0) gm/dL Hct (34.0-46.0) % Sodium (137-145) mmol/L POC Glucose (mg/dL) 67 L 70 L 107 H (75-99) mg/dL Hemoglobin A1c (4.0-6.0) % Calcium (8.4-10.2) mg/dL Total Bilirubin (0.2-1.3) mg/dL Total Protein (6.3-8.2) g/dL Albumin (3.5-5.0) g/dL Assessment and Plan Plan: 1. Nausea and vomiting likely secondary to gastroperesis. Reglan 10mg 3 times a day. Continue PPI the patient can benefit from product like erythromycin to lower the motility trouble and eventually might benefit from being on smaller dose of gabapentin as well as an option. Patient will need an emptying study along with possible EGD. Was seen gastroenterology start diet and titrate diet control fast. 2. Starvation ketoacidosis no diabetes ketoacidosis noted. Patient has not been eating or 4 days. IV fluids at normal saline at 75 mL per hour. Advance diet as tolerated, slightly bit better with kidney function improved significantly. 3. Type 1 Diabetes mellitis continue glargine 18 units at its edges and lispro as sliding scale. Patient should be seen by client server programmer and probably should be switched to insulin pump as well 4. Hypertension: Was diagnosed last time patient has been on lisinopril 5. Constipation patient can benefit from MiraLAX and natural stool softener. 6 acute kidney injury: Most likely ATN from severe dehydration nausea vomiting, continue hydration repeat BUN/creatinine daily. 7. DVT prophylaxis encourage ambulation 8. COVID-19 testing, were negative patient was admitted to the hospital and pandemic time. 9 CODE STATUS full. The above impression and plan of care have been discussed and directed by lyndon abreu physician. Meena Bull nurse practitioner acting as scribe for signing physician.
[2021-03-18] MEDS ORDERED: SCOPOLAMINE 1.5MG/72HR PATCH TRANSDERM SCH (14:00)
[2021-03-18] MEDS ORDERED: cloNIDine 0.1 MG/24HR PATCH TRANSDERM SCH (14:30)
[2021-03-18 17:35] LABS: Glucose,Whole Blood 261 mg/dL (75-99)
[2021-03-18] MEDS: METOCLOPRAMIDE 5 MG/ML 2 ML VIAL IVP SCH ×2 (17:58→23:50)
[2021-03-18 20:18] LABS: Glucose,Whole Blood 290 mg/dL (75-99)
[2021-03-18] MEDS: PANTOPRAZOLE 40 MG/10 ML VIAL IVP SCH (20:19)
[2021-03-18] MEDS: INSULIN DETEMIR (LEVEMIR) 100 UNIT/ML SYR SQ SCH (20:44)
[2021-03-18] MEDS ORDERED: ONDANSETRON 4 MG/2 ML VIAL IVP PRN (21:20)
--- NOTE | 2021-03-18 22:15 | XR ---
EXAMINATION TYPE: XR abdomen 2V DATE OF EXAM: 03/18/2021 COMPARISON: 03/14/2021 HISTORY: Vomiting TECHNIQUE: Supine and upright views FINDINGS: There is no sign of intestinal obstruction or pneumoperitoneum. Fecal pattern is normal. Marley ng bases are clear of consolidation. There are no pathologic calcifications over the kidneys. There i s no evidence of abdominal mass. Bony structures are intact. IMPRESSION: Nonacute abdomen. No adverse change.
[2021-03-18] MEDS ORDERED: ACETAMINOPHEN IV (For NPO) 1,000 MG in EMPTY BAG 1 BAG IVPB STA (22:51)
[2021-03-18] MEDS ORDERED: HYDROmorphone 0.5 MG/0.5 ML SYRINGE IVP STA (22:51)
[2021-03-18] MEDS ORDERED: hydrALAZINE HCL 20 MG/ML 1 ML VIAL IVP STA (22:53)
[2021-03-19 00:16] LABS: % Iron Saturation 7.32 (12.00-45.00)
[2021-03-19] MEDS: PROCHLORPERAZINE INJ 10 MG/2 ML VIAL IVP PRN ×2 (02:30→09:12)
[2021-03-19] MEDS: METOCLOPRAMIDE 5 MG/ML 2 ML VIAL IVP SCH ×3 (05:00→17:18)
[2021-03-19 06:53] LABS: Glucose,Whole Blood 345 mg/dL (75-99)
[2021-03-19] MEDS: INSULIN ASPART (NovoLOG) 100 UNIT/ML VIAL SQ SCH ×4 (07:24→21:24)
[2021-03-19] MEDS: PANTOPRAZOLE 40 MG/10 ML VIAL IVP SCH ×2 (07:24→20:27)
[2021-03-19] MEDS: DEXTROSE 5%-0.45% NACL 1,000 ML IV SCH ×2 (07:30→15:14)
[2021-03-19 08:14] LABS: HCT 28.8 % (34.0-46.0); HGB 10.5 gm/dL (11.4-16.0); MCH 30.4 pg (25.0-35.0); MCHC 36.3 g/dL (31.0-37.0); MCV 83.8 fL (80.0-100.0); Mean Platelet Volume 7.7; Platelet Count 273 k/uL (150-450); RBC 3.44 m/uL (3.80-5.40); RDW 13.6 % (11.5-15.5); WBC 11.8 k/uL (3.8-10.6)
[2021-03-19 08:33] LABS: Albumin 3.3 g/dL (3.5-5.0); Calcium 8.6 mg/dL (8.4-10.2); Potassium 3.7 mmol/L (3.5-5.1); Total Bilirubin 0.6 mg/dL (0.2-1.3)
[2021-03-19] MEDS ORDERED: ENALAPRILAT 1.25 MG/ML 1 ML VIAL IVP PRN ×2 (08:44→15:13)
[2021-03-19] MEDS: prednisoLONE ACETATE 1% OPHTH DROPS 5 ML BTL RIGHT EYE SCH (09:12)
[2021-03-19] MEDS: GENTAMICIN 0.3% OPHTH DROPS 5 ML BTL RIGHT EYE SCH (09:12)
[2021-03-19] MEDS: ATROPINE OPHTH SOLN 1% 5ML BTL RIGHT EYE SCH (09:13)
[2021-03-19 11:23] LABS: Glucose,Whole Blood 226 mg/dL (75-99)
[2021-03-19] MEDS ORDERED: ONDANSETRON 4 MG/2 ML VIAL ONE (11:38)
[2021-03-19] MEDS ORDERED: PROPOFOL 10 MG/ML 20 ML VIAL IV ONE (11:38)
[2021-03-19] MEDS ORDERED: LIDOCAINE 1% INJ 10MG/ML (20 ML MDV) ONE (11:38)
[2021-03-19] MEDS ORDERED: SODIUM CHLORIDE 0.9% 500 ML 500 ML IV ONE ×2 (12:04→12:13)
--- NOTE | 2021-03-19 12:12 | P.PCN ---
Date of Procedure: 03/19/21 Procedure(s) Performed: BRIEF HISTORY: Patient is a 30-year-old, pleasant, white female admitted hospital with acute onset of nausea vomiting for the last 1 week duration.. She was treated with PPIs and antiemetics and still remains symptomatic. Yesterday she had couple of episodes of coffee-ground emesis. She is hence scheduled for an upper endoscopy to evaluate further PROCEDURE PERFORMED: Esophagogastroduodenoscopy with biopsy . PREOPERATIVE DIAGNOSIS: Severe epigastric pain, nausea vomiting of one week duration IV sedation per anesthesia. PROCEDURE: After informed consent was obtained, the patient was brought into the endoscopy unit. IV sedation was administered by Anesthesia under continuous monitoring. Initially the Olympus GIF-140 video endoscope was inserted into the mouth. Esophagus intubated without any difficulty. It was gradually advanced into the stomach and duodenum and carefully examined. The bulb and the second part of the duodenum appeared normal. The scope at this time was withdrawn to the stomach, adequately insufflated with air, and upon careful examination, mu cosa of the antrum had mild gastritis and biopsies were done from this area. The body, cardia and the fundus appeared normal. The scope was then withdrawn into the esophagus. The GE junction was located at 39 cm from the incisors.. There wer some erosions with erythema of the mucosa noted in the distal esophagus CONSISTENT with LA grade B reflux esophagitis. Rest of esophagus appeared normal and the patient tolerated the procedure well. IMPRESSION: 1. Mild antral gastritis but no evidence of peptic ulcer disease. 2. Mucosal erythema erosions noted in the distal esophagus consistent with LA grade B reflux esophagitis RECOMMENDATIONS: The findings of this examination were discussed with the patient . She'll be continued on Protonix 40 mg twice daily as well as antiemetics. Will add Carafate 1 g 4 times daily. Advance to full liquid diet..
[2021-03-19] MEDS: SUCRALFATE 1 GM TAB PO SCH ×3 (12:48→20:28)
[2021-03-19] MEDS ORDERED: HYDROmorphone 1 MG/ML 1 ML SYRINGE IVP STA (14:04)
[2021-03-19] MEDS ORDERED: TRIMETHOBENZAMIDE 100 MG/ML 2 ML VIAL IM PRN (14:56)
[2021-03-19] MEDS ORDERED: hydrALAZINE HCL 20 MG/ML 1 ML VIAL IVP PRN (15:13)
--- NOTE | 2021-03-19 15:23 | P.PN ---
Subjective Progress Note Date: 03/19/21 HISTORY OF PRESENT ILLNESS This is a 30-year-old female patient of Dr. Galindo with past medical history of type 1 diabetes since 2008 with no history of diabetic neuropathy or nephropathy comes in with intractable nausea and vomiting for the past 2 days. Patient was recently admitted to the hospital on 12/22/2020 and was noted to be in diabetic ketoacidosis with possible gastroenteritis secondary to COVID-19. 03/11 when she was seen in the ER for nausea and vomiting. Patient had recent surgery on her eye and has been on prednisone, gentamicin drops. She does docu ment constipation for the past 4 days but denies any diarrhea or change in bowel habits. She was very consistent with her medication and has not missed her dose. She was hospitalized on 03/13 to 03/14/2021 for severe intractable nausea vomiting with gastroparesis was treated felt well see gastroenterology patient was post to go for emptying study and possible EGD as an outpatient she felt well was discharged home. Patient was in [facility] department early today with intractable nausea vomiting acute kidney injury was hydrated started drinking enough water the time started eating sent home associated home developed to have intractable nausea vomiting he could not keep any food or fluid down her blood sugar continued to be quite bit elevated ended up coming to [facility] again where was seen and evaluated her kidney function continue to be quite bit down her urine test showed significant amount of right blood cell without any white blood cell she is not her drug screen came back positive for opiate and benzodiazepine most likely from the injection she had early ended day she is ketone positive without DKA most likely from severe dehydration. Patient be admitted to the ostal continue hydration treat if aggressively for gastroparesis consult gastrology and have more process and plan for emptying study and EGD possibly especially with patient mildly anemic at this point. 03/17: Patient GI symptom and gastroparesis has improved some she is not throwing up anymore is able to keep clear liquids so far morning. Was seen gastroenterology no planning for EGD at this point and emptying study is to be done as an outpatient. Patient is agreeable to stay on pantoprazole and Reglan [id number] and titrate diet gradually also long discussion about having patient seen her public health clinical nurse specialist and more frequent basis and switch to insulin pump soon. Apparently patient is seen public health clinical nurse specialist in [place] and cannot go for insulin pump at least till next year because of the current insurance she daily. Meanwhile will continue to titrate her insulin medication and more aggressive basis of this happened. Also if patient does not respond to gastroparesis with Reglan and pantoprazole Will add erythromycin twice a day see if the gastroparesis improved slightly bit with it. 03/18 Patient evaluated this morning, nausea and vomiting were improving but this morning she had 2 episodes of vomiting. She continues on Compazine and Reglan to 10 mg by mouth and will discontinue Dilaudid. Sugars have been running between 65 and 110. Hemoglobin did drop slightly to 8.3. She had a venous Doppler done of the right upper extremity showed no evidence of DVT, positive for nonoccluding short segmental superficial venous thrombosis, may use warm compresses to the area. 03/19: Patient underwent EGD today with Dr. Jeff which revealed mild antral gastritis but no evidence of peptic ulcer disease. Mucosal erythema and erosions noted in the distal esophagus consistent with L a grade B reflux esophagitis. She was cleared for full liquid diet and was continued on Carafate and Protonix. Patient continues to have nausea and vomiting this morning and blood pressure has been high. She received hydralazine last evening without improvement but will be continued, lisinopril resumed which is dosed at nighttime. IV Vasotec added. She has been afebrile, heart rate 107, blood pressure 184/112. Repeat blood work reveals hemoglobin 10.5. WBC 11.8. Sodium 131, potassium 3.7, chloride 96, CO2 27. Blood sugar 353. Blood sugars have been running between 226 and 345. Liver function tests normal. Abdominal x-ray last evening revealed nonacute abdomen. No adverse change. REVIEW OF SYSTEMS Constitutional: No fever, no chills, no night sweats. No weight change. No weakness, fatigue or lethargy. No daytime sleepiness. EENT: No headache. No blurred vision or double vision, no loss of vision. No loss of Hearing, no ringing in the ears, no dizziness. No nasal drainage or congestion. No epistaxis. No sore throat. Lungs: No shortness of breath, cough, no sputum production. No wheezing. Cardiovascular: No chest pain, no lower extremity edema. No palpitations. No paroxysmal nocturnal dyspnea. No orthopnea. No lightheadedness or dizziness. No syncopal episodes. Abdominal: No abdominal pain. No nausea, vomiting. No diarrhea. No constipation. No bloody or tarry stools.. No loss of appetite. Genitourinary: No dysuria, increased frequency, urgency. No urinary retention. Musculoskeletal: No myalgias. No muscle weakness, no gait dysfunction, no frequent falls. No back pain. No neck pain. Integumentary: No wounds, no lesions. No rash or pruritus. No unusual bruising. No change in hair or nails. Neurologic: No aphasia. No facial droop. No change in mentation. No head injury. No headache. No paralysis. No paresthesia. Psychiatric: No depression. No anxiety. No mood swings. Endocrine: No abnormal blood sugars. No weight change. No excessive sweating or thirst. No cold intolerance. PHYSICAL EXAMINATION Gen: This is a 30-year-old female. Patient is resting on stretcher and appears to be comfortable and in no acute distress. HEENT: Head is atraumatic, normocephalic. Pupils equal, round. Sclerae is anicteric. NECK: Supple. No JVD. No lymphadenopathy. No thyromegaly. LUNGS: Clear to auscultation. No wheezes or rhonchi. No intercostal retractions. HEART: Regular rate and rhythm. No murmur. ABDOMEN: Soft. Bowel sounds are present. No masses. No tenderness. EXTREMITIES: No pedal edema. No calf tenderness. NEUROLOGICAL: Patient is awake, alert and oriented x3. Cranial nerves 2 through 12 are grossly intact. ASSESSMENT AND PLAN 1. Nausea and vomiting likely secondary to gastroperesis. Reglan 10mg 3 times a day. Continue Protonix 40 mg IV twice daily, Carafate 1 g before meals and at bedtime. Tigan 200 mg IM every 6 hours as needed for nausea and vomiting, Zofran 4 mg IV push every 6 hours as needed, Reglan 10 mg IV push every 6 hours. Patient is status post EGD 2. Starvation ketoacidosis no diabetes ketoacidosis noted. Patient has not been eating or 4 days. IV fluids discontinued. Advance diet as tolerated, slightly bit better with kidney function improved significantly. 3. Type 1 Diabetes mellitis continue glargine 18 units at its edges and lispro as sliding scale. Patient should be seen by public health clinical nurse specialist and probably should be switched to insulin pump as well 4. Hypertension: Was diagnosed last time patient has been on lisinopril 5. Constipation patient can benefit from MiraLAX and natural stool softener. 6 acute kidney injury: Most likely ATN from severe dehydration nausea vomiting, continue hydration repeat BUN/creatinine daily. 7. DVT prophylaxis encourage ambulation 8. COVID-19 testing negative. Patient has been hospitalized during a pandemic. 9 CODE STATUS full. DISCHARGE PLAN Home. Impression and plan of care have been directed as dictated by the signing physician. Trinidad Perez nurse practitioner acting as scribe for signing physician. Objective - Vital Signs Vital signs: Vital Signs Temp 99.4 F 03/19/21 07:52 Pulse 107 H 03/19/21 07:52 Resp 18 03/19/21 07:52 BP 167/103 03/19/21 10:00 Pulse Ox 98 03/19/21 07:52 Intake & Output 03/18/21 03/19/21 03/19/21 18:59 06:59 18:59 Intake Total 540 Output Total 2600 1100 Balance -2600 -560 Intake: Oral 540 Output: Urine 1400 Emesis 1200 1100 Other: Voiding Method Toilet Toilet # Voids 1 # Emeses 1 1 - Labs CBC & Chem 7: 03/19/21 07:47 03/19/21 07:47 Labs: Abnormal Lab Results - Last 24 Hours (Table) 03/18/21 03/18/21 03/18/21 Range/Units 04:30 12:22 17:33 WBC (3.8-10.6) k/uL RBC (3.80-5.40) m/uL Hgb (11.4-16.0) gm/dL Hct (34.0-46.0) % Sodium (137-145) mmol/L Chloride (98-107) mmol/L Creatinine (0.52-1.04) mg/dL Glucose (74-99) mg/dL POC Glucose (mg/dL) 107 H 261 H (75-99) mg/dL Iron 18 L (50-170) ug/dL % Saturation 7.32 L (12.00-45.00) Total Protein (6.3-8.2) g/dL Albumin (3.5-5.0) g/dL 03/18/21 03/19/21 03/19/21 Range/Units 20:17 06:52 07:47 WBC 11.8 H (3.8-10.6) k/uL RBC 3.44 L (3.80-5.40) m/uL Hgb 10.5 L (11.4-16.0) gm/dL Hct 28.8 L (34.0-46.0) % Sodium (137-145) mmol/L Chloride (98-107) mmol/L Creatinine (0.52-1.04) mg/dL Glucose (74-99) mg/dL POC Glucose (mg/dL) 290 H 345 H (75-99) mg/dL Iron (50-170) ug/dL % Saturation (12.00-45.00) Total Protein (6.3-8.2) g/dL Albumin (3.5-5.0) g/dL 03/19/21 03/19/21 Range/Units 07:47 11:21 WBC (3.8-10.6) k/uL RBC (3.80-5.40) m/uL Hgb (11.4-16.0) gm/dL Hct (34.0-46.0) % Sodium 131 L (137-145) mmol/L Chloride 96 L (98-107) mmol/L Creatinine 1.06 H (0.52-1.04) mg/dL Glucose 353 H (74-99) mg/dL POC Glucose (mg/dL) 226 H (75-99) mg/dL Iron (50-170) ug/dL % Saturation (12.00-45.00) Total Protein 6.0 L (6.3-8.2) g/dL Albumin 3.3 L (3.5-5.0) g/dL
[2021-03-19 16:28] LABS: Glucose,Whole Blood 318 mg/dL (75-99)
[2021-03-19] MEDS: Acetaminophen-Codeine 300-30mg TAB PO PRN (17:20)
[2021-03-19] MEDS: MELATONIN 5 MG TABLET PO PRN (20:28)
[2021-03-19] MEDS: INSULIN DETEMIR (LEVEMIR) 100 UNIT/ML SYR SQ SCH (20:28)
[2021-03-19] MEDS ORDERED: lisinopriL 10 MG TAB PO SCH (21:00)
[2021-03-19 21:06] LABS: Glucose,Whole Blood 283 mg/dL (75-99)
[2021-03-20] MEDS: METOCLOPRAMIDE 5 MG/ML 2 ML VIAL IVP SCH ×3 (00:22→12:21)
[2021-03-20] MEDS: DEXTROSE 5%-0.45% NACL 1,000 ML IV SCH (00:22)
[2021-03-20 03:28] VITALS: RESP 16
[2021-03-20] MEDS: Acetaminophen-Codeine 300-30mg TAB PO PRN (04:34)
[2021-03-20 06:55] LABS: Glucose,Whole Blood 71 mg/dL (75-99)
[2021-03-20 08:27] VITALS: BP 113/73; PULSE 68; TEMP 98.6
[2021-03-20] MEDS: INSULIN ASPART (NovoLOG) 100 UNIT/ML VIAL SQ SCH ×2 (09:01→12:21)
[2021-03-20] MEDS: SUCRALFATE 1 GM TAB PO SCH ×2 (09:25→12:21)
[2021-03-20] MEDS: PANTOPRAZOLE 40 MG/10 ML VIAL IVP SCH (09:25)
[2021-03-20] MEDS: prednisoLONE ACETATE 1% OPHTH DROPS 5 ML BTL RIGHT EYE SCH (09:27)
[2021-03-20] MEDS: ATROPINE OPHTH SOLN 1% 5ML BTL RIGHT EYE SCH (09:27)
[2021-03-20] MEDS: GENTAMICIN 0.3% OPHTH DROPS 5 ML BTL RIGHT EYE SCH (09:27)
[2021-03-20 11:40] LABS: Glucose,Whole Blood 137 mg/dL (75-99)
--- NOTE | 2021-03-21 15:51 | P.DS ---
Providers Date of admission: 03/16/21 20:46 Expected date of discharge: 03/20/21 Attending physician: Matt Arroyo Consults: 03/16/21 20:46 Consult Physician Routine Consulting Provider: Terry Hoff Consult Reason/Comments: [place] Do you want consulting provider notified?: Yes Primary care physician: Rich Galindo [facility] Course: HISTORY OF PRESENT ILLNESS This is a 30-year-old female patient of Dr. Galindo with past medical history of type 1 diabetes since 2008 with no history of diabetic neuropathy or nephropathy comes in with intractable nausea and vomiting for the past 2 days. Patient was recently admitted to the hospital on 12/22/2020 and was noted to be in diabetic ketoacidosis with possible gastroenteritis secondary to COVID-19. 03/11 when she was seen in the ER for nausea and vomiting. Patient had recent surgery on her eye and has been on prednisone, gentamicin drops. She does document constipation for the past 4 days but denies any diarrhea or change in bowel habits. She was very consistent with her medication and has not missed her dose. She was hospitalized on 03/13 to 03/14/2021 for severe intractable nausea vomiti ng with gastroparesis was treated felt well see gastroenterology patient was post to go for emptying study and possible EGD as an outpatient she felt well was discharged home. Patient was in [facility] department early today with intractable nausea vomiting acute kidney injury was hydrated started drinking enough water the time started eating sent home associated home developed to have intractable nausea vomiting he could not keep any food or fluid down her blood sugar continued to be quite bit elevated ended up coming to [facility] department again where was seen and evaluated her kidney function continue to be quite bit down her urine test showed significant amount of right blood cell without any white blood cell she is not her drug screen came back positive for opiate and benzodiazepine most likely from the injection she had early ended day she is ketone positive without DKA most likely from severe dehydration. Patient be admitted to the hospital continue hydration treat if aggressively for gastroparesis consult gastrology and have more process and plan for emptying study and EGD possibly especially with patient mildly anemic at this point. 03/17: Patient GI symptom and gastroparesis has improved some she is not throwing up anymore is able to keep clear liquids so far morning. Was seen gastroenterology no planning for EGD at this point and emptying study is to be done as an outpatient. Patient is agreeable to stay on pantoprazole and Reglan [id number] and titrate diet gradually also long discussion about having patient seen her rn float and more frequent basis and switch to insulin pump soon. Apparently patient is seen rn float in [place] and cannot go for insulin pump at least till next year because of the current insurance she daily. Meanwhile will continue to titrate her insulin medication and more aggressive basis of this happened. Also if patient does not respond to gastroparesis with Reglan and pantoprazole Will add erythromycin twice a day see if the gastroparesis improved slightly bit with it. 03/18 Patient evaluated this morning, nausea and vomiting were improving but this morning she had 2 episodes of vomiting. She continues on Compazine and Reglan to 10 mg by mouth and will discontinue Dilaudid. Sugars have been running between 65 and 110. Hemoglobin did drop slightly to 8.3. She had a venous Doppler done of the right upper extremity showed no evidence of DVT, positive for nonoccluding short segmental superficial venous thrombosis, may use warm compresses to the area. 03/19: Patient underwent EGD today with Dr. Jeff which revealed mild antral gastritis but no evidence of peptic ulcer disease. Mucosal erythema and erosions noted in the distal esophagus consistent with L a grade B reflux esophagitis. She was cleared for full liquid diet and was continued on Carafate and Protonix. Patient continues to have nausea and vomiting this morning and blood pressure has been high. She received hydralazine last evening without improvement but will be continued, lisinopril resumed which is dosed at nighttime. IV Vasotec added. She has been afebrile, heart rate 107, blood pressure 184/112. Repeat blood work reveals hemoglobin 10.5. WBC 11.8. Sodium 131, potassium 3.7, chloride 96, CO2 27. Blood sugar 353. Blood sugars have been running between 226 and 345. Liver function tests normal. Abdominal x-ray last evening revealed nonacute abdomen. No adverse change. 03/20: Showed a her breakfast this morning without any problem. She states she has been ambulating in her room. Had no episodes of lightheadedness or dizziness. Blood pressure this morning is much improved after patient was resumed on lisinopril. She's been afebrile, heart rate 56, blood pressure 135/84, pulse ox 90% on room air. Patient will be discharged home today in stable condition. ASSESSMENT AND PLAN 1. Nausea and vomiting likely secondary to possible gastroparesis. 2. Starvation ketoacidosis no diabetes ketoacidosis noted. 3. Type 1 Diabetes mellitis 4. Hypertension 5. Constipation 6. Acute kidney injury, likely ATN from severe dehydration nausea vomiting 7. COVID-19 testing negative. Patient has been hospitalized during a pandemic. DISCHARGE PLAN Home. Impression and plan of care have been directed as dictated by the signing physician. Trinidad Perez nurse practitioner acting as scribe for signing physician. Patient Condition at Discharge: Good Plan - Discharge Summary Discharge Rx Participant: Yes New Discharge Prescriptions: Continue Ondansetron [Zofran ODT] 4 mg PO Q8HR PRN #10 tab PRN Reason: Nausea prednisoLONE ACETATE 1% OPHTH [Pred Forte 1%] 1 drop RIGHT EYE DAILY Atropine Ophth Soln 1% 5Ml [Isopto Atropine 1% 5Ml] 1 drop RIGHT EYE DAILY Insulin Lispro [humaLOG Kwikpen] See Protocol SQ AC-TID MDD 40 UNITS/DAY Sennosides [Senna] 8.6 mg PO DAILY PRN #60 tablet PRN Reason: Constipation Sucralfate [Carafate] 10 ml PO ACHS #200 ml Insulin Glargine,Hum.rec.anlog [Lantus Solostar] 18 unit SQ HS Gentamicin 0.3% Ophth Soln [Garamycin 0.3% Ophth Soln] 1 drop RIGHT EYE QID Metoclopramide [Reglan] 10 mg PO ACHS #30 tab lisinopriL [Zestril] 10 mg PO DAILY@2100 #30 tab Docusate Sodium [Dok] 100 mg PO DAILY PRN PRN Reason: Constipation Changed Pantoprazole Sodium 40 mg PO AC-BID #60 tablet.dr Discharge Medication List Ondansetron [Zofran ODT] 4 mg PO Q8HR PRN #10 tab 12/25/20 [Rx] Atropine Ophth Soln 1% 5Ml [Isopto Atropine 1% 5Ml] 1 drop RIGHT EYE DAILY 03/13/21 [History] Gentamicin 0.3% Ophth Soln [Garamycin 0.3% Ophth Soln] 1 drop RIGHT EYE QID 03/13/21 [History] Insulin Glargine,Hum.rec.anlog [Lantus Solostar] 18 unit SQ HS 03/13/21 [History] Insulin Lispro [humaLOG Kwikpen] See Protocol SQ AC-TID MDD 40 UNITS/DAY 03/13/21 [History] prednisoLONE ACETATE 1% OPHTH [Pred Forte 1%] 1 drop RIGHT EYE DAILY 03/13/21 [History] Metoclopramide [Reglan] 10 mg PO ACHS #30 tab 03/14/21 [Rx] Sennosides [Senna] 8.6 mg PO DAILY PRN #60 tablet 03/14/21 [Rx] lisinopriL [Zestril] 10 mg PO DAILY@2100 #30 tab 03/14/21 [Rx] Docusate Sodium [Dok] 100 mg PO DAILY PRN 03/16/21 [History] Sucralfate [Carafate] 10 ml PO ACHS #200 ml 03/16/21 [Rx] Pantoprazole Sodium 40 mg PO AC-BID #60 tablet. 03/20/21 [Rx] Follow up Appointment(s)/Referral(s): Shonda Jeff MD [STAFF PHYSICIAN] - 03/26/21 9:45 am Rich Galindo MD [Primary Care Provider] - 03/27/21 2:00 pm (With Kathy Esteban) Patient Instructions/Handouts: Gastritis (DC), Acute Nausea and Vomiting (DC) Discharge Disposition: HOME SELF-CARE
== END 2021-03-20 12:49 | disposition home or self-care (01) ==
LOC: EC 18:34 → 6PED 20:46 → 4SSUR 03-18 21:53
PROVIDERS: ADMIT Internal Medicine Geriatric Medicine; ATTEND Internal Medicine Geriatric Medicine
DX: R11.2 Nausea with vomiting, unspecified (principal); N17.9 Acute kidney failure, unspecified; E86.0 Dehydration; E88.89 Other specified metabolic disorders; E10.65 Type 1 diabetes mellitus with hyperglycemia; E10.43 Type 1 diabetes mellitus with diabetic autonomic (poly)neuropathy; K31.84 Gastroparesis; K22.10 Ulcer of esophagus without bleeding; K58.1 Irritable bowel syndrome with constipation; K21.00 Gastro-esophageal reflux disease with esophagitis, without bleeding; K29.50 Unspecified chronic gastritis without bleeding; E10.319 Type 1 diabetes mellitus with unspecified diabetic retinopathy without macular edema; F41.9 Anxiety disorder, unspecified; D64.9 Anemia, unspecified; I10 Essential (primary) hypertension; I82.611 Acute embolism and thrombosis of superficial veins of right upper extremity; Z79.4 Long term (current) use of insulin; Z79.899 Other long term (current) drug therapy; Z91.048 Other nonmedicinal substance allergy status; Z87.01 Personal history of pneumonia (recurrent); Z87.19 Personal history of other diseases of the digestive system; Z86.16 Personal history of COVID-19
CPT/HCPCS: 96376 ×4; 96375 ×3; 96361 ×3; 96365; 99285; 36415; 88305; 80053 ×4; 82607; 82728; 82150; 83540; 83550; 82009; 83605; 83690; 83735; 84484; 85025 ×2; 85027 ×2; 85610; 85045; 85730; 81001 ×2; 88312; 81025; 80306; 83036; 74019; 93971; 43239; G0378 ×6; S0183; J0360; J0780 ×2; J2765 ×5; J3250; J2405; J2001; J1170 ×4; J0131; J2704; C9113 ×5

== ENCOUNTER 2022-02-13 02:24 | Emergency (ER) | payer BC ==
[2022-02-13 02:31] VITALS: TEMP 97.9
[2022-02-13] MEDS ORDERED: METOCLOPRAMIDE 5 MG/ML 2 ML VIAL IVP STA (03:06)
[2022-02-13] MEDS ORDERED: SODIUM CHLORIDE 0.9% 1,000 ML IV STA (03:06)
[2022-02-13] MEDS ORDERED: diphenhydrAMINE 50 MG/ML 1 ML VIAL IVP STA (03:13)
[2022-02-13] MEDS ORDERED: HYDROmorphone 1 MG/ML 1 ML SYRINGE IVP STA (03:15)
--- NOTE | 2022-02-13 03:19 | ED ---
Nausea/Vomiting/Diarrhea HPI - General Source: patient, family, RN notes reviewed Mode of arrival: ambulatory Limitations: no limitations - History of Present Illness MD complaint: nausea, vomiting Onset/Timin -: days(s) <Rich Stephens - Last Filed: 02/13/22 04:30> <Huey Cho - Last Filed: 02/13/22 07:11> - General Chief complaint: Nausea/Vomiting/Diarrhea Stated complaint: Vomiting Time Seen by Provider: 02/13/22 03:08 - History of Present Illness Initial comments: This is a pleasant 31-year-old female with a history of long-standing insulin- controlled diabetes. She presents to emergency department complaining of recurrent episodes of vomiting and epigastric discomfort. Patient states she's vomited several times over the past 2 days. No hematemesis or coffee-ground emesis. No changes in urination or bowel movement. Patient was recently diagnosed with stage IV renal failure at [facility] where she was an inpatient 2 weeks ago. Patient has an upcoming appointment next week at the [facility]. No headache, no fever or chills, no changes in vision or hearing, no sore throat or difficulty with speech, no neck pain, no chest pain or shortness of breath, no abdominal pain,, no changes in urination or bowel movements, no numbness or tingling, no extremity pain, no skin rashes or lesions. (Rich Stephens) - Related Data Home Medications Medication Instructions Recorded Confirmed Atropine Ophth Soln 1% 5Ml [Isopto 1 drop RIGHT EYE DAILY 03/13/21 03/16/21 Atropine 1% 5Ml] Gentamicin 0.3% Ophth Soln 1 drop RIGHT EYE QID 03/13/21 03/16/21 [Garamycin 0.3% Ophth Soln] Insulin Glargine,Hum.rec.anlog 18 unit SQ HS 03/13/21 03/16/21 [Lantus Solostar Pen] Insulin Lispro [humaLOG Kwikpen] See Protocol SQ AC-TID MDD 40 03/13/21 03/16/21 UNITS/DAY prednisoLONE ACETATE 1% OPHTH 1 drop RIGHT EYE DAILY 03/13/21 03/16/21 [Pred Forte 1%] Docusate Sodium [Dok] 100 mg PO DAILY PRN 03/16/21 03/16/21 Previous Rx's Medication Instructions Recorded Ondansetron [Zofran ODT] 4 mg PO Q8HR PRN #10 tab 12/25/20 Metoclopramide [Reglan] 10 mg PO ACHS #30 tab 03/14/21 Sennosides [Senna] 8.6 mg PO DAILY PRN #60 tablet 03/14/21 lisinopriL [Zestril] 10 mg PO DAILY@2100 #30 tab 03/14/21 Sucralfate [Carafate] 10 ml PO ACHS #200 ml 03/16/21 Pantoprazole Sodium 40 mg PO AC-BID #60 tablet. 03/20/21 Allergies Allergy/AdvReac Type Severity Reaction Status Date / Time mold AdvReac Dyspnea Verified 02/13/22 02:31 Review of Systems ROS Other: All systems not noted in ROS Statement are negative. <Rich Stephens - Last Filed: 02/13/22 04:30> ROS Other: All systems not noted in ROS Statement are negative. <Huey Cho - Last Filed: 02/13/22 07:11> ROS Statement: Those systems with pertinent positive or pertinent negative responses have been documented in the HPI. Past Medical History Past Medical History: Diabetes Mellitus, Pneumonia Additional Past Medical History / Comment(s): IDDM type I, bilateral retinopathy with injections, DKA, IBS/constipation, bronchitis, febrile seizure at 3 yrs of age. covid positive 11/2020. History of Any Multi-Drug Resistant Organisms: None Reported Past Surgical History: Adenoidectomy, Tonsillectomy Additional Past Surgical History / Comment(s): sinus balloon plasty, wisdom teeth extractions., right eye surgery 02/18/21. Past Anesthesia/Blood Transfusion Reactions: No Reported Reaction Additional Past Anesthesia/Blood Transfusion Reaction / Comment(s): no transfusions Past Psychological History: Anxiety Smoking Status: Never smoker Past Alcohol Use History: None Reported, Occasional Past Drug Use History: None Reported - Past Family History Mother Family Medical History: No Reported History Additional Family Medical History / Comment(s): Mother is healthy. Father Family Medical History: No Reported History Additional Family Medical History / Comment(s): Father is healthy <Rich Stephens - Last Filed: 02/13/22 04:30> General Exam Limitations: no limitations General appearance: in distress Head exam: Present: atraumatic, normocephalic, normal inspection Eye exam: Present: normal appearance, PERRL, EOMI. Absent: scleral icterus, conjunctival injection, periorbital swelling ENT exam: Present: normal exam, mucous membranes moist Neck exam: Present: normal inspection, full ROM. Absent: tenderness, meningismus, lymphadenopathy Respiratory exam: Present: normal lung sounds bilaterally. Absent: respiratory distress, wheezes, rales, rhonchi, stridor Cardiovascular Exam: Present: regular rate, normal rhythm, normal heart sounds. Absent: systolic murmur, diastolic murmur, rubs, gallop, clicks GI/Abdominal exam: Present: soft, tenderness (Epigastric tenderness), guarding, other (Bowel sounds noted). Absent: distended, rebound, rigid Extremities exam: Present: normal inspection, full ROM, normal capillary refill. Absent: tenderness, pedal edema, joint swelling, calf tenderness Back exam: Present: normal inspection Neurological exam: Present: alert, oriented X3, CN II-XII intact Psychiatric exam: Present: normal affect, normal mood Skin exam: Present: warm, dry, intact, normal color. Absent: rash <Rich Stephens - Last Filed: 02/13/22 04:30> Course Vital Signs 02/13/22 02/13/22 02/13/22 02:25 04:00 05:21 Temperature 97.9 F Pulse Rate 74 65 65 Respiratory 24 18 18 Rate Blood Pressure 173/98 124/77 O2 Sat by Pulse 99 94 L 94 L Oximetry 02/13/22 06:58 Temperature Pulse Rate 66 Respiratory 18 Rate Blood Pressure 121/73 O2 Sat by Pulse 93 L Oximetry Medical Decision Making - Lab Data Result diagrams: 02/13/22 03:16 02/13/22 03:16 <Rich Stephens - Last Filed: 02/13/22 04:30> - Lab Data Result diagrams: 02/13/22 03:16 02/13/22 03:16 <Huey Cho - Last Filed: 02/13/22 07:11> - Medical Decision Making Patient presents with recurrent nausea and vomiting. Likely related to diabetic gastroparesis. Patient states her blood sugars were running okay in the area of 110. Patient currently on an insulin pump. Does not appear to be consistent with cardiopulmonary disease. Patient will be endorsed ED attending physician, Dr. Cho for further evaluation and disposition. Patient noted to be hypertensive with a systolic blood pressure in the 170s initially. (Rich Stephens) - Lab Data Lab Results 02/13/22 02/13/22 02/13/22 Range/Units 03:16 03:16 05:17 WBC 8.4 (3.8-10.6) k/uL RBC 3.35 L (3.80-5.40) m/uL Hgb 10.6 L (11.4-16.0) gm/dL Hct 30.0 L (34.0-46.0) % MCV 89.4 (80.0-100.0) fL MCH 31.5 (25.0-35.0) pg MCHC 35.2 (31.0-37.0) g/dL RDW 13.3 (11.5-15.5) % Plt Count 204 (150-450) k/uL MPV 7.6 Neutrophils % 72 % Lymphocytes % 19 % Monocytes % 6 % Eosinophils % 1 % Basophils % 1 % Neutrophils # 6.0 (1.3-7.7) k/uL Lymphocytes # 1.6 (1.0-4.8) k/uL Monocytes # 0.5 (0-1.0) k/uL Eosinophils # 0.1 (0-0.7) k/uL Basophils # 0.1 (0-0.2) k/uL Sodium 138 (137-145) mmol/L Potassium 3.9 (3.5-5.1) mmol/L Chloride 112 H (98-107) mmol/L Carbon Dioxide 21 L (22-30) mmol/L Anion Gap 5 mmol/L BUN 48 H (7-17) mg/dL Creatinine 2.62 H (0.52-1.04) mg/dL Est GFR (CKD-EPI)AfAm 27 (>60 ml/min/1.73 sqM) Est GFR (CKD-EPI)NonAf 24 (>60 ml/min/1.73 sqM) Glucose 96 (74-99) mg/dL POC Glucose (mg/dL) (75-99) mg/dL POC Glu [employer] ID Calcium 8.0 L (8.4-10.2) mg/dL Phosphorus 4.4 (2.5-4.5) mg/dL Magnesium 2.3 (1.6-2.3) mg/dL Total Bilirubin 0.5 (0.2-1.3) mg/dL AST 20 (14-36) U/L ALT 12 (4-34) U/L Alkaline Phosphatase 60 (38-126) U/L Total Protein 5.3 L (6.3-8.2) g/dL Albumin 2.8 L (3.5-5.0) g/dL Amylase 54 (30-110) U/L Lipase 26 (23-300) U/L Urine Color Yellow Urine Appearance Clear (Clear) Urine pH 7.0 (5.0-8.0) Ur Specific [place] 1.017 (1.001-1.035) Urine Protein 3+ H (Negative) Urine Glucose (UA) Negative (Negative) Urine Ketones Trace H (Negative) Urine Blood Small H (Negative) Urine Nitrite Negative (Negative) Urine Bilirubin Negative (Negative) Urine Urobilinogen <2.0 (<2.0) mg/dL Ur Leukocyte Esterase Negative (Negative) Urine RBC 22 H (0-5) /hpf Urine WBC 3 (0-5) /hpf Ur Squamous Epith Cells 1 (0-4) /hpf Ur Transition Epith Cell <1 (0-1) /hpf Urine Bacteria Moderate H (None) /hpf Hyaline Casts 9 H (0-2) /lpf Urine Mucus Rare H (None) /hpf Urine HCG, Qual (Not Detectd) Acetone, Qual Positive (Negative) 02/13/22 02/13/22 Range/Units 05:17 06:04 WBC (3.8-10.6) k/uL RBC (3.80-5.40) m/uL Hgb (11.4-16.0) gm/dL Hct (34.0-46.0) % MCV (80.0-100.0) fL MCH (25.0-35.0) pg MCHC (31.0-37.0) g/dL RDW (11.5-15.5) % Plt Count (150-450) k/uL MPV Neutrophils % % Lymphocytes % % Monocytes % % Eosinophils % % Basophils % % Neutrophils # (1.3-7.7) k/uL Lymphocytes # (1.0-4.8) k/uL Monocytes # (0-1.0) k/uL Eosinophils # (0-0.7) k/uL Basophils # (0-0.2) k/uL Sodium (137-145) mmol/L Potassium (3.5-5.1) mmol/L Chloride (98-107) mmol/L Carbon Dioxide (22-30) mmol/L Anion Gap mmol/L BUN (7-17) mg/dL Creatinine (0.52-1.04) mg/dL Est GFR (CKD-EPI)AfAm (>60 ml/min/1.73 sqM) Est GFR (CKD-EPI)NonAf (>60 ml/min/1.73 sqM) Glucose (74-99) mg/dL POC Glucose (mg/dL) 93 (75-99) mg/dL POC Glu [employer] ID Alis Zafar Calcium (8.4-10.2) mg/dL Phosphorus (2.5-4.5) mg/dL Magnesium (1.6-2.3) mg/dL Total Bilirubin (0.2-1.3) mg/dL AST (14-36) U/L ALT (4-34) U/L Alkaline Phosphatase (38-126) U/L Total Protein (6.3-8.2) g/dL Albumin (3.5-5.0) g/dL Amylase (30-110) U/L Lipase (23-300) U/L Urine Color Urine Appearance (Clear) Urine pH (5.0-8.0) Ur Specific [place] (1.001-1.035) Urine Protein (Negative) Urine Glucose (UA) (Negative) Urine Ketones (Negative) Urine Blood (Negative) Urine Nitrite (Negative) Urine Bilirubin (Negative) Urine Urobilinogen (<2.0) mg/dL Ur Leukocyte Esterase (Negative) Urine RBC (0-5) /hpf Urine WBC (0-5) /hpf Ur Squamous Epith Cells (0-4) /hpf Ur Transition Epith Cell (0-1) /hpf Urine Bacteria (None) /hpf Hyaline Casts (0-2) /lpf Urine Mucus (None) /hpf Urine HCG, Qual Not Detected (Not Detectd) Acetone, Qual (Negative) Disposition <Rich Stephens - Last Filed: 02/13/22 04:30> Is patient prescribed a controlled substance at d/c from ED?: No <Trachy,Huey - Last Filed: 02/13/22 07:11> Clinical Impression: Acute vomiting, Gastroparesis Disposition: HOME SELF-CARE Condition: Good Instructions (If sedation given, give patient instructions): Diabetic G astroparesis (DC) Referrals: None,Stated [Primary Care Provider] - 1-2 days
[2022-02-13 04:02] LABS: Basophils # (A) 0.1 k/uL (0-0.2); Basophils % (A) 1 %; Eosinophils # (A) 0.1 k/uL (0-0.7); Eosinophils % (A) 1 %; HGB 10.6 gm/dL (11.4-16.0); Lymphocytes # (A) 1.6 k/uL (1.0-4.8); Lymphocytes % (A) 19 %; MCH 31.5 pg (25.0-35.0); MCHC 35.2 g/dL (31.0-37.0); MCV 89.4 fL (80.0-100.0); Mean Platelet Volume 7.6; Monocytes # (A) 0.5 k/uL (0-1.0); Monocytes % (A) 6 %; Neutrophils % (A) 72 %; Platelet Count 204 k/uL (150-450); RBC 3.35 m/uL (3.80-5.40); RDW 13.3 % (11.5-15.5); WBC 8.4 k/uL (3.8-10.6)
[2022-02-13 04:24] LABS: ALT 12 U/L (4-34); AST 20 U/L (14-36); African American GFR (CKD) 27 (>60 ml/min/1.73 sqM); Albumin 2.8 g/dL (3.5-5.0); Alkaline Phosphatase 60 U/L (38-126); Amylase 54 U/L (30-110); Anion Gap 5 mmol/L; Blood Urea Nitrogen 48 mg/dL (7-17); Carbon Dioxide 21 mmol/L (22-30); Chloride 112 mmol/L (98-107); Glucose 96 mg/dL (74-99); Lipase 26 U/L (23-300); Magnesium 2.3 mg/dL (1.6-2.3); Non-African American GFR(CKD) 24 (>60 ml/min/1.73 sqM); Phosphorus 4.4 mg/dL (2.5-4.5); Potassium 3.9 mmol/L (3.5-5.1); Sodium 138 mmol/L (137-145); Total Bilirubin 0.5 mg/dL (0.2-1.3); Total Protein 5.3 g/dL (6.3-8.2)
--- NOTE | 2022-02-13 05:05 | XR ---
EXAMINATION TYPE: XR abdomen acute w cxr DATE OF EXAM: 02/13/2022 COMPARISON: 03/18/2021 HISTORY: Epigastric pain TECHNIQUE: 4 views FINDINGS: Heart and mediastinum are normal. Lungs are clear. Diaphragm is normal. Bony thorax appears normal. Bowel gas pattern is normal. There is no sign of intestinal obstruction or pneumoperitoneum. Fecal pa ttern is normal. There is no evidence of a mass. There are no calcifications over the kidneys. IMPRESSION: No active cardiopulmonary disease. Nonacute abdomen.
[2022-02-13 05:21] VITALS: RESP 18
[2022-02-13 05:29] LABS: Appearance,Urine Clear (Clear); Bacteria,Urine Moderate /hpf; Bilirubin,Urine Negative (Negative); Blood,Urine Small (Negative); Color,Urine Yellow; Glucose,Urine (UA) Negative (Negative); Hyaline Casts,Urine 9 /lpf (0-2); Ketones,Urine Trace (Negative); Leukocyte Esterase,Urine Negative (Negative); Mucus,Urine Rare /hpf; Nitrite,Urine Negative (Negative); Protein,Urine 3+ (Negative); RBC,Urine 22 /hpf (0-5); Specific Gravity,Urine 1.017 (1.001-1.035); Squamous Epithelial Cell,Urine 1 /hpf (0-4); Transitional Epi Cells,Urine <1 /hpf (0-1); Urobilinogen,Urine <2.0 mg/dL (<2.0); WBC,Urine 3 /hpf (0-5)
[2022-02-13 06:06] LABS: Glucose,Whole Blood 93 mg/dL (75-99)
[2022-02-13 06:59] VITALS: BP 121/73; PULSE 66
== END 2022-02-13 07:19 | disposition home or self-care (01) ==
LOC: EC 02:24
DX: E10.43 Type 1 diabetes mellitus with diabetic autonomic (poly)neuropathy (principal); K31.84 Gastroparesis; Z91.09 Other allergy status, other than to drugs and biological substances
CPT/HCPCS: 36415; 80053; 82150; 82009; 83690; 83735; 84100; 85025; 81001; 81025; 74022; 99284; 96374; 96375; J1200; J2765; J1170

== ENCOUNTER 2022-03-09 10:23 | Inpatient (IN) | payer BC ==
[2022-03-09] MEDS ORDERED: METOCLOPRAMIDE 5 MG/ML 2 ML VIAL IVP STA ×2 (10:51→14:34)
[2022-03-09] MEDS ORDERED: SODIUM CHLORIDE 0.9% 500 ML 500 ML IV STA (10:51)
[2022-03-09] MEDS ORDERED: diphenhydrAMINE 50 MG/ML 1 ML VIAL IVP STA (10:51)
[2022-03-09] MEDS ORDERED: HYDROmorphone 0.5 MG/0.5 ML SYRINGE IVP STA ×2 (10:57→14:33)
--- NOTE | 2022-03-09 11:26 | ED ---
Nausea/Vomiting/Diarrhea HPI - General Chief complaint: Nausea/Vomiting/Diarrhea Stated complaint: vomiting Time Seen by Provider: 03/09/22 10:45 Source: patient, RN notes reviewed Mode of arrival: ambulatory Limitations: no limitations - History of Present Illness Initial comments: This is a 31-year-old female who presents to the emergency department for nausea and vomiting. Vomiting started this morning, she states that she has thrown up about 10 times. She is currently being treated for renal failure and has a history of diabetic gastroparesis. She is being seen at the [facility] for renal failure and the plan is to put her on the transplant list. She also sees a binder and wrapper packer in [place] on a more regular basis. Her veteran appeals reviewer is Dr. Sanon with [facility]. She has diffuse generalized abdominal pain associated with the vomiting. She also reports an associated headache. MD complaint: nausea, vomiting - Related Data Home Medications Medication Instructions Recorded Confirmed Atropine Ophth Soln 1% 5Ml [Isopto 1 drop LEFT EYE BID 03/13/21 03/09/22 Atropine 1% 5Ml] Gentamicin 0.3% Ophth Soln 1 drop LEFT EYE QID 03/13/21 03/09/22 [Garamycin 0.3% Ophth Soln] Insulin Glargine,Hum.rec.anlog 1 - 20 unit SQ HS PRN 03/13/21 03/09/22 [Lantus Solostar Pen] Insulin Lispro [humaLOG Kwikpen] 1 - 10 unit SQ ACHS MDD 40 03/13/21 03/09/22 UNITS/DAY prednisoLONE ACETATE 1% OPHTH 1 drop LEFT EYE QID 03/13/21 03/09/22 [Pred Forte 1%] Atorvastatin Calcium [Lipitor] 10 mg PO HS 03/09/22 03/09/22 Bumetanide [Bumex] 1 mg PO DAILY 03/09/22 03/09/22 Erythromycin Ophth Oint [Romycin 1 applic LEFT EYE QID 03/09/22 03/09/22 Ophth Oint] Ferrous Sulfate [Feosol] 325 mg PO HS 03/09/22 03/09/22 Glucagon Emergency Kit 1 mg IM ONCE PRN 03/09/22 03/09/22 INSULIN LISPRO (For Pump) [humaLOG 0.01 units SQ-PUMP CONTINUOUS MDD 03/09/22 03/09/22 (For Pump)] 70 UNITS Metoprolol Succinate [Toprol XL] 50 mg PO DAILY 03/09/22 03/09/22 NIFEdipine XL [Procardia XL] 60 mg PO DAILY 03/09/22 03/09/22 Ondansetron [Zofran] 4 mg PO Q8H PRN 03/09/22 03/09/22 hydrALAZINE HCL [Apresoline] 25 mg PO Q8H PRN 03/09/22 03/09/22 lisinopriL [Prinivil] 20 mg PO BID 03/09/22 03/09/22 Previous Rx's Medication Instructions Recorded Metoclopramide [Reglan] 10 mg PO TID #15 tab 03/09/22 Allergies Allergy/AdvReac Type Severity Reaction Status Date / Time mold AdvReac Dyspnea Verified 03/09/22 17:41 Review of Systems ROS Statement: Those systems with pertinent positive or pertinent negative responses have been documented in the HPI. ROS Other: All systems not noted in ROS Statement are negative. Constitutional: Denies: fever, chills ENT: Denies: ear pain, throat pain Respiratory: Denies: cough, dyspnea Cardiovascular: Denies: chest pain, palpitations Gastrointestinal: Reports: abdominal pain, nausea, vomiting. Denies: diarrhea, constipation, hematemesis Genitourinary: Denies: urgency, dysuria Musculoskeletal: Denies: back pain Skin: Denies: rash Neurological: Reports: headache Past Medical History Past Medical History: Diabetes Mellitus, Pneumonia, Renal Disease Additional Past Medical History / Comment(s): IDDM type I, bilateral retinopathy with injections, DKA, IBS/constipation, bronchitis, febrile seizure at 3 yrs of age. covid positive 11/2020. History of Any Multi-Drug Resistant Organisms: None Reported Past Surgical History: Adenoidectomy, Tonsillectomy Additional Past Surgical History / Comment(s): sinus balloon plasty, wisdom teeth extractions., right eye surgery 02/18/21. Past Anesthesia/Blood Transfusion Reactions: No Reported Reaction Additional Past Anesthesia/Blood Transfusion Reaction / Comment(s): no transfusions Past Psychological History: Anxiety Smoking Status: Never smoker Past Alcohol Use History: None Reported, Occasional Past Drug Use History: None Reported - Past Family History Mother Family Medical History: No Reported History Additional Family Medical History / Comment(s): Mother is healthy. Father Family Medical History: No Reported History Additional Family Medical History / Comment(s): Father is healthy General Exam Limitations: no limitations General appearance: alert, in distress Head exam: Present: atraumatic, normocephalic, normal inspection Respiratory exam: Present: normal lung sounds bilaterally. Absent: respiratory distress, wheezes, rales, rhonchi, stridor Cardiovascular Exam: Present: regular rate, normal rhythm, normal heart sounds. Absent: systolic murmur, diastolic murmur, rubs, gallop, clicks GI/Abdominal exam: Present: soft, hypoactive bowel sounds. Absent: distended, tenderness, guarding, rebound, rigid Back exam: Absent: CVA tenderness (R), CVA tenderness (L) Neurological exam: Present: alert, oriented X3, CN II-XII intact Psychiatric exam: Present: normal affect, normal mood Skin exam: Present: warm, dry, intact, normal color. Absent: rash Course Vital Signs 03/09/22 03/09/22 03/09/22 10:34 13:39 15:00 Temperature 98 F Pulse Rate 68 75 72 Respiratory 16 18 18 Rate Blood Pressure 187/119 194/99 169/96 O2 Sat by Pulse 99 97 98 Oximetry 03/09/22 03/09/22 03/09/22 16:00 18:06 19:00 Temperature 99.1 F Pulse Rate 66 77 77 Respiratory 18 18 18 Rate Blood Pressure 172/94 202/109 184/96 O2 Sat by Pulse 96 99 99 Oximetry 03/09/22 20:16 Temperature Pulse Rate 84 Respiratory 16 Rate Blood Pressure 144/71 O2 Sat by Pulse 97 Oximetry Medical Decision Making - Medical Decision Making This is a 31-year-old female who presents emergency department for nausea and vomiting. Patient has a known diagnosis of diabetic gastroparesis. Despite attempts to control her symptoms with Reglan, Benadryl, and Dilaudid, patient has continued to have episodes of emesis. Computed tomography scan of the abdomen and pelvis obtained, this revealed possible right-sided hydronephrosis and advised to correlate for pyelonephritis. The patient does not have an elevated white count and does not have CVA tenderness, making this unlikely. Dr. Rodriguez and I reviewed the CT scan and did not identify any inflammatory changes consistent with a pyelonephritis. She does have blood in her urine, however it does not otherwise look infected. Given that she has stage IV renal failure, she cannot receive excessive fluids, making it hard to rehydrate her. Because we cannot control the patient's symptoms, we will admit her for symptomatic management. This case was discussed in detail with the attending ED physician. Presentation, findings, and treatment plan discussed in detail as well. - Lab Data Result diagrams: 03/09/22 11:25 03/09/22 11:25 Lab Results 03/09/22 03/09/22 03/09/22 Range/Units 11:25 11:25 11:25 WBC 10.1 (3.8-10.6) k/uL RBC 3.87 (3.80-5.40) m/uL Hgb 11.6 (11.4-16.0) gm/dL Hct 34.0 (34.0-46.0) % MCV 87.7 (80.0-100.0) fL MCH 30.1 (25.0-35.0) pg MCHC 34.3 (31.0-37.0) g/dL RDW 14.0 (11.5-15.5) % Plt Count 281 (150-450) k/uL MPV 7.2 Neutrophils % 74 % Lymphocytes % 17 % Monocytes % 5 % Eosinophils % 1 % Basophils % 1 % Neutrophils # 7.5 (1.3-7.7) k/uL Lymphocytes # 1.7 (1.0-4.8) k/uL Monocytes # 0.5 (0-1.0) k/uL Eosinophils # 0.1 (0-0.7) k/uL Basophils # 0.1 (0-0.2) k/uL Sodium 138 (137-145) mmol/L Potassium 4.4 (3.5-5.1) mmol/L Chloride 107 (98-107) mmol/L Carbon Dioxide 26 (22-30) mmol/L Anion Gap 5 mmol/L BUN 45 H (7-17) mg/dL Creatinine 3.01 H (0.52-1.04) mg/dL Est GFR (CKD-EPI)AfAm 23 (>60 ml/min/1.73 sqM) Est GFR (CKD-EPI)NonAf 20 (>60 ml/min/1.73 sqM) Glucose 109 H (74-99) mg/dL POC Glucose (mg/dL) (75-99) mg/dL POC Glu Ham Curer ID Plasma Lactic Acid [place] (0.7-2.0) mmol/L Calcium 9.1 (8.4-10.2) mg/dL Total Bilirubin 0.6 (0.2-1.3) mg/dL AST 30 (14-36) U/L ALT 20 (4-34) U/L Alkaline Phosphatase 79 (38-126) U/L Total Protein 6.3 (6.3-8.2) g/dL Albumin 3.3 L (3.5-5.0) g/dL Amylase 82 (30-110) U/L Lipase 51 (23-300) U/L Urine Color Urine Appearance (Clear) Urine pH (5.0-8.0) Ur Specific [place] (1.001-1.035) Urine Protein (Negative) Urine Glucose (UA) (Negative) Urine Ketones (Negative) Urine Blood (Negative) Urine Nitrite (Negative) Urine Bilirubin (Negative) Urine Urobilinogen (<2.0) mg/dL Ur Leukocyte Esterase (Negative) Urine RBC (0-5) /hpf Urine WBC (0-5) /hpf Ur Squamous Epith Cells (0-4) /hpf Amorphous Sediment (None) /hpf Urine Bacteria (None) /hpf Urine Mucus (None) /hpf Urine HCG, Qual (Not Detectd) Coronavirus (PCR) (Not Detectd) Influenza Type A RNA Not Detected (Not Detectd) Influenza Type B (PCR) Not Detected (Not Detectd) 03/09/22 03/09/22 03/09/22 Range/Units 11:25 11:25 17:10 WBC (3.8-10.6) k/uL RBC (3.80-5.40) m/uL Hgb (11.4-16.0) gm/dL Hct (34.0-46.0) % MCV (80.0-100.0) fL MCH (25.0-35.0) pg MCHC (31.0-37.0) g/dL RDW (11.5-15.5) % Plt Count (150-450) k/uL MPV Neutrophils % % Lymphocytes % % Monocytes % % Eosinophils % % Basophils % % Neutrophils # (1.3-7.7) k/uL Lymphocytes # (1.0-4.8) k/uL Monocytes # (0-1.0) k/uL Eosinophils # (0-0.7) k/uL Basophils # (0-0.2) k/uL Sodium (137-145) mmol/L Potassium (3.5-5.1) mmol/L Chloride (98-107) mmol/L Carbon Dioxide (22-30) mmol/L Anion Gap mmol/L BUN (7-17) mg/dL Creatinine (0.52-1.04) mg/dL Est GFR (CKD-EPI)AfAm (>60 ml/min/1.73 sqM) Est GFR (CKD-EPI)NonAf (>60 ml/min/1.73 sqM) Glucose (74-99) mg/dL POC Glucose (mg/dL) (75-99) mg/dL POC Glu Ham Curer ID Plasma Lactic Acid [place] 0.7 (0.7-2.0) mmol/L Calcium (8.4-10.2) mg/dL Total Bilirubin (0.2-1.3) mg/dL AST (14-36) U/L ALT (4-34) U/L Alkaline Phosphatase (38-126) U/L Total Protein (6.3-8.2) g/dL Albumin (3.5-5.0) g/dL Amylase (30-110) U/L Lipase (23-300) U/L Urine Color Light Yellow Urine Appearance Cloudy H (Clear) Urine pH 7.0 (5.0-8.0) Ur Specific [place] 1.016 (1.001-1.035) Urine Protein 3+ H (Negative) Urine Glucose (UA) Trace H (Negative) Urine Ketones Negative (Negative) Urine Blood Moderate H (Negative) Urine Nitrite Negative (Negative) Urine Bilirubin Negative (Negative) Urine Urobilinogen <2.0 (<2.0) mg/dL Ur Leukocyte Esterase Negative (Negative) Urine RBC 30 H (0-5) /hpf Urine WBC 7 H (0-5) /hpf Ur Squamous Epith Cells 6 H (0-4) /hpf Amorphous Sediment Occasional H (None) /hpf Urine Bacteria Many H (None) /hpf Urine Mucus Occasional H (None) /hpf Urine HCG, Qual (Not Detectd) Coronavirus (PCR) Not Detected (Not Detectd) Influenza Type A RNA (Not Detectd) Influenza Type B (PCR) (Not Detectd) 03/09/22 03/09/22 Range/Units 17:10 20:02 WBC (3.8-10.6) k/uL RBC (3.80-5.40) m/uL Hgb (11.4-16.0) gm/dL Hct (34.0-46.0) % MCV (80.0-100.0) fL MCH (25.0-35.0) pg MCHC (31.0-37.0) g/dL RDW (11.5-15.5) % Plt Count (150-450) k/uL MPV Neutrophils % % Lymphocytes % % Monocytes % % Eosinophils % % Basophils % % Neutrophils # (1.3-7.7) k/uL Lymphocytes # (1.0-4.8) k/uL Monocytes # (0-1.0) k/uL Eosinophils # (0-0.7) k/uL Basophils # (0-0.2) k/uL Sodium (137-145) mmol/L Potassium (3.5-5.1) mmol/L Chloride (98-107) mmol/L Carbon Dioxide (22-30) mmol/L Anion Gap mmol/L BUN (7-17) mg/dL Creatinine (0.52-1.04) mg/dL Est GFR (CKD-EPI)AfAm (>60 ml/min/1.73 sqM) Est GFR (CKD-EPI)NonAf (>60 ml/min/1.73 sqM) Glucose (74-99) mg/dL POC Glucose (mg/dL) 88 (75-99) mg/dL POC Glu Ham Curer ID Evelyn Herrmann Plasma Lactic Acid [place] (0.7-2.0) mmol/L Calcium (8.4-10.2) mg/dL Total Bilirubin (0.2-1.3) mg/dL AST (14-36) U/L ALT (4-34) U/L Alkaline Phosphatase (38-126) U/L Total Protein (6.3-8.2) g/dL Albumin (3.5-5.0) g/dL Amylase (30-110) U/L Lipase (23-300) U/L Urine Color Urine Appearance (Clear) Urine pH (5.0-8.0) Ur Specific [place] (1.001-1.035) Urine Protein (Negative) Urine Glucose (UA) (Negative) Urine Ketones (Negative) Urine Blood (Negative) Urine Nitrite (Negative) Urine Bilirubin (Negative) Urine Urobilinogen (<2.0) mg/dL Ur Leukocyte Esterase (Negative) Urine RBC (0-5) /hpf Urine WBC (0-5) /hpf Ur Squamous Epith Cells (0-4) /hpf Amorphous Sediment (None) /hpf Urine Bacteria (None) /hpf Urine Mucus (None) /hpf Urine HCG, Qual Not Detected (Not Detectd) Coronavirus (PCR) (Not Detectd) Influenza Type A RNA (Not Detectd) Influenza Type B (PCR) (Not Detectd) - Radiology Data Radiology results: report reviewed, image reviewed Disposition Clinical Impression: Diabetic gastroparesis associated with type 1 diabetes mellitus Disposition: ADMITTED IP TO THIS [facility] Additional Instructions: Return to the emergency department with any new, worsening, or concerning symptoms. Use the Reglan up to three times daily as needed for nausea. Follow up with your primary care provider in 1 to 2 days. Prescriptions: Metoclopramide [Reglan] 10 mg PO TID #15 tab Referrals: None,Stated [Primary Care Provider] - 1-2 days
[2022-03-09 11:55] LABS: Albumin 3.3 g/dL (3.5-5.0); Calcium 9.1 mg/dL (8.4-10.2); Potassium 4.4 mmol/L (3.5-5.1); Total Bilirubin 0.6 mg/dL (0.2-1.3); Total Protein 6.3 g/dL (6.3-8.2)
[2022-03-09 11:57] LABS: Basophils # (A) 0.1 k/uL (0-0.2); Basophils % (A) 1 %; Eosinophils # (A) 0.1 k/uL (0-0.7); Eosinophils % (A) 1 %; HGB 11.6 gm/dL (11.4-16.0); Lymphocytes # (A) 1.7 k/uL (1.0-4.8); Lymphocytes % (A) 17 %; MCH 30.1 pg (25.0-35.0); MCHC 34.3 g/dL (31.0-37.0); MCV 87.7 fL (80.0-100.0); Mean Platelet Volume 7.2; Monocytes # (A) 0.5 k/uL (0-1.0); Monocytes % (A) 5 %; Neutrophils # (A) 7.5 k/uL (1.3-7.7); Neutrophils % (A) 74 %; Platelet Count 281 k/uL (150-450); RBC 3.87 m/uL (3.80-5.40); WBC 10.1 k/uL (3.8-10.6)
[2022-03-09] MEDS ORDERED: METOPROLOL TARTRATE 50 MG TAB PO STA (14:40)
[2022-03-09 17:28] LABS: Amorphous Sediment,Urine Occasional /hpf; Appearance,Urine Cloudy (Clear); Bacteria,Urine Many /hpf; Bilirubin,Urine Negative (Negative); Blood,Urine Moderate (Negative); Color,Urine Light Yellow; Glucose,Urine (UA) Trace (Negative); Ketones,Urine Negative (Negative); Leukocyte Esterase,Urine Negative (Negative); Mucus,Urine Occasional /hpf; Nitrite,Urine Negative (Negative); Protein,Urine 3+ (Negative); RBC,Urine 30 /hpf (0-5); Specific Gravity,Urine 1.016 (1.001-1.035); Squamous Epithelial Cell,Urine 6 /hpf (0-4); Urobilinogen,Urine <2.0 mg/dL (<2.0); WBC,Urine 7 /hpf (0-5)
[2022-03-09] MEDS ORDERED: MORPHINE SULFATE 2 MG/ML SYRINGE IVP STA (17:30)
--- NOTE | 2022-03-09 18:11 | CT ---
EXAMINATION TYPE: CT abdomen pelvis wo con CT DLP: 430.9 mGycm, Automated exposure control for dose reduction was used. DATE OF EXAM: 03/09/2022 5:47 PM COMPARISON: CT abdomen pelvis most recent from 03/11/2021. CLINICAL INDICATION:Female, 31 years old with history of Abdominal pain, acute, nonlocalized; Vomitin g and abdominal pain. TECHNIQUE: Standard CT of the abdomen and pelvis without IV or oral contrast. Lack of IV or oral co ntrast limits evaluation of solid and hollow organ viscera. Coronal and sagittal reformats were perfo rmed. FINDINGS: LOWER CHEST: Unremarkable ABDOMEN LIVER: Unremarkable GALLBLADDER AND BILE DUCTS: Unremarkable. PANCREAS: Unremarkable. SPLEEN: Unremarkable. ADRENAL GLANDS: Unremarkable. KIDNEYS AND URETERS: Asymmetric dilation of the right renal collecting system with adjacent fat stran ding. No obvious obstructing calculus identified on the right. There is no evidence of left hydroneph rosis or obstructive uropathy. PELVIS BLADDER: Unremarkable REPRODUCTIVE: Unremarkable. ABDOMEN & PELVIS STOMACH AND BOWEL: No evidence of bowel obstruction. Appendix is felt to be visualized and within nor mal limits. PERITONEUM: No evidence of pneumoperitoneum or free fluid. VASCULATURE: No evidence of aortic aneurysm. Minimal atherosclerotic disease of the arterial vasculat ure. MUSCULOSKELETAL: No acute osseous abnormalities. LYMPH NODES: No gross evidence for lymphadenopathy. SOFT TISSUE/ABDOMINAL WALL: Unremarkable IMPRESSION: 1. Asymmetric right mild hydronephrosis with inflammatory changes within the renal sinus. Correlate for pyelonephritis. No obvious obstructive calculi identified. Correlate for recently passed renal ca lculus.
[2022-03-09] MEDS ORDERED: LABETALOL 5 MG/ML VIAL MDV IVP STA (19:07)
[2022-03-09] MEDS ORDERED: ACETAMINOPHEN TAB 325 MG TAB PO PRN (20:02)
[2022-03-09] MEDS ORDERED: HYDROmorphone 0.5 MG/0.5 ML SYRINGE IVP PRN (20:02)
[2022-03-09] MEDS ORDERED: NALOXONE 0.4 MG/ML 1 ML VIAL IV PRN (20:02)
[2022-03-09 20:08] LABS: Glucose,Whole Blood 88 mg/dL (75-99)
[2022-03-09] MEDS ORDERED: SODIUM CHLORIDE 0.45% 1,000 ML IV SCH (20:15)
[2022-03-09] MEDS: HYDROmorphone 1 MG/ML 1 ML SYRINGE IVP PRN (20:18)
[2022-03-09] MEDS: METOCLOPRAMIDE 5 MG/ML 2 ML VIAL IVP PRN (20:18)
[2022-03-09] MEDS ORDERED: hydrALAZINE HCL 25 MG TAB PO PRN (23:25)
[2022-03-10] MEDS: hydrALAZINE HCL 20 MG/ML 1 ML VIAL IVP PRN ×3 (00:01→16:50)
[2022-03-10] MEDS: HYDROmorphone 1 MG/ML 1 ML SYRINGE IVP PRN ×4 (00:01→11:11)
[2022-03-10] MEDS: SODIUM CHLORIDE 0.45% 1,000 ML IV SCH ×2 (01:32→14:30)
--- NOTE | 2022-03-10 06:36 | HP ---
HISTORY AND PHYSICAL HISTORY OF PRESENT ILLNESS: 31-year-old white female, nausea, vomiting, diarrhea, gastroparesis, severe nausea and vomiting about 10 times today, chronic renal disease stage 4. She is admitted for diabetic gastroparesis 2-3 years ago. She was seen in the [facility] for renal failure, stage 4. She was put on transplant list. 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 She is on insulin pump. Diffuse generalized abdominal pain associated with vomiting, occasional headaches. Looks like she might have a UTI. MEDICATIONS: Home medicines: Please see list. ALLERGIES: See list. PAST MEDICAL HISTORY: Diabetes mellitus, insulin dependent, pneumonia, renal disease, type 1 diabetes, bilateral retinopathy, IBS, COVID positive in 2020. PAST SURGICAL HISTORY: Surgeries include adenoidectomy, tonsillectomy, sinus balloon plasty, wisdom teeth extraction, right eye surgery. History of anxiety. FAMILY HISTORY: Reviewed. Please see list. REVIEW OF SYMPTOMS: Otherwise 14-point review of systems otherwise negative. PHYSICAL EXAMINATION: Blood pressure is 180s to 190s over 90s to 100s. Respiratory 16-18, temp 98, pulse 60s to 70s. O2 99. She looks hydrated. She has progressive emesis in a bin, looks like some bile fluid. Large amounts in the ER. INTEGUMENT: Dry skin turgor, dry mucous membranes. CARDIOVASCULAR: S1-S2. LUNGS clear. ASSESSMENT AND PLAN: CT scan shows possible pyelonephritis, with stage 4 renal failure, gastroparesis, progressive emesis, rehydration, prerenal renal azotemia. Rehydrate. Broad-spectrum antibiotics. Please see further orders. Discussed GI consult. Possible gastric pump. Prognosis guarded. MMODL / IJN: [id number] /
[2022-03-10 06:42] LABS: Glucose,Whole Blood 141 mg/dL (75-99)
[2022-03-10] MEDS: ONDANSETRON 4 MG/2 ML VIAL IVP PRN ×3 (07:30→20:16)
[2022-03-10] MEDS: INSULIN LISPRO (For Pump) 100 UNIT/ML VIAL SQ-PUMP SCH ×2 (07:31→19:05)
[2022-03-10] MEDS: ATROPINE OPHTH SOLN 1% 5ML BTL LEFT EYE SCH ×2 (07:32→21:09)
[2022-03-10] MEDS: GENTAMICIN 0.3% OPHTH DROPS 5 ML BTL LEFT EYE SCH ×4 (07:32→21:10)
[2022-03-10] MEDS: ERYTHROMYCIN 5 MG/GM OPHTH OINT 3.5 GM TUBE LEFT EYE SCH ×4 (07:32→21:09)
[2022-03-10] MEDS: prednisoLONE ACETATE 1% OPHTH DROPS 5 ML BTL LEFT EYE SCH ×4 (07:33→21:09)
[2022-03-10] MEDS: BUMETANIDE 1 MG TAB PO SCH (08:03)
[2022-03-10] MEDS: METOPROLOL SUCCINATE (ER) 50 MG TAB.ER.24H PO SCH (08:04)
[2022-03-10] MEDS ORDERED: lisinopriL 20 MG TAB PO SCH (09:00)
[2022-03-10] MEDS: METOCLOPRAMIDE 5 MG/ML 2 ML VIAL IVP PRN ×2 (11:10→18:08)
[2022-03-10] MEDS: PANTOPRAZOLE 40 MG/10 ML VIAL IVP SCH ×2 (11:10→20:17)
[2022-03-10 11:19] LABS: Glucose,Whole Blood 161 mg/dL (75-99)
--- NOTE | 2022-03-10 12:46 | P.NPCON ---
History of Present Illness - Reason for Consult chronic renal failure - History of Present Illness Patient is a 31-year-old female with history of type 1 diabetes and chronic kidney disease secondary to biopsy-proven diabetic kidney disease. 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 She states that kidney function has been progressively declining since November 2021. Kidney biopsy radha wed diabetic kidney disease. Currently patient is a stage IV with serum creatinine in the mid twos. Patient is on the transplant list at [facility] Patient is admitted to the hospital with complaints of nausea and vomiting. Blood pressure was elevated at 194/99. Patient also has underlying diabetic gastroparesis. She is maintained on RORY inhibitor's. Serum creatinine was 3.0 mg/dL today. No significant urinary symptoms. No history of use of NSAIDs Review of Systems Aspirin HPI other systems negative Past Medical History Past Medical History: Diabetes Mellitus, Pneumonia, Renal Disease Additional Past Medical History / Comment(s): IDDM type I, bilateral retinopathy with injections, DKA, IBS/constipation, bronchitis, febrile seizure at 3 yrs of age. covid positive 11/2020. History of Any Multi-Drug Resistant Organisms: None Reported Past Surgical History: Adenoidectomy, Tonsillectomy Additional Past Surgical History / Comment(s): sinus balloon plasty, wisdom teeth extractions., right eye surgery 02/18/21. Past Anesthesia/Blood Transfusion Reactions: No Reported Reaction Additional Past Anesthesia/Blood Transfusion Reaction / Comment(s): no transfusions Past Psychological History: Anxiety Additional Psychological History / Comment(s): Pt resides with 2 roomates. She has a dog. She is independent. Smoking Status: Never smoker Past Alcohol Use History: None Reported, Occasional Additional Past Alcohol Use History / Comment(s): denies alcohol use at present. Past Drug Use History: None Reported Additional Drug Use History / Comment(s): stopped marijuana use in 11/2020 - Past Family History Mother Family Medical History: No Reported History Additional Family Medical History / Comment(s): Mother is healthy. Father Family Medical History: No Reported History Additional Family Medical History / Comment(s): Father is healthy Medications and Allergies Home Medications Medication Instructions Recorded Confirmed Type Atropine Ophth Soln 1% 5Ml [Isopto 1 drop LEFT EYE BID 03/13/21 03/09/22 History Atropine 1% 5Ml] Gentamicin 0.3% Ophth Soln 1 drop LEFT EYE QID 03/13/21 03/09/22 History [Garamycin 0.3% Ophth Soln] Insulin Glargine,Hum.rec.anlog 1 - 20 unit SQ HS PRN 03/13/21 03/09/22 History [Lantus Solostar Pen] Insulin Lispro [humaLOG Kwikpen] 1 - 10 unit SQ ACHS MDD 40 03/13/21 03/09/22 History UNITS/DAY prednisoLONE ACETATE 1% OPHTH 1 drop LEFT EYE QID 03/13/21 03/09/22 History [Pred Forte 1%] Atorvastatin Calcium [Lipitor] 10 mg PO HS 03/09/22 03/09/22 History Bumetanide [Bumex] 1 mg PO DAILY 03/09/22 03/09/22 History Erythromycin Ophth Oint [Romycin 1 applic LEFT EYE QID 03/09/22 03/09/22 History Ophth Oint] Ferrous Sulfate [Feosol] 325 mg PO HS 03/09/22 03/09/22 History Glucagon Emergency Kit 1 mg IM ONCE PRN 03/09/22 03/09/22 History INSULIN LISPRO (For Pump) [humaLOG 0.01 units SQ-PUMP CONTINUOUS MDD 03/09/22 History (For Pump)] 70 UNITS Metoclopramide [Reglan] 10 mg PO TID #15 tab 03/09/22 Rx Metoprolol Succinate [Toprol XL] 50 mg PO DAILY 03/09/22 03/09/22 History NIFEdipine XL [Procardia XL] 60 mg PO DAILY 03/09/22 03/09/22 History Ondansetron [Zofran] 4 mg PO Q8H PRN 03/09/22 03/09/22 History hydrALAZINE HCL [Apresoline] 25 mg PO Q8H PRN 03/09/22 03/09/22 History lisinopriL [Prinivil] 20 mg PO BID 03/09/22 03/09/22 History Allergies Allergy/AdvReac Type Severity Reaction Status Date / Time mold AdvReac Dyspnea Verified 03/09/22 17:41 Physical Exam Vitals: Vital Signs Temp Pulse Pulse Resp BP BP Pulse Ox 03/10/22 08:03 129/74 03/10/22 07:43 98.1 F 78 19 196/112 98 03/10/22 00:44 117/68 03/09/22 23:40 98.9 F 81 18 199/105 97 03/09/22 22:28 82 16 158/86 96 03/09/22 21:00 83 18 153/86 99 03/09/22 20:16 84 16 144/71 97 03/09/22 19:00 77 18 184/96 99 03/09/22 18:06 77 18 202/109 99 03/09/22 16:00 99.1 F 66 18 172/94 96 03/09/22 15:00 72 18 169/96 98 03/09/22 13:39 75 18 194/99 97 Intake and Output 03/09/22 03/10/22 03/10/22 22:59 06:59 14:59 Intake Total 500 Balance 500 Intake: Intake, IV Titration 500 Amount Sodium Chloride 0.45% 1, 450 000 ml @ 75 mls/hr IV . [id number] [facility] Rx#:[id number] cefTRIAXone 1 gm In 50 Sodium Chloride 0.9% 50 ml @ 100 mls/hr IVPB Q24H [facility] Rx#:[id number] Other: # Voids 2 # Emeses 1 Weight 68.492 kg Patient is awake comfortable, not in any acute distress. She appears to have puffiness of her face. Examination of the heart S1 and S2 Examination lungs bilateral breath sounds are heard Abdomen is soft nontender Exertion lower extremity shows trace edema bilaterally FEATHER SHAPER exam grossly intact Results - Lab Results Most recent lab results Calcium 9.1 mg/dL (8.4-10.2) 03/09/22 11:25 03/09/22 11:25 03/09/22 11:25 Assessment and Plan Assessment: 1. Acute kidney injury, possibly prerenal associated with nausea and vomiting. Maintained on IV fluids. I will hold RORY inhibitors. UA shows 3+ protein WBCs 7. Computed tomography scan shows mild right hydronephrosis. 2. Chronic kidney disease NKF stage IV secondary to biopsy-proven diabetic kidney disease. Patient is currently on the transplant list at [facility]. She follows with a manager sustainability in the [place] system. 3. Nausea and vomiting associated with diabetic gastroparesis. 4. Uncontrolled hypertension 5. Right hydronephrosis with no history of renal colic. Proceed with urology consult given the acute kidney injury. Plan: Hold lisinopril Add scheduled dose of hydralazine for blood pressure control Consult urology Repeat labs in a.m. Avoid significant hypotension. Goal blood pressure 130 to 140 mmHg systolic Continue IV fluids
[2022-03-10 12:54] LABS: Basophils # (A) 0.1 k/uL (0-0.2); Basophils % (A) 1 %; Eosinophils % (A) 0 %; HCT 30.4 % (34.0-46.0); HGB 10.3 gm/dL (11.4-16.0); Lymphocytes # (A) 1.2 k/uL (1.0-4.8); Lymphocytes % (A) 13 %; MCH 30.9 pg (25.0-35.0); MCV 90.8 fL (80.0-100.0); Mean Platelet Volume 7.4; Monocytes # (A) 0.5 k/uL (0-1.0); Monocytes % (A) 5 %; Neutrophils # (A) 7.5 k/uL (1.3-7.7); Neutrophils % (A) 81 %; Platelet Count 257 k/uL (150-450); RBC 3.35 m/uL (3.80-5.40); RDW 14.2 % (11.5-15.5); WBC 9.4 k/uL (3.8-10.6)
[2022-03-10 13:05] LABS: ALT 15 U/L (4-34); AST 22 U/L (14-36); African American GFR (CKD) 19 (>60 ml/min/1.73 sqM); Albumin 2.8 g/dL (3.5-5.0); Albumin/Globulin Ratio 1.1; Alkaline Phosphatase 61 U/L (38-126); Anion Gap 3 mmol/L; Blood Urea Nitrogen 46 mg/dL (7-17); Calcium 8.2 mg/dL (8.4-10.2); Carbon Dioxide 28 mmol/L (22-30); Chloride 107 mmol/L (98-107); Globulin 2.6 g/dL; Glucose 160 mg/dL (74-99); Non-African American GFR(CKD) 17 (>60 ml/min/1.73 sqM); Potassium 4.5 mmol/L (3.5-5.1); Sodium 138 mmol/L (137-145); Total Bilirubin 0.4 mg/dL (0.2-1.3); Total Protein 5.4 g/dL (6.3-8.2)
--- NOTE | 2022-03-10 13:43 | P.CONS ---
History of Present Illness - Reason for Consult Consult date: 03/10/22 Diabetic gastroparesis Requesting physician: Matt Hartman - Chief Complaint Nausea and vomiting - History of Present Illness This a 31-year-old female who presented to the emergency department with complaints of intractable nausea and vomiting started yesterday morning. Patient reported she vomited 10-15 times yesterday. She was doing well through the night but then had a small emesis this morning. Patient has a history of diabetic gastroparesis, diabetes, chronic kidney disease and states that her sugars have been well controlled recently. States she's feeling better on Reglan and Zofran. No hematemesis. Denies any abdominal pain. States bowel movements are normal. Last EGD done 03/19/2021 with findings of mild antral gastritis and early grade B reflux esophagitis. CT of the abdomen shows asymmetric right mild hydronephrosis with inflammatory changes within the renal sinus. Correlate for pyelonephritis. No obvious obstructive calculi identified. Correlate for recently passed renal calculus. Review of Systems REVIEW OF SYSTEMS: CARDIOPULMONARY: No chest pain or shortness of breath. Gastrointestinal: No abdominal pain. Nausea and vomiting up to 10 times a day. No hematemesis, coffee-ground emesis. No rectal bleeding, or melena. GENITOURINARY: No dysuria or hematuria. MUSCULOSKELETAL: Reports normal range of motion., Joint pain. SKIN: No rashes. No jaundice. ENDOCRINE: No chills, fevers. No excessive weight gain or loss. No polydipsia or polyuria. PSYCHIATRIC: Unremarkable. NEUROLOGY: No change in mental status. Denies dizziness, headache. ENT: Vision unremarkable. CONSTITUTIONAL: No recent weight loss. No fever, chills, night sweats. Past Medical History Past Medical History: Diabetes Mellitus, Pneumonia, Renal Disease Additional Past Medical History / Comment(s): IDDM type I, bilateral retinopathy with injections, DKA, IBS/constipation, bronchitis, febrile seizure at 3 yrs of age. covid positive 11/2020. History of Any Multi-Drug Resistant Organisms: None Reported Past Surgical History: Adenoidectomy, Tonsillectomy Additional Past Surgical History / Comment(s): sinus balloon plasty, wisdom teeth extractions., right eye surgery 02/18/21. Past Anesthesia/Blood Transfusion Reactions: No Reported Reaction Additional Past Anesthesia/Blood Transfusion Reaction / Comm: no transfusions Past Psychological History: Anxiety Additional Psychological History / Comment(s): Pt resides with 2 roomates. She has a dog. She is independent. Smoking Status: Never smoker Past Alcohol Use History: None Reported, Occasional Additional Past Alcohol Use History / Comment(s): denies alcohol use at present. Past Drug Use History: None Reported Additional Drug Use History / Comment(s): stopped marijuana use in 11/2020 - Past Family History Mother Family Medical History: No Reported History Additional Family Medical History / Comment(s): Mother is healthy. Father Family Medical History: No Reported History Additional Family Medical History / Comment(s): Father is healthy Medications and Allergies Home Medications Medication Instructions Recorded Confirmed Type Atropine Ophth Soln 1% 5Ml [Isopto 1 drop LEFT EYE BID 03/13/21 03/09/22 History Atropine 1% 5Ml] Gentamicin 0.3% Ophth Soln 1 drop LEFT EYE QID 03/13/21 03/09/22 History [Garamycin 0.3% Ophth Soln] Insulin Glargine,Hum.rec.anlog 1 - 20 unit SQ HS PRN 03/13/21 03/09/22 History [Lantus Solostar Pen] Insulin Lispro [humaLOG Kwikpen] 1 - 10 unit SQ ACHS MDD 40 03/13/21 03/09/22 History UNITS/DAY prednisoLONE ACETATE 1% OPHTH 1 drop LEFT EYE QID 03/13/21 03/09/22 History [Pred Forte 1%] Atorvastatin Calcium [Lipitor] 10 mg PO HS 03/09/22 03/09/22 History Bumetanide [Bumex] 1 mg PO DAILY 03/09/22 03/09/22 History Erythromycin Ophth Oint [Romycin 1 applic LEFT EYE QID 03/09/22 03/09/22 History Ophth Oint] Ferrous Sulfate [Feosol] 325 mg PO HS 03/09/22 03/09/22 History Glucagon Emergency Kit 1 mg IM ONCE PRN 03/09/22 03/09/22 History INSULIN LISPRO (For Pump) [humaLOG 0.01 units SQ-PUMP CONTINUOUS MDD 03/09/22 03/09/22 History (For Pump)] 70 UNITS Metoclopramide [Reglan] 10 mg PO TID #15 tab 03/09/22 Rx Metoprolol Succinate [Toprol XL] 50 mg PO DAILY 03/09/22 03/09/22 History NIFEdipine XL [Procardia XL] 60 mg PO DAILY 03/09/22 03/09/22 History Ondansetron [Zofran] 4 mg PO Q8H PRN 03/09/22 03/09/22 History hydrALAZINE HCL [Apresoline] 25 mg PO Q8H PRN 03/09/22 03/09/22 History lisinopriL [Prinivil] 20 mg PO BID 03/09/22 03/09/22 History Allergies Allergy/AdvReac Type Severity Reaction Status Date / Time mold AdvReac Dyspnea Verified 03/09/22 17:41 Physical Exam Vitals: Vital Signs Temp Pulse Pulse Resp BP BP Pulse Ox 03/10/22 08:03 129/74 03/10/22 07:43 98.1 F 78 19 196/112 98 03/10/22 00:44 117/68 03/09/22 23:40 98.9 F 81 18 199/105 97 03/09/22 22:28 82 16 158/86 96 03/09/22 21:00 83 18 153/86 99 03/09/22 20:16 84 16 144/71 97 03/09/22 19:00 77 18 184/96 99 03/09/22 18:06 77 18 202/109 99 03/09/22 16:00 99.1 F 66 18 172/94 96 03/09/22 15:00 72 18 169/96 98 03/09/22 13:39 75 18 194/99 97 03/09/22 10:34 98 F 68 16 187/119 99 Intake and Output 03/09/22 03/10/22 03/10/22 22:59 06:59 14:59 Intake Total 500 Balance 500 Intake: Intake, IV Titration 500 Amount Sodium Chloride 0.45% 1, 450 000 ml @ 75 mls/hr IV . [id number] [facility] Rx#:[id number] cefTRIAXone 1 gm In 50 Sodium Chloride 0.9% 50 ml @ 100 mls/hr IVPB Q24H [facility] Rx#:[id number] Other: # Voids 2 # Emeses 1 Weight 68.492 kg General appearance: The patient is alert, oriented, appears in no acute distress. HET: Head is normocephalic and atraumatic. Conjunctiva pink. Sclera anicteric. Neck: Supple without lymphadenopathy. Trachea midline. Heart: S1 S2. Regular rate and rhythm. Lungs: Clear to auscultation. Abdomen: Soft, nontender, nondistended with bowel sounds. No guarding or rigidity. Skin: No rashes. No jaundice. Extremities: Normal skin color and turgor. No pedal edema. Neurological: No focal deficits. Alert and oriented x3. Results CBC & Chem 7: 03/10/22 12:34 03/10/22 12:34 Labs: Abnormal Lab Results - Last 24 Hours (Table) 03/09/22 03/09/22 03/10/22 Range/Units 11:25 17:10 06:40 BUN 45 H (7-17) mg/dL Creatinine 3.01 H (0.52-1.04) mg/dL Glucose 109 H (74-99) mg/dL POC Glucose (mg/dL) 141 H (75-99) mg/dL Albumin 3.3 L (3.5-5.0) g/dL Urine Appearance Cloudy H (Clear) Urine Protein 3+ H (Negative) Urine Glucose (UA) Trace H (Negative) Urine Blood Moderate H (Negative) Urine RBC 30 H (0-5) /hpf Urine WBC 7 H (0-5) /hpf Ur Squamous Epith Cells 6 H (0-4) /hpf Amorphous Sediment Occasional H (None) /hpf Urine Bacteria Many H (None) /hpf Urine Mucus Occasional H (None) /hpf Comments: CT of the abdomen shows asymmetric right mild hydronephrosis with inflammatory changes within the renal sinus. Correlate for pyelonephritis. No obvious obstructive calculi identified. Correlate for recently passed renal calculus. Assessment and Plan (1) Diabetic gastroparesis Narrative/Plan: Patient has long-standing history of type 1 diabetes mellitus. She has a history of gastro-paresis related to her diabetes. States she's been hospitalized probably 4 times over the last year. She's had an EGD done 03/19/2021 that showed mild gastritis and early grade B reflux esophagitis. She currently symptoms are improving with Zofran and Reglan. She denies any hematemesis/coffee-ground emesis. 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 Her symptoms seem to be improving with IV hydration and GI rest. No plans on endoscopic evaluation. Continue with current treatment and will add Protonix 40 mg twice a day. 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 Continue clear liquid diet 2. Protonix 40 mg twice a day 3. Continue antiemetics 4. No plans on endoscopic evaluation 5. Strict glycemic control Thank you for this consultation, we will continue to monitor. Dr. Linda Jeff I agree with the dictator's note, documented as a scribe by Kailey Ayoub.
[2022-03-10] MEDS: LORazepam 2 MG/ML INJ IV PRN ×2 (15:17→20:50)
--- NOTE | 2022-03-10 16:32 | P.GSCN ---
History of Present Illness Consult date: 03/10/22 History of present illness: 31-year-old female with peripheral diabetes admitted with persistent nausea and vomiting. She has a history of gastroparesis. She has chronic renal failure due to her diabetes. She is cared for at [facility]. Apparently she is on a transplant list as the F2 shows progressive diabetic nephropathy. During her most recent evaluation, computed tomography scan, here at [facility], there is apparently some mild hydronephrosis. I was asked see the patient. The patient's interviewed at the bedside. She denies back pain. She denies flank pain. There is no history of stones. There is no history urine infections. There is no history of blood in the urine. She states she seen a urologist before but does not remember why. His no hematuria fever or difficulty voiding. Review of Systems All systems: negative - Constitutional Denies fever, Denies weight loss - EENT Eyes: denies blurred vision Ears, nose, mouth and throat: Denies dysphagia - Cardiovascular Denies chest pain, Denies shortness of breath - Respiratory Denies cough, Denies 7 - Gastrointestinal Reports as per HPI - Genitourinary Genitourinary: Denies dysuria, Denies hematuria - Integumentary Denies rash, Denies unusual bruising - Neurological Denies headaches, Denies syncope - Hematologic/Lymphatic Denies easy bleeding, Denies easy bruising Past Medical History Past Medical History: Diabetes Mellitus, Pneumonia, Renal Disease Additional Past Medical History / Comment(s): IDDM type I, bilateral retinopathy with injections, DKA, IBS/constipation, bronchitis, febrile seizure at 3 yrs of age. covid positive 11/2020. History of Any Multi-Drug Resistant Organisms: None Reported Past Surgical History: Adenoidectomy, Tonsillectomy Additional Past Surgical History / Comment(s): sinus balloon plasty, wisdom teeth extractions., right eye surgery 02/18/21. Past Anesthesia/Blood Transfusion Reactions: No Reported Reaction Additional Past Anesthesia/Blood Transfusion Reaction / Comm: no transfusions Past Psychological History: Anxiety Additional Psychological History / Comment(s): Pt resides with 2 roomates. She has a dog. She is independent. Smoking Status: Never smoker Past Alcohol Use History: None Reported, Occasional Additional Past Alcohol Use History / Comment(s): denies alcohol use at present. Past Drug Use History: None Reported Additional Drug Use History / Comment(s): stopped marijuana use in 11/2020 - Past Family History Mother Family Medical History: No Reported History Additional Family Medical History / Comment(s): Mother is healthy. Father Family Medical History: No Reported History Additional Family Medical History / Comment(s): Father is healthy Medications and Allergies Home Medications Medication Instructions Recorded Confirmed Type Atropine Ophth Soln 1% 5Ml [Isopto 1 drop LEFT EYE BID 03/13/21 03/09/22 History Atropine 1% 5Ml] Gentamicin 0.3% Ophth Soln 1 drop LEFT EYE QID 03/13/21 03/09/22 History [Garamycin 0.3% Ophth Soln] Insulin Glargine,Hum.rec.anlog 1 - 20 unit SQ HS PRN 03/13/21 03/09/22 History [Lantus Solostar Pen] Insulin Lispro [humaLOG Kwikpen] 1 - 10 unit SQ ACHS MDD 40 03/13/21 03/09/22 History UNITS/DAY prednisoLONE ACETATE 1% OPHTH 1 drop LEFT EYE QID 03/13/21 03/09/22 History [Pred Forte 1%] Atorvastatin Calcium [Lipitor] 10 mg PO HS 03/09/22 03/09/22 History Bumetanide [Bumex] 1 mg PO DAILY 03/09/22 03/09/22 History Erythromycin Ophth Oint [Romycin 1 applic LEFT EYE QID 03/09/22 03/09/22 History Ophth Oint] Ferrous Sulfate [Feosol] 325 mg PO HS 03/09/22 03/09/22 History Glucagon Emergency Kit 1 mg IM ONCE PRN 03/09/22 03/09/22 History INSULIN LISPRO (For Pump) [humaLOG 0.01 units SQ-PUMP CONTINUOUS MDD 03/09/22 03/09/22 History (For Pump)] 70 UNITS Metoclopramide [Reglan] 10 mg PO TID #15 tab 03/09/22 Rx Metoprolol Succinate [Toprol XL] 50 mg PO DAILY 03/09/22 03/09/22 History NIFEdipine XL [Procardia XL] 60 mg PO DAILY 03/09/22 03/09/22 History Ondansetron [Zofran] 4 mg PO Q8H PRN 03/09/22 03/09/22 History hydrALAZINE HCL [Apresoline] 25 mg PO Q8H PRN 03/09/22 03/09/22 History lisinopriL [Prinivil] 20 mg PO BID 03/09/22 03/09/22 History Allergies Allergy/AdvReac Type Severity Reaction Status Date / Time mold AdvReac Dyspnea Verified 03/09/22 17:41 Surgical - Exam Vital Signs Temp Pulse Resp BP Pulse Ox 98 F 68 16 187/119 99 03/09/22 10:34 03/09/22 10:34 03/09/22 10:34 03/09/22 10:34 03/09/22 10:34 - General well developed, moderate distress - Eyes PERRL - ENT no hearing loss - Neck trachea midline - Respiratory normal expansion, normal respiratory effort - Cardiovascular Rhythm: regular - Abdomen Abdomen: soft, non tender - Integumentary no rash - Neurologic normal sensation - Musculoskeletal normal posture - Psychiatric oriented to time, oriented to person, oriented to place, speech is normal, mem ory intact Results - Labs 03/10/22 12:34 03/10/22 12:34 Abnormal Lab Results - Last 24 Hours (Table) 03/09/22 03/10/22 03/10/22 Range/Units 17:10 06:40 11:17 RBC (3.80-5.40) m/uL Hgb (11.4-16.0) gm/dL Hct (34.0-46.0) % BUN (7-17) mg/dL Creatinine (0.52-1.04) mg/dL Glucose (74-99) mg/dL POC Glucose (mg/dL) 141 H 161 H (75-99) mg/dL Calcium (8.4-10.2) mg/dL Total Protein (6.3-8.2) g/dL Albumin (3.5-5.0) g/dL Urine Appearance Cloudy H (Clear) Urine Protein 3+ H (Negative) Urine Glucose (UA) Trace H (Negative) Urine Blood Moderate H (Negative) Urine RBC 30 H (0-5) /hpf Urine WBC 7 H (0-5) /hpf Ur Squamous Epith Cells 6 H (0-4) /hpf Amorphous Sediment Occasional H (None) /hpf Urine Bacteria Many H (None) /hpf Urine Mucus Occasional H (None) /hpf 03/10/22 03/10/22 Range/Units 12:34 12:34 RBC 3.35 L (3.80-5.40) m/uL Hgb 10.3 L (11.4-16.0) gm/dL Hct 30.4 L (34.0-46.0) % BUN 46 H (7-17) mg/dL Creatinine 3.50 H (0.52-1.04) mg/dL Glucose 160 H (74-99) mg/dL POC Glucose (mg/dL) (75-99) mg/dL Calcium 8.2 L (8.4-10.2) mg/dL Total Protein 5.4 L (6.3-8.2) g/dL Albumin 2.8 L (3.5-5.0) g/dL Urine Appearance (Clear) Urine Protein (Negative) Urine Glucose (UA) (Negative) Urine Blood (Negative) Urine RBC (0-5) /hpf Urine WBC (0-5) /hpf Ur Squamous Epith Cells (0-4) /hpf Amorphous Sediment (None) /hpf Urine Bacteria (None) /hpf Urine Mucus (None) /hpf Microbiology - Last 24 Hours (Table) 03/10/22 03:30 Urine Culture - Preliminary Urine,Clean Catch Diabetes panel 03/10/22 Range/Units 12:34 Sodium 138 (137-145) mmol/L Potassium 4.5 (3.5-5.1) mmol/L Chloride 107 (98-107) mmol/L Carbon Dioxide 28 (22-30) mmol/L BUN 46 H (7-17) mg/dL Creatinine 3.50 H (0.52-1.04) mg/dL Glucose 160 H (74-99) mg/dL Calcium 8.2 L (8.4-10.2) mg/dL AST 22 (14-36) U/L ALT 15 (4-34) U/L Alkaline Phosphatase 61 (38-126) U/L Total Protein 5.4 L (6.3-8.2) g/dL Albumin 2.8 L (3.5-5.0) g/dL Calcium panel 03/10/22 Range/Units 12:34 Calcium 8.2 L (8.4-10.2) mg/dL Albumin 2.8 L (3.5-5.0) g/dL Pituitary panel 03/10/22 Range/Units 12:34 Sodium 138 (137-145) mmol/L Potassium 4.5 (3.5-5.1) mmol/L Chloride 107 (98-107) mmol/L Carbon Dioxide 28 (22-30) mmol/L BUN 46 H (7-17) mg/dL Creatinine 3.50 H (0.52-1.04) mg/dL Glucose 160 H (74-99) mg/dL Calcium 8.2 L (8.4-10.2) mg/dL Adrenal panel 03/10/22 Range/Units 12:34 Sodium 138 (137-145) mmol/L Potassium 4.5 (3.5-5.1) mmol/L Chloride 107 (98-107) mmol/L Carbon Dioxide 28 (22-30) mmol/L BUN 46 H (7-17) mg/dL Creatinine 3.50 H (0.52-1.04) mg/dL Glucose 160 H (74-99) mg/dL Calcium 8.2 L (8.4-10.2) mg/dL Total Bilirubin 0.4 (0.2-1.3) mg/dL AST 22 (14-36) U/L ALT 15 (4-34) U/L Alkaline Phosphatase 61 (38-126) U/L Total Protein 5.4 L (6.3-8.2) g/dL Albumin 2.8 L (3.5-5.0) g/dL - Imaging CT scan - abdomen: report reviewed, image reviewed CT scan - pelvis: report reviewed, image reviewed Assessment and Plan Assessment: Impression: Possible mild hydronephrosis. Abdominal discomfort with nausea. We will diabetes. Chronic renal failure. Recommendations: Initially read the computed tomography scan and do not feel that the hydronephrosis is clinically significant. I do not think it is contributing to her renal insufficiency. I do not think anything urologic needs to be done with this.
[2022-03-10] MEDS: hydrALAZINE HCL 50 MG TAB PO SCH ×2 (16:48→19:06)
[2022-03-10 16:56] LABS: Glucose,Whole Blood 175 mg/dL (75-99)
[2022-03-10] MEDS ORDERED: ATORVASTATIN 10 MG TAB PO SCH (21:00)
[2022-03-10] MEDS ORDERED: FERROUS SULFATE 325 MG TAB PO SCH (21:00)
[2022-03-10 21:12] LABS: Glucose,Whole Blood 159 mg/dL (75-99)
[2022-03-11] MEDS: METOCLOPRAMIDE 5 MG/ML 2 ML VIAL IVP PRN (01:42)
[2022-03-11] MEDS: hydrALAZINE HCL 20 MG/ML 1 ML VIAL IVP PRN ×2 (01:44→07:29)
[2022-03-11] MEDS: HYDROmorphone 1 MG/ML 1 ML SYRINGE IVP PRN (01:49)
[2022-03-11] MEDS: LORazepam 2 MG/ML INJ IV PRN ×2 (03:52→10:43)
[2022-03-11] MEDS: ONDANSETRON 4 MG/2 ML VIAL IVP PRN (03:52)
[2022-03-11] MEDS: SODIUM CHLORIDE 0.45% 1,000 ML IV SCH (04:51)
[2022-03-11 06:51] LABS: Glucose,Whole Blood 112 mg/dL (75-99)
[2022-03-11] MEDS: METOPROLOL SUCCINATE (ER) 50 MG TAB.ER.24H PO SCH (07:25)
[2022-03-11] MEDS: BUMETANIDE 1 MG TAB PO SCH (07:25)
[2022-03-11] MEDS: hydrALAZINE HCL 50 MG TAB PO SCH (07:25)
[2022-03-11] MEDS: PANTOPRAZOLE 40 MG/10 ML VIAL IVP SCH (07:29)
[2022-03-11] MEDS: ATROPINE OPHTH SOLN 1% 5ML BTL LEFT EYE SCH (08:29)
[2022-03-11] MEDS: GENTAMICIN 0.3% OPHTH DROPS 5 ML BTL LEFT EYE SCH ×2 (08:29→12:11)
[2022-03-11] MEDS: ERYTHROMYCIN 5 MG/GM OPHTH OINT 3.5 GM TUBE LEFT EYE SCH ×2 (08:29→12:11)
[2022-03-11] MEDS: prednisoLONE ACETATE 1% OPHTH DROPS 5 ML BTL LEFT EYE SCH ×2 (08:29→12:11)
[2022-03-11] MEDS ORDERED: SCOPOLAMINE 1 MG/72 HR PATCH TRANSDERM SCH (09:00)
[2022-03-11] MEDS ORDERED: METOCLOPRAMIDE 5 MG/ML 2 ML VIAL IVP SCH (09:00)
[2022-03-11 09:11] LABS: Basophils # (A) 0.09 X 10*3/uL (0.00-0.10); Basophils % (A) 0.8 %; Eosinophils # (A) 0.01 X 10*3/uL (0.04-0.35); Eosinophils % (A) 0.1 %; HCT 27.3 % (37.2-46.3); HGB 8.9 g/dL (12.0-15.0); Immature Grans, Automated 0.4 %; Lymphocytes # (A) 1.86 X 10*3/uL (0.90-5.00); Lymphocytes % (A) 16.3 %; MCH 29.5 pg (27.0-32.0); MCHC 32.6 g/dL (32.0-37.0); MCV 90.4 fL (80.0-97.0); Mean Platelet Volume 10.4 fL (9.5-12.2); Monocytes # (A) 1.03 X 10*3/uL (0.20-1.00); NRBC Per 100 WBC 0 /100 WBCS (0.0-0.0); Neutrophils # (A) 8.38 X 10*3/uL (1.80-7.70); Neutrophils % (A) 73.4 %; Platelet Count 235 X 10*3/uL (140-440); RBC 3.02 X 10*6/uL (4.10-5.20); RDW 13.6 % (11.5-14.5); WBC 11.42 X 10*3/uL (4.50-10.00)
[2022-03-11 09:28] LABS: ALT 16 U/L (8-44); AST 19 U/L (13-35); African American GFR (CKD) 16.9 (60.0-200.0); Albumin 3.1 g/dL (3.8-4.9); Albumin/Globulin Ratio 1.55 (1.60-3.17); Alkaline Phosphatase 63 U/L (41-126); BUN/Creat Ratio 11.62 Ratio (12.00-20.00); Blood Urea Nitrogen 45.3 mg/dL (9.0-27.0); Calcium 8.5 mg/dL (8.7-10.3); Carbon Dioxide 22.9 mmol/L (20.0-27.5); Chloride 105 mmol/L (96-109); Glucose 118 mg/dL (70-110); Non-African American GFR(CKD) 14.6 (60.0-200.0); Potassium 4.1 mmol/L (3.5-5.5); Sodium 141 mmol/L (135-145); Total Bilirubin <0.15 mg/dL (0.30-1.20); Total Protein 5.1 g/dL (6.2-8.2)
--- NOTE | 2022-03-11 10:44 | P.PN ---
Subjective Progress Note Date: 03/11/22 Principal diagnosis: Diabetic gastroparesis 31-year-old female seen today for follow-up. She has a long history of type 1 diabetes mellitus with diabetic gastroparesis, chronic kidney disease who was admitted for intractable nausea and vomiting. Patient states she continues to have nausea and vomiting. Vomited several times through the night and again this morning. She denies any abdominal pain. She is being followed closely by nephrology. She's been afebrile. Objective - Vital Signs Vital signs: Vital Signs Temp 98.1 F 03/11/22 08:00 Pulse 89 03/11/22 08:00 Resp 16 03/11/22 08:00 BP 190/95 03/11/22 08:00 Pulse Ox 96 03/11/22 08:00 Intake & Output 03/10/22 03/11/22 03/11/22 18:59 06:59 18:59 Output Total 6 Balance -6 Output: Emesis 6 Other: # Voids 2 # Emeses 5 - Exam General appearance: The patient is alert, oriented, appears in no acute distress. HET: Head is normocephalic and atraumatic. Conjunctiva pink. Sclera anicteric. Puffiness around bilateral upper and lower eyelids Neck: Supple without lymphadenopathy. Abdomen: Soft, nontender, nondistended with bowel sounds. No guarding or rigidity. Extremities: Normal skin color and turgor. No pedal edema Skin: No rashes, no jaundice Neurological: No focal deficits. Alert and oriented -3. - Labs CBC & Chem 7: 03/11/22 03:49 03/11/22 03:49 Labs: Abnormal Lab Results - Last 24 Hours (Table) 03/10/22 03/10/22 03/10/22 Range/Units 11:17 12:34 12:34 WBC (4.50-10.00) X 10*3/uL RBC 3.35 L (3.80-5.40) m/uL Hgb 10.3 L (11.4-16.0) gm/dL Hct 30.4 L (34.0-46.0) % Immature Gran # (0.00-0.04) X 10*3/uL Neutrophils # (1.80-7.70) X 10*3/uL Monocytes # (0.20-1.00) X 10*3/uL Eosinophils # (0.04-0.35) X 10*3/uL BUN 46 H (7-17) mg/dL Creatinine 3.50 H (0.52-1.04) mg/dL Est GFR (CKD-EPI)AfAm (60.0-200.0) Est GFR (CKD-EPI)NonAf (60.0-200.0) BUN/Creatinine Ratio (12.00-20.00) Ratio Glucose 160 H (74-99) mg/dL POC Glucose (mg/dL) 161 H (75-99) mg/dL Calcium 8.2 L (8.4-10.2) mg/dL Total Bilirubin (0.30-1.20) mg/dL Total Protein 5.4 L (6.3-8.2) g/dL Albumin 2.8 L (3.5-5.0) g/dL Albumin/Globulin Ratio (1.60-3.17) g/dL 03/10/22 03/10/22 03/11/22 Range/Units 16:54 21:10 03:49 WBC 11.42 H (4.50-10.00) X 10*3/uL RBC 3.02 L (3.80-5.40) m/uL Hgb 8.9 L (11.4-16.0) gm/dL Hct 27.3 L (34.0-46.0) % Immature Gran # 0.05 H (0.00-0.04) X 10*3/uL Neutrophils # 8.38 H (1.80-7.70) X 10*3/uL Monocytes # 1.03 H (0.20-1.00) X 10*3/uL Eosinophils # 0.01 L (0.04-0.35) X 10*3/uL BUN (7-17) mg/dL Creatinine (0.52-1.04) mg/dL Est GFR (CKD-EPI)AfAm (60.0-200.0) Est GFR (CKD-EPI)NonAf (60.0-200.0) BUN/Creatinine Ratio (12.00-20.00) Ratio Glucose (74-99) mg/dL POC Glucose (mg/dL) 175 H 159 H (75-99) mg/dL Calcium (8.4-10.2) mg/dL Total Bilirubin (0.30-1.20) mg/dL Total Protein (6.3-8.2) g/dL Albumin (3.5-5.0) g/dL Albumin/Globulin Ratio (1.60-3.17) g/dL 03/11/22 03/11/22 Range/Units 03:49 06:50 WBC (4.50-10.00) X 10*3/uL RBC (3.80-5.40) m/uL Hgb (11.4-16.0) gm/dL Hct (34.0-46.0) % Immature Gran # (0.00-0.04) X 10*3/uL Neutrophils # (1.80-7.70) X 10*3/uL Monocytes # (0.20-1.00) X 10*3/uL Eosinophils # (0.04-0.35) X 10*3/uL BUN 45.3 H (7-17) mg/dL Creatinine 3.9 H (0.52-1.04) mg/dL Est GFR (CKD-EPI)AfAm 16.9 L (60.0-200.0) Est GFR (CKD-EPI)NonAf 14.6 L (60.0-200.0) BUN/Creatinine Ratio 11.62 L (12.00-20.00) Ratio Glucose 118 H (74-99) mg/dL POC Glucose (mg/dL) 112 H (75-99) mg/dL Calcium 8.5 L (8.4-10.2) mg/dL Total Bilirubin <0.15 L (0.30-1.20) mg/dL Total Protein 5.1 L (6.3-8.2) g/dL Albumin 3.1 L (3.5-5.0) g/dL Albumin/Globulin Ratio 1.55 L (1.60-3.17) g/dL Microbiology - Last 24 Hours (Table) 03/10/22 03:30 Urine Culture - Preliminary Urine,Clean Catch Assessment and Plan (1) Diabetic gastroparesis Narrative/Plan: Patient has long-standing history of type 1 diabetes mellitus. She has a history of gastro-paresis related to her diabetes. States she's been hospitalized probably 4 times over the last year. She's had an EGD done 03/19/2021 that showed mild gastritis and early grade B reflux esophagitis. She currently symptoms are improving with Zofran and Reglan. She denies any hematemesis/coffee-ground emesis. 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 Her symptoms seem to be improving with IV hydration and GI rest. No plans on endoscopic evaluation. Continue with current treatment and will add Protonix 40 mg twice a day. 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 Continue clear liquid diet 2. Protonix 40 mg twice a day 3. Continue antiemetics, change Reglan to [id number]. Continue Zofran as needed. Will add scopolamine patch. 4. No plans on endoscopic evaluation 5. Strict glycemic control Thank you for this consultation, we will continue to monitor. Dr. Linda Jeff I agree with the dictator's note, documented as a scribe by Kailey Ayoub.
[2022-03-11 11:29] LABS: Glucose,Whole Blood 265 mg/dL (75-99)
[2022-03-11] MEDS ORDERED: cloNIDine 0.2 MG/24HR PATCH TRANSDERM SCH (11:30)
--- NOTE | 2022-03-11 14:02 | P.PN ---
Subjective Patient is seen for follow-up for acute kidney injury on top of chronic kidney disease and uncontrolled hypertension. Patient has an underlying history of biopsy-proven CK D stage IV secondary to diabetic nephropathy. Patient is admitted with nausea and vomiting from gastroparesis. Blood pressure remains elevated. Patient is not able to take any by mouth medications and is currently receiving IV hydralazine. Serum creatinine has increased slightly to 3.9 mg/dL. Titus inhibitors were discontinued yesterday. Patient reports good urine output. Objective - Vital Signs Vital signs: Vital Signs Temp 98.1 F 03/11/22 08:00 Pulse 89 03/11/22 08:00 Resp 16 03/11/22 08:00 BP 190/95 03/11/22 08:00 Pulse Ox 96 03/11/22 08:00 Intake & Output 03/10/22 03/11/22 03/11/22 18:59 06:59 18:59 Output Total 6 Balance -6 Output: Emesis 6 Other: # Voids 2 # Emeses 5 - Exam Awake, comfortable not in any acute distress Examination of the heart S1 and S2 Exertion lungs bilateral breath sounds are heard Abdomen is soft nontender Examination lower extremities shows no evidence of edema [employer] exam grossly intact patient has poor vision. - Labs CBC & Chem 7: 03/11/22 03:49 03/11/22 03:49 Labs: Abnormal Lab Results - Last 24 Hours (Table) 03/10/22 03/10/22 03/11/22 Range/Units 16:54 21:10 03:49 WBC 11.42 H (4.50-10.00) X 10*3/uL RBC 3.02 L (4.10-5.20) X 10*6/uL Hgb 8.9 L (12.0-15.0) g/dL Hct 27.3 L (37.2-46.3) % Immature Gran # 0.05 H (0.00-0.04) X 10*3/uL Neutrophils # 8.38 H (1.80-7.70) X 10*3/uL Monocytes # 1.03 H (0.20-1.00) X 10*3/uL Eosinophils # 0.01 L (0.04-0.35) X 10*3/uL BUN (9.0-27.0) mg/dL Creatinine (0.6-1.5) mg/dL Est GFR (CKD-EPI)AfAm (60.0-200.0) Est GFR (CKD-EPI)NonAf (60.0-200.0) BUN/Creatinine Ratio (12.00-20.00) Ratio Glucose (70-110) mg/dL POC Glucose (mg/dL) 175 H 159 H (75-99) mg/dL Calcium (8.7-10.3) mg/dL Total Bilirubin (0.30-1.20) mg/dL Total Protein (6.2-8.2) g/dL Albumin (3.8-4.9) g/dL Albumin/Globulin Ratio (1.60-3.17) g/dL 03/11/22 03/11/22 03/11/22 Range/Units 03:49 06:50 11:27 WBC (4.50-10.00) X 10*3/uL RBC (4.10-5.20) X 10*6/uL Hgb (12.0-15.0) g/dL Hct (37.2-46.3) % Immature Gran # (0.00-0.04) X 10*3/uL Neutrophils # (1.80-7.70) X 10*3/uL Monocytes # (0.20-1.00) X 10*3/uL Eosinophils # (0.04-0.35) X 10*3/uL BUN 45.3 H (9.0-27.0) mg/dL Creatinine 3.9 H (0.6-1.5) mg/dL Est GFR (CKD-EPI)AfAm 16.9 L (60.0-200.0) Est GFR (CKD-EPI)NonAf 14.6 L (60.0-200.0) BUN/Creatinine Ratio 11.62 L (12.00-20.00) Ratio Glucose 118 H (70-110) mg/dL POC Glucose (mg/dL) 112 H 265 H (75-99) mg/dL Calcium 8.5 L (8.7-10.3) mg/dL Total Bilirubin <0.15 L (0.30-1.20) mg/dL Total Protein 5.1 L (6.2-8.2) g/dL Albumin 3.1 L (3.8-4.9) g/dL Albumin/Globulin Ratio 1.55 L (1.60-3.17) g/dL Microbiology - Last 24 Hours (Table) 03/10/22 03:30 Urine Culture - Final Urine,Clean Catch Assessment and Plan Assessment: 1. Acute kidney injury, possibly prerenal associated with nausea and vomiting. Maintained on IV fluids. Titus inhibitors on hold UA shows 3+ protein WBCs 7. Computed tomography scan shows mild right hydronephrosis. No further intervention from urology standpoint 2. Chronic kidney disease NKF stage IV secondary to biopsy-proven diabetic kidney disease. Patient is currently on the transplant list at [facility]. She follows with a options trader in the [facility] system. 3. Nausea and vomiting associated with diabetic gastroparesis. 4. Uncontrolled hypertension, currently receiving IV hydralazine as patient is not able to take any by mouth meds 5. Right hydronephrosis with no history of renal colic. No further intervention from urology standpoint. Plan: Add Catapres patch Continue with half normal saline Continue off of TITUS inhibitor's Repeat labs in a.m. Add IV labetalol if blood pressure remains uncontrolled and patient is not able to take by mouth meds.
[2022-03-11 15:38] VITALS: BP 175/95; PULSE 93; RESP 18; TEMP 99.6
== END 2022-03-11 15:48 | disposition left against medical advice (07) | DRG 74 ==
LOC: EC 10:23 → 4SSUR 20:51
PROVIDERS: ADMIT Family Medicine; ATTEND Family Medicine
DX: E10.43 Type 1 diabetes mellitus with diabetic autonomic (poly)neuropathy (principal); N18.4 Chronic kidney disease, stage 4 (severe); N13.30 Unspecified hydronephrosis; N17.9 Acute kidney failure, unspecified; E10.22 Type 1 diabetes mellitus with diabetic chronic kidney disease; E10.319 Type 1 diabetes mellitus with unspecified diabetic retinopathy without macular edema; E10.42 Type 1 diabetes mellitus with diabetic polyneuropathy; K31.84 Gastroparesis; I12.9 Hypertensive chronic kidney disease with stage 1 through stage 4 chronic kidney disease, or unspecified chronic kidney disease; K58.0 Irritable bowel syndrome with diarrhea; Z96.41 Presence of insulin pump (external) (internal); Z20.822 Contact with and (suspected) exposure to COVID-19; Z79.4 Long term (current) use of insulin; Z86.16 Personal history of COVID-19; Z87.442 Personal history of urinary calculi; Z76.82 Awaiting organ transplant status; Z79.899 Other long term (current) drug therapy; Z98.890 Other specified postprocedural states
CPT/HCPCS: 36415; 74176; 80053; 81001; 81025; 82150; 83605; 83690; 85025; 87086; 87502; 87635; 96374; 96375; 96376; 99285

== ENCOUNTER 2022-03-16 16:14 | Emergency (ER) | payer BC ==
[2022-03-16 17:38] VITALS: TEMP 97.6
[2022-03-16 21:01] LABS: Basophils # (A) 0.1 k/uL (0-0.2); Basophils % (A) 1 %; Eosinophils % (A) 0 %; HCT 36.8 % (34.0-46.0); HGB 12.8 gm/dL (11.4-16.0); Lymphocytes % (A) 21 %; MCH 30.3 pg (25.0-35.0); MCHC 34.8 g/dL (31.0-37.0); Mean Platelet Volume 7.8; Monocytes # (A) 0.6 k/uL (0-1.0); Monocytes % (A) 6 %; Neutrophils # (A) 6.9 k/uL (1.3-7.7); Neutrophils % (A) 71 %; Platelet Count 322 k/uL (150-450); RBC 4.23 m/uL (3.80-5.40); RDW 14.2 % (11.5-15.5); WBC 9.7 k/uL (3.8-10.6)
[2022-03-16] MEDS ORDERED: HYDROmorphone 0.5 MG/0.5 ML SYRINGE IVP STA (21:24)
[2022-03-16] MEDS ORDERED: diphenhydrAMINE 50 MG/ML 1 ML VIAL IVP STA (21:24)
[2022-03-16] MEDS ORDERED: ONDANSETRON 4 MG/2 ML VIAL IVP STA (21:24)
[2022-03-16] MEDS ORDERED: METOCLOPRAMIDE 5 MG/ML 2 ML VIAL IVP STA (21:24)
[2022-03-16 22:05] LABS: Glucose,Whole Blood 102 mg/dL (75-99)
[2022-03-16 22:10] LABS: Albumin 3.7 g/dL (3.5-5.0); Calcium 9.4 mg/dL (8.4-10.2); Potassium 3.8 mmol/L (3.5-5.1); Total Bilirubin 0.9 mg/dL (0.2-1.3); Total Protein 6.7 g/dL (6.3-8.2)
[2022-03-16 22:36] LABS: Appearance,Urine Cloudy (Clear); Bacteria,Urine Many /hpf; Bilirubin,Urine Negative (Negative); Blood,Urine Moderate (Negative); Color,Urine Yellow; Glucose,Urine (UA) Trace (Negative); Hyaline Casts,Urine 13 /lpf (0-2); Ketones,Urine Trace (Negative); Leukocyte Esterase,Urine Negative (Negative); Mucus,Urine Rare /hpf; Nitrite,Urine Negative (Negative); PH, Urine 7.5 (5.0-8.0); Protein,Urine 3+ (Negative); RBC,Urine 9 /hpf (0-5); Specific Gravity,Urine 1.015 (1.001-1.035); Squamous Epithelial Cell,Urine 12 /hpf (0-4); Urobilinogen,Urine <2.0 mg/dL (<2.0); WBC,Urine 5 /hpf (0-5)
--- NOTE | 2022-03-17 00:08 | ED ---
General Adult HPI - General Chief complaint: Nausea/Vomiting/Diarrhea Stated complaint: Abd pain,vomiting Time Seen by Provider: 03/16/22 20:57 Source: patient Mode of arrival: wheelchair Limitations: no limitations - History of Present Illness Initial comments: Patient is a 31-year-old female presenting with chief complaint of nausea and vomiting. She states this has been going on for the last 3 days. She has a history of diabetic gastroparesis and stage IV kidney failure. Patient states that this feels like one of her typical "episodes". She is admitting to generalized abdominal pain. She has been unable to tolerate her home medications resulting in hypertension and anxiety. She admits to regular bowel movements and had a recent episode of diarrhea. No hematochezia or hematemesis. She denies chest pain, shortness of breath, fever, chills, melena, URI-like symptoms, cough, dysuria, hematuria, urgency, frequency, flank pain, dizziness, weakness, fruity smelling breath, loss of consciousness. - Related Data Home Medications Medication Instructions Recorded Confirmed Atropine Ophth Soln 1% 5Ml [Isopto 1 drop LEFT EYE BID 03/13/21 03/16/22 Atropine 1% 5Ml] Gentamicin 0.3% Ophth Soln 1 drop LEFT EYE QID 03/13/21 03/16/22 [Garamycin 0.3% Ophth Soln] Insulin Glargine,Hum.rec.anlog 1 - 20 unit SQ HS PRN 03/13/21 03/16/22 [Lantus Solostar Pen] Insulin Lispro [humaLOG Kwikpen] 1 - 10 unit SQ ACHS MDD 40 03/13/21 03/16/22 UNITS/DAY prednisoLONE ACETATE 1% OPHTH 1 drop LEFT EYE QID 03/13/21 03/16/22 [Pred Forte 1%] Atorvastatin Calcium [Lipitor] 10 mg PO HS 03/09/22 03/16/22 Bumetanide [Bumex] 1 mg PO DAILY 03/09/22 03/16/22 Erythromycin Ophth Oint [Romycin 1 applic LEFT EYE QID 03/09/22 03/16/22 Ophth Oint] Ferrous Sulfate [Feosol] 325 mg PO HS 03/09/22 03/16/22 Glucagon Emergency Kit 1 mg IM ONCE PRN 03/09/22 03/16/22 INSULIN LISPRO (For Pump) [humaLOG 0.01 units SQ-PUMP CONTINUOUS MDD 03/09/22 03/16/22 (For Pump)] 70 UNITS Metoprolol Succinate [Toprol XL] 50 mg PO DAILY 03/09/22 03/16/22 NIFEdipine XL [Procardia XL] 60 mg PO DAILY 03/09/22 03/16/22 Ondansetron [Zofran] 4 mg PO Q8H PRN 03/09/22 03/16/22 hydrALAZINE HCL [Apresoline] 25 mg PO Q8H PRN 03/09/22 03/16/22 lisinopriL [Prinivil] 20 mg PO BID 03/09/22 03/16/22 Previous Rx's Medication Instructions Recorded Metoclopramide [Reglan] 10 mg PO TID #15 tab 03/09/22 Ondansetron Odt [Zofran Odt] 4 mg PO Q8HR PRN #30 tab 03/17/22 Allergies Allergy/AdvReac Type Severity Reaction Status Date / Time mold AdvReac Dyspnea Verified 03/16/22 21:54 Review of Systems ROS Statement: Those systems with pertinent positive or pertinent negative responses have been documented in the HPI. ROS Other: All systems not noted in ROS Statement are negative. Past Medical History Past Medical History: Diabetes Mellitus, Pneumonia, Renal Disease Additional Past Medical History / Comment(s): IDDM type I, bilateral retinopathy with injections, DKA, IBS/constipation, bronchitis, febrile seizure at 3 yrs of age. covid positive 11/2020. History of Any Multi-Drug Resistant Organisms: None Reported Past Surgical History: Adenoidectomy, Tonsillectomy Additional Past Surgical History / Comment(s): sinus balloon plasty, wisdom teeth extractions., right eye surgery 02/18/21. Past Anesthesia/Blood Transfusion Reactions: No Reported Reaction Additional Past Anesthesia/Blood Transfusion Reaction / Comment(s): no transfusions Past Psychological History: Anxiety Smoking Status: Never smoker Past Alcohol Use History: None Reported, Occasional Past Drug Use History: None Reported - Past Family History Mother Family Medical History: No Reported History Additional Family Medical History / Comment(s): Mother is healthy. Father Family Medical History: No Reported History Additional Family Medical History / Comment(s): Father is healthy General Exam Limitations: no limitations General appearance: alert, in no apparent distress Head exam: Present: atraumatic, normocephalic, normal inspection Eye exam: Present: normal appearance, EOMI. Absent: scleral icterus ENT exam: Present: normal exam, mucous membranes moist Neck exam: Present: normal inspection Respiratory exam: Present: normal lung sounds bilaterally. Absent: respiratory distress, wheezes, rales, rhonchi, stridor Cardiovascular Exam: Present: regular rate, normal rhythm, normal heart sounds. Absent: systolic murmur, diastolic murmur, rubs, gallop, clicks GI/Abdominal exam: Present: soft, normal bowel sounds. Absent: distended, tenderness, guarding, rebound, rigid Back exam: Present: normal inspection. Absent: CVA tenderness (R), CVA tenderness (L) Neurological exam: Present: alert, oriented X3, CN II-XII intact Psychiatric exam: Present: anxious Skin exam: Present: warm, dry, intact, normal color. Absent: rash Course Vital Signs 03/16/22 03/16/22 03/16/22 17:36 19:34 21:57 Temperature 97.6 F Pulse Rate 70 78 71 Respiratory 18 16 22 Rate Blood Pressure 211/114 196/120 133/100 O2 Sat by Pulse 100 100 100 Oximetry 03/16/22 22:00 Temperature Pulse Rate 71 Respiratory 20 Rate Blood Pressure 179/96 O2 Sat by Pulse 96 Oximetry EKG Findings - EKG Comments: EKG Findings:: EKG shows sinus rhythm with rate is 80 BPM. Arm leads reversed, inverted P and QRS in I. FL interval 155. QRS duration 76. Normal axis. This EKG was also shown to and interpreted by my attending Dr. Montano. Medical Decision Making - Medical Decision Making Patient is a 31-year-old female with history of diabetic gastroparesis and stage IV kidney disease presenting with chief complaint of nausea and vomiting. Symptoms have been present for the last 3 days are accompanied by abdominal pain. Patient states that this feels like a typical episode of gastroparesis for her. Upon initial examination the patient is crying and her hands were shaking. She is expressing concern over her elevated blood pressure. She states that she has been unable to tolerate her oral home medications due to her nausea and vomiting. On examination lungs are clear to auscultation, heart sounds normal. Abdomen is soft, nontender, nondistended with normal bowel sounds. Patient is given IV Benadryl, Reglan, Zofran, dilaudid for symptomatic control, as patient states that this is routinely what works for her symptomatic control. EKG shows sinus rhythm with a rate of 80, FL interval of 155 QRS duration of 76. Lab work shows elevated BUN and creatinine of 49 and 3.18 respectively. Glucose is 105. Urine is remarkable for 3+ protein and moderate blood. Patient has routinely had blood in her urine at past visits. Patient was just admitted last week and seen by nephrology in regards to her high creatinine. On reevaluation patient is resting comfortably. She states that her symptoms have improved a great deal. She passed a by mouth challenge. I provided her with a prescription for Zofran ODT 4 mg every 8 hours as needed for nausea. She appears stable for discharge with outpatient follow-up at this time. Follow-up with PCP and nephrology. I educated on return parameters and alarm symptoms. Answered all questions. Report back to ER with any worsening symptoms. Patient conveyed verbal understanding and agreed to the plan. I discussed this case with my attending Dr. Montano. - Lab Data Result diagrams: 03/16/22 19:38 03/16/22 21:34 Lab Results 03/16/22 03/16/22 03/16/22 Range/Units 19:38 21:34 21:34 WBC 9.7 (3.8-10.6) k/uL RBC 4.23 (3.80-5.40) m/uL Hgb 12.8 (11.4-16.0) gm/dL Hct 36.8 (34.0-46.0) % MCV 87.0 (80.0-100.0) fL MCH 30.3 (25.0-35.0) pg MCHC 34.8 (31.0-37.0) g/dL RDW 14.2 (11.5-15.5) % Plt Count 322 (150-450) k/uL MPV 7.8 Neutrophils % 71 % Lymphocytes % 21 % Monocytes % 6 % Eosinophils % 0 % Basophils % 1 % Neutrophils # 6.9 (1.3-7.7) k/uL Lymphocytes # 2.0 (1.0-4.8) k/uL Monocytes # 0.6 (0-1.0) k/uL Eosinophils # 0.0 (0-0.7) k/uL Basophils # 0.1 (0-0.2) k/uL Sodium 137 (137-145) mmol/L Potassium 3.8 (3.5-5.1) mmol/L Chloride 103 (98-107) mmol/L Carbon Dioxide 26 (22-30) mmol/L Anion Gap 8 mmol/L BUN 49 H (7-17) mg/dL Creatinine 3.18 H (0.52-1.04) mg/dL Est GFR (CKD-EPI)AfAm 22 (>60 ml/min/1.73 sqM) Est GFR (CKD-EPI)NonAf 19 (>60 ml/min/1.73 sqM) Glucose 105 H (74-99) mg/dL POC Glucose (mg/dL) (75-99) mg/dL POC Glu Clipper Machine Operator ID Calcium 9.4 (8.4-10.2) mg/dL Total Bilirubin 0.9 (0.2-1.3) mg/dL AST 30 (14-36) U/L ALT 18 (4-34) U/L Alkaline Phosphatase 95 (38-126) U/L Troponin I <0.012 (0.000-0.034) ng/mL Total Protein 6.7 (6.3-8.2) g/dL Albumin 3.7 (3.5-5.0) g/dL Amylase 87 (30-110) U/L Lipase 52 (23-300) U/L Urine Color Urine Appearance (Clear) Urine pH (5.0-8.0) Ur Specific [place] (1.001-1.035) Urine Protein (Negative) Urine Glucose (UA) (Negative) Urine Ketones (Negative) Urine Blood (Negative) Urine Nitrite (Negative) Urine Bilirubin (Negative) Urine Urobilinogen (<2.0) mg/dL Ur Leukocyte Esterase (Negative) Urine RBC (0-5) /hpf Urine WBC (0-5) /hpf Ur Squamous Epith Cells (0-4) /hpf Urine Bacteria (None) /hpf Hyaline Casts (0-2) /lpf Urine Mucus (None) /hpf Urine HCG, Qual (Not Detectd) 03/16/22 03/16/22 03/16/22 Range/Units 21:54 21:56 21:56 WBC (3.8-10.6) k/uL RBC (3.80-5.40) m/uL Hgb (11.4-16.0) gm/dL Hct (34.0-46.0) % MCV (80.0-100.0) fL MCH (25.0-35.0) pg MCHC (31.0-37.0) g/dL RDW (11.5-15.5) % Plt Count (150-450) k/uL MPV Neutrophils % % Lymphocytes % % Monocytes % % Eosinophils % % Basophils % % Neutrophils # (1.3-7.7) k/uL Lymphocytes # (1.0-4.8) k/uL Monocytes # (0-1.0) k/uL Eosinophils # (0-0.7) k/uL Basophils # (0-0.2) k/uL Sodium (137-145) mmol/L Potassium (3.5-5.1) mmol/L Chloride (98-107) mmol/L Carbon Dioxide (22-30) mmol/L Anion Gap mmol/L BUN (7-17) mg/dL Creatinine (0.52-1.04) mg/dL Est GFR (CKD-EPI)AfAm (>60 ml/min/1.73 sqM) Est GFR (CKD-EPI)NonAf (>60 ml/min/1.73 sqM) Glucose (74-99) mg/dL POC Glucose (mg/dL) 102 H (75-99) mg/dL POC Glu Clipper Machine Operator ID Alden Lawson Calcium (8.4-10.2) mg/dL Total Bilirubin (0.2-1.3) mg/dL AST (14-36) U/L ALT (4-34) U/L Alkaline Phosphatase (38-126) U/L Troponin I (0.000-0.034) ng/mL Total Protein (6.3-8.2) g/dL Albumin (3.5-5.0) g/dL Amylase (30-110) U/L Lipase (23-300) U/L Urine Color Yellow Urine Appearance Cloudy H (Clear) Urine pH 7.5 (5.0-8.0) Ur Specific [place] 1.015 (1.001-1.035) Urine Protein 3+ H (Negative) Urine Glucose (UA) Trace H (Negative) Urine Ketones Trace H (Negative) Urine Blood Moderate H (Negative) Urine Nitrite Negative (Negative) Urine Bilirubin Negative (Negative) Urine Urobilinogen <2.0 (<2.0) mg/dL Ur Leukocyte Esterase Negative (Negative) Urine RBC 9 H (0-5) /hpf Urine WBC 5 (0-5) /hpf Ur Squamous Epith Cells 12 H (0-4) /hpf Urine Bacteria Many H (None) /hpf Hyaline Casts 13 H (0-2) /lpf Urine Mucus Rare H (None) /hpf Urine HCG, Qual Not Detected (Not Detectd) Disposition Clinical Impression: Diabetic gastroparesis Disposition: HOME SELF-CARE Condition: Good Instructions (If sedation given, give patient instructions): Diabetic Gastroparesis (DC), Acute Nausea and Vomiting (ED) Additional Instructions: Follow-up with primary care in 1-2 days. Follow-up with nephrology in one to 2 days. Take medication as prescribed. Report back to ER with any worsening symptoms. Prescriptions: Ondansetron Odt [Zofran Odt] 4 mg PO Q8HR PRN #30 tab PRN Reason: Nausea Is patient prescribed a controlled substance at d/c from ED?: No Referrals: None,Stated [Primary Care Provider] - 1-2 days Time of Disposition: 00:09
[2022-03-17] MEDS ORDERED: diphenhydrAMINE 50 MG/ML 1 ML VIAL IVP STA ×2 (01:36→06:33)
[2022-03-17] MEDS ORDERED: HYDROmorphone 0.5 MG/0.5 ML SYRINGE IVP STA (01:36)
[2022-03-17] MEDS ORDERED: METOCLOPRAMIDE 5 MG/ML 2 ML VIAL IVP STA ×2 (01:36→06:33)
[2022-03-17 05:52] VITALS: BP 167/120; PULSE 79; RESP 22
== END 2022-03-17 06:53 | disposition home or self-care (01) ==
LOC: EC 16:14
DX: E11.43 Type 2 diabetes mellitus with diabetic autonomic (poly)neuropathy (principal); K31.84 Gastroparesis; I10 Essential (primary) hypertension; Z91.048 Other nonmedicinal substance allergy status
CPT/HCPCS: 36415; 93005; 80053; 82150; 83690; 84484; 85025; 81001; 81025; 99284; 96374; 96375; 96376; J1200; J2765; J2405; J1170

== ENCOUNTER 2022-04-02 19:11 | Emergency (ER) | payer BC ==
[2022-04-02] MEDS ORDERED: HYDROmorphone 0.5 MG/0.5 ML SYRINGE IVP STA (21:28)
[2022-04-02] MEDS ORDERED: METOCLOPRAMIDE 5 MG/ML 2 ML VIAL IVP STA (21:28)
[2022-04-02] MEDS ORDERED: SODIUM CHLORIDE 0.9% 1,000 ML IV STA (21:28)
[2022-04-02] MEDS ORDERED: diphenhydrAMINE 50 MG/ML 1 ML VIAL IVP STA (21:28)
--- NOTE | 2022-04-02 21:39 | ED ---
General Adult HPI - General Chief complaint: Nausea/Vomiting/Diarrhea Stated complaint: Nausea,Vomiting,High BP Time Seen by Provider: 04/02/22 21:14 Source: patient Mode of arrival: ambulatory Limitations: no limitations - History of Present Illness Initial comments: This 31-year-old female with past medical history of diabetes mellitus type 1, chronic kidney disease stage IV and gastroparesis presents to the emergency department with nausea and vomiting 24 hours. Patient states she frequently gets these episodes and states this is the same as her prior episode last month. Patient states she does have some generalized abdominal discomfort. Patient states when this occurs she usually presents to the emergency department and gets Reglan, Benadryl and Dilaudid which "resets her." Patient states she also has hypertension and currently takes lisinopril, metoprolol, nifedipine and atorvastatin- however she states after she took them today she did vomit them back up. Patient states she also has bilateral lower [place] swelling which has been present since her diagnosis of chronic kidney disease. Patient states she is currently on an insulin pump. Patient denies any hemoptysis or blood in her vomit. She denies any chest pain, shortness of breath, change in bowel or bladder, lightheadedness, dizziness, change in vision, fever, headache, rash. - Related Data Home Medications Medication Instructions Recorded Confirmed Atropine Ophth Soln 1% 5Ml [Isopto 1 drop LEFT EYE BID 03/13/21 04/02/22 Atropine 1% 5Ml] Gentamicin 0.3% Ophth Soln 1 drop LEFT EYE QID 03/13/21 04/02/22 [Garamycin 0.3% Ophth Soln] Insulin Glargine,Hum.rec.anlog 1 - 20 unit SQ HS PRN 03/13/21 04/02/22 [Lantus Solostar Pen] Insulin Lispro [humaLOG Kwikpen] 1 - 10 unit SQ ACHS MDD 40 03/13/21 04/02/22 UNITS/DAY prednisoLONE ACETATE 1% OPHTH 1 drop LEFT EYE QID 03/13/21 04/02/22 [Pred Forte 1%] Atorvastatin Calcium [Lipitor] 10 mg PO HS 03/09/22 04/02/22 Bumetanide [Bumex] 1 mg PO DAILY 03/09/22 04/02/22 Erythromycin Ophth Oint [Romycin 1 applic LEFT EYE QID 03/09/22 04/02/22 Ophth Oint] Ferrous Sulfate [Feosol] 325 mg PO HS 03/09/22 04/02/22 Glucagon Emergency Kit 1 mg IM ONCE PRN 03/09/22 04/02/22 INSULIN LISPRO (For Pump) [humaLOG 0.01 units SQ-PUMP CONTINUOUS MDD 03/09/22 04/02/22 (For Pump)] 70 UNITS Metoprolol Succinate [Toprol XL] 50 mg PO DAILY 03/09/22 04/02/22 NIFEdipine XL [Procardia XL] 60 mg PO DAILY 03/09/22 04/02/22 Ondansetron [Zofran] 4 mg PO Q8H PRN 03/09/22 04/02/22 hydrALAZINE HCL [Apresoline] 25 mg PO Q8H PRN 03/09/22 04/02/22 lisinopriL [Prinivil] 20 mg PO BID 03/09/22 04/02/22 Domperidone 10mg 10 mg PO TID 04/02/22 04/02/22 Previous Rx's Medication Instructions Recorded Metoclopramide [Reglan] 10 mg PO TID #15 tab 03/09/22 Ondansetron Odt [Zofran Odt] 4 mg PO Q8HR PRN #30 tab 03/17/22 Allergies Allergy/AdvReac Type Severity Reaction Status Date / Time mold AdvReac Dyspnea Verified 04/02/22 21:46 Review of Systems ROS Statement: Those systems with pertinent positive or pertinent negative responses have been documented in the HPI. ROS Other: All systems not noted in ROS Statement are negative. Past Medical History Past Medical History: Diabetes Mellitus, Pneumonia, Renal Disease Additional Past Medical History / Comment(s): IDDM type I, bilateral retinopathy with injections, DKA, IBS/constipation, bronchitis, febrile seizure at 3 yrs of age. covid positive 11/2020. History of Any Multi-Drug Resistant Organisms: None Reported Past Surgical History: Adenoidectomy, Tonsillectomy Additional Past Surgical History / Comment(s): sinus balloon plasty, wisdom teeth extractions., right eye surgery 02/18/21. Past Anesthesia/Blood Transfusion Reactions: No Reported Reaction Additional Past Anesthesia/Blood Transfusion Reaction / Comment(s): no transfusions Past Psychological History: Anxiety Smoking Status: Never smoker Past Alcohol Use History: None Reported, Occasional Past Drug Use History: None Reported - Past Family History Mother Family Medical History: No Reported History Additional Family Medical History / Comment(s): Mother is healthy. Father Family Medical History: No Reported History Additional Family Medical History / Comment(s): Father is healthy General Exam Limitations: no limitations General appearance: alert, in no apparent distress Head exam: Present: atraumatic, normocephalic, normal inspection Eye exam: Present: normal appearance, PERRL, EOMI. Absent: scleral icterus, conjunctival injection, periorbital swelling Pupils: Present: normal accommodation ENT exam: Present: normal exam, normal oropharynx, mucous membranes moist Neck exam: Present: normal inspection, full ROM. Absent: tenderness, meningismus, lymphadenopathy Respiratory exam: Present: normal lung sounds bilaterally. Absent: respiratory distress, wheezes, rales, rhonchi, stridor Cardiovascular Exam: Present: regular rate, normal rhythm, normal heart sounds. Absent: systolic murmur, diastolic murmur, rubs, gallop, clicks GI/Abdominal exam: Present: soft, tenderness (Generalized abdominal discomfort in all quadrants- no one quadrant worse than others), normal bowel sounds. Absent: distended, guarding, rebound, rigid Extremities exam: Present: normal inspection, full ROM, normal capillary refill. Absent: tenderness, pedal edema, joint swelling, calf tenderness Back exam: Present: full ROM. Absent: CVA tenderness (R), CVA tenderness (L), paraspinal tenderness, vertebral tenderness Neurological exam: Present: alert, oriented X3, CN II-XII intact Psychiatric exam: Present: normal affect, normal mood Course Vital Signs 04/02/22 04/02/22 04/02/22 19:26 22:35 22:40 Temperature 98.2 F 99.2 F Pulse Rate 68 77 Respiratory 18 20 Rate Blood Pressure 206/110 194/107 186/92 O2 Sat by Pulse 98 100 100 Oximetry Medical Decision Making - Medical Decision Making This 31-year-old female presents emergency Department with nausea and vomiting. Patient has a history of familial chronic kidney disease stage IV, diabetes mellitus and gastroparesis. Patient given fluids, Benadryl and Reglan and stated she felt much better and is requesting discharge. Labs with elevated creatinine and BUN, at patient's baseline. Glucose 69- Sprite given the patient to treat glucose patient to be discharged after glucose increases greater than 75 . Patient instructed to follow up with her primary care provider next 1-2 days. Strict return precautions were discussed. Patient verbally agreed to plan. Patient sent in stable condition. Discussed case in detail with my attending, - Lab Data Result diagrams: 04/02/22 22:00 04/02/22 22:00 Lab Results 04/02/22 04/02/22 04/02/22 Range/Units 22:00 22:00 22:00 WBC 12.0 H (3.8-10.6) k/uL RBC 3.82 (3.80-5.40) m/uL Hgb 11.3 L (11.4-16.0) gm/dL Hct 34.6 (34.0-46.0) % MCV 90.6 (80.0-100.0) fL MCH 29.5 (25.0-35.0) pg MCHC 32.6 (31.0-37.0) g/dL RDW 13.6 (11.5-15.5) % Plt Count 253 (150-450) k/uL MPV 7.6 Neutrophils % 74 % Lymphocytes % 18 % Monocytes % 5 % Eosinophils % 1 % Basophils % 1 % Neutrophils # 8.8 H (1.3-7.7) k/uL Lymphocytes # 2.2 (1.0-4.8) k/uL Monocytes # 0.6 (0-1.0) k/uL Eosinophils # 0.1 (0-0.7) k/uL Basophils # 0.1 (0-0.2) k/uL Sodium (137-145) mmol/L Potassium (3.5-5.1) mmol/L Chloride (98-107) mmol/L Carbon Dioxide (22-30) mmol/L Anion Gap mmol/L BUN (7-17) mg/dL Creatinine (0.52-1.04) mg/dL Est GFR (CKD-EPI)AfAm (>60 ml/min/1.73 sqM) Est GFR (CKD-EPI)NonAf (>60 ml/min/1.73 sqM) Glucose (74-99) mg/dL Calcium (8.4-10.2) mg/dL Total Bilirubin (0.2-1.3) mg/dL AST (14-36) U/L ALT (4-34) U/L Alkaline Phosphatase (38-126) U/L Total Protein (6.3-8.2) g/dL Albumin (3.5-5.0) g/dL Amylase (30-110) U/L Lipase (23-300) U/L Urine Color Light Yellow Urine Appearance Clear (Clear) Urine pH 7.5 (5.0-8.0) Ur Specific [place] 1.010 (1.001-1.035) Urine Protein 3+ H (Negative) Urine Glucose (UA) Negative (Negative) Urine Ketones Negative (Negative) Urine Blood Moderate H (Negative) Urine Nitrite Negative (Negative) Urine Bilirubin Negative (Negative) Urine Urobilinogen <2.0 (<2.0) mg/dL Ur Leukocyte Esterase Negative (Negative) Urine RBC 17 H (0-5) /hpf Urine WBC 3 (0-5) /hpf Ur Squamous Epith Cells 2 (0-4) /hpf Urine Bacteria Few H (None) /hpf Hyaline Casts 34 H (0-2) /lpf Urine Mucus Rare H (None) /hpf Urine HCG, Qual Not Detected (Not Detectd) 04/02/22 Range/Units 22:00 WBC (3.8-10.6) k/uL RBC (3.80-5.40) m/uL Hgb (11.4-16.0) gm/dL Hct (34.0-46.0) % MCV (80.0-100.0) fL MCH (25.0-35.0) pg MCHC (31.0-37.0) g/dL RDW (11.5-15.5) % Plt Count (150-450) k/uL MPV Neutrophils % % Lymphocytes % % Monocytes % % Eosinophils % % Basophils % % Neutrophils # (1.3-7.7) k/uL Lymphocytes # (1.0-4.8) k/uL Monocytes # (0-1.0) k/uL Eosinophils # (0-0.7) k/uL Basophils # (0-0.2) k/uL Sodium 139 (137-145) mmol/L Potassium 4.6 (3.5-5.1) mmol/L Chloride 104 (98-107) mmol/L Carbon Dioxide 25 (22-30) mmol/L Anion Gap 10 mmol/L BUN 52 H (7-17) mg/dL Creatinine 3.10 H (0.52-1.04) mg/dL Est GFR (CKD-EPI)AfAm 22 (>60 ml/min/1.73 sqM) Est GFR (CKD-EPI)NonAf 19 (>60 ml/min/1.73 sqM) Glucose 69 L (74-99) mg/dL Calcium 9.4 (8.4-10.2) mg/dL Total Bilirubin 0.7 (0.2-1.3) mg/dL AST 25 (14-36) U/L ALT 15 (4-34) U/L Alkaline Phosphatase 83 (38-126) U/L Total Protein 6.4 (6.3-8.2) g/dL Albumin 3.6 (3.5-5.0) g/dL Amylase 113 H (30-110) U/L Lipase 73 (23-300) U/L Urine Color Urine Appearance (Clear) Urine pH (5.0-8.0) Ur Specific [place] (1.001-1.035) Urine Protein (Negative) Urine Glucose (UA) (Negative) Urine Ketones (Negative) Urine Blood (Negative) Urine Nitrite (Negative) Urine Bilirubin (Negative) Urine Urobilinogen (<2.0) mg/dL Ur Leukocyte Esterase (Negative) Urine RBC (0-5) /hpf Urine WBC (0-5) /hpf Ur Squamous Epith Cells (0-4) /hpf Urine Bacteria (None) /hpf Hyaline Casts (0-2) /lpf Urine Mucus (None) /hpf Urine HCG, Qual (Not Detectd) Disposition Clinical Impression: Nausea and vomiting, History of kidney disease Disposition: HOME SELF-CARE Condition: Stable Instructions (If sedation given, give patient instructions): Acute Nausea and Vomiting (ED) Additional Instructions: Please follow-up with her primary care provider next 1-2 days. Return to the emergency department with any new, worsening, or concerning symptoms. Is patient prescribed a controlled substance at d/c from ED?: No Referrals: Deshawn Brown MD [Primary Care Provider] - 1-2 days Time of Disposition: 23:07
[2022-04-02] MEDS ORDERED: hydrALAZINE HCL 20 MG/ML 1 ML VIAL IVP STA (21:52)
[2022-04-02 22:36] VITALS: PULSE 77; RESP 20; TEMP 99.2
[2022-04-02 22:41] LABS: Basophils # (A) 0.1 k/uL (0-0.2); Basophils % (A) 1 %; Eosinophils # (A) 0.1 k/uL (0-0.7); Eosinophils % (A) 1 %; HCT 34.6 % (34.0-46.0); HGB 11.3 gm/dL (11.4-16.0); Lymphocytes # (A) 2.2 k/uL (1.0-4.8); Lymphocytes % (A) 18 %; MCH 29.5 pg (25.0-35.0); MCHC 32.6 g/dL (31.0-37.0); MCV 90.6 fL (80.0-100.0); Mean Platelet Volume 7.6; Monocytes # (A) 0.6 k/uL (0-1.0); Monocytes % (A) 5 %; Neutrophils # (A) 8.8 k/uL (1.3-7.7); Neutrophils % (A) 74 %; Platelet Count 253 k/uL (150-450); RBC 3.82 m/uL (3.80-5.40); RDW 13.6 % (11.5-15.5)
[2022-04-02 22:47] VITALS: BP 186/92
[2022-04-02 22:51] LABS: Albumin 3.6 g/dL (3.5-5.0); Calcium 9.4 mg/dL (8.4-10.2); Potassium 4.6 mmol/L (3.5-5.1); Total Bilirubin 0.7 mg/dL (0.2-1.3); Total Protein 6.4 g/dL (6.3-8.2)
[2022-04-02 22:57] LABS: Appearance,Urine Clear (Clear); Bacteria,Urine Few /hpf; Bilirubin,Urine Negative (Negative); Blood,Urine Moderate (Negative); Color,Urine Light Yellow; Glucose,Urine (UA) Negative (Negative); Hyaline Casts,Urine 34 /lpf (0-2); Ketones,Urine Negative (Negative); Leukocyte Esterase,Urine Negative (Negative); Mucus,Urine Rare /hpf; Nitrite,Urine Negative (Negative); PH, Urine 7.5 (5.0-8.0); Protein,Urine 3+ (Negative); RBC,Urine 17 /hpf (0-5); Squamous Epithelial Cell,Urine 2 /hpf (0-4); Urobilinogen,Urine <2.0 mg/dL (<2.0); WBC,Urine 3 /hpf (0-5)
[2022-04-03 05:27] LABS: Glucose,Whole Blood 67 mg/dL (75-99)
== END 2022-04-02 23:20 | disposition home or self-care (01) ==
LOC: EC 19:11
DX: R11.2 Nausea with vomiting, unspecified (principal); E11.9 Type 2 diabetes mellitus without complications; Z91.048 Other nonmedicinal substance allergy status
CPT/HCPCS: 36415; 80053; 82150; 83690; 85025; 81001; 81025; 99284; 96375; 96374; 96361; J0360; J1200; J2765; J1170

== ENCOUNTER 2022-04-03 03:27 | Inpatient (IN) | payer BC ==
[2022-04-03] MEDS ORDERED: METOCLOPRAMIDE 5 MG/ML 2 ML VIAL ONE ×2 (05:00)
[2022-04-03] MEDS ORDERED: diphenhydrAMINE 50 MG/ML 1 ML VIAL IVP STA ×2 (05:00→13:58)
[2022-04-03] MEDS: MORPHINE SULFATE 2 MG/ML SYRINGE IVP PRN ×2 (05:00→11:28)
[2022-04-03] MEDS ORDERED: PANTOPRAZOLE 40 MG/10 ML VIAL IVP PRN (05:00)
[2022-04-03] MEDS ORDERED: MORPHINE SULFATE 4 MG/ML SYRINGE ONE (05:00)
[2022-04-03] MEDS ORDERED: SODIUM CHLORIDE 0.9% 1,000 ML IV ONE ×2 (05:00→11:10)
--- NOTE | 2022-04-03 07:12 | XR ---
EXAM: XR Abdomen, 2 Views CLINICAL HISTORY: Abd. pain TECHNIQUE: Frontal view of the abdomen/pelvis with upright view of the abdomen. COMPARISON: No relevant prior studies available. FINDINGS: Intraperitoneal space: No free air. Gastrointestinal tract: Unremarkable. No dilation. Bones/joints: Unremarkable. IMPRESSION: Nonobstructed bowel gas pattern.
[2022-04-03 08:16] LABS: Basophils # (A) 0.1 k/uL (0-0.2); Basophils % (A) 1 %; Eosinophils % (A) 0 %; HCT 36.5 % (34.0-46.0); HGB 12.3 gm/dL (11.4-16.0); Lymphocytes # (A) 1.3 k/uL (1.0-4.8); Lymphocytes % (A) 13 %; MCH 30.1 pg (25.0-35.0); MCHC 33.8 g/dL (31.0-37.0); MCV 89.1 fL (80.0-100.0); Mean Platelet Volume 7.7; Monocytes # (A) 0.4 k/uL (0-1.0); Monocytes % (A) 4 %; Neutrophils # (A) 8.3 k/uL (1.3-7.7); Neutrophils % (A) 81 %; Platelet Count 279 k/uL (150-450); RDW 14.5 % (11.5-15.5); WBC 10.3 k/uL (3.8-10.6)
[2022-04-03 08:22] LABS: VBG PH 7.62 (7.31-7.41)
[2022-04-03 08:27] LABS: Albumin 3.3 g/dL (3.5-5.0); Calcium 9.2 mg/dL (8.4-10.2); Phosphorus 3.6 mg/dL (2.5-4.5); Potassium 4.5 mmol/L (3.5-5.1); Total Bilirubin 0.7 mg/dL (0.2-1.3)
[2022-04-03 08:28] LABS: Creatine Kinase MB 2.9 ng/mL (0.0-2.4)
[2022-04-03] MEDS ORDERED: MORPHINE SULFATE 2 MG/ML SYRINGE IVP PRN (10:43)
[2022-04-03] MEDS ORDERED: NALOXONE 0.4 MG/ML 1 ML VIAL IV PRN (10:44)
[2022-04-03] MEDS ORDERED: ONDANSETRON 4 MG/2 ML VIAL IVP PRN (10:44)
[2022-04-03] MEDS ORDERED: ACETAMINOPHEN TAB 325 MG TAB PO PRN (10:44)
[2022-04-03] MEDS ORDERED: HYDROcodone/APAP 5-325MG 1 EACH TAB PO PRN (10:44)
[2022-04-03] MEDS: SODIUM CHLORIDE 0.9% 1,000 ML IV SCH ×2 (11:28→20:45)
[2022-04-03] MEDS ORDERED: hydrALAZINE HCL 25 MG TAB PO PRN (13:58)
[2022-04-03] MEDS ORDERED: HYDROmorphone 1 MG/ML 1 ML SYRINGE IVP STA (13:58)
[2022-04-03] MEDS: METOCLOPRAMIDE 5 MG/ML 2 ML VIAL IVP SCH ×3 (14:23→23:27)
--- NOTE | 2022-04-03 14:23 | P.HPIM ---
History of Present Illness H&P Date: 04/03/22 Chief Complaint: Abdominal pain, N/V Patient is a 31-year-old female with PMH of type 1 diabetes mellitus with retinopathy and gastroparesis on insulin pump, chronic kidney disease, hypertension, dyslipidemia that presents the ED for intractable nausea and vomiting along with abdominal pain. Patient reports generalized abdominal pain that started yesterday along with multiple episodes of bilious nausea and vomiting. Her abdominal pain is bilateral lower quadrant, sore in nature, 8 out of 10 in severity. Pain does not radiate. She denies any dysuria. Patient reports symptoms like this occur at least monthly and is usually relieved with Dilaudid, Reglan and Benadryl. She follows nephrology, gastroenterology and endocrinology outside of [place]. She denies any headache, lower extremity edema, fever or chills, cough, shortness of breath, palpitations, changes in urination or bowel habits. No changes in appetite or weight. She denies any dizziness, numbness/weakness/tingling of the extremities. While I examined her in the ED she reported pressure-like chest pain. She did have an episode of bilious vomiting while in the ED. Currently, her blood pressure is 169/96 with pulse of 75. CBC relatively unremarkable. VBG shows pH of 7.62 and pCO2 of 20. CMP shows bicarb of 21, BUN of 51 and creatinine of 3.10. Lactic acid is negative. Creatinine kinase is 292. Lipase is negative. KUB unremarkable. Patient is admitted as inpatient for treatment of gastroparesis. Review of systems is performed and is negative except above. General: [non toxic], [appears moderately uncomfortable], [appears at stated age] Derm: [warm], [dry] Head: [atraumatic], [normocephalic], [symmetric] Eyes: [EOMI], [no lid lag], [anicteric sclera], [left eye swollen] Mouth: [no lip lesion], [mucus membranes moist] Cardiovascular: [S1S2 reg], [no murmur] Lungs: [CTA bilateral], [no rhonchi, no rales] , [no accessory muscle use] Abdominal: [soft], [tenderness to palpation in the bilateral lower quadrant without rebound], [no guarding], [no appreciable organomegaly] Ext: [no gross muscle atrophy], [no edema], [no contractures] Neuro: [no focal neuro deficits] Psych: [Alert], [oriented], [appropriate affect] #Abdominal pain with intractable nausea and vomiting likely related to gastroparesis #Chest pain #Acute kidney injury on chronic kidney disease #Respiratory alkalosis, partially compensated #Hypertension #Recent ophthalmologic procedure in the left eye Chronic conditions: Type 1 diabetes mellitus, dyslipidemia Patient symptoms are likely related to intractable nausea and vomiting from gastroparesis. Her pain will be controlled with Dilaudid 1 mg IV every 4 hours as needed for severe pain. She will be started on Reglan 10 mg IV every 6 hours. Benadryl as needed will be added. She'll be given Zofran as needed for nausea and vomiting. Restart Domperidone by mouth. Start normal saline at 130 mL per hour. Start clear liquid diet and advance as tolerated. Obtain UA with reflex to culture. Chest x-ray will be ordered. EKG will be ordered. Troponins will be trended and ACS will be ruled out. Low concerns for ACS. Continue IV hydration as above. Hold lisinopril and Bumex until improvement in kidney function. Repeat BMP tomorrow morning. Her respiratory status in currently within normal limits. She is not hyperventilating. She does not require any supplemental O2. Restart metoprolol, nifedipine for history of hypertension. Hydralazine as needed for elevated BP with parameters. She will be restarted on Atropine and Erythromycin eye drops. Restart Lipitor for history of dyslipidemia. Start low dose sliding scale along with accuchecks four times a day with hypoglycemic precautions. DVT prophylaxis: [Heparin] Discussed with: [Patient, mother and ED physician] Anticipated discharge: [2-3 days] Anticipated discharge place: [Home] A total of [45] minutes was spent on the care of this complex patient more than 50% of the time was spent in counseling and care coordination. Patient names her mother decision maker she can make decisions for herself. Patient would like to be full code. Past Medical History Past Medical History: Diabetes Mellitus, Pneumonia, Renal Disease Additional Past Medical History / Comment(s): IDDM type I, bilateral retinopathy with injections, DKA, IBS/constipation, bronchitis, febrile seizure at 3 yrs of age. covid positive 11/2020. History of Any Multi-Drug Resistant Organisms: None Reported Past Surgical History: Adenoidectomy, Tonsillectomy Additional Past Surgical History / Comment(s): sinus balloon plasty, wisdom teeth extractions., right eye surgery 02/18/21. Past Anesthesia/Blood Transfusion Reactions: No Reported Reaction Additional Past Anesthesia/Blood Transfusion Reaction / Comment(s): no transfusions Past Psychological History: Anxiety Smoking Status: Never smoker Past Alcohol Use History: None Reported, Occasional Past Drug Use History: None Reported - Past Family History Mother Family Medical History: No Reported History Additional Family Medical History / Comment(s): Mother is healthy. Father Family Medical History: No Reported History Additional Family Medical History / Comment(s): Father is healthy Medications and Allergies Home Medications Medication Instructions Recorded Confirmed Type Atropine Ophth Soln 1% 5Ml [Isopto 1 drop LEFT EYE BID 03/13/21 04/03/22 History Atropine 1% 5Ml] Gentamicin 0.3% Ophth Soln 1 drop LEFT EYE QID 03/13/21 04/03/22 History [Garamycin 0.3% Ophth Soln] Insulin Glargine,Hum.rec.anlog 1 - 20 unit SQ HS PRN 03/13/21 04/03/22 History [Lantus Solostar Pen] Insulin Lispro [humaLOG Kwikpen] 1 - 10 unit SQ ACHS MDD 40 03/13/21 04/03/22 History UNITS/DAY prednisoLONE ACETATE 1% OPHTH 1 drop LEFT EYE QID 03/13/21 04/03/22 History [Pred Forte 1%] Atorvastatin Calcium [Lipitor] 10 mg PO HS 03/09/22 04/03/22 History Bumetanide [Bumex] 1 mg PO DAILY 03/09/22 04/03/22 History Erythromycin Ophth Oint [Romycin 1 applic LEFT EYE QID 03/09/22 04/03/22 History Ophth Oint] Ferrous Sulfate [Feosol] 325 mg PO HS 03/09/22 04/03/22 History Glucagon Emergency Kit 1 mg IM ONCE PRN 03/09/22 04/03/22 History INSULIN LISPRO (For Pump) [humaLOG 0.01 units SQ-PUMP CONTINUOUS MDD 03/09/22 04/03/22 History (For Pump)] 70 UNITS Metoclopramide [Reglan] 10 mg PO TID #15 tab 03/09/22 04/03/22 Rx Metoprolol Succinate [Toprol XL] 50 mg PO DAILY 03/09/22 04/03/22 History NIFEdipine XL [Procardia XL] 60 mg PO DAILY 03/09/22 04/03/22 History Ondansetron [Zofran] 4 mg PO Q8H PRN 03/09/22 04/03/22 History hydrALAZINE HCL [Apresoline] 25 mg PO Q8H PRN 03/09/22 04/03/22 History lisinopriL [Prinivil] 20 mg PO BID 03/09/22 04/03/22 History Ondansetron Odt [Zofran Odt] 4 mg PO Q8HR PRN #30 tab 03/17/22 04/03/22 Rx Domperidone 10mg 10 mg PO TID 04/02/22 04/03/22 History Allergies Allergy/AdvReac Type Severity Reaction Status Date / Time mold AdvReac Dyspnea Verified 04/03/22 09:35 Physical Exam Vitals: Vital Signs Temp Pulse Resp BP Pulse Ox 04/03/22 07:23 75 17 169/96 96 04/03/22 05:16 75 18 138/81 98 04/03/22 04:45 88 18 185/101 04/03/22 03:30 98.2 F 80 16 208/110 97 Intake and Output 04/02/22 04/03/22 04/03/22 22:59 06:59 14:59 Other: Weight 68.039 kg Results CBC & Chem 7: 04/03/22 04:37 04/03/22 04:37 Labs: Abnormal Lab Results - Last 24 Hours (Table) 04/03/22 04/03/22 04/03/22 Range/Units 04:37 04:37 04:37 Neutrophils # 8.3 H (1.3-7.7) k/uL VBG pH 7.62 H* (7.31-7.41) VBG pCO2 20 L (37-51) mmHg VBG HCO3 21 L (24-28) mmol/L Carbon Dioxide 21 L (22-30) mmol/L BUN 51 H (7-17) mg/dL Creatinine 3.10 H (0.52-1.04) mg/dL Total Creatine Kinase (30-135) U/L CK-MB (CK-2) (0.0-2.4) ng/mL Total Protein 6.0 L (6.3-8.2) g/dL Albumin 3.3 L (3.5-5.0) g/dL 04/03/22 Range/Units 04:37 Neutrophils # (1.3-7.7) k/uL VBG pH (7.31-7.41) VBG pCO2 (37-51) mmHg VBG HCO3 (24-28) mmol/L Carbon Dioxide (22-30) mmol/L BUN (7-17) mg/dL Creatinine (0.52-1.04) mg/dL Total Creatine Kinase 292 H (30-135) U/L CK-MB (CK-2) 2.9 H (0.0-2.4) ng/mL Total Protein (6.3-8.2) g/dL Albumin (3.5-5.0) g/dL
--- NOTE | 2022-04-03 14:24 | XR ---
EXAMINATION TYPE: XR chest 1V portable DATE OF EXAM: 04/03/2022 COMPARISON: 12/05/2019 HISTORY: Chest pain TECHNIQUE: Single frontal view of the chest is obtained. FINDINGS: There is no focal air space opacity, pleural effusion, or pneumothorax seen. The cardiac silhouette size is within normal limits. The osseous structures are intact. IMPRESSION: No acute process.
[2022-04-03] MEDS ORDERED: DOMPERIDONE 10 MG PO SCH (16:00)
[2022-04-03] MEDS: HEPARIN SODIUM,PORCINE/PF 5,000 UNIT/0.5 ML SYRINGE SQ SCH ×2 (17:28→23:29)
[2022-04-03 18:15] LABS: Glucose,Whole Blood 145 mg/dL (75-99)
[2022-04-03] MEDS: INSULIN ASPART (NovoLOG) 100 UNIT/ML VIAL SQ SCH ×2 (18:16→23:28)
[2022-04-03] MEDS: ATORVASTATIN 10 MG TAB PO SCH (20:41)
[2022-04-03] MEDS: FERROUS SULFATE 325 MG TAB PO SCH (20:41)
[2022-04-03] MEDS: HYDROmorphone 1 MG/ML 1 ML SYRINGE IVP PRN (20:42)
[2022-04-03] MEDS: diphenhydrAMINE 50 MG/ML 1 ML VIAL IVP PRN (20:42)
[2022-04-03] MEDS: ATROPINE OPHTH SOLN 1% 5ML BTL LEFT EYE SCH (20:44)
[2022-04-03] MEDS: ERYTHROMYCIN 5 MG/GM OPHTH OINT 3.5 GM TUBE LEFT EYE SCH ×3 (20:44→22:43)
[2022-04-03 21:03] LABS: Glucose,Whole Blood 158 mg/dL (75-99)
[2022-04-03] MEDS ORDERED: INSULIN ASPART (NovoLOG) 100 UNIT/ML VIAL SQ PRN (21:20)
[2022-04-03] MEDS: INSULIN PUMP BASAL RATES 1 EACH MISC MISCELLANE SCH ×3 (22:45→23:27)
[2022-04-04 03:01] LABS: Glucose,Whole Blood 88 mg/dL (75-99)
[2022-04-04] MEDS: SODIUM CHLORIDE 0.9% 1,000 ML IV SCH ×2 (03:11→12:10)
[2022-04-04] MEDS: INSULIN PUMP BASAL RATES 1 EACH MISC MISCELLANE SCH ×18 (03:12→23:17)
[2022-04-04] MEDS: METOCLOPRAMIDE 5 MG/ML 2 ML VIAL IVP SCH ×4 (06:15→23:15)
[2022-04-04] MEDS: HYDROmorphone 1 MG/ML 1 ML SYRINGE IVP PRN ×4 (06:19→22:19)
[2022-04-04] MEDS: diphenhydrAMINE 50 MG/ML 1 ML VIAL IVP PRN ×2 (06:19→12:06)
[2022-04-04 07:40] LABS: Glucose,Whole Blood 94 mg/dL (75-99)
[2022-04-04] MEDS: HEPARIN SODIUM,PORCINE/PF 5,000 UNIT/0.5 ML SYRINGE SQ SCH ×3 (08:14→21:38)
[2022-04-04] MEDS: INSULIN ASPART (NovoLOG) 100 UNIT/ML VIAL SQ SCH ×4 (08:27→21:37)
[2022-04-04] MEDS: METOPROLOL SUCCINATE (ER) 50 MG TAB.ER.24H PO SCH (08:28)
[2022-04-04] MEDS: ERYTHROMYCIN 5 MG/GM OPHTH OINT 3.5 GM TUBE LEFT EYE SCH ×2 (08:29→12:09)
[2022-04-04] MEDS: ATROPINE OPHTH SOLN 1% 5ML BTL LEFT EYE SCH ×2 (08:31→21:36)
[2022-04-04] MEDS: INSPUCOR MISCELLANE PRN ×3 (08:33→17:50)
[2022-04-04] MEDS ORDERED: BUMETANIDE 1 MG TAB PO SCH (09:00)
[2022-04-04 09:02] LABS: Basophils # (A) 0.06 X 10*3/uL (0.00-0.10); Basophils % (A) 0.5 %; Eosinophils # (A) 0.11 X 10*3/uL (0.04-0.35); HCT 23.3 % (37.2-46.3); HGB 7.5 g/dL (12.0-15.0); Immature Grans, Automated 0.3 %; Lymphocytes # (A) 2.89 X 10*3/uL (0.90-5.00); Lymphocytes % (A) 25.6 %; MCH 29.8 pg (27.0-32.0); MCHC 32.2 g/dL (32.0-37.0); MCV 92.5 fL (80.0-97.0); Mean Platelet Volume 10.6 fL (9.5-12.2); Monocytes # (A) 0.91 X 10*3/uL (0.20-1.00); NRBC Per 100 WBC 0 /100 WBCS (0.0-0.0); Neutrophils # (A) 7.31 X 10*3/uL (1.80-7.70); Neutrophils % (A) 64.6 %; Platelet Count 196 X 10*3/uL (140-440); RBC 2.52 X 10*6/uL (4.10-5.20); RDW 13.6 % (11.5-14.5); WBC 11.31 X 10*3/uL (4.50-10.00)
[2022-04-04 09:29] LABS: African American GFR (CKD) 19.6 (60.0-200.0); Anion Gap 9.8 mmol/L (10.00-18.00); BUN/Creat Ratio 13.74 Ratio (12.00-20.00); Blood Urea Nitrogen 47.4 mg/dL (9.0-27.0); Calcium 8.1 mg/dL (8.7-10.3); Carbon Dioxide 23.1 mmol/L (20.0-27.5); Non-African American GFR(CKD) 16.9 (60.0-200.0)
[2022-04-04 12:34] LABS: Glucose,Whole Blood 82 mg/dL (75-99)
[2022-04-04 12:48] VITALS: TEMP 98.4
--- NOTE | 2022-04-04 13:40 | P.PN ---
Subjective Progress Note Date: 04/04/22 Principal diagnosis: Abdominal pain, nausea vomiting Patient was seen and examined. No acute events overnight. Patient reports no more nausea and vomiting. She continues report bilateral lower quadrant abdominal pain related to her gastroparesis. No dysuria or diarrhea. Wanting to try regular diet. Objective - Vital Signs Vital signs: Vital Signs Temp 98.4 F 04/04/22 12:47 Pulse 63 04/04/22 12:47 Resp 15 04/04/22 12:47 BP 103/61 04/04/22 12:47 Pulse Ox 89 L 04/04/22 12:47 Intake & Output 04/03/22 04/04/22 04/04/22 18:59 06:59 18:59 Intake Total 1110 Balance 1110 Weight 68.039 kg Intake: Intake, IV Titration 520 Amount Sodium Chloride 0.9% 1, 520 000 ml @ 130 mls/hr IV . Q7[facility]42[facility] Rx#:[id number] Oral 590 Other: Voiding Method Toilet Toilet # Voids 2 - Exam General: [non toxic], [appears moderately uncomfortable], [appears at stated age] Derm: [warm], [dry] Head: [atraumatic], [normocephalic], [symmetric] Eyes: [EOMI], [no lid lag], [anicteric sclera], [left eye swollen] Mouth: [no lip lesion], [mucus membranes moist] Cardiovascular: [S1S2 reg], [no murmur] Lungs: [CTA bilateral], [no rhonchi, no rales] , [no accessory muscle use] Abdominal: [soft], [tenderness to palpation in the bilateral lower quadrant without rebound], [no guarding], [no appreciable organomegaly] Ext: [no gross muscle atrophy], [no edema], [no contractures] Neuro: [no focal neuro deficits] Psych: [Alert], [oriented], [appropriate affect] - Labs CBC & Chem 7: 04/04/22 06:09 04/04/22 06:09 Labs: Abnormal Lab Results - Last 24 Hours (Table) 04/03/22 04/03/22 04/04/22 Range/Units 18:13 21:02 06:09 WBC 11.31 H (4.50-10.00) X 10*3/uL RBC 2.52 L (4.10-5.20) X 10*6/uL Hgb 7.5 L (12.0-15.0) g/dL Hct 23.3 L (37.2-46.3) % Anion Gap (10.00-18.00) mmol/L BUN (9.0-27.0) mg/dL Creatinine (0.6-1.5) mg/dL Est GFR (CKD-EPI)AfAm (60.0-200.0) Est GFR (CKD-EPI)NonAf (60.0-200.0) POC Glucose (mg/dL) 145 H 158 H (75-99) mg/dL Calcium (8.7-10.3) mg/dL 04/04/22 Range/Units 06:09 WBC (4.50-10.00) X 10*3/uL RBC (4.10-5.20) X 10*6/uL Hgb (12.0-15.0) g/dL Hct (37.2-46.3) % Anion Gap 9.80 L (10.00-18.00) mmol/L BUN 47.4 H (9.0-27.0) mg/dL Creatinine 3.5 H (0.6-1.5) mg/dL Est GFR (CKD-EPI)AfAm 19.6 L (60.0-200.0) Est GFR (CKD-EPI)NonAf 16.9 L (60.0-200.0) POC Glucose (mg/dL) (75-99) mg/dL Calcium 8.1 L (8.7-10.3) mg/dL Assessment and Plan Assessment: #Abdominal pain with intractable nausea and vomiting likely related to gastroparesis #Chest pain #Acute kidney injury on chronic kidney disease #Normocytic anemia #Leukocytosis #Hypertension #Recent ophthalmologic procedure in the left eye Chronic conditions: Type 1 diabetes mellitus, dyslipidemia Patient symptoms are likely related to intractable nausea and vomiting from gastroparesis. Her pain will be controlled with Dilaudid 1 mg IV every 4 hours as needed for severe pain. She will be started on Reglan 10 mg IV every 6 hours. Benadryl as needed will be added. She'll be given Zofran as needed for nausea and vomiting. Restart Domperidone by mouth. Continue normal saline at 130 mL per hour. Start regular diet and advance as tolerated. Chest x-ray negative. Troponins trended and ACS ruled out. Low concerns for ACS. Creatinine 3.1 to 3.5. Continue IV hydration as above. Hold lisinopril and Bumex until improvement in kidney function. Repeat BMP tomorrow morning. Obtain renal US. Her hemoglobin has dropped from 12.3 to 7.5. Probably dilutional. No signs of active bleeding. Transfuse if Hg < 7. Repeat CBC tomorrow morning. Her leukocytosis is likely reactive. No signs of active infection. UA with reflex to culture pending. No indications for antibiotics. Continue to monitor. Restart metoprolol, nifedipine for history of hypertension. Hydralazine as needed for elevated BP with parameters. She will be restarted on Atropine and Erythromycin eye drops. Restart Lipitor for history of dyslipidemia. Start low dose sliding scale along with accuchecks four times a day with hypoglycemic precautions. DVT prophylaxis: [Heparin] Discussed with: [Patient] Anticipated discharge: [1-2 days] Anticipated discharge place: [Home] A total of [20] minutes was spent on the care of this complex patient more than 50% of the time was spent in counseling and care coordination. Patient names her mother decision maker she can make decisions for herself. Patient would like to be full code. Patient with improvement in symptoms. Diet advanced. Renal function not improved, renal US ordered. Repeat CBC and BMP tomorrow morning. Anticipate DC in 1-2 days.
--- NOTE | 2022-04-04 15:24 | US ---
EXAMINATION TYPE: US kidneys/renal and bladder DATE OF EXAM: 04/04/2022 COMPARISON: NONE CLINICAL HISTORY: ROBERTO on CKD. no symptoms, abn labs EXAM MEASUREMENTS: Right Kidney: 9.6 x 5.4 x 4.7 cm Left Kidney: 10.2 x 4.3 x 4.9 cm Right Kidney: No hydronephrosis or masses seen Left Kidney: No hydronephrosis or masses seen, slightly obscured by rib shadow Bladder: wnl Bilateral Jets seen: Yes . IMPRESSION: Normal renal ultrasound. No evidence of renal mass or obstruction.
[2022-04-04] MEDS ORDERED: SODIUM CHLORIDE 0.9% 1,000 ML IV SCH (16:29)
[2022-04-04 17:21] LABS: Glucose,Whole Blood 173 mg/dL (75-99)
[2022-04-04 18:39] LABS: Appearance,Urine Cloudy (Clear); Bacteria,Urine Rare /hpf; Bilirubin,Urine Negative (Negative); Blood,Urine Moderate (Negative); Color,Urine Yellow; Glucose,Urine (UA) 1+ (Negative); Hyaline Casts,Urine 3 /lpf (0-2); Ketones,Urine Negative (Negative); Leukocyte Esterase,Urine Negative (Negative); Mucus,Urine Rare /hpf; Nitrite,Urine Negative (Negative); PH, Urine 6.5 (5.0-8.0); Protein,Urine 3+ (Negative); RBC,Urine 2 /hpf (0-5); Specific Gravity,Urine 1.015 (1.001-1.035); Squamous Epithelial Cell,Urine 2 /hpf (0-4); Urobilinogen,Urine <2.0 mg/dL (<2.0); WBC,Urine 5 /hpf (0-5)
[2022-04-04 20:33] LABS: Glucose,Whole Blood 158 mg/dL (75-99)
[2022-04-04] MEDS: GENTAMICIN 0.3% OPHTH DROPS 5 ML BTL LEFT EYE SCH (21:35)
[2022-04-04] MEDS: ATORVASTATIN 10 MG TAB PO SCH (21:35)
[2022-04-04] MEDS: FERROUS SULFATE 325 MG TAB PO SCH (21:36)
[2022-04-05 04:35] VITALS: BP 126/78; PULSE 55; RESP 15
[2022-04-05] MEDS: METOCLOPRAMIDE 5 MG/ML 2 ML VIAL IVP SCH ×2 (06:13→12:10)
[2022-04-05] MEDS: INSULIN PUMP BASAL RATES 1 EACH MISC MISCELLANE SCH ×7 (06:15→13:45)
[2022-04-05 07:36] LABS: Glucose,Whole Blood 100 mg/dL (75-99)
[2022-04-05] MEDS: HEPARIN SODIUM,PORCINE/PF 5,000 UNIT/0.5 ML SYRINGE SQ SCH (07:42)
[2022-04-05] MEDS: INSULIN ASPART (NovoLOG) 100 UNIT/ML VIAL SQ SCH ×2 (07:42→12:10)
[2022-04-05] MEDS: METOPROLOL SUCCINATE (ER) 50 MG TAB.ER.24H PO SCH (07:55)
[2022-04-05] MEDS: ATROPINE OPHTH SOLN 1% 5ML BTL LEFT EYE SCH (07:56)
[2022-04-05] MEDS: GENTAMICIN 0.3% OPHTH DROPS 5 ML BTL LEFT EYE SCH (07:56)
[2022-04-05] MEDS: INSPUCOR MISCELLANE PRN (07:57)
[2022-04-05 09:17] LABS: HCT 24.2 % (37.2-46.3); HGB 7.7 g/dL (12.0-15.0); MCH 29.6 pg (27.0-32.0); MCHC 31.8 g/dL (32.0-37.0); MCV 93.1 fL (80.0-97.0); Mean Platelet Volume 10.4 fL (9.5-12.2); NRBC Per 100 WBC 0 /100 WBCS (0.0-0.0); Platelet Count 180 X 10*3/uL (140-440); RDW 13.1 % (11.5-14.5); WBC 7.89 X 10*3/uL (4.50-10.00)
[2022-04-05 09:20] LABS: African American GFR (CKD) 16.9 (60.0-200.0); Anion Gap 7.1 mmol/L (10.00-18.00); Blood Urea Nitrogen 46.8 mg/dL (9.0-27.0); Carbon Dioxide 23.9 mmol/L (20.0-27.5); Non-African American GFR(CKD) 14.6 (60.0-200.0); Potassium 4.5 mmol/L (3.5-5.5)
--- NOTE | 2022-04-05 10:50 | P.DS ---
Providers Date of admission: 04/03/22 12:14 Expected date of discharge: 04/05/22 Attending physician: Verónica Muhammad MD Consults: 04/05/22 09:43 Consult Physician Routine Consulting Provider: Dariusz Duncan Consult Reason/Comments: CKD Do you want consulting provider notified?: Yes Primary care physician: Deshawn Brown MD Hospital Course: Patient is a 31-year-old female with PMH of type 1 diabetes mellitus with retinopathy and gastroparesis on insulin pump, chronic kidney disease, hypertension, dyslipidemia that presents the ED for intractable nausea and vomiting along with abdominal pain. Patient reports generalized abdominal pain that started yesterday along with multiple episodes of bilious nausea and vomiting. Her abdominal pain is bilateral lower quadrant, sore in nature, 8 out of 10 in severity. Pain does not radiate. She denies any dysuria. Patient reports symptoms like this occur at least monthly and is usually relieved with Dilaudid, Reglan and Benadryl. She follows nephrology, gastroenterology and endocrinology outside of [place]. She denies any headache, lower extremity edema, fever or chills, cough, shortness of breath, palpitations, changes in urination or bowel habits. No changes in appetite or weight. She denies any dizziness, numbness/weakness/tingling of the extremities. While I examined her in the ED she reported pressure-like chest pain. She did have an episode of bilious vomiting while in the ED. Currently, her blood pressure is 169/96 with pulse of 75. CBC relatively unremarkable. VBG shows pH of 7.62 and pCO2 of 20. CMP shows bicarb of 21, BUN of 51 and creatinine of 3.10. Lactic acid is negative. Creatinine kinase is 292. Lipase is negative. KUB unremarkable. Patient is admitted as inpatient for treatment of gastroparesis. Her symptoms are thought to be related to intractable nausea and vomiting from gastroparesis. Her pain was controlled with Dilaudid, Benadryl and Reglan as needed. She was also given Zofran as needed for nausea and vomiting. She was restarted on Domperidone. She was hydrated with normal saline IV. Her diet was eventually transitioned from clear liquid diet to regular diet. With regard to her chest pain, troponins were trended and ACS was ruled out. Her renal function remained stable during her hospitalization. Her BUN on admission was 51 with creatinine of 3.1. Her BUN on discharge was 46.8 with creatinine 3.9. Renal ultrasound was negative. Patient did report that her creatinine was baseline for her. She also reported that she follows Dr. Brown who is her periodontist at [place]. She is also waiting on the kidney transplant list. She also had a drop of her hemoglobin from 12.3 on admission to 7.5. Her hemoglobin at the time of discharge was 7.7. This was thought to be dilutional in nature. She had no active signs of bleeding. Patient was seen and examined on 04/05/2022. She was able to tolerate a regular diet. She reported a significant improvement in her abdominal pain. She had no more nausea and vomiting. Patient was comfortable with being discharged home. She reported that she had all of her medications at home and she did not need any refills. She also did not want any [place] as it did not seem to help for pain control. She was advised to follow-up with her PCP within 1 week of discharge. Repeat BMP to evaluate kidney function within 3 days of discharge. Patient verbalized understanding of the plan. This complex discharge took about 45 minutes to complete. General: [non toxic], [appears moderately uncomfortable], [appears at stated age] Derm: [warm], [dry] Head: [atraumatic], [normocephalic], [symmetric] Eyes: [EOMI], [no lid lag], [anicteric sclera], [left eye swollen] Mouth: [no lip lesion], [mucus membranes moist] Cardiovascular: [S1S2 reg], [no murmur] Lungs: [CTA bilateral], [no rhonchi, no rales] , [no accessory muscle use] Abdominal: [soft], [tenderness to palpation in the bilateral lower quadrant without rebound, improved from admission], [no guarding], [no appreciable organomegaly] Ext: [no gross muscle atrophy], [no edema], [no contractures] Neuro: [no focal neuro deficits] Psych: [Alert], [oriented], [appropriate affect] Discharge Diagnosis: #Abdominal pain with intractable nausea and vomiting likely related to gastroparesis #Chest pain #Acute kidney injury on chronic kidney disease #Normocytic anemia #Leukocytosis #Hypertension #Recent ophthalmologic procedure in the left eye Chronic conditions: Type 1 diabetes mellitus, dyslipidemia Pertinent Studies: Renal US Chest Xray KUB Patient Condition at Discharge: Stable Plan - Discharge Summary New Discharge Prescriptions: Continue prednisoLONE ACETATE 1% OPHTH [Pred Forte 1%] 1 drop LEFT EYE QID Atropine Ophth Soln 1% 5Ml [Isopto Atropine 1% 5Ml] 1 drop LEFT EYE BID Insulin Lispro [humaLOG Kwikpen] 1 - 10 unit SQ ACHS MDD 40 UNITS/DAY NIFEdipine XL [Procardia XL] 60 mg PO DAILY Glucagon Emergency Kit 1 mg IM ONCE PRN PRN Reason: LOW BLOOD SUGAR Bumetanide [BUMEX] 1 mg PO DAILY Ondansetron Odt [Zofran ODT] 4 mg PO Q8HR PRN #30 tab PRN Reason: Nausea Insulin Glargine,Hum.rec.anlog [Lantus Solostar Pen] 1 - 20 unit SQ HS PRN PRN Reason: HIGH BLOOD SUGAR Gentamicin 0.3% Ophth Soln [Garamycin 0.3% Ophth Soln] 1 drop LEFT EYE QID Atorvastatin Calcium [Lipitor] 10 mg PO HS Metoprolol Succinate [Toprol XL] 50 mg PO DAILY lisinopriL [Prinivil] 20 mg PO BID hydrALAZINE HCL [Apresoline] 25 mg PO Q8H PRN PRN Reason: SYS BP >150, DIAST BP >105 INSULIN LISPRO (For Pump) [humaLOG (For Pump)] 0.01 units SQ-PUMP CONTINUOUS MDD 70 UNITS Ferrous Sulfate [Feosol] 325 mg PO HS Metoclopramide [Reglan] 10 mg PO TID #15 tab Domperidone 10mg 10 mg PO TID Discontinued Ondansetron [Zofran] 4 mg PO Q8H PRN PRN Reason: Nausea Discharge Medication List Atropine Ophth Soln 1% 5Ml [Isopto Atropine 1% 5Ml] 1 drop LEFT EYE BID 03/13/21 [History] Gentamicin 0.3% Ophth Soln [Garamycin 0.3% Ophth Soln] 1 drop LEFT EYE QID 03/13/21 [History] Insulin Glargine,Hum.rec.anlog [Lantus Solostar Pen] 1 - 20 unit SQ HS PRN 03/13/21 [History] Insulin Lispro [humaLOG Kwikpen] 1 - 10 unit SQ ACHS MDD 40 UNITS/DAY 03/13/21 [History] prednisoLONE ACETATE 1% OPHTH [Pred Forte 1%] 1 drop LEFT EYE QID 03/13/21 [History] Atorvastatin Calcium [Lipitor] 10 mg PO HS 03/09/22 [History] Bumetanide [BUMEX] 1 mg PO DAILY 03/09/22 [History] Ferrous Sulfate [Feosol] 325 mg PO HS 03/09/22 [History] Glucagon Emergency Kit 1 mg IM ONCE PRN 03/09/22 [History] INSULIN LISPRO (For Pump) [humaLOG (For Pump)] 0.01 units SQ-PUMP CONTINUOUS MDD 70 UNITS 03/09/22 [History] Metoclopramide [Reglan] 10 mg PO TID #15 tab 03/09/22 [Rx] Metoprolol Succinate [Toprol XL] 50 mg PO DAILY 03/09/22 [History] NIFEdipine XL [Procardia XL] 60 mg PO DAILY 03/09/22 [History] hydrALAZINE HCL [Apresoline] 25 mg PO Q8H PRN 03/09/22 [History] lisinopriL [Prinivil] 20 mg PO BID 03/09/22 [History] Ondansetron Odt [Zofran ODT] 4 mg PO Q8HR PRN #30 tab 03/17/22 [Rx] Domperidone 10mg 10 mg PO TID 04/02/22 [History] Follow up Appointment(s)/Referral(s): Deshawn Brown MD [Primary Care Provider] - 1 Week Ambulatory/Diagnostic Orders: Basic Metabolic Panel [LAB.AMB] Time Frame: 3 Days, Location: None Selected Activity/Diet/Wound Care/Special Instructions: Diet: Renal diet Follow up with your PCP within 1 week of discharge. Obtain BMP within 3 days of discharge to evaluate kidney function. Take all medications as advised. Come back to the ED or call 911 for worsening abdominal pain, intractable nausea and vomiting, chest pain, shortness of breath or lightheadedness. Discharge Disposition: HOME SELF-CARE
== END 2022-04-05 13:48 | disposition home or self-care (01) | DRG 74 ==
LOC: EC 03:27 → 6NMEDSUR 06:31 → OBSVTOIN 12:14 → 5NMEDONC 15:28
PROVIDERS: ADMIT Internal Medicine; ATTEND Internal Medicine
DX: E10.43 Type 1 diabetes mellitus with diabetic autonomic (poly)neuropathy (principal); N17.9 Acute kidney failure, unspecified; E87.3 Alkalosis; K31.84 Gastroparesis; I12.9 Hypertensive chronic kidney disease with stage 1 through stage 4 chronic kidney disease, or unspecified chronic kidney disease; N18.9 Chronic kidney disease, unspecified; D63.1 Anemia in chronic kidney disease; E78.5 Hyperlipidemia, unspecified; K58.1 Irritable bowel syndrome with constipation; E10.22 Type 1 diabetes mellitus with diabetic chronic kidney disease; Z96.41 Presence of insulin pump (external) (internal); E10.319 Type 1 diabetes mellitus with unspecified diabetic retinopathy without macular edema; F41.9 Anxiety disorder, unspecified; Z79.4 Long term (current) use of insulin; Z76.82 Awaiting organ transplant status; Z79.899 Other long term (current) drug therapy; Z86.16 Personal history of COVID-19
CPT/HCPCS: 36415; 71045; 74018; 76770; 80048; 80053; 81001; 82550; 82553; 82803; 83605; 83690; 83735; 84100; 84484; 85025; 85027; 96361; 96374; 96375; 96376; 99285

== ENCOUNTER 2022-04-19 08:02 | Emergency (ER) | payer BC ==
[2022-04-19 08:16] VITALS: RESP 18
[2022-04-19] MEDS ORDERED: diphenhydrAMINE 50 MG/ML 1 ML VIAL IVP STA (08:26)
[2022-04-19] MEDS ORDERED: METOCLOPRAMIDE 5 MG/ML 2 ML VIAL IVP STA (08:26)
[2022-04-19] MEDS ORDERED: HYDROmorphone 0.5 MG/0.5 ML SYRINGE IVP STA (08:26)
[2022-04-19] MEDS ORDERED: SODIUM CHLORIDE 0.9% 1,000 ML IV STA (08:26)
--- NOTE | 2022-04-19 08:29 | ED ---
General Adult HPI - General Chief complaint: Nausea/Vomiting/Diarrhea Stated complaint: Nausea/Vomiting Time Seen by Provider: 04/19/22 08:21 Source: patient, RN notes reviewed Mode of arrival: ambulatory Limitations: no limitations - History of Present Illness Initial comments: Patient is a 31-year-old female who presents to the emergency room with complaints of abdominal pain, nausea, and vomiting which began around 2:00 this morning. She has a past medical history significant for type 1 diabetes, gastoparesis, and chronic kidney disease stage IV. She reports that her blood glucose levels are well controlled with her insulin pump and Dexcom. Her most recent blood sugar was 156. She reports that she has been having significant gastroparesis for some time unfortunately outpatient she is no longer on Reglan which she has been to the emergency room for multiple times. She denies any diarrhea, fevers, exposure to COVID or influenza. 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 - Related Data Home Medications Medication Instructions Recorded Confirmed Atropine Ophth Soln 1% 5Ml [Isopto 1 drop LEFT EYE BID 03/13/21 04/03/22 Atropine 1% 5Ml] Gentamicin 0.3% Ophth Soln 1 drop LEFT EYE QID 03/13/21 04/03/22 [Garamycin 0.3% Ophth Soln] Insulin Glargine,Hum.rec.anlog 1 - 20 unit SQ HS PRN 03/13/21 04/03/22 [Lantus Solostar Pen] Insulin Lispro [humaLOG Kwikpen] 1 - 10 unit SQ ACHS MDD 40 03/13/21 04/03/22 UNITS/DAY prednisoLONE ACETATE 1% OPHTH 1 drop LEFT EYE QID 03/13/21 04/03/22 [Pred Forte 1%] Atorvastatin Calcium [Lipitor] 10 mg PO HS 03/09/22 04/03/22 Bumetanide [BUMEX] 1 mg PO DAILY 03/09/22 04/03/22 Ferrous Sulfate [Feosol] 325 mg PO HS 03/09/22 04/03/22 Glucagon Emergency Kit 1 mg IM ONCE PRN 03/09/22 04/03/22 INSULIN LISPRO (For Pump) [humaLOG 0.01 units SQ-PUMP CONTINUOUS MDD 03/09/22 04/03/22 (For Pump)] 70 UNITS Metoprolol Succinate [Toprol XL] 50 mg PO DAILY 03/09/22 04/03/22 NIFEdipine XL [Procardia XL] 60 mg PO DAILY 03/09/22 04/03/22 hydrALAZINE HCL [Apresoline] 25 mg PO Q8H PRN 03/09/22 04/03/22 lisinopriL [Prinivil] 20 mg PO BID 03/09/22 04/03/22 Domperidone 10mg 10 mg PO TID 04/02/22 04/03/22 Previous Rx's Medication Instructions Recorded Metoclopramide [Reglan] 10 mg PO TID #15 tab 03/09/22 Ondansetron Odt [Zofran ODT] 4 mg PO Q8HR PRN #30 tab 03/17/22 Metoclopramide [Reglan] 5 mg PO BID #60 tab 04/19/22 Allergies Allergy/AdvReac Type Severity Reaction Status Date / Time mold AdvReac Dyspnea Verified 04/19/22 08:17 Review of Systems ROS Statement: Those systems with pertinent positive or pertinent negative responses have been documented in the HPI. ROS Other: All systems not noted in ROS Statement are negative. Past Medical History Past Medical History: Diabetes Mellitus, Pneumonia, Renal Disease Additional Past Medical History / Comment(s): IDDM type I, bilateral retinopathy with injections, DKA, IBS/constipation, bronchitis, febrile seizure at 3 yrs of age. covid positive 11/2020. History of Any Multi-Drug Resistant Organisms: None Reported Past Surgical History: Adenoidectomy, Tonsillectomy Additional Past Surgical History / Comment(s): sinus balloon plasty, wisdom teeth extractions., right eye surgery 02/18/21. Past Anesthesia/Blood Transfusion Reactions: No Reported Reaction Additional Past Anesthesia/Blood Transfusion Reaction / Comment(s): no transfusions Past Psychological History: Anxiety Smoking Status: Never smoker Past Alcohol Use History: None Reported, Occasional Past Drug Use History: None Reported - Past Family History Mother Family Medical History: No Reported History Additional Family Medical History / Comment(s): Mother is healthy. Father Family Medical History: No Reported History Additional Family Medical History / Comment(s): Father is healthy General Exam Limitations: no limitations General appearance: alert, in no apparent distress, other (in pain) Head exam: Present: atraumatic, normocephalic, normal inspection Eye exam: Present: normal appearance, PERRL, EOMI. Absent: scleral icterus, conjunctival injection, periorbital swelling Respiratory exam: Present: normal lung sounds bilaterally. Absent: respiratory distress, wheezes, rales, rhonchi, stridor Cardiovascular Exam: Present: regular rate, normal rhythm, normal heart sounds. Absent: systolic murmur, diastolic murmur, rubs, gallop, clicks GI/Abdominal exam: Present: soft, distended, tenderness, normal bowel sounds. Absent: rebound, rigid, organomegaly, mass Extremities exam: Present: normal inspection, normal capillary refill. Absent: tenderness, pedal edema, joint swelling, calf tenderness Neurological exam: Present: alert, oriented X3, CN II-XII intact Psychiatric exam: Present: normal affect, normal mood Skin exam: Present: warm, dry, intact, normal color. Absent: rash Course Vital Signs 04/19/22 04/19/22 04/19/22 08:11 09:22 10:48 Temperature 98.0 F Pulse Rate 70 74 Respiratory 18 18 Rate Blood Pressure 198/108 186/117 174/98 O2 Sat by Pulse 100 100 Oximetry 04/19/22 12:38 Temperature Pulse Rate 65 Respiratory 18 Rate Blood Pressure 186/103 O2 Sat by Pulse 99 Oximetry Medical Decision Making - Medical Decision Making Symptoms responded well to IV Reglan, Benadryl and Dilaudid along with IV fluids. Labs reviewed consistent with chronic kidney disease stage IV and stable anemia; KUB reviewed and no acute changes noted. Patient resting comfortably after medications without further emesis. Symptoms improved; blood pressure remains high without morning medications despite improved pain and nausea. Takes hydralazine at home PRN for HTN will give dose and monitor for response. Pain and nausea returned after a couple hours; repeat dilaudid along with zofran given will monitor. If improvement will plan for discharge home if continued pain/nausea reoccurrence will consider observation admission. Symptoms improved after additional dose of IV pain medication along with Zofran. She is agreeable for discharge home with follow-up outpatient. - Lab Data Result diagrams: 04/19/22 08:53 04/19/22 08:53 Lab Results 04/19/22 04/19/22 Range/Units 08:53 08:53 WBC 8.6 (3.8-10.6) k/uL RBC 3.24 L (3.80-5.40) m/uL Hgb 10.0 L D (11.4-16.0) gm/dL Hct 29.1 L (34.0-46.0) % MCV 89.7 (80.0-100.0) fL MCH 30.7 (25.0-35.0) pg MCHC 34.2 (31.0-37.0) g/dL RDW 14.0 (11.5-15.5) % Plt Count 285 (150-450) k/uL MPV 7.1 Neutrophils % 71 % Lymphocytes % 19 % Monocytes % 6 % Eosinophils % 1 % Basophils % 1 % Neutrophils # 6.1 (1.3-7.7) k/uL Lymphocytes # 1.6 (1.0-4.8) k/uL Monocytes # 0.5 (0-1.0) k/uL Eosinophils # 0.1 (0-0.7) k/uL Basophils # 0.1 (0-0.2) k/uL Sodium 139 (137-145) mmol/L Potassium 4.2 (3.5-5.1) mmol/L Chloride 107 (98-107) mmol/L Carbon Dioxide 25 (22-30) mmol/L Anion Gap 7 mmol/L BUN 56 H (7-17) mg/dL Creatinine 3.43 H (0.52-1.04) mg/dL Est GFR (CKD-EPI)AfAm 20 (>60 ml/min/1.73 sqM) Est GFR (CKD-EPI)NonAf 17 (>60 ml/min/1.73 sqM) Glucose 119 H (74-99) mg/dL Calcium 8.6 (8.4-10.2) mg/dL Total Bilirubin 0.5 (0.2-1.3) mg/dL AST 34 (14-36) U/L ALT 16 (4-34) U/L Alkaline Phosphatase 73 (38-126) U/L Total Protein 6.0 L (6.3-8.2) g/dL Albumin 3.3 L (3.5-5.0) g/dL Amylase 82 (30-110) U/L Lipase 54 (23-300) U/L Disposition Clinical Impression: Gastroparesis, Diabetic gastroparesis associated with type 1 diabetes mellitus Disposition: HOME SELF-CARE Condition: Fair Instructions (If sedation given, give patient instructions): Diabetic Gastroparesis (DC) Additional Instructions: Please return to the Emergency Department if symptoms worsen or any other concerns. Prescriptions: Metoclopramide [Reglan] 5 mg PO BID #60 tab Is patient prescribed a controlled substance at d/c from ED?: No Time of Disposition: 14:24
[2022-04-19 09:14] LABS: Basophils # (A) 0.1 k/uL (0-0.2); Basophils % (A) 1 %; Eosinophils # (A) 0.1 k/uL (0-0.7); Eosinophils % (A) 1 %; HCT 29.1 % (34.0-46.0); Lymphocytes # (A) 1.6 k/uL (1.0-4.8); Lymphocytes % (A) 19 %; MCH 30.7 pg (25.0-35.0); MCHC 34.2 g/dL (31.0-37.0); MCV 89.7 fL (80.0-100.0); Mean Platelet Volume 7.1; Monocytes # (A) 0.5 k/uL (0-1.0); Monocytes % (A) 6 %; Neutrophils # (A) 6.1 k/uL (1.3-7.7); Neutrophils % (A) 71 %; Platelet Count 285 k/uL (150-450); RBC 3.24 m/uL (3.80-5.40); WBC 8.6 k/uL (3.8-10.6)
[2022-04-19 09:48] LABS: Albumin 3.3 g/dL (3.5-5.0); Calcium 8.6 mg/dL (8.4-10.2); Potassium 4.2 mmol/L (3.5-5.1); Total Bilirubin 0.5 mg/dL (0.2-1.3)
--- NOTE | 2022-04-19 09:54 | XR ---
EXAMINATION TYPE: XR KUB DATE OF EXAM: 04/19/2022 COMPARISON: 04/03/2022 INDICATION: Abdomen pain TECHNIQUE: Single view abdomen upright view FINDINGS: There is a nonspecific bowel gas pattern. No free air is evident. No suspicious differential air-flui d levels are present. Psoas margins are normal. No organomegaly is present. A device overlies the right upper quadrant of the abdomen. IMPRESSION: 1. No acute changes.
[2022-04-19] MEDS ORDERED: hydrALAZINE HCL 25 MG TAB PO STA (11:25)
[2022-04-19] MEDS ORDERED: ONDANSETRON 4 MG/2 ML VIAL IVP STA (11:46)
[2022-04-19] MEDS ORDERED: HYDROmorphone 0.5 MG/0.5 ML SYRINGE IVP PRN (12:24)
[2022-04-19 14:30] VITALS: PULSE 69
[2022-04-19 14:31] VITALS: BP 160/93; TEMP 98.4
== END 2022-04-19 14:36 | disposition home or self-care (01) ==
LOC: EC 08:02
DX: E10.43 Type 1 diabetes mellitus with diabetic autonomic (poly)neuropathy (principal); K31.84 Gastroparesis; E10.22 Type 1 diabetes mellitus with diabetic chronic kidney disease; I12.9 Hypertensive chronic kidney disease with stage 1 through stage 4 chronic kidney disease, or unspecified chronic kidney disease; N18.4 Chronic kidney disease, stage 4 (severe); E10.319 Type 1 diabetes mellitus with unspecified diabetic retinopathy without macular edema; F41.9 Anxiety disorder, unspecified; Z79.899 Other long term (current) drug therapy
CPT/HCPCS: 36415; 80053; 82150; 83690; 85025; 74018; 99284; 96374; 96375 ×3; 96376; 96361 ×5; J1200; J2765; J2405; J1170

== ENCOUNTER 2022-04-22 14:43 | Observation (INO) | payer BC ==
[2022-04-22] MEDS ORDERED: HYDROmorphone 0.5 MG/0.5 ML SYRINGE IVP STA ×2 (15:32→18:55)
[2022-04-22] MEDS ORDERED: hydrALAZINE HCL 20 MG/ML 1 ML VIAL IVP STA (15:33)
[2022-04-22] MEDS ORDERED: SODIUM CHLORIDE 0.9% 2,000 ML IV STA (15:33)
[2022-04-22] MEDS ORDERED: METOCLOPRAMIDE 5 MG/ML 2 ML VIAL IVP STA (15:44)
--- NOTE | 2022-04-22 15:50 | ED ---
Nausea/Vomiting/Diarrhea HPI - General Chief complaint: Nausea/Vomiting/Diarrhea Stated complaint: 43 blood sugar,vomiting Time Seen by Provider: 04/22/22 15:17 Source: patient Mode of arrival: ambulatory Limitations: no limitations - History of Present Illness Initial comments: Patient is a 31-year-old female presents to the emergency department with a chief complaint of intractable nausea and vomiting. Patient has a medical history significant for type 1 diabetes on insulin pump, gastroparesis, chronic kidney disease stage IV, and hypertension. Patient has been evaluated in the emergency department numerous times for similar complaints this month, last discharge was this afternoon. At this time patient reported abdominal pain, nausea, and vomiting that started on 04/19. KUB x-ray showed no acute changes. Patient's symptoms were controlled and she was discharged. Patient states since discharge she has not been able to tolerate food or liquid, as well as her blood pressure medication. Patient reports generalized abdominal pain, aching and constant in nature. States it feels similar to her gastroparesis episodes. Denies fever, chills, SOB, chest pain, diarrhea, burning with urination, and blood in the urine. Patient's mother states that patient's pump said her sugar was 42 which brought them to the emergency department. Patient ate a sugar cube prior to arrival. Triage glucose is 102. Patient has a consult with [facility] on May 10 for pancreas and kidney transplant. - Related Data Home Medications Medication Instructions Recorded Confirmed Atropine Ophth Soln 1% 5Ml [Isopto 1 drop LEFT EYE BID 03/13/21 04/22/22 Atropine 1% 5Ml] Gentamicin 0.3% Ophth Soln 1 drop LEFT EYE QID 03/13/21 04/22/22 [Garamycin 0.3% Ophth Soln] prednisoLONE ACETATE 1% OPHTH 1 drop LEFT EYE QID 03/13/21 04/22/22 [Pred Forte 1%] Atorvastatin Calcium [Lipitor] 10 mg PO HS 03/09/22 04/22/22 Bumetanide [BUMEX] 1 mg PO DAILY 03/09/22 04/22/22 Ferrous Sulfate [Feosol] 325 mg PO HS 03/09/22 04/22/22 Glucagon Emergency Kit 1 mg IM ONCE PRN 03/09/22 04/22/22 INSULIN LISPRO (For Pump) [humaLOG 0.01 units SQ-PUMP CONTINUOUS MDD 03/09/22 04/22/22 (For Pump)] 70 UNITS Metoprolol Succinate [Toprol XL] 50 mg PO BID 03/09/22 04/22/22 NIFEdipine XL [Procardia XL] 60 mg PO DAILY 03/09/22 04/22/22 hydrALAZINE HCL [Apresoline] 25 mg PO Q8H PRN 03/09/22 04/22/22 Domperidone 10mg 10 mg PO TID 04/02/22 04/22/22 Metoclopramide [Reglan] 5 mg PO Q8H 04/22/22 04/22/22 lisinopriL [Zestril] 20 mg PO BID 04/22/22 04/22/22 Previous Rx's Medication Instructions Recorded Metoclopramide [Reglan] 10 mg PO TID #15 tab 03/09/22 Ondansetron Odt [Zofran ODT] 4 mg PO Q8HR PRN #30 tab 03/17/22 Allergies Allergy/AdvReac Type Severity Reaction Status Date / Time mold AdvReac Dyspnea Verified 04/22/22 14:55 Review of Systems ROS Statement: Those systems with pertinent positive or pertinent negative responses have been documented in the HPI. ROS Other: All systems not noted in ROS Statement are negative. Past Medical History Past Medical History: Diabetes Mellitus, Hypertension, Pneumonia, Renal Disease Additional Past Medical History / Comment(s): IDDM type I, bilateral retinopathy with injections, DKA, IBS/constipation, bronchitis, febrile seizure at 3 yrs of age. covid positive 11/2020. kidney disease History of Any Multi-Drug Resistant Organisms: None Reported Past Surgical History: Adenoidectomy, Tonsillectomy Additional Past Surgical History / Comment(s): sinus balloon plasty, wisdom teeth extractions., right eye surgery 02/18/21. Past Anesthesia/Blood Transfusion Reactions: No Reported Reaction Additional Past Anesthesia/Blood Transfusion Reaction / Comment(s): no transfusions Past Psychological History: Anxiety Smoking Status: Never smoker Past Alcohol Use History: None Reported Past Drug Use History: None Reported - Past Family History Mother Family Medical History: No Reported History Additional Family Medical History / Comment(s): Mother is healthy. Father Family Medical History: No Reported History Additional Family Medical History / Comment(s): Father is healthy General Exam Limitations: no limitations General appearance: alert, in distress (due to pain ) Head exam: Present: atraumatic, normocephalic, normal inspection Eye exam: Present: normal appearance, PERRL, EOMI. Absent: scleral icterus, conjunctival injection, periorbital swelling Neck exam: Present: normal inspection, full ROM Respiratory exam: Present: normal lung sounds bilaterally. Absent: respiratory distress, wheezes, rales, rhonchi, stridor Cardiovascular Exam: Present: regular rate, normal rhythm, normal heart sounds. Absent: systolic murmur, diastolic murmur, rubs, gallop, clicks GI/Abdominal exam: Present: soft, tenderness (moderate, generalized ), normal bowel sounds. Absent: distended, guarding, rebound, rigid Back exam: Present: normal inspection. Absent: tenderness, CVA tenderness (R), CVA tenderness (L) Neurological exam: Present: alert, oriented X3, CN II-XII intact Psychiatric exam: Present: normal affect, normal mood Skin exam: Present: warm, dry, intact, normal color. Absent: rash Course Vital Signs 04/22/22 04/22/22 04/22/22 14:53 15:35 18:52 Temperature 97.4 F L 98.4 F 98.1 F Pulse Rate 77 73 78 Respiratory 24 20 18 Rate Blood Pressure 173/108 191/111 170/97 O2 Sat by Pulse 100 99 97 Oximetry 04/22/22 20:29 Temperature Pulse Rate 81 Respiratory 16 Rate Blood Pressure 163/96 O2 Sat by Pulse Oximetry - Reevaluation(s) Reevaluation #1: On reevaluation patient states pain has moderately improved. Blood pressure did decrease to 170/97. 04/23/22 18:52 Reevaluation #2: Patient is sleeping. I have checked in with nurse several times who states the lab staff are making their way to the emergency department for lab draw. 04/23/22 21:10 Reevaluation #3: Lab has still not been to patient's room to draw labs. I personally called lab myself who state they do not see request for laboratory studies. At this time a die casting supervisor did come to the emergency department and successfully miguel labs. 04/23/22 23:00 Medical Decision Making - Medical Decision Making This is a 31-year-old female who presents with intractable abdominal pain, nausea, and vomiting. Thorough history and examination were performed. Patient appears to be in pain. She is hypertensive at 173/108. Patient received hydralazine in the emergency department this afternoon but otherwise has not taken her home hypertension medications due to vomiting. She has vomited 2 times since she has been in the emergency department, nonbloody. The abdomen is soft. There is moderate tenderness in all 4 quadrants. Patient has history of type 1 diabetes, gastroparesis, and chronic kidney disease stage IV. I reviewed the previous KUB x-ray today which was unremarkable. I will repeat laboratory studies and manage symptoms. Patient given Dilaudid per requested, Zofran, Reglan, and fluid bolus. Nurse was unable to obtain blood for laboratory studies. Lab was called to obtain laboratory studies and nurse reordered labs for phlebotomy to draw. On reevaluation patient states pain has moderately improved. Blood pressure responsive to hydralizine.Laboratory studies are consistent with chronic kidney disease stage IV and stable anemia. Patient updated with results. During our conversation patient is consistently vomiting. Patient does not feel comfortable going home. Case discussed with Dr. Cameron. Patient will be admit jg for observation and symptom management. Dr. Cho is my attending. - Lab Data Result diagrams: 04/22/22 23:15 04/22/22 23:15 Lab Results 04/22/22 04/22/22 04/22/22 Range/Units 15:43 23:15 23:15 WBC 9.3 (3.8-10.6) k/uL RBC 3.22 L (3.80-5.40) m/uL Hgb 9.9 L (11.4-16.0) gm/dL Hct 29.4 L (34.0-46.0) % MCV 91.5 (80.0-100.0) fL MCH 30.8 (25.0-35.0) pg MCHC 33.6 (31.0-37.0) g/dL RDW 14.0 (11.5-15.5) % Plt Count 257 (150-450) k/uL MPV 7.3 Neutrophils % 81 % Lymphocytes % 13 % Monocytes % 4 % Eosinophils % 0 % Basophils % 1 % Neutrophils # 7.6 (1.3-7.7) k/uL Lymphocytes # 1.2 (1.0-4.8) k/uL Monocytes # 0.4 (0-1.0) k/uL Eosinophils # 0.0 (0-0.7) k/uL Basophils # 0.1 (0-0.2) k/uL Sodium 141 (137-145) mmol/L Potassium 3.9 (3.5-5.1) mmol/L Chloride 113 H (98-107) mmol/L Carbon Dioxide 23 (22-30) mmol/L Anion Gap 5 mmol/L BUN 43 H (7-17) mg/dL Creatinine 3.20 H (0.52-1.04) mg/dL Est GFR (CKD-EPI)AfAm 21 (>60 ml/min/1.73 sqM) Est GFR (CKD-EPI)NonAf 19 (>60 ml/min/1.73 sqM) Glucose 96 (74-99) mg/dL Calcium 8.2 L (8.4-10.2) mg/dL Total Bilirubin 0.3 (0.2-1.3) mg/dL AST 25 (14-36) U/L ALT 12 (4-34) U/L Alkaline Phosphatase 66 (38-126) U/L Total Protein 5.4 L (6.3-8.2) g/dL Albumin 2.9 L (3.5-5.0) g/dL Lipase 21 L (23-300) U/L Urine Color Yellow Urine Appearance Cloudy H (Clear) Urine pH 7.0 (5.0-8.0) Ur Specific [place] 1.017 (1.001-1.035) Urine Protein 4+ H (Negative) Urine Glucose (UA) 2+ H (Negative) Urine Ketones Negative (Negative) Urine Blood Moderate H (Negative) Urine Nitrite Negative (Negative) Urine Bilirubin Negative (Negative) Urine Urobilinogen <2.0 (<2.0) mg/dL Ur Leukocyte Esterase Negative (Negative) Urine RBC 11 H (0-5) /hpf Urine WBC 6 H (0-5) /hpf Ur Squamous Epith Cells 3 (0-4) /hpf Urine Bacteria Many H (None) /hpf Hyaline Casts 8 H (0-2) /lpf Urine Mucus Rare H (None) /hpf Disposition Clinical Impression: Nausea and vomiting, Gastroparesis, Abdominal pain, Chronic kidney disease (CKD), stage IV (severe), Hypoglycemia Disposition: ADMITTED IP TO THIS HOSP Condition: Fair Is patient prescribed a controlled substance at d/c from ED?: No Referrals: Deshawn Brown MD [Primary Care Provider] - 1-2 days Decision Time: 00:12
[2022-04-22 16:15] LABS: Appearance,Urine Cloudy (Clear); Bacteria,Urine Many /hpf; Bilirubin,Urine Negative (Negative); Blood,Urine Moderate (Negative); Color,Urine Yellow; Glucose,Urine (UA) 2+ (Negative); Hyaline Casts,Urine 8 /lpf (0-2); Ketones,Urine Negative (Negative); Leukocyte Esterase,Urine Negative (Negative); Mucus,Urine Rare /hpf; Nitrite,Urine Negative (Negative); Protein,Urine 4+ (Negative); RBC,Urine 11 /hpf (0-5); Specific Gravity,Urine 1.017 (1.001-1.035); Squamous Epithelial Cell,Urine 3 /hpf (0-4); Urobilinogen,Urine <2.0 mg/dL (<2.0); WBC,Urine 6 /hpf (0-5)
[2022-04-22] MEDS: ONDANSETRON 4 MG/2 ML VIAL IVP STA ×2 (16:30→23:42)
[2022-04-22] MEDS ORDERED: MORPHINE SULFATE 4 MG/ML SYRINGE IVP STA (18:52)
[2022-04-22] MEDS ORDERED: diphenhydrAMINE 50 MG/ML 1 ML VIAL IVP STA (18:55)
[2022-04-22 23:44] LABS: Basophils # (A) 0.1 k/uL (0-0.2); Basophils % (A) 1 %; Eosinophils % (A) 0 %; HCT 29.4 % (34.0-46.0); HGB 9.9 gm/dL (11.4-16.0); Lymphocytes # (A) 1.2 k/uL (1.0-4.8); Lymphocytes % (A) 13 %; MCH 30.8 pg (25.0-35.0); MCHC 33.6 g/dL (31.0-37.0); MCV 91.5 fL (80.0-100.0); Mean Platelet Volume 7.3; Monocytes # (A) 0.4 k/uL (0-1.0); Monocytes % (A) 4 %; Neutrophils # (A) 7.6 k/uL (1.3-7.7); Neutrophils % (A) 81 %; Platelet Count 257 k/uL (150-450); RBC 3.22 m/uL (3.80-5.40); WBC 9.3 k/uL (3.8-10.6)
[2022-04-22 23:55] LABS: Albumin 2.9 g/dL (3.5-5.0); Calcium 8.2 mg/dL (8.4-10.2); Potassium 3.9 mmol/L (3.5-5.1); Total Bilirubin 0.3 mg/dL (0.2-1.3); Total Protein 5.4 g/dL (6.3-8.2)
[2022-04-23] MEDS ORDERED: ONDANSETRON 4 MG/2 ML VIAL IVP STA ×2 (00:02→00:28)
[2022-04-23] MEDS ORDERED: diphenhydrAMINE 50 MG/ML 1 ML VIAL IVP STA (00:02)
[2022-04-23] MEDS ORDERED: HYDROmorphone 0.5 MG/0.5 ML SYRINGE IVP STA (00:02)
[2022-04-23] MEDS ORDERED: HALOPERIDOL LACTATE 5 MG/ML 1 ML VIAL IVP STA (00:22)
[2022-04-23] MEDS ORDERED: diphenhydrAMINE 50 MG/ML 1 ML VIAL IVP PRN (02:08)
[2022-04-23] MEDS ORDERED: PROCHLORPERAZINE INJ 10 MG/2 ML VIAL IVP PRN (02:08)
[2022-04-23] MEDS ORDERED: cloNIDine HCL 0.2 MG TAB PO PRN (02:10)
--- NOTE | 2022-04-23 02:17 | P.HPIM ---
History of Present Illness H&P Date: 04/22/22 Chief Complaint: Intractable nausea vomiting 31-year-old female CK D stage IV diabetes mellitus gastroparesis Patient comes in frequently to the hospital with similar complaints of intractable nausea vomiting due to gastroparesis. She has multiple visits to the ED with the same complaint over the past few days now presenting with intractable nausea vomiting unable to tolerate any by mouth intake denies any GI bleeding reports epigastric abdominal pain colicky in nature 8 out of 10 in severity denies any fevers or chills denies any sick contacts denies any diarrhea denies any chest pain or trouble breathing denies any coughing denies any urinary changes. Patient reports that the symptoms are classic of her gastroparesis flareup. She has an appointment scheduled with [facility] toward the end of the month for evaluation regarding gastroparesis and renal and pancreatic transplant Blood work shows stable CK D stage IV, stable chronic anemia. Review of Systems Pertinent positives as noted in HPI. All other systems were reviewed and are negative Past Medical History Past Medical History: Diabetes Mellitus, Hypertension, Pneumonia, Renal Disease Additional Past Medical History / Comment(s): IDDM type I, bilateral retinopathy with injections, DKA, IBS/constipation, bronchitis, febrile seizure at 3 yrs of age. covid positive 11/2020. kidney disease History of Any Multi-Drug Resistant Organisms: None Reported Past Surgical History: Adenoidectomy, Tonsillectomy Additional Past Surgical History / Comment(s): sinus balloon plasty, wisdom teeth extractions., right eye surgery 02/18/21. Past Anesthesia/Blood Transfusion Reactions: No Reported Reaction Additional Past Anesthesia/Blood Transfusion Reaction / Comment(s): no holliday sfusions Past Psychological History: Anxiety Additional Psychological History / Comment(s): Pt resides with 2 roomates. She has a dog. She is independent. Smoking Status: Never smoker Past Alcohol Use History: None Reported Additional Past Alcohol Use History / Comment(s): denies alcohol use at present. Past Drug Use History: None Reported Additional Drug Use History / Comment(s): stopped marijuana use in 11/2020 - Past Family History Mother Family Medical History: No Reported History Additional Family Medical History / Comment(s): Mother is healthy. Father Family Medical History: No Reported History Additional Family Medical History / Comment(s): Father is healthy Medications and Allergies Home Medications Medication Instructions Recorded Confirmed Type Atropine Ophth Soln 1% 5Ml [Isopto 1 drop LEFT EYE BID 03/13/21 04/22/22 History Atropine 1% 5Ml] Gentamicin 0.3% Ophth Soln 1 drop LEFT EYE QID 03/13/21 04/22/22 History [Garamycin 0.3% Ophth Soln] prednisoLONE ACETATE 1% OPHTH 1 drop LEFT EYE QID 03/13/21 04/22/22 History [Pred Forte 1%] Atorvastatin Calcium [Lipitor] 10 mg PO HS 03/09/22 04/22/22 History Bumetanide [BUMEX] 1 mg PO DAILY 03/09/22 04/22/22 History Ferrous Sulfate [Feosol] 325 mg PO HS 03/09/22 04/22/22 History Glucagon Emergency Kit 1 mg IM ONCE PRN 03/09/22 04/22/22 History INSULIN LISPRO (For Pump) [humaLOG 0.01 units SQ-PUMP CONTINUOUS MDD 03/09/22 04/22/22 History (For Pump)] 70 UNITS Metoclopramide [Reglan] 10 mg PO TID #15 tab 03/09/22 04/22/22 Rx Metoprolol Succinate [Toprol XL] 50 mg PO BID 03/09/22 04/22/22 History NIFEdipine XL [Procardia XL] 60 mg PO DAILY 03/09/22 04/22/22 History hydrALAZINE HCL [Apresoline] 25 mg PO Q8H PRN 03/09/22 04/22/22 History Ondansetron Odt [Zofran ODT] 4 mg PO Q8HR PRN #30 tab 03/17/22 04/22/22 Rx Domperidone 10mg 10 mg PO TID 04/02/22 04/22/22 History Metoclopramide [Reglan] 5 mg PO Q8H 04/22/22 04/22/22 History lisinopriL [Zestril] 20 mg PO BID 04/22/22 04/22/22 History Allergies Allergy/AdvReac Type Severity Reaction Status Date / Time mold AdvReac Dyspnea Verified 04/22/22 14:55 Physical Exam Vitals: Vital Signs Temp Pulse Pulse Resp BP BP Pulse Ox 04/23/22 01:49 98.5 F 84 16 190/103 98 04/22/22 23:00 83 16 191/111 99 04/22/22 20:29 81 16 163/96 04/22/22 18:52 98.1 F 78 18 170/97 97 04/22/22 15:35 98.4 F 73 20 191/111 99 04/22/22 14:53 97.4 F L 77 24 173/108 100 Intake and Output 04/22/22 04/22/22 04/23/22 14:59 22:59 06:59 Other: Weight 68.039 kg 68.039 kg Constitutional: No acute distress, conversant, pleasant Eyes: Anicteric sclerae, moist conjunctiva, Pupils equal round reactive to light ENMT: NC/AT Oropharynx clear, no erythema, or exudates Neck: Supple, no masses, or JVD No carotid bruits No thyromegaly Lungs: Clear to auscultation Clear to percussion Normal respiratory effort, no accessory muscle use Cardiovascular: Heart regular in rate and rhythm, No murmurs, gallops, or rubs No peripheral edema Abdominal: Soft Epigastric discomfort to deep palpation with diffuse abdominal discomfort with deep palpation, no guarding, rebound or rigidity Abdomen moving with respiration Normoactive bowel sounds No hepatomegaly, No splenomegaly No palpable mass No abdominal wall hernia noted Skin: Normal temperature, tone, texture, turgor No induration No subcutaneous nodules No rash, lesions No ulcers Extremities: No digital cyanosis No clubbing Pedal pulses intact and symmetrical Radial pulses intact and symmetrical No calf tenderness Psychiatric: Alert and oriented to person, place and time Appropriate affect fair judgement Neuro Muscles Strength 4/5 in all 4 extremities Sensation to light touch grossly present throughout Cranial nerves II-XII grossly intact No focal sensory deficits Lymphatics: no palpable cervical or supraclavicular , or inguinal lymph nodes Results CBC & Chem 7: 04/22/22 23:15 04/22/22 23:15 Labs: Abnormal Lab Results - Last 24 Hours (Table) 04/22/22 04/22/22 04/22/22 Range/Units 15:43 23:15 23:15 RBC 3.22 L (3.80-5.40) m/uL Hgb 9.9 L (11.4-16.0) gm/dL Hct 29.4 L (34.0-46.0) % Chloride 113 H (98-107) mmol/L BUN 43 H (7-17) mg/dL Creatinine 3.20 H (0.52-1.04) mg/dL Calcium 8.2 L (8.4-10.2) mg/dL Total Protein 5.4 L (6.3-8.2) g/dL Albumin 2.9 L (3.5-5.0) g/dL Lipase 21 L (23-300) U/L Urine Appearance Cloudy H (Clear) Urine Protein 4+ H (Negative) Urine Glucose (UA) 2+ H (Negative) Urine Blood Moderate H (Negative) Urine RBC 11 H (0-5) /hpf Urine WBC 6 H (0-5) /hpf Urine Bacteria Many H (None) /hpf Hyaline Casts 8 H (0-2) /lpf Urine Mucus Rare H (None) /hpf Assessment and Plan Assessment: Intractable nausea vomiting, gastroparesis Diabetes mellitus Hypertensive urgency Chronic anemia stable CK D stage IV stable Plan Liquid diet advance as tolerated Zofran when necessary Compazine when necessary Dilaudid and Benadryl as needed for pain Gentle IV fluid hydration normal saline Insulin sliding scale for diabetes Clonidine 0.2 mg when necessary for systolic above 180 Supportive care Monitor vital signs Full code DVT prophylaxis mechanical Anticipated length of stay less than 2 midnights
[2022-04-23] MEDS: SODIUM CHLORIDE 0.9% 1,000 ML IV SCH ×4 (02:23→23:08)
[2022-04-23] MEDS: HYDROmorphone 0.5 MG/0.5 ML SYRINGE IVP PRN ×2 (02:23→22:21)
[2022-04-23] MEDS ORDERED: INSULIN ASPART (NovoLOG) 100 UNIT/ML VIAL SQ SCH (07:30)
[2022-04-23 08:16] LABS: Glucose,Whole Blood 85 mg/dL (75-99)
[2022-04-23] MEDS: PANTOPRAZOLE 40 MG/10 ML VIAL IVP SCH ×2 (09:49→20:26)
[2022-04-23] MEDS: INSULIN ASPART (NovoLOG) 100 UNIT/ML VIAL SQ SCH ×4 (09:49→20:28)
[2022-04-23 12:00] LABS: Glucose,Whole Blood 98 mg/dL (75-99)
[2022-04-23 12:46] LABS: African American GFR (CKD) 22 (>60 ml/min/1.73 sqM); Anion Gap 2 mmol/L; Blood Urea Nitrogen 39 mg/dL (7-17); Calcium 7.3 mg/dL (8.4-10.2); Carbon Dioxide 23 mmol/L (22-30); Chloride 108 mmol/L (98-107); Glucose 85 mg/dL (74-99); Non-African American GFR(CKD) 19 (>60 ml/min/1.73 sqM); Potassium 3.6 mmol/L (3.5-5.1); Sodium 133 mmol/L (137-145)
[2022-04-23 12:47] LABS: Basophils % (A) 1 %; Eosinophils # (A) 0.1 k/uL (0-0.7); Eosinophils % (A) 1 %; HCT 23.4 % (34.0-46.0); Lymphocytes # (A) 2.1 k/uL (1.0-4.8); Lymphocytes % (A) 29 %; MCH 30.8 pg (25.0-35.0); MCHC 33.5 g/dL (31.0-37.0); MCV 91.9 fL (80.0-100.0); Mean Platelet Volume 7.4; Monocytes # (A) 0.6 k/uL (0-1.0); Monocytes % (A) 8 %; Neutrophils # (A) 4.5 k/uL (1.3-7.7); Neutrophils % (A) 60 %; Platelet Count 182 k/uL (150-450); RBC 2.55 m/uL (3.80-5.40); WBC 7.4 k/uL (3.8-10.6)
[2022-04-23 12:52] LABS: HGB 7.9 gm/dL (11.4-16.0)
[2022-04-23] MEDS ORDERED: hydrALAZINE HCL 25 MG TAB PO PRN (13:50)
[2022-04-23] MEDS ORDERED: ONDANSETRON ODT 4 MG TAB PO PRN (13:50)
[2022-04-23] MEDS ORDERED: GLUCAGON 1 MG/ML VIAL IM PRN (13:50)
[2022-04-23] MEDS ORDERED: INSULIN LISPRO (For Pump) 100 UNIT/ML VIAL SQ-PUMP SCH (14:00)
--- NOTE | 2022-04-23 14:03 | P.PN ---
Subjective Progress Note Date: 04/23/22 Chief Complaint: Intractable nausea vomiting 31-year-old female CK D stage IV diabetes mellitus gastroparesis Patient comes in frequently to the hospital with similar complaints of intractable nausea vomiting due to gastroparesis. She has multiple visits to the ED with the same complaint over the past few days now presenting with intractable nausea vomiting unable to tolerate any by mouth intake denies any GI bleeding reports epigastric abdominal pain colicky in nature 8 out of 10 in severity denies any fevers or chills denies any sick contacts denies any diarrhea denies any chest pain or trouble breathing denies any coughing denies any urinary changes. Patient reports that the symptoms are classic of her gastroparesis flareup. She has an appointment scheduled with [facility] toward the end of the month for evaluation regarding gastroparesis and renal and pancreatic transplant Blood work shows stable CK D stage IV, stable chronic anemia. Interval history: Patient was seen and examined at the bedside. She is feeling better today. She is asking to advance her diet. He denies any chest pain or shortness of breath. Blood pressure is still uncontrolled Physical examination: General: non toxic, no distress, appears at stated age Derm: warm, dry Head: atraumatic, normocephalic, symmetric Eyes: EOMI, no lid lag, anicteric sclera Mouth: no lip lesion, mucus membranes moist Cardiovascular: S1S2 reg, no murmur, positive posterior tibial pulse bilateral, Lungs: CTA bilateral, no rhonchi, no rales , no accessory muscle use Abdominal: soft, nontender to palpation, no guarding, no appreciable organo megaly Ext: no gross muscle atrophy, no edema, no contractures Neuro: CN II-XI grossly intact, no focal neuro deficits Psych: Alert, oriented, appropriate affect Assessment and plan: #Intractable nausea vomiting secondary to diabetic gastroparesis -Resume Reglan -Resume IV fluids -Advance diet to full liquid diet #Insulin-dependent type 1 diabetes mellitus -Resume insulin pump -Check A1c #Hypertensive urgency -Resume lisinopril, Toprol and nifedipine #Chronic kidney disease stage IV Objective - Vital Signs Vital signs: Vital Signs Temp 98.4 F 04/23/22 13:45 Pulse 63 04/23/22 13:45 Resp 14 04/23/22 13:45 BP 177/99 04/23/22 13:45 Pulse Ox 99 04/23/22 13:45 FiO2 Intake & Output 04/22/22 04/23/22 04/23/22 18:59 06:59 18:59 Intake Total 598 Balance 598 Weight 68.039 kg 68.039 kg Intake: Oral 598 Other: # Voids 0 2 - Labs CBC & Chem 7: 04/23/22 12:04 04/23/22 12:04 Labs: Abnormal Lab Results - Last 24 Hours (Table) 04/22/22 04/22/22 04/22/22 Range/Units 15:43 23:15 23:15 RBC 3.22 L (3.80-5.40) m/uL Hgb 9.9 L (11.4-16.0) gm/dL Hct 29.4 L (34.0-46.0) % Sodium (137-145) mmol/L Chloride 113 H (98-107) mmol/L BUN 43 H (7-17) mg/dL Creatinine 3.20 H (0.52-1.04) mg/dL Calcium 8.2 L (8.4-10.2) mg/dL Total Protein 5.4 L (6.3-8.2) g/dL Albumin 2.9 L (3.5-5.0) g/dL Lipase 21 L (23-300) U/L Urine Appearance Cloudy H (Clear) Urine Protein 4+ H (Negative) Urine Glucose (UA) 2+ H (Negative) Urine Blood Moderate H (Negative) Urine RBC 11 H (0-5) /hpf Urine WBC 6 H (0-5) /hpf Urine Bacteria Many H (None) /hpf Hyaline Casts 8 H (0-2) /lpf Urine Mucus Rare H (None) /hpf 04/23/22 04/23/22 Range/Units 12:04 12:04 RBC 2.55 L (3.80-5.40) m/uL Hgb 7.9 L D (11.4-16.0) gm/dL Hct 23.4 L (34.0-46.0) % Sodium 133 L (137-145) mmol/L Chloride 108 H (98-107) mmol/L BUN 39 H (7-17) mg/dL Creatinine 3.09 H (0.52-1.04) mg/dL Calcium 7.3 L (8.4-10.2) mg/dL Total Protein (6.3-8.2) g/dL Albumin (3.5-5.0) g/dL Lipase (23-300) U/L Urine Appearance (Clear) Urine Protein (Negative) Urine Glucose (UA) (Negative) Urine Blood (Negative) Urine RBC (0-5) /hpf Urine WBC (0-5) /hpf Urine Bacteria (None) /hpf Hyaline Casts (0-2) /lpf Urine Mucus (None) /hpf
[2022-04-23] MEDS: DOMPERIDONE 10 MG PO SCH ×2 (15:17→20:27)
[2022-04-23] MEDS: METOCLOPRAMIDE 10 MG TAB PO SCH ×2 (15:17→22:21)
[2022-04-23 16:23] LABS: Glucose,Whole Blood 118 mg/dL (75-99)
[2022-04-23] MEDS: GENTAMICIN 0.3% OPHTH DROPS 5 ML BTL LEFT EYE SCH ×2 (18:15→20:32)
[2022-04-23] MEDS: prednisoLONE ACETATE 1% OPHTH DROPS 5 ML BTL LEFT EYE SCH ×2 (18:15→20:33)
[2022-04-23 19:39] LABS: Glucose,Whole Blood 183 mg/dL (75-99)
[2022-04-23] MEDS: METOPROLOL SUCCINATE (ER) 50 MG TAB.ER.24H PO SCH (20:26)
[2022-04-23] MEDS: lisinopriL 20 MG TAB PO SCH (20:26)
[2022-04-23] MEDS: ATROPINE OPHTH SOLN 1% 5ML BTL LEFT EYE SCH (20:36)
[2022-04-23] MEDS ORDERED: FERROUS SULFATE 325 MG TAB PO SCH (21:00)
[2022-04-23] MEDS ORDERED: ATORVASTATIN 10 MG TAB PO SCH (21:00)
[2022-04-23] MEDS ORDERED: MELATONIN 5 MG TABLET PO ONE (21:15)
[2022-04-24 07:33] LABS: Glucose,Whole Blood 95 mg/dL (75-99)
[2022-04-24] MEDS: HYDROmorphone 0.5 MG/0.5 ML SYRINGE IVP PRN (07:42)
[2022-04-24] MEDS: DOMPERIDONE 10 MG PO SCH (07:42)
[2022-04-24] MEDS: lisinopriL 20 MG TAB PO SCH (07:43)
[2022-04-24] MEDS: PANTOPRAZOLE 40 MG/10 ML VIAL IVP SCH (07:43)
[2022-04-24] MEDS: METOCLOPRAMIDE 10 MG TAB PO SCH (07:43)
[2022-04-24] MEDS: METOPROLOL SUCCINATE (ER) 50 MG TAB.ER.24H PO SCH (07:43)
[2022-04-24] MEDS: SODIUM CHLORIDE 0.9% 1,000 ML IV SCH (07:44)
[2022-04-24] MEDS: GENTAMICIN 0.3% OPHTH DROPS 5 ML BTL LEFT EYE SCH (07:44)
[2022-04-24] MEDS: ATROPINE OPHTH SOLN 1% 5ML BTL LEFT EYE SCH (07:44)
[2022-04-24] MEDS: INSULIN ASPART (NovoLOG) 100 UNIT/ML VIAL SQ SCH (07:44)
[2022-04-24] MEDS: prednisoLONE ACETATE 1% OPHTH DROPS 5 ML BTL LEFT EYE SCH (07:44)
[2022-04-24 08:13] VITALS: BP 121/74; PULSE 64; RESP 16; TEMP 98.3
[2022-04-24 11:28] LABS: Basophils # (A) 0.07 X 10*3/uL (0.00-0.10); Basophils % (A) 0.9 %; Eosinophils # (A) 0.23 X 10*3/uL (0.04-0.35); HCT 22.7 % (37.2-46.3); HGB 7.5 g/dL (12.0-15.0); Immature Grans, Automated 0.3 %; Lymphocytes # (A) 2.81 X 10*3/uL (0.90-5.00); Lymphocytes % (A) 36.3 %; MCV 90.8 fL (80.0-97.0); Mean Platelet Volume 10.5 fL (9.5-12.2); Monocytes # (A) 0.71 X 10*3/uL (0.20-1.00); Monocytes % (A) 9.2 %; NRBC Per 100 WBC 0 /100 WBCS (0.0-0.0); Neutrophils % (A) 50.3 %; Platelet Count 169 X 10*3/uL (140-440); RDW 13.2 % (11.5-14.5); WBC 7.74 X 10*3/uL (4.50-10.00)
--- NOTE | 2022-04-24 11:39 | P.DS ---
Providers Date of admission: 04/23/22 01:01 Expected date of discharge: 04/24/22 Attending physician: Ese Cameron MD Primary care physician: Deshawn Brown MD Hospital Course: Chief Complaint: Intractable nausea vomiting 31-year-old female CK D stage IV diabetes mellitus gastroparesis Patient comes in frequently to the hospital with similar complaints of intractable nausea vomiting due to gastroparesis. She has multiple visits to the ED with the same complaint over the past few days now presenting with intractable nausea vomiting unable to tolerate any by mouth intake denies any GI bleeding reports epigastric abdominal pain colicky in nature 8 out of 10 in severity denies any fevers or chills denies any sick contacts denies any diarrhea denies any chest pain or trouble breathing denies any coughing denies any urinary changes. Patient reports that the symptoms are classic of her gastroparesis flareup. She has an appointment scheduled with [facility] toward the end of the month for evaluation regarding gastroparesis and renal and pancreatic transplant Blood work shows stable CK D stage IV, stable chronic anemia. Physical examination on discharge: General: non toxic, no distress, appears at stated age Derm: warm, dry Head: atraumatic, normocephalic, symmetric Eyes: EOMI, no lid lag, anicteric sclera Mouth: no lip lesion, mucus membranes moist Cardiovascular: S1S2 reg, no murmur, positive posterior tibial pulse bilateral, Lungs: CTA bilateral, no rhonchi, no rales , no accessory muscle use Abdominal: soft, nontender to palpation, no guarding, no appreciable organomegaly Ext: no gross muscle atrophy, no edema, no contractures Neuro: CN II-XI grossly intact, no focal neuro deficits Psych: Alert, oriented, appropriate affect Detailed the problem list and hospital course #Intractable nausea vomiting secondary to diabetic gastroparesis -Symptoms resolved -Patient tolerating regular diet -Diet was advanced #Type 1 diabetes mellitus -Resume insulin pump -A1c 5.8 #Hypertensive urgency -Resolved -Resume lisinopril, Toprol and nifedipine #Chronic kidney disease stage IV -Per patient Creatinine at baseline -Patient has an appointment with [facility] for possible pancreatic renal transplant Patient Condition at Discharge: Stable Plan - Discharge Summary New Discharge Prescriptions: New Pantoprazole [Protonix] 40 mg PO DAILY 30 Days #30 tab Continue prednisoLONE ACETATE 1% OPHTH [Pred Forte 1%] 1 drop LEFT EYE QID Atropine Ophth Soln 1% 5Ml [Isopto Atropine 1% 5Ml] 1 drop LEFT EYE BID NIFEdipine XL [Procardia XL] 60 mg PO DAILY Glucagon Emergency Kit 1 mg IM ONCE PRN PRN Reason: LOW BLOOD SUGAR Bumetanide [BUMEX] 1 mg PO DAILY Ondansetron Odt [Zofran ODT] 4 mg PO Q8HR PRN #30 tab PRN Reason: Nausea Gentamicin 0.3% Ophth Soln [Garamycin 0.3% Ophth Soln] 1 drop LEFT EYE QID Atorvastatin Calcium [Lipitor] 10 mg PO HS Metoprolol Succinate [Toprol XL] 50 mg PO BID hydrALAZINE HCL [Apresoline] 25 mg PO Q8H PRN PRN Reason: SYS BP >150, DIAST BP >105 INSULIN LISPRO (For Pump) [humaLOG (For Pump)] 0.01 units SQ-PUMP CONTINUOUS MDD 70 UNITS Ferrous Sulfate [Feosol] 325 mg PO HS Domperidone 10mg 10 mg PO TID lisinopriL [Zestril] 20 mg PO BID Discontinued Metoclopramide [Reglan] 5 mg PO Q8H Metoclopramide [Reglan] 10 mg PO TID #15 tab Discharge Medication List Atropine Ophth Soln 1% 5Ml [Isopto Atropine 1% 5Ml] 1 drop LEFT EYE BID 03/13/21 [History] Gentamicin 0.3% Ophth Soln [Garamycin 0.3% Ophth Soln] 1 drop LEFT EYE QID 03/13/21 [History] prednisoLONE ACETATE 1% OPHTH [Pred Forte 1%] 1 drop LEFT EYE QID 03/13/21 [History] Atorvastatin Calcium [Lipitor] 10 mg PO HS 03/09/22 [History] Bumetanide [BUMEX] 1 mg PO DAILY 03/09/22 [History] Ferrous Sulfate [Feosol] 325 mg PO HS 03/09/22 [History] Glucagon Emergency Kit 1 mg IM ONCE PRN 03/09/22 [History] INSULIN LISPRO (For Pump) [humaLOG (For Pump)] 0.01 units SQ-PUMP CONTINUOUS MDD 70 UNITS 03/09/22 [History] Metoprolol Succinate [Toprol XL] 50 mg PO BID 03/09/22 [History] NIFEdipine XL [Procardia XL] 60 mg PO DAILY 03/09/22 [History] hydrALAZINE HCL [Apresoline] 25 mg PO Q8H PRN 03/09/22 [History] Ondansetron Odt [Zofran ODT] 4 mg PO Q8HR PRN #30 tab 03/17/22 [Rx] Domperidone 10mg 10 mg PO TID 04/02/22 [History] lisinopriL [Zestril] 20 mg PO BID 04/22/22 [History] Pantoprazole [Protonix] 40 mg PO DAILY 30 Days #30 tab 04/24/22 [Rx] Follow up Appointment(s)/Referral(s): Deshawn Brown MD [Primary Care Provider] - 1-2 days Patient Instructions/Handouts: Acute Nausea and Vomiting (DC) Discharge Disposition: HOME SELF-CARE
[2022-04-24 11:40] LABS: African American GFR (CKD) 16.4 (60.0-200.0); Anion Gap 5.9 mmol/L (10.00-18.00); BUN/Creat Ratio 10.68 Ratio (12.00-20.00); Blood Urea Nitrogen 42.7 mg/dL (9.0-27.0); Calcium 7.8 mg/dL (8.7-10.3); Carbon Dioxide 23.1 mmol/L (20.0-27.5); Non-African American GFR(CKD) 14.1 (60.0-200.0); Potassium 3.9 mmol/L (3.5-5.5)
[2022-04-24] MEDS ORDERED: PANTOPRAZOLE 40 MG TABLET PO SCH (17:30)
== END 2022-04-24 09:57 | disposition home or self-care (01) ==
LOC: EC 14:43 → 6NMEDSUR 04-23 01:01
PROVIDERS: ADMIT Internal Medicine; ATTEND Internal Medicine
DX: E10.43 Type 1 diabetes mellitus with diabetic autonomic (poly)neuropathy (principal); K31.84 Gastroparesis; I16.0 Hypertensive urgency; I12.9 Hypertensive chronic kidney disease with stage 1 through stage 4 chronic kidney disease, or unspecified chronic kidney disease; N18.4 Chronic kidney disease, stage 4 (severe); E10.319 Type 1 diabetes mellitus with unspecified diabetic retinopathy without macular edema; E10.22 Type 1 diabetes mellitus with diabetic chronic kidney disease; K58.1 Irritable bowel syndrome with constipation; F41.9 Anxiety disorder, unspecified; E10.649 Type 1 diabetes mellitus with hypoglycemia without coma; D63.1 Anemia in chronic kidney disease; Z96.41 Presence of insulin pump (external) (internal); Z79.4 Long term (current) use of insulin; Z79.899 Other long term (current) drug therapy; Z91.048 Other nonmedicinal substance allergy status; Z87.01 Personal history of pneumonia (recurrent); Z86.16 Personal history of COVID-19; Z98.890 Other specified postprocedural states
CPT/HCPCS: 96376 ×4; 96375 ×3; 96361 ×2; 96374; 99285; 36415; 80053; 80048 ×2; 83690; 83735; 85025 ×3; 81001; 83036; G0378 ×2; J0360; J1200 ×2; J0780; J2765; J2405; C9113 ×2; J1170 ×3